=== PATIENT | female | born 1950 | race Caucasian/White ===

== ENCOUNTER → 2017-02-20 | Outpatient (CLI) | payer OTHER ==
[~2017-02-20] MED LIST: ALBUAER2 INH; AMB5 PO; AMLO2.5T PO; ASPEC81 PO; CALC-393 PO; CALCTAB5 PO; FEXO1TAB49 PO; FLNIN NAE; FLNIN/ NAE; LEVO88TA3 PO; LISI40TA PO; METH4PAK PO; NRV/10 PO; PRLSR20 PO; RANI150T3 PO; SIMV20TA2 PO; SNG10 PO; VNTHFA/IN INH; [UNRECOGNIZED DRUG - CODE] PO
--- NOTE | 2017-02-20 13:41 | DIAGNOSTIC IMAGING REPORT ---
LEFT KNEE 4 OR MORE CLINICAL HISTORY: LEFT KNEE PAIN COMPARISON STUDY: Left knee 09/24/2010. FINDINGS: Moderate cartilage space narrowing and marginal osteophytes within the medial compartments of the bilateral knees. No fracture or dislocation. No significant left knee effusion. There is mild left patellofemoral osteoarthritis. IMPRESSION: No fractures within the left knee. Bilateral knee osteoarthritis as described above Electronically signed by: Butch Balderas M.D. 02/20/2017 1:39 PM Dictated Date/Time: 02/20/2017 1:37 PM
--- NOTE | 2017-02-20 13:43 | DIAGNOSTIC IMAGING REPORT ---
LEG LENGTH STUDY (WHOLE LEG) CLINICAL HISTORY: Left knee pain. COMPARISON STUDY: No previous studies for comparison. FINDINGS: Right femur measures 44.2 cm and right tibia measures 35.6 cm. The left femur measures 44.2 cm and the left tibia measures 35.5 cm. IMPRESSION: Right femur length of 44.2 cm and right tibia length of 35.6 cm for a right leg length of 79.8 cm. Left femur length of 44.2 cm and left tibia length of 35.5 cm for a left leg length of 79.7 cm. Electronically signed by: Jimenez Mckeon M.D. 02/20/2017 1:41 PM Dictated Date/Time: 02/20/2017 1:37 PM
== END | disposition home or self-care (01) ==
LOC: C.RDSM 11:11
PROVIDERS: ATTEND Physician Assistant
DX: M17.9 Osteoarthritis of knee, unspecified (principal)

== ENCOUNTER 2017-04-18 12:00 | Inpatient (IN) | payer OTHER ==
[~2017-04-18] VITALS: Ht 160 cm; Wt 65.5 kg
[~2017-04-18 12:00] MED LIST changes: -AMB5 PO; -CALC-393 PO; -FLNIN/ NAE; -METH4PAK PO; -NRV/10 PO; -RANI150T3 PO; -SNG10 PO; -VNTHFA/IN INH; -[UNRECOGNIZED DRUG - CODE] PO
[2017-04-18] MEDS ORDERED: ONDANSETRON INJ 2 MG/ML 2 ML VIAL IV STA (12:20)
[2017-04-18] MEDS ORDERED: SODIUM CHLORIDE 0.9% 500ML 500 ML IV STA (12:20)
[2017-04-18 13:00] LABS: BASO % 0.2 %; BASO ABS # 0.02 K/uL (0-0.2); COMPLETE YES; EOS % 2.5 %; HEMATOCRIT 42.3 % (37-47); IG% 0.1 %; LYMPH % 13.9 %; LYMPH ABS # 1.48 K/uL (1.2-3.4); MEAN CELL VOLUME 86.2 fL (80-100); MEAN CORPUSCULAR HEMOGLOBIN 29.3 pg (25-34); MONO % 3.1 %; NEUT % 80.2 %; PLATELET COUNT 206 K/uL (130-400); RED BLOOD COUNT 4.91 M/uL (4.2-5.4); WHITE BLOOD COUNT 10.66 K/uL (4.8-10.8)
[2017-04-18] MEDS ORDERED: OPTIRAY 320 IV PRN (13:00)
[2017-04-18] MEDS ORDERED: MoRPHine SULFATE 4 MG/ML 1 ML CARP\\VIAL IV STA (13:06)
[2017-04-18] MEDS ORDERED: CALC-393 PO (13:27)
[2017-04-18] MEDS ORDERED: [UNRECOGNIZED DRUG - CODE] PO (13:27)
[2017-04-18] MEDS ORDERED: FLNIN/ NAE (13:27)
[2017-04-18] MEDS ORDERED: VNTHFA/IN INH (13:27)
[2017-04-18] MEDS ORDERED: NRV/10 PO (13:28)
[2017-04-18] MEDS ORDERED: SNG10 PO (13:29)
[2017-04-18 13:32] LABS: PREG INTERNAL NEGATIVE QC NEG CLEAR BACKGROUND; PREG INTERNAL POSITIVE QC POS CONTROL LINE
[2017-04-18 13:35] LABS: URINE APPEARANCE CLEAR (CLEAR); URINE BILIRUBIN NEG (NEG); URINE COLOR DK YELLOW; URINE NITRITE NEG (NEG); URINE SPECIFIC GRAVITY 1.028 (1.000-1.030); UROBILINOGEN NEG (NEG); ZZUR CULT IF INDIC CLEAN CATCH NO
[2017-04-18 13:36] LABS: MANUAL MICROSCOPIC REQUIRED? NO; REVIEW REQ? NO
[2017-04-18 13:40] LABS: ALKALINE PHOSPHATASE 83 U/L (45-117); ALT/SGPT 93 U/L (12-78); BLOOD UREA NITROGEN 21 mg/dl (7-18); BUN/CREATININE RATIO 23.6 (10-20); CALCIUM 8.9 mg/dl (8.5-10.1); CARBON DIOXIDE 26 mmol/L (21-32); CHLORIDE 105 mmol/L (98-107); GLUCOSE 108 mg/dl (70-99); SODIUM 139 mmol/L (136-145)
--- NOTE | 2017-04-18 14:54 | DIAGNOSTIC IMAGING REPORT ---
CT ABD/PELVIS IV CONTRAST ONLY CLINICAL HISTORY: epigastric abd pain COMPARISON STUDY: None. TECHNIQUE: Following the IV administration of 117 mL of Optiray-320, CT scan of the abdomen and pelvis was performed from the lung bases to the proximal femurs. Images are reviewed in the axial, sagittal, and coronal planes. IV contrast was administered without complication. CT DOSE: 284.36 mGy.cm FINDINGS: Lower chest: There is slight mosaic attenuation. There are right middle lobe atelectatic changes. There is a branching right middle lobe opacity, possibly secondary to mucoid impaction. Liver: The contrast-enhanced liver is normal in size, contour, and attenuation. There is no intrahepatic biliary ductal dilatation. The hepatic veins and portal veins are patent. Gallbladder: Not visualized and presumed surgically absent. Spleen: Normal in size and attenuation. Pancreas: Unremarkable. Adrenal glands: Unremarkable. Kidneys: There is symmetric renal cortical enhancement. The kidneys are normal in size without hydronephrosis. Bowel: There are no transition zones indicate bowel obstruction. There is no evidence of acute diverticulitis. The appendix appears normal. Borderline left colonic wall thickening is likely secondary to a nondistended segment. Peritoneum: There is no intraperitoneal free air or abdominal ascites. Vasculature: The abdominal aorta is normal in course and caliber. Adenopathy: None. Pelvic viscera: The uterus appears surgically absent Skeletal structures: There are multilevel degenerative changes. There is a prominent disc osteophyte complex at the L5-S1 level. IMPRESSION: 1. No evidence of bowel obstruction. No evidence of free air 2. Normal appendix 3. No evidence of acute diverticulitis. No CT evidence of peripancreatic inflammatory change 4. Branching opacity within the right middle lobe, possibly representing mucoid impaction Electronically signed by: Bora Corbett M.D. 04/18/2017 2:52 PM Dictated Date/Time: 04/18/2017 2:47 PM
--- NOTE | 2017-04-18 15:28 | EMERGENCY ROOM VISIT NOTE ---
History Report prepared by Alexandro: Dave Choudhury Under the Supervision of: Dr. Ajit Hernandez D.O. First contact with patient: 12:10 Chief Complaint: ABDOMINAL PAIN Stated Complaint: STOMACH PAINS Nursing Triage Summary: c/o epigastric stomache spasms that makes it hard to breathe and goes to her back that started today History of Present Illness The patient is a 66 year old female who presents to the Emergency Room with complaints of intermittent upper abdominal pain beginning this morning. She describes the pain as "spasms". She states that eating worsens her pain. She does not that she has a significant amount of nausea and feels like she is going to vomit. The patient states that nothing improves her symptoms. She also complains of diarrhea and nausea. She has a history of a cholecystectomy. Pt denies headache, change in vision, fevers, chest pain, diarrhea, pain with urination, and melena. The patient states that it is hard to breath when her pain is present. Her last normal bowel movement was three hours ago. Source of History: patient Onset: this morning Position: abdomen (upper) Quality: other ("spasms") Timing: intermittent Modifying Factors (Worsening): eating Associated Symptoms: + nausea, + diarrhea, No fevers, No chest pain, No vomiting, No urinary symptoms Review of Systems See HPI for pertinent positives & negatives. A total of 10 systems reviewed and were otherwise negative. 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 Social History Smoking Status: Never Smoker Current/Historical Medications Scheduled Amlodipine Besylate (Amlodipine Besylate), 10 MG PO QPM Aspirin (Aspirin Enteric Coated Ad), 81 MG PO QPM Calcium Carbonate (Calcium), 600 MG PO QPM Levothyroxine Sodium (Levothyroxine Sodium), 88 MCG PO DAILY Lisinopril (Prinivil), 40 MG PO QPM Montelukast Sod (Montelukast Sodium), 10 MG PO QPM Omeprazole (Prilosec), 40 MG PO DAILY Simvastatin (Zocor), 20 MG PO QPM Scheduled PRN Albuterol Hfa (Ventolin Hfa), 2 PUFFS INH QID PRN for Wheezing Fexofenadine Hcl (Yolande Allergy), 1 TAB PO DAILY PRN for ALLERGIC REACTION Fluticasone Propionate (Fluticasone Propionate), 2 SPRAY NICA DAILY PRN for Nasal Congestion Allergies Coded Allergies: Amoxicillin (Verified Allergy, Unknown, GI SYMPTOMS,ITCH, 04/18/17) Clavulanic Acid (Verified Allergy, Unknown, GI SYMPTOMS,ITCH, 04/18/17) Physical Exam Vital Signs Date Time Temp Pulse Resp B/P (MAP) Pulse Ox O2 Delivery O2 Flow Rate FiO2 04/18/17 14:55 70 18 143/64 99 Room Air 04/18/17 13:14 76 18 147/67 99 Room Air 04/18/17 12:07 36.3 87 16 141/75 99 Physical Exam GENERAL: Sitting up in bed, alert, well appearing, well nourished, no distress, non-toxic EYE EXAM: normal conjunctiva OROPHARYNX: no exudate, no erythema, lips, buccal mucosa, and tongue normal and mucous membranes are moist NECK: supple, no nuchal rigidity, no adenopathy, non-tender LUNGS: Clear to auscultation. Normal chest wall mechanics HEART: no murmurs, S1 normal and S2 normal ABDOMEN: abdomen soft,Minimal tenderness to the supraumbilical region. normo- active bowel sounds, no masses, no rebound or guarding. BACK: Back is symmetrical on inspection and there is no deformity, no midline tenderness, no CVA tenderness. SKIN: no rashes and no bruising UPPER EXTREMITIES: upper extremities are grossly normal. LOWER EXTREMITIES: No pitting edema. NEURO EXAM: Normal sensorium, cranial nerves II-XII grossly intact, normal speech, no gross weakness of arms, no gross weakness of legs. Medical Decision & Procedures ER Provider Diagnostic Interpretation: CT:Per my review, radiologist interpretation. CT ABD/PELVIS IV CONTRAST ONLY FINDINGS: Lower chest: There is slight mosaic attenuation. There are right middle lobe atelectatic changes. There is a branching right middle lobe opacity, possibly secondary to mucoid impaction. Liver: The contrast-enhanced liver is normal in size, contour, and attenuation. There is no intrahepatic biliary ductal dilatation. The hepatic veins and portal veins are patent. Gallbladder: Not visualized and presumed surgically absent. Spleen: Normal in size and attenuation. Pancreas: Unremarkable. Adrenal glands: Unremarkable. Kidneys: There is symmetric renal cortical enhancement. The kidneys are normal in size without hydronephrosis. Bowel: There are no transition zones indicate bowel obstruction. There is no evidence of acute diverticulitis. The appendix appears normal. Borderline left colonic wall thickening is likely secondary to a nondistended segment. Peritoneum: There is no intraperitoneal free air or abdominal ascites. Vasculature: The abdominal aorta is normal in course and caliber. Adenopathy: None. Pelvic viscera: The uterus appears surgically absent Skeletal structures: There are multilevel degenerative changes. There is a prominent disc osteophyte complex at the L5-S1 level. IMPRESSION: 1. No evidence of bowel obstruction. No evidence of free air 2. Normal appendix 3. No evidence of acute diverticulitis. No CT evidence of peripancreatic inflammatory change 4. Branching opacity within the right middle lobe, possibly representing mucoid impaction Electronically signed by: Bora Corbett M.D. Laboratory Results 04/18/17 12:30 Red Blood Count 4.91, Mean Corpuscular Volume 86.2, Mean Corpuscular Hemoglobin 29.3, Mean Corpuscular Hemoglobin Concent 34.0, Mean Platelet Volume 10.0, Neutrophils (%) (Auto) 80.2, Lymphocytes (%) (Auto) 13.9, Monocytes (%) (Auto) 3.1, Eosinophils (%) (Auto) 2.5, Basophils (%) (Auto) 0.2, Neutrophils # (Auto) 8.55, Lymphocytes # (Auto) 1.48, Monocytes # (Auto) 0.33, Eosinophils # (Auto) 0.27, Basophils # (Auto) 0.02 04/18/17 12:30 Test 04/18/17 12:30 White Blood Count 10.66 K/uL (4.8-10.8) Red Blood Count 4.91 M/uL (4.2-5.4) Hemoglobin 14.4 g/dL (12.0-16.0) Hematocrit 42.3 % (37-47) Mean Corpuscular Volume 86.2 fL (80-100) Mean Corpuscular Hemoglobin 29.3 pg (25-34) Mean Corpuscular Hemoglobin Concent 34.0 g/dl (32-36) Platelet Count 206 K/uL (130-400) Mean Platelet Volume 10.0 fL (7.4-10.4) Neutrophils (%) (Auto) 80.2 % Lymphocytes (%) (Auto) 13.9 % Monocytes (%) (Auto) 3.1 % Eosinophils (%) (Auto) 2.5 % Basophils (%) (Auto) 0.2 % Neutrophils # (Auto) 8.55 K/uL (1.4-6.5) Lymphocytes # (Auto) 1.48 K/uL (1.2-3.4) Monocytes # (Auto) 0.33 K/uL (0.11-0.59) Eosinophils # (Auto) 0.27 K/uL (0-0.5) Basophils # (Auto) 0.02 K/uL (0-0.2) RDW Standard Deviation 41.2 fL (36.4-46.3) RDW Coefficient of Variation 13.1 % (11.5-14.5) Immature Granulocyte % (Auto) 0.1 % Immature Granulocyte # (Auto) 0.01 K/uL (0.00-0.02) Urine Color DK YELLOW Urine Appearance CLEAR (CLEAR) Urine pH 5.0 (4.5-7.5) Urine Specific [place] 1.028 (1.000-1.030) Urine Protein NEG (NEG) Urine Glucose (UA) NEG (NEG) Urine Ketones NEG (NEG) Urine Occult Blood NEG (NEG) Urine Nitrite NEG (NEG) Urine Bilirubin NEG (NEG) Urine Urobilinogen NEG (NEG) Urine Leukocyte Esterase NEG (NEG) Urine WBC (Auto) 1-5 /hpf (0-5) Urine RBC (Auto) 0-4 /hpf (0-4) Urine Hyaline Casts (Auto) 1-5 /lpf (0-5) Urine Epithelial Cells (Auto) 10-20 /lpf (0-5) Urine Bacteria (Auto) NEG (NEG) Urine Test NEG (NEG) Anion Gap 8.0 mmol/L (3-11) Est Creatinine Clear Calc Drug Dose 55.4 ml/min Estimated GFR () 76.7 Estimated GFR (Non- 66.2 BUN/Creatinine Ratio 23.6 (10-20) Calcium Level 8.9 mg/dl (8.5-10.1) Total Bilirubin 0.6 mg/dl (0.2-1) Direct Bilirubin mg/dl (0-0.2) Aspartate Amino Transf (AST/SGOT) U/L (15-37) Alanine Aminotransferase (ALT/SGPT) 93 U/L (12-78) Alkaline Phosphatase 83 U/L (45-117) Total Protein 7.4 gm/dl (6.4-8.2) Albumin 4.1 gm/dl (3.4-5.0) Lipase 2727 U/L (73-393) Laboratory results per my review. Medications Administered Medications (Trade) Dose Ordered Sig/Elizabet Route Start Time Stop Time Status Last Admin Dose Admin Sodium Chloride 500 ml @ 999 mls/hr Q31M STAT IV 04/18/17 12:20 04/18/17 12:50 DC 04/18/17 12:20 999 MLS/HR Ondansetron HCl (Zofran Inj) 4 mg NOW STAT IV 04/18/17 12:20 04/18/17 12:21 DC 04/18/17 13:13 4 MG Morphine Sulfate (MoRPHine SULFATE INJ) 4 mg NOW STAT IV 04/18/17 13:06 04/18/17 13:07 DC 04/18/17 13:14 4 MG ED Course ED COURSE: Vital signs were reviewed and showed hypertension The patients medical record was reviewed The above diagnostic studies were performed and reviewed. ED treatments and interventions as stated above. 1212: The patient was evaluated in room B6. A complete history and physical examination was performed. 1220: Ordered Zofran Inj 4 mg IV, Sodium Chloride 500 ml @ 999 mls/hr IV. 1306: Ordered Morphine Sulfate 4 mg IV. 1401: Upon reevaluation, the patient is resting comfortably. I discussed my findings with the patient and she understands and agrees with the treatment plan. Based on the patients age, coexisting illnesses, exam and lab findings the decision to treat as an inpatient was made. The patient remained stable while under my care. The patient will be evaluated for further management. Medical Decision Differential diagnoses includes but is not limited to gastritis, peptic ulcer disease, GERD, gallbladder disease, pancreatitis, small bowel obstruction, acute coronary syndrome, pericarditis, ischemic bowel, irritable bowel disease, irritable bowel syndrome, appendicitis, diverticulitis, malignancy, hernia, urinary tract infection, torsion, [/ectopic (if female)], perforation, trauma, infectious. Patient is a 66-year-old female who presents the ER for epigastric abdominal pain associated with nausea and the feeling of vomiting. Labs show a lipase of 2000. She has a previous cholecystectomy. CT of the abdomen and pelvis was otherwise unremarkable. Patient was given IV fluids and pain medications. She was admitted to internal medicine for pancreatitis. Consults Time Called: 1616 Consulting Physician: Dr. Matheus Uribe Returned Call: 1401 I reviewed the patient's case with Dr. Jarvis. She will evaluate the patient for further management. Impression Primary Impression: Pancreatitis Scribe Attestation The scribe's documentation has been prepared under my direction and personally reviewed by me in its entirety. I confirm that the note above accurately reflects all work, treatment, procedures, and medical decision making performed by me. Departure Information Dispostion Being Evaluated By Hospitalist Referrals Jose Antonio Almazan M.D. (PCP) Patient Instructions My [facility] Problem Qualifiers Primary Impression: Pancreatitis Chronicity: acute Pancreatitis type: unspecified pancreatitis type Acute pancreatitis complication: unspecified Qualified Codes: K85.90 - Acute pancreatitis without necrosis or infection, unspecified
[2017-04-18 17:42] VITALS: O2SAT 96
[2017-04-18] MEDS ORDERED: ACETAMINOPHEN 325 MG TAB PO PRN (17:45)
[2017-04-18] MEDS ORDERED: ONDANSETRON INJ 2 MG/ML 2 ML VIAL IV PRN (17:45)
[2017-04-18] MEDS ORDERED: MoRPHine SULFATE 2 MG/ML CARP IV PRN (17:45)
[2017-04-18] MEDS ORDERED: ALBUTEROL HFA 8 GM INHALER INH PRN (18:00)
[2017-04-18] MEDS ORDERED: FLUTICASONE PROPIONATE NA SPR 16 GM BTL NAE PRN (18:00)
--- NOTE | 2017-04-18 18:03 | History and Physical ---
History & Physical Date & Time of Service: Apr 18, 2017 at 17:48 Chief Complaint: Stomach Pains Primary Care Physician: Jose Antonio Almazan M.D. History of Present Illness Source: patient, clinic records, hospital records 66 yo F presents with several hours of worsening abdominal pain and persistent diarrhea. She awoke this morning feeling intermittent spasms in her epigastric area. She began having diarrhea and thought if she ate this would help her feel better so she ate some toast. She continued to have intermittent pains that would last 10 minutes at a time along with several more bouts of diarrhea. Although she felt nautious she never vomited. She denies any blood in her stool. She denies ever having a pain like this in the past. She denies any fevers, chills, chest pain, headaches, visual changes, sore throat, cough, urinary symptoms, weight gain or recent travel. She reports eating a pork sandwich w BBQ sauce on it from [employer] last night and otherwise had some food at home only yesterday. Her also ate there but didn't have the same dish and he is not ill today. On arrival to the ER she got some IVF, morphine and Zofran and feels better. Her lipase is >2000 and she has localized epigastric tenderness on exam with normoactive bowel sounds. CT a/p was negative. h/o j luis in the past for gallstones, and she doesn't use alcohol. No recent abx use and only medication change was a change in Norvasc from 5 to 10mg. She does have some SOB only when the spasming is present but is not hypoxic. Past Medical/Surgical History Medical Problems: (1) Dyslipidemia Status: Chronic (2) Hearing Loss Nos Status: Chronic (3) Hx Of Breast Malignancy Status: Resolved (4) Hypertension Nos Status: Chronic (5) Hypothyroidism Nos Status: Chronic Surgical Problems: (1) Status post breast lumpectomy Status: Resolved (2) Status post excision of acoustic neuroma Status: Resolved (3) Status post hysterectomy Status: Resolved Family History Patient reports no known family medical history. Social History Smoking Status: Never Smoker Smokeless Tobacco Use: No Alcohol Use: none Drug Use: none Marital Status: Housing status: lives with significant other Occupational Status: retired Immunizations History of Influenza Vaccine: Yes Influenza Vaccine Date: Aug 29, 2016 History of Tetanus Vaccine?: Yes Tetanus Immunization Date: Jan 21, 2013 History of Pneumococcal: Yes Pneumococcal Date: Dec 14, 2015 History of Hepatitis B Vaccine: No Multi-Drug Resistant Organisms History of MDRO: No Allergies Coded Allergies: Amoxicillin (Verified Allergy, Unknown, GI SYMPTOMS,ITCH, 04/18/17) Clavulanic Acid (Verified Allergy, Unknown, GI SYMPTOMS,ITCH, 04/18/17) Home Medications Scheduled Amlodipine Besylate (Amlodipine Besylate), 10 MG PO QPM Aspirin (Aspirin Enteric Coated Ad), 81 MG PO QPM Calcium Carbonate (Calcium), 600 MG PO QPM Levothyroxine Sodium (Levothyroxine Sodium), 88 MCG PO DAILY Lisinopril (Prinivil), 40 MG PO QPM Montelukast Sod (Montelukast Sodium), 10 MG PO QPM Omeprazole (Prilosec), 40 MG PO DAILY Simvastatin (Zocor), 20 MG PO QPM Scheduled PRN Albuterol Hfa (Ventolin Hfa), 2 PUFFS INH QID PRN for Wheezing Fexofenadine Hcl (Yolande Allergy), 1 TAB PO DAILY PRN for ALLERGIC REACTION Fluticasone Propionate (Fluticasone Propionate), 2 SPRAY NICA DAILY PRN for Nasal Congestion Review of Systems Ten systems were reviewed and negative except as indicated in HPI. Physical Exam Vital Signs Date Time Temp Pulse Resp B/P (MAP) Pulse Ox O2 Delivery O2 Flow Rate FiO2 04/18/17 17:42 76 18 156/78 96 Room Air 04/18/17 14:55 70 18 143/64 99 Room Air 04/18/17 13:14 76 18 147/67 99 Room Air 04/18/17 12:07 36.3 87 16 141/75 99 GEN: WNWD, in no acute distress, alert and appropriate HEENT: NC/AT, PERRL, normal sclerae/conjunctivae, MMM, EOMI, pharynx nonacute. CARDIO: reg rate, S1/2 heard without m/g/r, no chest wall tenderness to palpation LUNGS: CTA bilaterally, no crackles, rales or wheezes, good diaphragmatic excursion ABD: soft, TTP in epigastric region only, non-distended, no rebound or guarding , +BS-normoactive. EXTREMITY: RP and DP palpable 2+ bilat, no LE swelling or edema, extremities are warm and well-perfused NEURO: CN 2-12 intact, sensation intact throughout MUSC: 5/5 strength throughout, no focal deficits SKIN: warm and dry Diagnostics Laboratory Results Results Past 24 Hours Test 04/18/17 12:30 Range/Units White Blood Count 10.66 4.8-10.8 K/uL Red Blood Count 4.91 4.2-5.4 M/uL Hemoglobin 14.4 12.0-16.0 g/dL Hematocrit 42.3 37-47 % Mean Corpuscular Volume 86.2 80-100 fL Mean Corpuscular Hemoglobin 29.3 25-34 pg Mean Corpuscular Hemoglobin Concent 34.0 32-36 g/dl Platelet Count 206 130-400 K/uL Mean Platelet Volume 10.0 7.4-10.4 fL Neutrophils (%) (Auto) 80.2 % Lymphocytes (%) (Auto) 13.9 % Monocytes (%) (Auto) 3.1 % Eosinophils (%) (Auto) 2.5 % Basophils (%) (Auto) 0.2 % Neutrophils # (Auto) 8.55 1.4-6.5 K/uL Lymphocytes # (Auto) 1.48 1.2-3.4 K/uL Monocytes # (Auto) 0.33 0.11-0.59 K/uL Eosinophils # (Auto) 0.27 0-0.5 K/uL Basophils # (Auto) 0.02 0-0.2 K/uL RDW Standard Deviation 41.2 36.4-46.3 fL RDW Coefficient of Variation 13.1 11.5-14.5 % Immature Granulocyte % (Auto) 0.1 % Immature Granulocyte # (Auto) 0.01 0.00-0.02 K/uL Urine Color DK YELLOW Urine Appearance CLEAR CLEAR Urine pH 5.0 4.5-7.5 Urine Specific [place] 1.028 1.000-1.030 Urine Protein NEG NEG Urine Glucose (UA) NEG NEG Urine Ketones NEG NEG Urine Occult Blood NEG NEG Urine Nitrite NEG NEG Urine Bilirubin NEG NEG Urine Urobilinogen NEG NEG Urine Leukocyte Esterase NEG NEG Urine WBC (Auto) 1-5 0-5 /hpf Urine RBC (Auto) 0-4 0-4 /hpf Urine Hyaline Casts (Auto) 1-5 0-5 /lpf Urine Epithelial Cells (Auto) 10-20 0-5 /lpf Urine Bacteria (Auto) NEG NEG Urine Test NEG NEG Sodium Level 139 136-145 mmol/L Potassium Level 3.5-5.1 mmol/L Chloride Level 105 98-107 mmol/L Carbon Dioxide Level 26 21-32 mmol/L Anion Gap 8.0 3-11 mmol/L Blood Urea Nitrogen 21 7-18 mg/dl Creatinine 0.90 0.60-1.20 mg/dl Est Creatinine Clear Calc Drug Dose 55.4 ml/min Estimated GFR () 76.7 Estimated GFR (Non- 66.2 BUN/Creatinine Ratio 23.6 10-20 Random Glucose 108 70-99 mg/dl Calcium Level 8.9 8.5-10.1 mg/dl Total Bilirubin 0.6 0.2-1 mg/dl Direct Bilirubin 0-0.2 mg/dl Aspartate Amino Transf (AST/SGOT) 15-37 U/L Alanine Aminotransferase (ALT/SGPT) 93 12-78 U/L Alkaline Phosphatase 83 45-117 U/L Total Protein 7.4 6.4-8.2 gm/dl Albumin 4.1 3.4-5.0 gm/dl Lipase 2727 73-393 U/L Diagnostic Radiology CT ABD/PELVIS IV CONTRAST ONLY CLINICAL HISTORY: epigastric abd pain COMPARISON STUDY: None. TECHNIQUE: Following the IV administration of 117 mL of Optiray-320, CT scan of the abdomen and pelvis was performed from the lung bases to the proximal femurs. Images are reviewed in the axial, sagittal, and coronal planes. IV contrast was administered without complication. CT DOSE: 284.36 mGy.cm FINDINGS: Lower chest: There is slight mosaic attenuation. There are right middle lobe atelectatic changes. There is a branching right middle lobe opacity, possibly secondary to mucoid impaction. Liver: The contrast-enhanced liver is normal in size, contour, and attenuation. There is no intrahepatic biliary ductal dilatation. The hepatic veins and portal veins are patent. Gallbladder: Not visualized and presumed surgically absent. Spleen: Normal in size and attenuation. Pancreas: Unremarkable. Adrenal glands: Unremarkable. Kidneys: There is symmetric renal cortical enhancement. The kidneys are normal in size without hydronephrosis. Bowel: There are no transition zones indicate bowel obstruction. There is no evidence of acute diverticulitis. The appendix appears normal. Borderline left colonic wall thickening is likely secondary to a nondistended segment. Peritoneum: There is no intraperitoneal free air or abdominal ascites. Vasculature: The abdominal aorta is normal in course and caliber. Adenopathy: None. Pelvic viscera: The uterus appears surgically absent Skeletal structures: There are multilevel degenerative changes. There is a prominent disc osteophyte complex at the L5-S1 level. IMPRESSION: 1. No evidence of bowel obstruction. No evidence of free air 2. Normal appendix 3. No evidence of acute diverticulitis. No CT evidence of peripancreatic inflammatory change 4. Branching opacity within the right middle lobe, possibly representing mucoid impaction EKG SR 82 Impression Assessment and Plan 66 yo F with no h/o pancreatitis presents today with acute pancreatitis. 1. Acute pancreatitis-likely 2/2 food borne illness in the setting of acute diarrhea and eating out last night. However, other etiologies include but not limited to spasms of bile duct, high triglycerides, bacterial, viral or fungal infection, She will be continued on supportive care for now keeping NPO except for ice chips with small sips and a limited amount of PO meds. Stool studies have been ordered. Morphine for pain, Zofran for nausea. Monitor overnight on telemetry 2. Hypothyroidism-TSH pending for am, cont Synthroid at home dose 3. 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 h/o hiatal hernia DVT proph-Lovenox 40mg FULL CODE Dispo-to telemetry overnight DO Ralph Monk Hospitalist Level of Care Telemetry Resuscitation Status FULL RESUSCITATION VTE Prophylaxis VTE Risk Assessment Done? Y/N: Yes Risk Level: Moderate Given or contraindicated: Enoxaparin (Lovenox)SQ
[2017-04-18] MEDS: SODIUM CHLORIDE 0.9% 1000ML 1,000 ML IV SCH ×2 (18:19→22:44)
[2017-04-18 18:20] VITALS: Ht 160 cm; Wt 65.5 kg
[2017-04-18 18:38] VITALS: BP 150/71; PULSE 79; TEMP 36.9; O2SAT 95
[2017-04-18] MEDS ORDERED: NURSING VERBAL MED ORDER ONE ×2 (19:15→22:30)
[2017-04-18] MEDS ORDERED: LEVOTHYROXINE 88 MCG TAB PO SCH (21:00)
[2017-04-18] MEDS ORDERED: LISINOPRIL 40 MG TAB PO SCH (21:00)
[2017-04-18] MEDS: AMLODIPINE BESYLATE 5 MG TAB PO SCH (21:27)
[2017-04-18] MEDS: LISINOPRIL 40 MG TAB PO SCH (21:27)
[2017-04-18] MEDS: PANTOprazole SOD 40 MG TAB PO SCH (21:27)
[2017-04-19] VITALS (7 sets, daily range): BP systolic 104–145; BP diastolic 61–77; PULSE 62–85; TEMP 36.4–37.1; O2SAT 95–98
[2017-04-19] MEDS ORDERED: MONTELUKAST SOD 10 MG TAB PO ONE (01:38)
[2017-04-19] MEDS: LEVOTHYROXINE 88 MCG TAB PO SCH (05:58)
[2017-04-19] MEDS ORDERED: LEVOTHYROXINE 88 MCG TAB PO SCH (06:30)
[2017-04-19 07:46] LABS: BASO % 0.8 %; BASO ABS # 0.03 K/uL (0-0.2); COMPLETE YES; EOS % 4.9 %; HEMATOCRIT 40.3 % (37-47); LYMPH % 28.1 %; LYMPH ABS # 1.09 K/uL (1.2-3.4); MEAN CELL VOLUME 86.9 fL (80-100); MEAN CORPUSCULAR HEMOGLOBIN 29.7 pg (25-34); MEAN CORPUSCULAR HGB CONC 34.2 g/dl (32-36); MEAN PLATELET VOLUME 9.9 fL (7.4-10.4); MONO % 4.4 %; NEUT % 61.8 %; PLATELET COUNT 180 K/uL (130-400); RED BLOOD COUNT 4.64 M/uL (4.2-5.4); WHITE BLOOD COUNT 3.88 K/uL (4.8-10.8)
[2017-04-19 08:52] LABS: BUN/CREATININE RATIO 13.5 (10-20); CALCIUM 8.2 mg/dl (8.5-10.1); CREATININE 0.62 mg/dl (0.60-1.20); MAGNESIUM 2.2 mg/dl (1.8-2.4); PHOSPHORUS 2.7 mg/dl (2.5-4.9); POTASSIUM 3.6 mmol/L (3.5-5.1)
[2017-04-19] MEDS ORDERED: AMLODIPINE BESYLATE 5 MG TAB PO SCH (09:00)
[2017-04-19] MEDS ORDERED: PANTOprazole SOD 40 MG TAB PO SCH (09:00)
[2017-04-19] MEDS: FEXOFENADINE HCL 180 MG TAB PO PRN (09:32)
[2017-04-19] MEDS ORDERED: ZOLPIDEM TARTRATE 5 MG TAB PO PRN (12:45)
[2017-04-19] MEDS: AMLODIPINE BESYLATE 5 MG TAB PO SCH (20:55)
[2017-04-19] MEDS: PANTOprazole SOD 40 MG TAB PO SCH (20:56)
[2017-04-19] MEDS: LISINOPRIL 40 MG TAB PO SCH (20:56)
[2017-04-19] MEDS ORDERED: MONTELUKAST SOD 10 MG TAB PO SCH (21:00)
--- NOTE | 2017-04-19 23:32 | Progress Note ---
Medicine Progress Note Date & Time of Visit: Apr 19, 2017 at 12:00 . Subjective Admitted yesterday with pancreatitis. Feels much better today. No abdominal pain, nausea, vomiting. Diarrhea resolved. No fever. No chest pain. No cough or shortness of breath. . Objective Last 8 Hrs Date Time Temp Pulse Resp B/P (MAP) Pulse Ox O2 Delivery O2 Flow Rate FiO2 04/19/17 23:19 36.6 76 16 104/62 (76) 96 Room Air 04/19/17 20:05 Room Air 04/19/17 19:45 37.1 62 18 127/72 (90) 97 Room Air 04/19/17 16:00 Room Air 04/19/17 15:42 36.4 68 16 145/77 (99) 98 Room Air Physical Exam: General- no distress Eyes- anicteric Neck- no JVD Lungs- clear to auscultation Heart- regular Abdomen- nondistended, normal bowel sounds, soft, nontender, no palpable masses Extremities- no pretibial edema or calf tenderness Neuro- alert, oriented . Laboratory Results: Last 24 Hours Test 04/19/17 07:23 White Blood Count 3.88 K/uL Red Blood Count 4.64 M/uL Hemoglobin 13.8 g/dL Hematocrit 40.3 % Mean Corpuscular Volume 86.9 fL Mean Corpuscular Hemoglobin 29.7 pg Mean Corpuscular Hemoglobin Concent 34.2 g/dl Platelet Count 180 K/uL Mean Platelet Volume 9.9 fL Neutrophils (%) (Auto) 61.8 % Lymphocytes (%) (Auto) 28.1 % Monocytes (%) (Auto) 4.4 % Eosinophils (%) (Auto) 4.9 % Basophils (%) (Auto) 0.8 % Neutrophils # (Auto) 2.40 K/uL Lymphocytes # (Auto) 1.09 K/uL Monocytes # (Auto) 0.17 K/uL Eosinophils # (Auto) 0.19 K/uL Basophils # (Auto) 0.03 K/uL RDW Standard Deviation 42.4 fL RDW Coefficient of Variation 13.1 % Immature Granulocyte % (Auto) 0.0 % Immature Granulocyte # (Auto) 0.00 K/uL Sodium Level 145 mmol/L Potassium Level 3.6 mmol/L Chloride Level 112 mmol/L Carbon Dioxide Level 27 mmol/L Anion Gap 6.0 mmol/L Blood Urea Nitrogen 8 mg/dl Creatinine 0.62 mg/dl Est Creatinine Clear Calc Drug Dose 80.9 ml/min Estimated GFR () 108.1 Estimated GFR (Non- 93.3 BUN/Creatinine Ratio 13.5 Random Glucose 93 mg/dl Calcium Level 8.2 mg/dl Phosphorus Level 2.7 mg/dl Magnesium Level 2.2 mg/dl Triglycerides Level 46 mg/dl Cholesterol Level 143 mg/dl HDL Cholesterol 70 mg/dl LDL Cholesterol, Calculated 64 mg/dl VLDL Cholesterol, Calculated 9 mg/dl Cholesterol/HDL Ratio 2.0 Lipase 231 U/L Assessment & Plan PANCREATITIS Presented to ED with epigastric pain and nausea. Serum lipase was 2727. CT of abdomen and pelvis did not show any pancreatic abnormalities. Initially managed with bowel rest, IV fluids, analgesics, antiemetics. Clinically improved today. Lipase has normalized. Triglycerides are normal. Advance diet. HYPERTENSION Continue usual meds. HYPOTHYROIDISM Continue levothyroxine. HISTORY OF PORTILLO'S ESOPHAGUS Continue PPI. VTE PROPHYLAXIS SCD's. Ambulate. DISPOSITION Expected discharge to home. Family Medicine follow-up with Dr. Almazan. . Procedures: CT abdomen and pelvis IV medications IV fluids . Current Inpatient Medications: Current Inpatient Medications Medications (Trade) Dose Ordered Sig/Elizabet Route Start Time Stop Time Status Last Admin Dose Admin Ioversol (Optiray 320) 125 ml UD PRN IV 04/18/17 13:00 04/22/17 12:59 Acetaminophen (Tylenol Tab) 650 mg Q4H PRN PO 04/18/17 17:45 05/18/17 17:44 04/19/17 04:16 650 MG Ondansetron HCl (Zofran Inj) 4 mg Q6H PRN IV 04/18/17 17:45 05/18/17 17:44 04/19/17 04:16 4 MG Morphine Sulfate (MoRPHine SULFATE INJ) 2 mg Q2H PRN IV 04/18/17 17:45 05/02/17 17:44 04/18/17 21:32 2 MG Albuterol (Ventolin Hfa Inhaler) 2 puffs QID PRN INH 04/18/17 18:00 05/18/17 17:59 Fluticasone Propionate (Flonase Nasal [place]) DAILY PRN NICA 04/18/17 18:00 05/18/17 17:59 Amlodipine Besylate (Norvasc Tab) 10 mg HS PO 04/18/17 21:00 05/18/17 20:59 04/19/17 20:55 10 MG Lisinopril (Zestril Tab) 40 mg HS PO 04/18/17 21:00 05/18/17 20:59 04/19/17 20:56 40 MG Pantoprazole Sodium (Protonix Tab) 40 mg HS PO 04/18/17 21:00 05/18/17 20:59 04/19/17 20:56 40 MG Levothyroxine Sodium (Synthroid Tab) 88 mcg DAILYBB PO 04/19/17 06:30 05/19/17 06:29 04/19/17 05:58 88 MCG Montelukast Sodium (Singulair Tab) 10 mg QPM PO 04/19/17 21:00 05/19/17 20:59 04/19/17 20:55 10 MG Fexofenadine HCl (Yolande Tab) 180 mg DAILY PRN PO 04/19/17 08:30 05/19/17 08:29 04/19/17 09:32 180 MG Zolpidem Tartrate (Ambien Tab) 5 mg HS PRN PO 04/19/17 12:45 05/19/17 12:44 04/19/17 22:23 5 MG
[2017-04-20 05:24] VITALS: BP 114/65; PULSE 75; TEMP 36.8; O2SAT 97
[2017-04-20] MEDS: LEVOTHYROXINE 88 MCG TAB PO SCH (05:58)
[2017-04-20 07:30] LABS: HEMATOCRIT 37.3 % (37-47); MEAN CELL VOLUME 86.5 fL (80-100); MEAN CORPUSCULAR HEMOGLOBIN 29.9 pg (25-34); MEAN CORPUSCULAR HGB CONC 34.6 g/dl (32-36); MEAN PLATELET VOLUME 9.9 fL (7.4-10.4); PLATELET COUNT 173 K/uL (130-400); RED BLOOD COUNT 4.31 M/uL (4.2-5.4); WHITE BLOOD COUNT 3.68 K/uL (4.8-10.8)
[2017-04-20 07:47] VITALS: BP 122/73; PULSE 63; TEMP 36.8; O2SAT 96
[2017-04-20 07:58] LABS: BUN/CREATININE RATIO 10.2 (10-20); CALCIUM 8.4 mg/dl (8.5-10.1); CREATININE 0.64 mg/dl (0.60-1.20); POTASSIUM 3.3 mmol/L (3.5-5.1)
[2017-04-20] MEDS: FEXOFENADINE HCL 180 MG TAB PO PRN (10:56)
[2017-04-20] MEDS ORDERED: POTASSIUM CHLORIDE 20 MEQ TABCR PO ONE (11:00)
[2017-04-20 12:00] VITALS: BP 153/80; PULSE 68; TEMP 36.7; O2SAT 96
[2017-04-20 14:53] VITALS: BP 153/80; PULSE 68; TEMP 36.7; O2SAT 96
--- NOTE | 2017-04-20 15:20 | Progress Note ---
Medicine Progress Note Date & Time of Visit: Apr 20, 2017 at 15:20 . Subjective Diet advanced. Tolerated breakfast and lunch without difficulty. No abdominal pain, nausea, vomiting, diarrhea. . Objective Last 8 Hrs Date Time Temp Pulse Resp B/P (MAP) Pulse Ox O2 Delivery O2 Flow Rate FiO2 04/20/17 14:53 36.7 68 18 96 Room Air 04/20/17 12:00 36.7 68 18 153/80 (104) 96 Room Air 04/20/17 12:00 Room Air 04/20/17 08:00 Room Air 04/20/17 07:47 36.8 63 18 122/73 (89) 96 Room Air Physical Exam: General- no distress Eyes- anicteric Neck- no JVD Lungs- clear to auscultation Heart- regular Abdomen- + BS, soft, nontender Extremities- no pretibial edema or calf tenderness Neuro- alert, oriented . Laboratory Results: Last 24 Hours Test 04/20/17 06:40 04/20/17 06:45 White Blood Count 3.68 K/uL Red Blood Count 4.31 M/uL Hemoglobin 12.9 g/dL Hematocrit 37.3 % Mean Corpuscular Volume 86.5 fL Mean Corpuscular Hemoglobin 29.9 pg Mean Corpuscular Hemoglobin Concent 34.6 g/dl RDW Standard Deviation 41.4 fL RDW Coefficient of Variation 12.9 % Platelet Count 173 K/uL Mean Platelet Volume 9.9 fL Thyroid Stimulating Hormone (TSH) 1.050 uIu/ml Sodium Level 145 mmol/L Potassium Level 3.3 mmol/L Chloride Level 109 mmol/L Carbon Dioxide Level 28 mmol/L Anion Gap 8.0 mmol/L Blood Urea Nitrogen 7 mg/dl Creatinine 0.64 mg/dl Est Creatinine Clear Calc Drug Dose 77.6 ml/min Estimated GFR () 107.0 Estimated GFR (Non- 92.3 BUN/Creatinine Ratio 10.2 Random Glucose 101 mg/dl Calcium Level 8.4 mg/dl Assessment & Plan PANCREATITIS Presented to ED with epigastric pain and nausea. Serum lipase was 2727. CT of abdomen and pelvis did not show any pancreatic abnormalities. Managed with bowel rest, IV fluids, analgesics, antiemetics with improvement. Lipase normalized. Diet advanced. Mechanism of pancreatitis uncertain. No alcohol abuse. No apparent choledocholithiasis. Triglycerides normal. No structural pancreatic abnormalities on CT. ? viral illness (mild leukopenia). ? passed stone or sludge ?? medication adverse reaction. No need for further evaluation at this time, but will need further testing and consultation if symptoms recur. HYPERTENSION Continue usual meds. HYPOTHYROIDISM Continue levothyroxine. HISTORY OF PORTILLO'S ESOPHAGUS Continue PPI. VTE PROPHYLAXIS SCD's. Ambulate. DISPOSITION Discharge to home. Family Medicine follow-up with Dr. Almazan. . Procedures: CT abdomen and pelvis IV medications IV fluids . Current Inpatient Medications: Current Inpatient Medications Medications (Trade) Dose Ordered Sig/Elizabet Route Start Time Stop Time Status Last Admin Dose Admin Ioversol (Optiray 320) 125 ml UD PRN IV 04/18/17 13:00 04/22/17 12:59 Acetaminophen (Tylenol Tab) 650 mg Q4H PRN PO 04/18/17 17:45 05/18/17 17:44 04/19/17 04:16 650 MG Ondansetron HCl (Zofran Inj) 4 mg Q6H PRN IV 04/18/17 17:45 05/18/17 17:44 04/19/17 04:16 4 MG Morphine Sulfate (MoRPHine SULFATE INJ) 2 mg Q2H PRN IV 04/18/17 17:45 05/02/17 17:44 04/18/17 21:32 2 MG Albuterol (Ventolin Hfa Inhaler) 2 puffs QID PRN INH 04/18/17 18:00 05/18/17 17:59 Fluticasone Propionate (Flonase Nasal [place]) DAILY PRN NICA 04/18/17 18:00 05/18/17 17:59 Amlodipine Besylate (Norvasc Tab) 10 mg HS PO 04/18/17 21:00 05/18/17 20:59 04/19/17 20:55 10 MG Lisinopril (Zestril Tab) 40 mg HS PO 04/18/17 21:00 05/18/17 20:59 04/19/17 20:56 40 MG Pantoprazole Sodium (Protonix Tab) 40 mg HS PO 04/18/17 21:00 05/18/17 20:59 04/19/17 20:56 40 MG Levothyroxine Sodium (Synthroid Tab) 88 mcg DAILYBB PO 04/19/17 06:30 05/19/17 06:29 04/20/17 05:58 88 MCG Montelukast Sodium (Singulair Tab) 10 mg QPM PO 04/19/17 21:00 05/19/17 20:59 04/19/17 20:55 10 MG Fexofenadine HCl (Yolande Tab) 180 mg DAILY PRN PO 04/19/17 08:30 05/19/17 08:29 04/20/17 10:56 180 MG Zolpidem Tartrate (Ambien Tab) 5 mg HS PRN PO 04/19/17 12:45 05/19/17 12:44 04/19/17 22:23 5 MG
--- NOTE | 2017-04-20 15:26 | Discharge Instructions ---
Discharge Instructions Date of Service Apr 20, 2017. Admission Reason for Admission: Acute Pancreatitis . Discharge Discharge Diagnosis / Problem: Acute Pancreatitis Discharge Goals Goal(s): Decrease discomfort, Improve disease control Activity Recommendations Activity Limitations: as noted below Lifting Limitations: gradually increase as tolerated . Instructions / Follow-Up Instructions / Follow-Up APPOINTMENTS: FAMILY MEDICINE 04/23/2017 1:20 PM Jose Antonio Almazan MD INSTRUCTIONS: You had a bout of pancreatitis. Fortunately, you recovered quickly. We are not certain what the cause was- maybe a virus. If you have recurrent attacks, need to consider other possibilities like medication reaction or blockage in pancreatic ducts. Seek medical attention if you have: * temperature above 101 * chest pain or trouble breathing * abdominal pain, nausea, vomiting * diarrhea, dark stools or bloody stools * any unanswered questions or concerns Call 911 if symptoms are severe. Call if you have any questions or problems. My cell # is [phone]. You can also reach a [facility] hospitalist on duty at [facility] 24 hours a day by calling [phone]. Please take good care of yourself. Roman Ray . Current Hospital Diet Patient's current hospital diet: AHA Diet (Heart Healthy) Discharge Diet Recommended Diet: AHA Diet (Heart Healthy) Pending Studies Studies pending at discharge: no Laboratory Results Lipid Panel Test 04/19/17 07:23 Range/Units Triglycerides Level 46 0-150 mg/dl Cholesterol Level 143 0-200 mg/dl HDL Cholesterol 70 mg/dl Cholesterol/HDL Ratio 2.0 LDL Cholesterol, Calculated 64 mg/dl Medical Emergencies . Who to Call and When: Medical Emergencies: If at any time you feel your situation is an emergency, please call 911 immediately. . Non-Emergent Contact Non-Emergency issues call your: Primary Care Provider, Hospital Doctor . . "Provider Documentation" section prepared by Roman Ray. . VTE Core Measure Inpt VTE Proph given/why not?: Enoxaparin (Lovenox)SQ
--- NOTE | 2017-04-20 21:03 | Discharge Summary ---
Discharge Summary Date of Service Apr 20, 2017. Discharge Summary Admission Date: Apr 18, 2017 at 15:50 Discharge Date: Apr 20, 2017 Discharge Disposition: Home Principal Diagnosis: acute pancreatitis . Secondary Diagnoses/Problems: Chronic and Resolved Medical Problems: (1) Dyslipidemia Status: Chronic (2) Hearing Loss Nos Status: Chronic (3) Hx Of Breast Malignancy Status: Resolved (4) Hypertension Nos Status: Chronic (5) Hypothyroidism Nos Status: Chronic Surgical Problems: (1) Status post breast lumpectomy Status: Resolved (2) Status post excision of acoustic neuroma Status: Resolved (3) Status post hysterectomy Status: Resolved . Procedures: CT abdomen and pelvis IV medications IV fluids . Pending Studies/Follow-Up: Please check CBC in clinic. . Medication Reconciliation Continued Medications: Albuterol Hfa (Ventolin Hfa) 200 Puffs/30085 Mcg Aers 2 PUFFS INH QID PRN for Wheezing, #1 INHALER Amlodipine Besylate (Amlodipine Besylate) 10 Mg Tab 10 MG PO QPM Aspirin (Aspirin Enteric Coated Ad) 81 Mg Tab 81 MG PO QPM Calcium Carbonate (Calcium) 600 Mg Tab 600 MG PO QPM Fexofenadine Hcl (Yolande Allergy) 180 Mg Tab 1 TAB PO DAILY PRN for ALLERGIC REACTION for 14 Days, #14 TAB 2 Refills Fluticasone Propionate (Fluticasone Propionate) 120 Sprays/6000 Mcg Inha 2 SPRAY NICA DAILY PRN for Nasal Congestion Levothyroxine Sodium (Levothyroxine Sodium) 88 Mcg Tab 88 MCG PO DAILY for 90 Days, #90 TAB 3 Refills Lisinopril (Prinivil) 40 Mg Tab 40 MG PO QPM, 0 Refills Montelukast Sod (Montelukast Sodium) 10 Mg Tab 10 MG PO QPM, #90 Omeprazole (Prilosec) 20 Mg Capcr 40 MG PO DAILY, 0 Refills Simvastatin (Zocor) 20 Mg Tab 20 MG PO QPM, 0 Refills Admission Information HPI (per Admitting provider): 66 yo F presents with several hours of worsening abdominal pain and persistent diarrhea. She awoke this morning feeling intermittent spasms in her epigastric area. She began having diarrhea and thought if she ate this would help her feel better so she ate some toast. She continued to have intermittent pains that would last 10 minutes at a time along with several more bouts of diarrhea. Although she felt nautious she never vomited. She denies any blood in her stool. She denies ever having a pain like this in the past. She denies any fevers, chills, chest pain, headaches, visual changes, sore throat, cough, urinary symptoms, weight gain or recent travel. She reports eating a pork sandwich w BBQ sauce on it from [employer] last night and otherwise had some food at home only yesterday. Her also ate there but didn't have the same dish and he is not ill today. On arrival to the ER she got some IVF, morphine and Zofran and feels better. Her lipase is >2000 and she has localized epigastric tenderness on exam with normoactive bowel sounds. CT a/p was negative. h/o j luis in the past for gallstones, and she doesn't use alcohol. No recent abx use and only medication change was a change in Norvasc from 5 to 10mg. She does have some SOB only when the spasming is present but is not hypoxic. . Physical Exam (per Admitting): GEN: WNWD, in no acute distress, alert and appropriate HEENT: NC/AT, PERRL, normal sclerae/conjunctivae, MMM, EOMI, pharynx nonacute. CARDIO: reg rate, S1/2 heard without m/g/r, no chest wall tenderness to palpation LUNGS: CTA bilaterally, no crackles, rales or wheezes, good diaphragmatic excursion ABD: soft, TTP in epigastric region only, non-distended, no rebound or guarding , +BS-normoactive. EXTREMITY: RP and DP palpable 2+ bilat, no LE swelling or edema, extremities are warm and well-perfused NEURO: CN 2-12 intact, sensation intact throughout MUSC: 5/5 strength throughout, no focal deficits SKIN: warm and dry Hospital Course PANCREATITIS Presented to ED with epigastric pain and nausea. Serum lipase was 2727. CT of abdomen and pelvis did not show any pancreatic abnormalities. Managed with bowel rest, IV fluids, analgesics, antiemetics with improvement. Lipase normalized. Diet advanced. Mechanism of pancreatitis uncertain. No alcohol abuse. No apparent choledocholithiasis. Triglycerides normal. No structural pancreatic abnormalities on CT. ? viral illness (mild leukopenia). ? passed stone or sludge ?? medication adverse reaction. No need for further evaluation at this time, but will need further testing and consultation if symptoms recur. HYPERTENSION Continue usual meds. HYPOTHYROIDISM Continue levothyroxine. HISTORY OF PORTILLO'S ESOPHAGUS Continue PPI. VTE PROPHYLAXIS SCD's. Ambulate. DISPOSITION Discharge to home. Family Medicine follow-up with Dr. Almazan. . Total time spent on discharge = 35 min. This includes examination of the patient, discharge planning, medication reconciliation, and communication with other providers. . Discharge Instructions Date of Service Apr 20, 2017. Admission Reason for Admission: Acute Pancreatitis . Discharge Discharge Diagnosis / Problem: Acute Pancreatitis Discharge Goals Goal(s): Decrease discomfort, Improve disease control Activity Recommendations Activity Limitations: as noted below Lifting Limitations: gradually increase as tolerated . Instructions / Follow-Up Instructions / Follow-Up APPOINTMENTS: FAMILY MEDICINE 04/23/2017 1:20 PM Jose Antonio Almazan MD INSTRUCTIONS: You had a bout of pancreatitis. Fortunately, you recovered quickly. We are not certain what the cause was- maybe a virus. If you have recurrent attacks, need to consider other possibilities like medication reaction or blockage in pancreatic ducts. Seek medical attention if you have: * temperature above 101 * chest pain or trouble breathing * abdominal pain, nausea, vomiting * diarrhea, dark stools or bloody stools * any unanswered questions or concerns Call 911 if symptoms are severe. Call if you have any questions or problems. My cell # is [phone]. You can also reach a [facility] hospitalist on duty at [facility] 24 hours a day by calling [phone]. Please take good care of yourself. Roman Ray . Current Hospital Diet Patient's current hospital diet: AHA Diet (Heart Healthy) Discharge Diet Recommended Diet: AHA Diet (Heart Healthy) Pending Studies Studies pending at discharge: no Laboratory Results Lipid Panel Test 04/19/17 07:23 Range/Units Triglycerides Level 46 0-150 mg/dl Cholesterol Level 143 0-200 mg/dl HDL Cholesterol 70 mg/dl Cholesterol/HDL Ratio 2.0 LDL Cholesterol, Calculated 64 mg/dl Medical Emergencies . Who to Call and When: Medical Emergencies: If at any time you feel your situation is an emergency, please call 911 immediately. . Non-Emergent Contact Non-Emergency issues call your: Primary Care Provider, Hospital Doctor . . "Provider Documentation" section prepared by Roman Ray. . VTE Core Measure Inpt VTE Proph given/why not?: Enoxaparin (Lovenox)SQ . Additional Copies To Jose Antonio Almazan M.D.
[2017-07-01] MEDS ORDERED: AMB5 PO (10:21)
[2017-07-01] MEDS ORDERED: METH4PAK PO (10:21)
== END 2017-04-20 15:49 | disposition home or self-care (01) | DRG 440 ==
LOC: C.EDB 12:01 → C.MED 15:50 → ENRESERV 16:17
PROVIDERS: ADMIT Hospitalist; ATTEND Hospitalist
DX: K85.90 Acute pancreatitis without necrosis or infection, unspecified (principal); R19.7 Diarrhea, unspecified; T62.91XA Toxic effect of unspecified noxious substance eaten as food, accidental (unintentional), initial encounter; I10 Essential (primary) hypertension; E03.9 Hypothyroidism, unspecified; K22.70 Barrett's esophagus without dysplasia; Z79.82 Long term (current) use of aspirin; Z79.899 Other long term (current) drug therapy

== ENCOUNTER 2017-06-07 10:48 | Emergency (ER) | payer OTHER ==
[~2017-06-07] VITALS: Ht 160 cm; Wt 65.9 kg
[~2017-06-07 10:48] MED LIST changes: -ALBUAER2 INH; -AMLO2.5T PO; -ASPEC81 PO; +CALC-393 PO; -CALCTAB5 PO; -FLNIN NAE; +FLNIN/ NAE; +NRV/10 PO; +SNG10 PO; +VNTHFA/IN INH; +[UNRECOGNIZED DRUG - CODE] PO
[2017-06-07 10:51] VITALS: TEMP 36.9; Ht 160 cm; Wt 65.9 kg
[2017-06-07] MEDS ORDERED: SODIUM CHLORIDE 0.9% 1000ML 1,000 ML IV STA (10:56)
[2017-06-07] MEDS ORDERED: ASPIRIN 81 MG CHEW PO STA (11:06)
[2017-06-07] MEDS: NITROGLYCERIN 0.4 MG SL PER TAB CHARGE SL PRN ×2 (11:24→11:42)
[2017-06-07] MEDS ORDERED: ONDANSETRON INJ 2 MG/ML 2 ML VIAL IV STA (11:35)
[2017-06-07 11:37] LABS: BASO % 0.5 %; BASO ABS # 0.03 K/uL (0-0.2); COMPLETE YES; EOS % 8.1 %; HEMATOCRIT 37.2 % (37-47); IG% 0.2 %; LYMPH % 26.7 %; LYMPH ABS # 1.48 K/uL (1.2-3.4); MEAN CELL VOLUME 85.3 fL (80-100); MEAN CORPUSCULAR HEMOGLOBIN 30.3 pg (25-34); MEAN CORPUSCULAR HGB CONC 35.5 g/dl (32-36); MEAN PLATELET VOLUME 9.4 fL (7.4-10.4); MONO % 6.7 %; NEUT % 57.8 %; PLATELET COUNT 196 K/uL (130-400); RED BLOOD COUNT 4.36 M/uL (4.2-5.4); WHITE BLOOD COUNT 5.55 K/uL (4.8-10.8)
--- NOTE | 2017-06-07 12:01 | EMERGENCY ROOM VISIT NOTE ---
History Report prepared by Alexandro: Tanisha Sánchez Under the Supervision of: Dr. Maria Guadalupe Del Real M.D. First contact with patient: 10:56 Chief Complaint: CARDIAC ASSESSMENT Stated Complaint: SOB, CHEST BURNING History of Present Illness The patient is a 66 year old female who presents to the Emergency Room for a cardiac assessment of symptoms that started a few weeks ago. The patient states that she has been experiencing intermittent substernal chest pain that she describes a burning. The chest pain is not worse with exertion and she seems to notice the pain more when she is at rest. She is also experiencing headaches, shortness of breath, and intermittent palpitations. She states that it occasionally feels like her heart is beating fast. She states that her current pain does not feel similar to when she had pancreatitis last month. Her PCP has been working with her to determine the cause of the pancreatitis. The patient had left upper quadrant abdominal pain when she had pancreatitis. The patient is also experiencing bilateral lower extremity weakness. She denies any lower extremity edema. The patient has a history of GERD but states that her current pain is different from the symptoms she experiences with GERD. She states that her GERD has not been bad lately. The patient adds that a CT scan with barium showed "something" on the base of her lung. The patient has a history of hypertension and hyperlipidemia, but denies any history of MIs, kidney problems , or strokes. The patient had breast cancer in 1996. The patient states that she is nervous. The patient has not had a stress test in the past. She did not take any aspirin today. Source of History: patient Onset: a few weeks ago Position: chest Quality: other (cardiac assessment) Timing: worsening Associated Symptoms: + headache, + chest pain (intermittent, substernal, burning), + weakness (bilateral lower extremities) Note: intermittent palpitations, no lower extremity edema Review of Systems See HPI for pertinent positives & negatives. A total of 10 systems reviewed and were otherwise negative. 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 Social History Smoking Status: Never Smoker Drug Use: none Marital Status: Housing Status: lives with family Occupation Status: retired Current/Historical Medications Scheduled Amlodipine Besylate (Amlodipine Besylate), 10 MG PO QPM Aspirin (Aspirin Enteric Coated Ad), 81 MG PO QPM Calcium Carbonate (Calcium), 600 MG PO QPM Fexofenadine Hcl (Yolande Allergy), 1 TAB PO QPM Levothyroxine Sodium (Levothyroxine Sodium), 88 MCG PO DAILY Lisinopril (Prinivil), 40 MG PO QPM Montelukast Sod (Montelukast Sodium), 10 MG PO QPM Omeprazole (Prilosec), 40 MG PO DAILY Ranitidine Hcl (Zantac), 150 MG PO BID Simvastatin (Zocor), 20 MG PO QPM Scheduled PRN Albuterol Hfa (Ventolin Hfa), 2 PUFFS INH QID PRN for Wheezing Fluticasone Propionate (Fluticasone Propionate), 2 SPRAY NICA DAILY PRN for Nasal Congestion Allergies Coded Allergies: Amoxicillin (Verified Allergy, Unknown, GI SYMPTOMS,ITCH, 06/07/17) Clavulanic Acid (Verified Allergy, Unknown, GI SYMPTOMS,ITCH, 06/07/17) Physical Exam Vital Signs Date Time Temp Pulse Resp B/P (MAP) Pulse Ox O2 Delivery O2 Flow Rate FiO2 06/07/17 13:18 77 20 143/67 97 Room Air 06/07/17 11:59 73 20 131/61 95 Room Air 06/07/17 11:44 73 20 135/64 96 Room Air 06/07/17 11:25 100 16 160/73 96 06/07/17 11:25 99 Room Air 06/07/17 11:11 97 06/07/17 10:51 36.9 89 20 157/73 100 Room Air Physical Exam Vital signs reviewed. General: Well-appearing female, in no significant distress. HEENT: No scleral icterus, PERRLA, neck supple. Atraumatic. Cardiovascular: Regular rate and rhythm, no extra sounds. Pulmonary: Clear to auscultation bilaterally, normal work of breathing. Abdomen: Soft, mild epigastric tenderness, nondistended, positive bowel sounds. Musculoskeletal: Atraumatic, no peripheral edema. Neurologic: Patient awake alert and oriented x 3, full strength in all 4 extremities. Cranial nerves 2 through 12 grossly intact. Skin: Warm, dry, no rash Medical Decision & Procedures ER Provider Diagnostic Interpretation: Radiology results as stated below per my review and radiologist interpretation: CHEST ONE VIEW PORTABLE FINDINGS: There are left axillary surgical clips. No pneumothorax or pleural effusion is present. There is no evidence of pulmonary edema. Right lower lung opacity is noted. This overlies anterior right fifth rib. IMPRESSION: Mild right lower lung opacity. This could reflect a small area of pneumonia or atelectasis. Radiographic follow-up to ensure resolution is recommended. Electronically signed by: Jimenez Mckeon M.D. 06/07/2017 12:27 PM Dictated Date/Time: 06/07/2017 12:24 PM Laboratory Results 06/07/17 11:15 Red Blood Count 4.36, Mean Corpuscular Volume 85.3, Mean Corpuscular Hemoglobin 30.3, Mean Corpuscular Hemoglobin Concent 35.5, Mean Platelet Volume 9.4, Neutrophils (%) (Auto) 57.8, Lymphocytes (%) (Auto) 26.7, Monocytes (%) (Auto) 6.7, Eosinophils (%) (Auto) 8.1, Basophils (%) (Auto) 0.5, Neutrophils # (Auto) 3.21, Lymphocytes # (Auto) 1.48, Monocytes # (Auto) 0.37, Eosinophils # (Auto) 0.45, Basophils # (Auto) 0.03 06/07/17 11:15 Test 06/07/17 11:15 06/07/17 11:22 06/07/17 13:05 White Blood Count 5.55 K/uL (4.8-10.8) Red Blood Count 4.36 M/uL (4.2-5.4) Hemoglobin 13.2 g/dL (12.0-16.0) Hematocrit 37.2 % (37-47) Mean Corpuscular Volume 85.3 fL (80-100) Mean Corpuscular Hemoglobin 30.3 pg (25-34) Mean Corpuscular Hemoglobin Concent 35.5 g/dl (32-36) Platelet Count 196 K/uL (130-400) Mean Platelet Volume 9.4 fL (7.4-10.4) Neutrophils (%) (Auto) 57.8 % Lymphocytes (%) (Auto) 26.7 % Monocytes (%) (Auto) 6.7 % Eosinophils (%) (Auto) 8.1 % Basophils (%) (Auto) 0.5 % Neutrophils # (Auto) 3.21 K/uL (1.4-6.5) Lymphocytes # (Auto) 1.48 K/uL (1.2-3.4) Monocytes # (Auto) 0.37 K/uL (0.11-0.59) Eosinophils # (Auto) 0.45 K/uL (0-0.5) Basophils # (Auto) 0.03 K/uL (0-0.2) RDW Standard Deviation 41.8 fL (36.4-46.3) RDW Coefficient of Variation 13.5 % (11.5-14.5) Immature Granulocyte % (Auto) 0.2 % Immature Granulocyte # (Auto) 0.01 K/uL (0.00-0.02) D-Dimer 270 ug/L FEU (0-500) Anion Gap 5.0 mmol/L (3-11) Est Creatinine Clear Calc Drug Dose 70.1 ml/min Estimated GFR () 102.2 Estimated GFR (Non- 88.1 BUN/Creatinine Ratio 14.3 (10-20) Calcium Level 9.3 mg/dl (8.5-10.1) Total Bilirubin 0.4 mg/dl (0.2-1) Direct Bilirubin 0.1 mg/dl (0-0.2) Aspartate Amino Transf (AST/SGOT) 12 U/L (15-37) Alanine Aminotransferase (ALT/SGPT) 25 U/L (12-78) Alkaline Phosphatase 83 U/L (45-117) Total Protein 7.0 gm/dl (6.4-8.2) Albumin 4.0 gm/dl (3.4-5.0) Lipase 235 U/L (73-393) Bedside Troponin I < 0.030 ng/ml (0-0.045) Urine Color YELLOW Urine Appearance CLEAR (CLEAR) Urine pH 5.0 (4.5-7.5) Urine Specific [place] 1.016 (1.000-1.030) Urine Protein NEG (NEG) Urine Glucose (UA) NEG (NEG) Urine Ketones NEG (NEG) Urine Occult Blood NEG (NEG) Urine Nitrite NEG (NEG) Urine Bilirubin NEG (NEG) Urine Urobilinogen NEG (NEG) Urine Leukocyte Esterase NEG (NEG) Laboratory results per my review. Medications Administered Medications (Trade) Dose Ordered Sig/Elizabet Route Start Time Stop Time Status Last Admin Dose Admin Aspirin (Aspirin Chew) 324 mg NOW STAT PO 06/07/17 11:06 06/07/17 11:07 DC 06/07/17 11:24 324 MG Nitroglycerin (Nitrostat Tab) 0.4 mg Q5M PRN SL 06/07/17 11:15 06/07/17 14:13 DC 06/07/17 11:42 0.4 MG Ondansetron HCl (Zofran Inj) 4 mg NOW STAT IV 06/07/17 11:35 06/07/17 11:36 DC 06/07/17 11:41 4 MG Ranitidine HCl (zANTac TAB) 150 mg NOW ONCE PO 06/07/17 13:30 06/07/17 13:31 DC 06/07/17 13:32 150 MG ECG Indication: chest pain Rate (beats per minute): 86 Rhythm: normal sinus Findings: other (T-wave abnormality in the inferior leads, previous anterior infarct) Comparison ECG Date: 04/18/2017 Change: no significant change ED Course 1056: Ordered Sodium Chloride 1000 ml @ 200 mls/hr IV 1103: Past medical records reviewed. The patient was evaluated in room C6. A complete history and physical examination was performed. 1106: Ordered Aspirin 324 mg PO 1115: Ordered Nitroglycerin 0.4 mg SL 1134: The nurse informed me that the patient would like something for nausea. 1135: Ordered Zofran Inj 4 mg IV 1317: Upon reevaluation, the patient appeared to have improvement of her symptoms. I discussed findings with her. She verbalized agreement of the treatment plan. She was discharged home. 1330: Ordered Zantac Tab 150 mg PO Medical Decision Differential diagnosis: Acute coronary syndrome, pulmonary embolus, aortic dissection, musculoskeletal pain, pneumonia, pleural effusion, pneumothorax, pancreatitis. This patient was evaluated and appeared to be in no significant distress. Patient does seem to be fairly anxious. IV access was obtained and laboratory work was drawn. She was given 324 mg of aspirin to chew. The patient was placed on the property assessment monitor. EKG reveals no evidence of acute ischemic changes. Laboratory work reveals negative cardiac enzymes. The patient later complained of some nausea. Patient was given IV Zofran. The patient's chest x- ray does reveal some infiltrative change of the right middle lobe. After review the patient's previous CT scan of the abdomen and pelvis, spoke that this is likely a mucoid impaction. Patient was asked to follow-up with her primary care physician regarding this finding and possibly pulmonary medicine. Patient's d-dimer is negative, there is no indication for a CT scan of the chest today. She was reassured, asked to start Zantac 150 mg twice daily as needed in addition to her omeprazole. She will follow-up with her PCP and return to the ER for worsening of symptoms or any medical concerns. Medication Reconcilliation Current Medication List: was personally reviewed by me Blood Pressure Screening Patient's blood pressure: Elevated blood pressure Blood pressure disposition: Referred to PCP Impression Primary Impression: Burning chest pain Additional Impression: Mucus plugging of bronchi Scribe Attestation The scribe's documentation has been prepared under my direction and personally reviewed by me in its entirety. I confirm that the note above accurately reflects all work, treatment, procedures, and medical decision making performed by me. Departure Information Dispostion Home / Self-Care Prescriptions Ranitidine Hcl (ZANTAC) 150 Mg Tab 150 MG PO BID, #60 TAB Prov: Maria Guadalupe Del Real M.D. 06/07/17 Referrals Jose Antonio Almazan M.D. (PCP) Forms IMPORTANT VISIT INFORMATION Patient Instructions My [facility] Additional Instructions Diagnosis: Mucous plug, chest burning Continue your medications as prescribed. Add on Zantac 150 mg twice daily as needed. Use your albuterol inhaler with the spacer provided today. Follow-up with your physician this week for reevaluation. Return to the ER for worsening of symptoms or any medical concerns. Problem Qualifiers
[2017-06-07 12:02] LABS: BUN/CREATININE RATIO 14.3 (10-20); CALCIUM 9.3 mg/dl (8.5-10.1); CREATININE 0.71 mg/dl (0.60-1.20); POTASSIUM 3.4 mmol/L (3.5-5.1)
--- NOTE | 2017-06-07 12:28 | DIAGNOSTIC IMAGING REPORT ---
CHEST ONE VIEW PORTABLE CLINICAL HISTORY: Chest pain. COMPARISON STUDY: Chest radiograph March 17, 2011. FINDINGS: There are left axillary surgical clips. No pneumothorax or pleural effusion is present. There is no evidence of pulmonary edema. Right lower lung opacity is noted. This overlies anterior right fifth rib. IMPRESSION: Mild right lower lung opacity. This could reflect a small area of pneumonia or atelectasis. Radiographic follow-up to ensure resolution is recommended. Electronically signed by: Jimenez Mckeon M.D. 06/07/2017 12:27 PM Dictated Date/Time: 06/07/2017 12:24 PM
[2017-06-07 13:18] VITALS: BP 143/67; PULSE 77; O2SAT 97
[2017-06-07] MEDS ORDERED: RANITIDINE HCL 150 MG TAB PO ONE (13:30)
[2017-06-07] MEDS ORDERED: RANI150T3 PO (13:31)
[2017-06-07 13:44] LABS: URINE APPEARANCE CLEAR (CLEAR); URINE BILIRUBIN NEG (NEG); URINE COLOR YELLOW; URINE NITRITE NEG (NEG); URINE SPECIFIC GRAVITY 1.016 (1.000-1.030); UROBILINOGEN NEG (NEG); ZZUR CULT IF INDIC CLEAN CATCH NO
[2017-06-07 13:47] LABS: MANUAL MICROSCOPIC REQUIRED? NO; REVIEW REQ? NO
[2017-07-01] MEDS ORDERED: AMB5 PO (10:21)
[2017-07-01] MEDS ORDERED: METH4PAK PO (10:21)
== END 2017-06-07 13:40 | disposition home or self-care (01) ==
LOC: C.EDB 10:49 → C.EDC 13:40
DX: R07.9 Chest pain, unspecified (principal); J98.09 Other diseases of bronchus, not elsewhere classified; K85.90 Acute pancreatitis without necrosis or infection, unspecified; E78.5 Hyperlipidemia, unspecified; I10 Essential (primary) hypertension; E03.9 Hypothyroidism, unspecified; Z79.82 Long term (current) use of aspirin

== ENCOUNTER → 2017-06-16 | Outpatient (CLI) | payer OTHER ==
[~2017-06-16] MED LIST changes: +AMB5 PO; +METH4PAK PO; +RANI150T3 PO
--- NOTE | 2017-06-16 15:42 | MAMMOGRAPHY REPORT ---
BILATERAL DIGITAL SCREENING MAMMOGRAM TOMOSYNTHESIS WITH CAD: 06/16/2017 CLINICAL HISTORY: Asymptomatic. Personal history of breast cancer. TECHNIQUE: Breast tomosynthesis in addition to standard 2D mammography was performed. Current study was also evaluated with a Computer Aided Detection (CAD) system. COMPARISON: Comparison is made to exams dated: 06/14/2016 mammogram, 06/12/2015 mammogram, 06/09/2014 m ammogram, 06/08/2013 mammogram, 12/22/2012 mammogram, and 06/16/2012 mammogram - [facility]ter. BREAST COMPOSITION: There are scattered areas of fibroglandular density in both breasts. FINDINGS: A linear scar marker overlies the 6:00 left breast. There is expected architectural distor tion, surgical clips and benign dystrophic calcification near the surgical site. There is a stable c ircumscribed mass with associated popcorn calcification in the upper outer quadrant of the left breas t. No new suspicious mass, architectural distortion or cluster of microcalcifications is seen. IMPRESSION: ACR BI-RADS CATEGORY 1: NEGATIVE There is no mammographic evidence of malignancy. A 1 year screening mammogram is recommended. The pa tient will receive written notification of the results. Approximately 10% of breast cancers are not detected with mammography. A negative mammographic report should not delay biopsy if a clinically suggestive mass is present. Nahomi Gramajo M.D. ay/:06/16/2017 15:07:02 Management Tech: Shaka ANDREW)([employer]), [facility] letter sent: Normal 1/2 BI-RADS Code: ACR BI-RADS Category 1: Negative
== END | disposition home or self-care (01) ==
LOC: C.MAMM 09:42
PROVIDERS: ATTEND Family Medicine
DX: Z12.31 Encounter for screening mammogram for malignant neoplasm of breast (principal); Z85.3 Personal history of malignant neoplasm of breast

== ENCOUNTER → 2017-06-24 | Outpatient (CLI) | payer OTHER ==
[2017-06-24 18:33] LABS: BASO % 0.6 %; BASO ABS # 0.05 K/uL (0-0.2); COMPLETE YES; EOS % 4.9 %; HEMATOCRIT 36.9 % (37-47); IG% 0.2 %; LYMPH % 16.5 %; LYMPH ABS # 1.44 K/uL (1.2-3.4); MEAN CORPUSCULAR HEMOGLOBIN 29.5 pg (25-34); MEAN CORPUSCULAR HGB CONC 33.9 g/dl (32-36); MEAN PLATELET VOLUME 9.4 fL (7.4-10.4); MONO % 5.9 %; NEUT % 71.9 %; PLATELET COUNT 272 K/uL (130-400); RED BLOOD COUNT 4.24 M/uL (4.2-5.4); WHITE BLOOD COUNT 8.71 K/uL (4.8-10.8)
[2017-06-24 18:51] LABS: ALT/SGPT 20 U/L (12-78); AST/SGOT 11 U/L (15-37); BLOOD UREA NITROGEN 13 mg/dl (7-18); BUN/CREATININE RATIO 16.2 (10-20); CALCIUM 9.2 mg/dl (8.5-10.1); CARBON DIOXIDE 30 mmol/L (21-32); CHLORIDE 104 mmol/L (98-107); CREATININE 0.81 mg/dl (0.60-1.20); GLUCOSE 93 mg/dl (70-99); POTASSIUM 3.9 mmol/L (3.5-5.1); SODIUM 139 mmol/L (136-145)
[2017-06-24 19:00] LABS: INR 0.9 (0.9-1.1); PROTHROMBIN TIME (PATIENT) 9.9 SECONDS (9.0-12.0)
[2017-06-24 19:03] LABS: ALKALINE PHOSPHATASE 95 U/L (45-117); IMMUNOGLOBULN A 71.5 mg/dL (70-400); IMMUNOGLOBULN M 92.2 mg/dL (40-230)
[2017-06-30 22:38] LABS: ASPERGILLUS FLAVUS Negative (Negative); ASPERGILLUS FUMIGATUS Negative (Negative); ASPERGILLUS NIGER Negative (Negative); IMMUNOGLOBULIN E TC 24620E 844 KU/L (<115); MYELOPEROXIDASE AB <1.0 AI (<1.0)
--- NOTE | 2017-07-01 08:48 | CODING QUERY MEDICAL NECESSITY ---
CQSUPPORTING DIAGNOSIS NEEDED A supporting diagnosis is required for the test/procedure performed on this patient in order for us to be reimbursed by the patient's insurance. Please provide a supporting diagnosis for the following test/procedure listed below next to the test name along with your signature. *If there is no additional diagnosis for this patient that would support the following test/procedure please document that below next to the test/procedure. Test(s)/Procedure(s) that require a supporting diagnosis: [facility] 06/24/16 ALLERGY TESTING Provider Signature: Date: Thank you Mindy Ravi [employer] Once completed, please kindly fax back to [phone] For questions please call [phone]
== END | disposition home or self-care (01) ==
LOC: C.LAB 17:36
PROVIDERS: ATTEND Internal Medicine Pulmonary Disease
DX: R91.1 Solitary pulmonary nodule (principal); E03.9 Hypothyroidism, unspecified; C50.919 Malignant neoplasm of unspecified site of unspecified female breast; I10 Essential (primary) hypertension; J31.0 Chronic rhinitis

== ENCOUNTER 2017-06-30 08:43 | Observation (INO) | payer OTHER ==
[2017-06-30] VITALS (23 sets, daily range): BP systolic 105–160; BP diastolic 55–103; PULSE 78–127; TEMP 36.8–38.2; O2SAT 92–100; Ht 160 cm; Wt 66.0 kg
[~2017-06-30] VITALS: Ht 160 cm; Wt 66.0 kg
[~2017-06-30 08:43] MED LIST changes: -AMB5 PO; -METH4PAK PO
--- NOTE | 2017-06-30 09:16 | History and Physical ---
History & Physical Date Jun 30, 2017. 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 (3) Status post hysterectomy Additional History Hepatic Disease: No Endocrine Disorder: Yes Kidney Disease: No Hypertension: No Heart Disease: No Bleeding Tendencies: No Infectious Diseases: No Allergies Coded Allergies: Amoxicillin (Verified Allergy, Unknown, GI SYMPTOMS,ITCH, 06/30/17) Clavulanic Acid (Verified Allergy, Unknown, GI SYMPTOMS,ITCH, 06/30/17) Home Medications Scheduled Amlodipine Besylate (Amlodipine Besylate), 10 MG PO QPM Aspirin (Aspirin Enteric Coated Ad), 81 MG PO QPM Calcium Carbonate (Calcium), 600 MG PO QPM Fexofenadine Hcl (Yolande Allergy), 1 TAB PO QPM Levothyroxine Sodium (Levothyroxine Sodium), 88 MCG PO DAILY Lisinopril (Prinivil), 40 MG PO QPM Montelukast Sod (Montelukast Sodium), 10 MG PO QPM Omeprazole (Prilosec), 40 MG PO DAILY Ranitidine Hcl (Zantac), 150 MG PO BID Simvastatin (Zocor), 20 MG PO QPM Scheduled PRN Albuterol Hfa (Ventolin Hfa), 2 PUFFS INH QID PRN for Wheezing Fluticasone Propionate (Fluticasone Propionate), 2 SPRAY NICA DAILY PRN for Nasal Congestion Physical Examination Skin: warm/dry, no rash Eyes: normal inspection, EOMI, sclerae normal ENT: normal ENT inspection, pharynx normal Head: normocephalic, atraumatic Neck: supple, no adenopathy, trachea midline Respiratory/Chest: lungs clear, normal breath sounds, no respiratory distress Cardiovascular: regular rate, rhythm, no edema, no murmur Abdomen / GI: normal bowel sounds, non tender Back: normal inspection Extremities: normal inspection, normal range of motion Neurologic/Psych: no motor/sensory deficits, alert, normal reflexes, oriented x 3 Diagnosis Right middle lobe atelectatic collapse ASA Classification: ASA Class I Plan of Treatment Bronchoscopy, conscious sedation, fluoroscopy, transbronchial biopsy, cytology brushing along with bronchoalveolar lavage
[2017-06-30] MEDS: D5W AND 1/2NSS 1,000 ML IV SCH ×2 (10:29→13:47)
[2017-06-30] MEDS ORDERED: NURSING VERBAL MED ORDER ONE ×3 (10:30→15:15)
--- NOTE | 2017-06-30 10:37 | History & Physical Bridge Note ---
H&P Re-Evaluation Bridge Note: I have examined the patient, reviewed the History & Physical and in the interval since the performance of the History & Physical I have noted the following changes of clinical significance: No changes noted
--- NOTE | 2017-06-30 10:37 | Procedure Note ---
Pre-Mod Sedation Assessment General Date of Moderate Sedation: Jun 30, 2017. Vital Signs: Vital Signs Past 12 Hours Date Time Temp Pulse Resp B/P (MAP) Pulse Ox O2 Delivery O2 Flow Rate FiO2 06/30/17 10:34 37.4 95 20 141/67 97 Room Air 06/30/17 09:19 37.4 95 20 141/67 (91) 97 Room Air Review Cardiovascular: regular rate, rhythm, no edema, no gallop, no JVD, no murmur, normal peripheral pulses Abdomen: normal bowel sounds, non tender, soft, no organomegaly, no pulsatile mass, normal rectal exam, occult blood negative Lungs: chest non-tender, lungs clear, normal breath sounds, no respiratory distress, no accessory muscle use Pre-Sedation Airway Assessment Oral Cavity: Capped Teeth Able to Visualize Vocal Cords: Yes Short Thick Neck: No Hx of Sleep Apnea: No Smoking Status: Never Smoker Mallampati Classification: Class II ASA Classification: Class II Procedure Planning Contraindications-for Mod Sed: None Yes Notes The planned sedation has been discussed with the patient and consent obtained. I have identified the patient, determined the appropriateness of sedation and have assessed the patient immediately prior to the procedure. All medicine(s) and interventions are by my order.
--- NOTE | 2017-06-30 11:30 | Bronchoscopy Procedure Note ---
Bronchoscopy Procedure Note Procedure: Bronchoscopy, conscious sedation, Tbbx, Radial Probe, BAL, Cytology brushing Consent: Obtained through the patient placed into the chart Pre-procedural diagnosis: RML atelectasis Post-procedural diagnosis: Right middle lobe atelectasis, mediastinal lymphadenopathy Start time: 1055 End time: 1124 Total time: 29minutes Analgesia: 2% liquid lidocaine: Via nebulizer 4% gel lidocaine: Via right naris 2% liquid lidocaine: Via bronchoscopy Sedation: Versed IV: 6 mg Fentanyl IV: 125 g Procedure: The [employer] video bronchoscope was used for this procedure and passed down through the right naris Right naris/posterior naris/posterior oropharynx: Anatomically within normal limits Glottis: Anatomically within normal limits Vocal cords: Proper abduction and abduction, anatomically within normal limits Subglottis/trachea/Christine: Anatomically within normal limits Right bronchial tree: Right mainstem bronchus: Anatomically within normal limits Right upper lobe: Anatomically within normal limits Bronchus intermedius: Anatomically within normal limits Right middle lobe: Anatomically within normal limits Right lower lobe: Anatomically within normal limits Findings: No significant findings noted Left bronchial tree: Left mainstem bronchus: Anatomically within normal limits Left upper lobe: Anatomically within normal limits Lingula: Anatomically within normal limits Left lower lobe: Anatomically within normal limits Findings: No significant findings noted The diagnostic portion of this procedure was guided by a radial probe ultrasound Bronchial alveolar lavage: Right middle lobe Transbronchial biopsy: Right middle lobe Cytology brush: Right middle lobe EBL: 5cc Complications: None Follow-up: In the [facility]
[2017-06-30] MEDS ORDERED: MIDAZOLAM HCL 1 MG/ML 2ML VIAL IV ONE (11:45)
[2017-06-30] MEDS ORDERED: FENTANYL CITRATE INJ 50 MCG/1 ML 2 ML VIAL IV ONE (11:45)
[2017-06-30] MEDS ORDERED: METHYLPREDNISOLONE 125 MG VIAL ONE (12:24)
--- NOTE | 2017-06-30 12:43 | DIAGNOSTIC IMAGING REPORT ---
CHEST 1 VW FRONT-NOT PORTABLE CLINICAL HISTORY: 66 years-old Female presenting with s/p RML Tbbx, pulmonary nodule. TECHNIQUE: Portable upright AP view of the chest was obtained. COMPARISON: 06/07/2017. FINDINGS: Left axillary surgical clips. Cardiomediastinal silhouette normal. No significant prominence of pulmonary vasculature. Mildly low lung volumes with hypoventilatory changes. Hazy right basilar opacity. No large effusion or pneumothorax. Mild degenerative changes of the thoracic spine. No displaced fracture. Upper abdomen normal. IMPRESSION: 1. Hazy right basilar opacity could relate to postbiopsy hemorrhage, aspiration, or infection. Electronically signed by: Todd Cisneros M.D. 06/30/2017 12:41 PM Dictated Date/Time: 06/30/2017 12:39 PM
[2017-06-30] MEDS ORDERED: SODIUM CHLORIDE 0.45% 1000ML 1,000 ML IV SCH (12:47)
[2017-06-30] MEDS ORDERED: MIDAZOLAM HCL 5 MG/ML 2ML VIAL IV ONE (12:54)
[2017-06-30] MEDS ORDERED: FENTANYL CITRATE 100 MCG 2 ML CARP IV ONE (12:54)
[2017-06-30] MEDS ORDERED: FLUTICASONE PROPIONATE NA SPR 16 GM BTL NAE PRN (13:00)
[2017-06-30] MEDS ORDERED: ONDANSETRON INJ 2 MG/ML 2 ML VIAL IV PRN (13:00)
--- NOTE | 2017-06-30 14:35 | Critical Care Progress Note ---
Critical Care Progress Note Date of Service Jun 30, 2017. Critical Care Progress Note I responded to a code purple paged overhead to [employer]. Patient was post bronchoscopy and found to be stridorous and in moderate distress. On exam, the patient was anxious appearing and on a nonrebreather. She had upper airway stridor noted on inspiration which resonated through all lung shore. No rales or rhonchi appreciated. The patient was able to point to her throat when describing location of pain. I did direct respiratory therapy to administer a racemic epinephrine breathing treatment as well as nursing staff to administer 125 mg Solu-Medrol intravenously. A chest x-ray with x-ray of the neck was obtained. No pneumothorax noted. Dr. Jones presented to the area and performed ultrasound which did not demonstrate pneumothorax. Patient's symptoms greatly improved. Her oxygenation saturations remained relatively high. The patient's care was transferred to hospitalist service for observation overnight.
[2017-06-30] MEDS ORDERED: IV FLUIDS COMPLETED PRN (14:45)
[2017-06-30] MEDS: RACEPINEPHRINE 2.25% NEBU SOLN 0.5 ML VIAL INH SCH ×2 (15:07→20:01)
--- NOTE | 2017-06-30 15:15 | Pulmonary Consultation ---
History General Date of Service: Jun 30, 2017. Stated Complaint: Pulmonary Nodule HPI The patient is a 66 year old female who presents to [facility] with complaints of Pulmonary Nodule. The patient's primary care provider is Jose Antonio Almazan M.D.. 66 year old female with PMH of HTN, GERD, HLD, cough variant asthma, remote history of breast CA who was recently seen by Dr. Patel for RML opacification after complaints of 1 week history of intermittent substernal chest pain and burning associated with mild dyspnea on exertion, dry nonproductive cough and intermittent low grade fevers. She has intentional weight loss of 30lbs--on [employer]. She denies any hemoptysis, recent travel or exposure to sick contacts. Of note, she was recently diagnosed with acute pancreatitis in early April of this year. From a pulmonary standpoint, she takes Singulair 10 mg PO daily, albuterol 2 puff INH QID prn for wheezing and fluticasone propionate 2 sprays nasally prn for congestion. Immunological work up done on 06/[address] Patel showed Ig G 934, Ig A 71.5, Ig M 92, ZHEN, anti-proteinase 3 pending, anti myeloperoxidase and ANCA pending. Aspergillus Ab pending as well. Emergent bronchoscopy was ordered and scheduled today. This morning, she was s/p bronchoscopy for RML nodule done by Dr. Jones She was placed under moderate sedation with fentanyl and versed. She was recovering in the PACU when she had acute episode of respiratory distress associated with inspiratory stridor. She maintained her saturations of 99% on high flow mask with a respiratory rate of 33 breaths per minutes. She She was given racemic epinephrine, Solu-Medrol 125 mg IV and nebulizer treatment. She was also started on Heliox 70/30. Post procedure chest xray was ordered and as well as bedside thoracic ultrasound done, which were both negative for pneumothoraces. CXR did show infiltrate in RML. She was subsequently switched to nasal canula and transferred to Medical ICU for closer monitoring overnight. At the time of my evaluation in MICU, patient was sitting in bed on 1 L NC, in no acute distress, speaking in full sentences. She denied any fever, chills, chest pain or palpitations. She now has a dry, barking cough. She denies any shortness of breath at rest. She also complains of headache and requesting a sleeping agent because she did not sleep well last night. She denies any nausea , vomiting, diarrhea, constipation, abdominal or genitourinary symptoms. She would like to eat. Historian: patient Onset: this morning Severity: moderate Complaint Status: improved Modifying Factors: other (relieved with medications) Review of Systems Constitutional: reports: as stated in HPI Eyes: reports: no symptoms ENT: reports: no symptoms Cardiovascular: reports: as stated in HPI Respiratory: reports: as stated in HPI, cough, stridor Gastrointestinal: reports: as stated in HPI Genitourinary - Female: reports: as stated in HPI Musculoskeletal: reports: as stated in HPI Integumentary: reports: no symptoms, as stated in HPI Neurologic: reports: as stated in HPI, headache Psychiatric: reports: no symptoms Endocrine: as stated in HPI Hematologic / Lymphatic: no symptoms, as stated in HPI Allergic / Immunologic: no symptoms, as stated in HPI All Other Symptoms All Other Systems: Reviewed and Negative Past Medical History Past Medical History: 1. Abdominal pain (R10.9) 2. Fontaine's esophagus (K22.70) 3. Chronic rhinitis (J31.0) 4. Dyslipidemia (E78.5) 5. Esophageal reflux (K21.9) 6. Hypertension (I10) 7. Hypothyroidism (E03.9) 8. Irritable bowel syndrome (K58.9) 9. Malignant neoplasm of breast (C50.919) 10. Nasal polyps (J33.9) Past Surgical History: Cholecystectomy Family History Patient reports no known family medical history. Family history of asthma. Denies any rheumatological disorders. Social History She is a lifetime nonsmoker, denies any illicit drug or alcohol use. 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 Hx Tobacco Use In Past Year?: No Smoking Status: Never Smoker Marital status: Housing status: lives with significant other Occupational Status: retired Immunizations History of Influenza Vaccine: Yes Influenza Vaccine Date: Aug 29, 2016 History of Tetanus Vaccine?: Yes Tetanus Immunization Date: Jan 21, 2013 History of Pneumococcal: Yes Pneumococcal Date: Dec 14, 2015 History of Hepatitis B Vaccine: No History of MDRO History of MDRO: No Allergies Coded Allergies: Amoxicillin (Verified Allergy, Unknown, GI SYMPTOMS,ITCH, 06/30/17) Clavulanic Acid (Verified Allergy, Unknown, GI SYMPTOMS,ITCH, 06/30/17) Current Medications Reported Home Medications Medications Dose Route/Sig Max Daily Dose Days Date Category Montelukast Sodium (Montelukast Sod) 10 Mg Tab 10 Mg PO QPM 04/18/17 Reported Amlodipine Besylate 10 Mg Tab 10 Mg PO QPM 04/18/17 Reported Ventolin Hfa (Albuterol) 200 Puffs/72625 Mcg Aers 2 Puffs INH QID PRN 04/18/17 Reported Aspirin Enteric Coated Ad (Aspirin) 81 Mg Tab 81 Mg PO QPM 04/18/17 Reported Calcium (Calcium Carbonate) 600 Mg Tab 600 Mg PO QPM 04/18/17 Reported Fluticasone Propionate 120 Sprays/6000 Mcg Inha 2 [facility] NICA DAILY PRN 04/18/17 Reported Levothyroxine Sodium 88 Mcg Tab 88 Mcg PO DAILY 90 10/11/15 Reported Yolande Allergy (Fexofenadine Hcl) 180 Mg Tab 1 Tab PO QPM 14 10/11/15 Reported Zocor (Simvastatin) 20 Mg Tab 20 Mg PO QPM 05/21/11 Reported Prinivil (Lisinopril) 40 Mg Tab 40 Mg PO QPM 05/21/11 Reported Prilosec (Omeprazole) 20 Mg Capcr 40 Mg PO DAILY 05/21/11 Reported Physical Physical Exam Vital Signs: Date Time Temp Pulse Resp B/P (MAP) Pulse Ox O2 Delivery O2 Flow Rate FiO2 06/30/17 13:17 Mask 06/30/17 13:15 38.2 94 16 127/65 94 Nasal Cannula 1.0 06/30/17 12:55 109 22 129/59 95 Nasal Cannula 4 06/30/17 12:38 124 20 134/71 98 Nasal Cannula 4 06/30/17 12:18 127 24 98 Nasal Cannula 4.0 06/30/17 12:10 123 22 160/103 97 Nasal Cannula 4 06/30/17 11:55 37.7 99 18 112/67 95 Nasal Cannula 2 06/30/17 11:43 98 18 138/68 98 Nasal Cannula 4 06/30/17 11:30 117 20 147/77 97 Nasal Cannula 4.0 06/30/17 11:25 115 20 136/67 98 Mask 4.0 06/30/17 11:20 118 22 153/102 96 Mask 4.0 06/30/17 11:15 109 20 124/78 97 Mask 4.0 06/30/17 11:10 94 18 129/65 97 Mask 4.0 06/30/17 11:05 93 18 134/94 94 Mask 4.0 06/30/17 11:00 105 18 143/78 100 Mask 4.0 06/30/17 10:39 99 18 141/77 100 Mask 4.0 06/30/17 10:34 37.4 95 20 141/67 97 Room Air 06/30/17 09:19 37.4 95 20 141/67 (91) 97 Room Air General Appearance: WELL-APPEARING, WD/WN, NO APPARENT DISTRESS Head: NORMOCEPHALIC, ATRAUMATIC Eyes: PERRLA, NO DISCHARGE, EOMI, SCLERAE NORMAL, CONJUNCTIVAE NORMAL ENT: NORMAL NASAL EXAM, NORMAL MOUTH EXAM, NORMAL THROAT EXAM Neck: NORMAL RANGE OF MOTION, NO TENDERNESS, TRACHEA MIDLINE, NO STRIDOR Respiratory: BREATH SOUNDS NORMAL, CLEAR TO AUSCULTATION, CLEAR TO PERCUSSION, NO RESPIRATORY DISTRESS, other (coarse crackles mainly heard in RML) Cardiovasular: REGULAR RATE/RHYTHM, NORMAL S1S2, NO M/G/R Abdomen: NON TENDER, NORMAL BOWEL SOUNDS Genitourinary - Female: EXTERNAL GENITALIA NORMAL Back: NORMAL INSPECTION Upper Extremities: NO EDEMA Lower Extremities: NO EDEMA Pulses: radial (R) (2+), dorsalis pedis (R) (2+), dorsalis pedis (L) (2+) Neuro: ALERT, ORIENTED x 3, NORMAL MOTOR EXAM, NORMAL SENSATION Reflexes: biceps (R) (2+), bicpes (L) (2+) Psychiatric: NORMAL AFFECT, NO SUICIDAL IDEATION, CONTRACTS FOR SAFETY Diagnostics Labs Results Past 24 Hours Test 06/30/17 00:00 06/30/17 09:13 Range/Units Bedside Glucose 93 70-90 mg/dl Microbiology Results 06/30/17 Fungal Smear, Received Pending 06/30/17 Fungal Culture, Received Pending 06/30/17 Acid Fast Stain, Received Pending 06/30/17 Mycobacterial Culture, Received Pending 06/30/17 Gram Stain, Received Pending 06/30/17 Bronchoalveolar Lavage Culture, Received Pending Diagnostic Radiology CXR: FINDINGS: Left axillary surgical clips. Cardiomediastinal silhouette normal. No significant prominence of pulmonary vasculature. Mildly low lung volumes with hypoventilatory changes. Hazy right basilar opacity. No large effusion or pneumothorax. Mild degenerative changes of the thoracic spine. No displaced fracture. Upper abdomen normal. IMPRESSION: 1. Hazy right basilar opacity could relate to postbiopsy hemorrhage, aspiration, or infection. PET CT chest IMPRESSION: 1. Intensely metabolically active right middle lobe masslike lesion versus consolidative infiltrate. 2. Indeterminate but nevertheless metabolically active pretracheal, subcarinal and possibly left perihilar neetu change. 3. Neoplastic process must the diagnosis of exclusion. Impression Assessment and Plan Post procedure stridor Right middle lobe mass Hilar lymphadenopathy Patient is s/p bronchoscopy today for increasing RML mass. She tolerated the procedure well but then was noted to have stridor. She responded well to racemic epinephrine, bronchodilators, systemic corticosteroids and Heliox which was titrated back to nasal canula. She has minimal oxygen requirement at the current time and overall feeling better. PET scan was done and shows high uptake in lymph nodes and RML consolidation. This could be represent an infectious, inflammatory/ vasculitic or malignant in etiology. She is s/p bronchoscopy with BAL, brushing and biopsy. Cultures are pending. In the meantime, maintain SaO2 above 92%. She is doing well on 1 L NC. I would continue racemic epinephrine prn. Continue with Albuterol q4-6h prn I would continue with IV solumedrol. If she remains stable overnight, I would switch to prednisone 40 mg and taper upon discharge tomorrow. Continue all current management per primary team
[2017-06-30] MEDS ORDERED: ACETAMINOPHEN 325 MG TAB ONE (15:18)
[2017-06-30] MEDS ORDERED: ACETAMINOPHEN 325 MG TAB PO PRN (15:30)
[2017-06-30] MEDS: METHYLPREDNISOLONE IV 60 MG in SYRINGE 0 ML IV SCH ×2 (16:50→23:07)
[2017-06-30] MEDS ORDERED: LISINOPRIL 40 MG TAB PO SCH (21:00)
[2017-06-30] MEDS ORDERED: CALCIUM CARBONATE 1250MG TAB PO SCH (21:00)
[2017-06-30] MEDS ORDERED: ASPIRIN 81 MG ECTAB PO SCH (21:00)
[2017-06-30] MEDS ORDERED: FEXOFENADINE HCL 180 MG TAB PO SCH (21:00)
[2017-06-30] MEDS ORDERED: MONTELUKAST SOD 10 MG TAB PO SCH (21:00)
[2017-06-30] MEDS ORDERED: SIMVASTATIN 20 MG TAB PO SCH (21:00)
[2017-06-30] MEDS ORDERED: AMLODIPINE BESYLATE 5 MG TAB PO SCH (21:00)
[2017-06-30] MEDS ORDERED: ZOLPIDEM TARTRATE 5 MG TAB PO PRN ×2 (22:30→22:45)
--- NOTE | 2017-06-30 22:47 | History and Physical ---
History & Physical Date & Time of Service: Jun 30, 2017 at 22:24 Chief Complaint: Shortness of breath Primary Care Physician: Jose Antonio Almazan M.D. History of Present Illness Source: patient, family This patient is a 66-year-old female with a history of breast cancer, acute pancreatitis, acoustic neuroma, hypertension, hyperlipidemia, hypothyroidism, seasonal allergies, GERD, and a recently found pulmonary nodule with right middle lobe atelectasis and collapse. She was having an outpatient bronchoscopy today during which she had a biopsy performed of a pulmonary nodule After the procedure, she began having acute respiratory failure with increased work of breathing, increased oxygen requirement, and obvious stridor. A code purple was called and this is when I came to assess the patient. She was given racemic epinephrine nebulizer, and the chair and couch maker performed a bedside ultrasound which revealed that she did not have a pneumothorax. Given IV Solu-Medrol and heliox was administered as well. She began to feel much better, but will be admitted for observation overnight due to acute hypoxemic respiratory failure and acute stridor status post bronchoscopy. Past Medical/Surgical History Medical Problems: (1) Acute pancreatitis (2) Dyslipidemia (3) Hearing Loss Nos (4) Hx Of Breast Malignancy (5) Hypertension Nos (6) Hypothyroidism Nos Seasonal allergies GERD Pulmonary nodule and right middle lobe atelectasis with collapse Abnormal PET scan Surgical Problems: (1) Status post breast lumpectomy (2) Status post excision of acoustic neuroma (3) Status post hysterectomy and bilateral oophorectomy Family History Patient reports no known family medical history. Father from bone cancer Mother at a young age due to a cancer of some sort Sr. with asthma Sr. with vaginal cancer Social History Smoking Status: Never Smoker Alcohol Use: none Drug Use: none Marital Status: Housing status: lives with significant other Occupational Status: retired Immunizations History of Influenza Vaccine: Yes Influenza Vaccine Date: Aug 29, 2016 History of Tetanus Vaccine?: Yes Tetanus Immunization Date: Jan 21, 2013 History of Pneumococcal: Yes Pneumococcal Date: Dec 14, 2015 History of Hepatitis B Vaccine: No Multi-Drug Resistant Organisms History of MDRO: No Allergies Coded Allergies: Amoxicillin (Verified Allergy, Unknown, GI SYMPTOMS,ITCH, 06/30/17) Clavulanic Acid (Verified Allergy, Unknown, GI SYMPTOMS,ITCH, 06/30/17) Home Medications Scheduled Amlodipine Besylate (Amlodipine Besylate), 10 MG PO QPM Aspirin (Aspirin Enteric Coated Ad), 81 MG PO QPM Calcium Carbonate (Calcium), 600 MG PO QPM Fexofenadine Hcl (Yolande Allergy), 1 TAB PO QPM Levothyroxine Sodium (Levothyroxine Sodium), 88 MCG PO DAILY Lisinopril (Prinivil), 40 MG PO QPM Montelukast Sod (Montelukast Sodium), 10 MG PO QPM Omeprazole (Prilosec), 40 MG PO DAILY Simvastatin (Zocor), 20 MG PO QPM Scheduled PRN Albuterol Hfa (Ventolin Hfa), 2 PUFFS INH QID PRN for Wheezing Fluticasone Propionate (Fluticasone Propionate), 2 SPRAY NICA DAILY PRN for Nasal Congestion Review of Systems Constitutional: No fever, No chills Eyes: No problem reported ENT: + hearing loss Respiratory: + cough, + wheezing, + shortness of breath, + dyspnea at rest Cardiovascular: No chest pain, No edema, No palpitations Abdomen: No pain, No nausea Musculoskeletal: No problem reported Genitourinary - Female: No problem reported Neurologic: No problem reported Psychiatric: No problem reported Endocrine: No problem reported Hematologic / Lymphatic: No problem reported Integumentary: No problem reported Allergic / Immunologic: No problem reported Physical Exam Vital Signs Date Time Temp Pulse Resp B/P (MAP) Pulse Ox O2 Delivery O2 Flow Rate FiO2 06/30/17 20:01 80 18 95 Room Air 06/30/17 20:00 95 Room Air 06/30/17 19:28 37.0 93 18 134/61 (85) 95 Room Air 06/30/17 16:00 Room Air 06/30/17 15:18 37.0 107 20 105/56 (72) 92 Room Air 06/30/17 15:10 78 18 93 Room Air 06/30/17 13:17 Mask 06/30/17 13:15 38.2 94 16 127/65 94 Nasal Cannula 1.0 06/30/17 12:55 109 22 129/59 95 Nasal Cannula 4 06/30/17 12:38 124 20 134/71 98 Nasal Cannula 4 06/30/17 12:18 127 24 98 Nasal Cannula 4.0 06/30/17 12:10 123 22 160/103 97 Nasal Cannula 4 06/30/17 11:55 37.7 99 18 112/67 95 Nasal Cannula 2 06/30/17 11:43 98 18 138/68 98 Nasal Cannula 4 06/30/17 11:30 117 20 147/77 97 Nasal Cannula 4.0 06/30/17 11:25 115 20 136/67 98 Mask 4.0 06/30/17 11:20 118 22 153/102 96 Mask 4.0 06/30/17 11:15 109 20 124/78 97 Mask 4.0 06/30/17 11:10 94 18 129/65 97 Mask 4.0 06/30/17 11:05 93 18 134/94 94 Mask 4.0 06/30/17 11:00 105 18 143/78 100 Mask 4.0 06/30/17 10:39 99 18 141/77 100 Mask 4.0 06/30/17 10:34 37.4 95 20 141/67 97 Room Air 06/30/17 09:19 37.4 95 20 141/67 (91) 97 Room Air General Appearance: + moderate distress, + thin Head: normocephalic, atraumatic Eyes: normal inspection, sclerae normal ENT: pharynx normal, + pertinent finding (deaf in the right ear) Neck: supple, no adenopathy, trachea midline, + pertinent finding (stridor auscultated over the anterior neck) Respiratory/Chest: + respiratory distress, + accessory muscle use, + stridor Cardiovascular: no edema, no murmur, normal peripheral pulses, + tachycardia ( with regular rhythm) Abdomen/GI: normal bowel sounds, non tender, soft, no organomegaly Back: normal inspection Extremities/Musculoskelatal: normal inspection, no calf tenderness, normal capillary refill, no pedal edema Neurologic/Psych: alert (and anxious) Skin: normal color, warm/dry, no rash Diagnostics Laboratory Results Results Past 24 Hours Test 06/30/17 00:00 06/30/17 09:13 Range/Units Bedside Glucose 93 70-90 mg/dl Microbiology Results 06/30/17 Fungal Smear, Received Pending 06/30/17 Fungal Culture, Received Pending 06/30/17 Acid Fast Stain, Received Pending 06/30/17 Mycobacterial Culture, Received Pending 06/30/17 Gram Stain, Received Pending 06/30/17 Bronchoalveolar Lavage Culture, Received Pending Diagnostic Radiology Chest x-ray with: IMPRESSION: 1. Hazy right basilar opacity could relate to postbiopsy hemorrhage, aspiration, or infection. EKG Sinus tachycardia, TWIs leads III and aVF Impression Assessment and Plan This patient is a 66-year-old female with a history of breast cancer, acute pancreatitis, acoustic neuroma, hypertension, hyperlipidemia, hypothyroidism, seasonal allergies, GERD, and a recently found pulmonary nodule with right middle lobe atelectasis and collapse. She was having an outpatient bronchoscopy today during which she had a biopsy performed of a pulmonary nodule After the procedure, she began having acute respiratory failure with increased work of breathing, increased oxygen requirement, and obvious stridor. She was given racemic epinephrine nebulizer, and the chair and couch maker performed a bedside ultrasound which revealed that she did not have a pneumothorax. Given IV Solu-Medrol and heliox was administered as well. She began to feel much better, but will be admitted for observation overnight due to acute hypoxemic respiratory failure and acute stridor status post bronchoscopy. Acute hypoxemic respiratory failure/stridor status post bronchoscopy-improving with racemic epi, IV Solu-Medrol, and heliox administration. Most likely due to vocal cord irritation after bronchoscopy. There is no evidence of pneumothorax by bedside ultrasound or stat chest x-ray. Sinus tachycardia on ECG -Continue IV Solu-Medrol and racemic epi -Continue oxygen and wean as tolerated -Appreciate pulmonology consultation -Monitor on telemetry given acute respirator distress and tachycardia Sinus tachycardia with nonspecific T-wave inversions-likely secondary to respiratory distress. She has no chest pain and no history of coronary artery disease. -Repeat ECG in the morning -Monitor on telemetry Pulmonary nodule-biopsied by pulmonology during bronchoscopy today -Follow up with pulmonology for pathology results when available Hypertension, hyperlipidemia-stable -Continue medications from home-amlodipine, lisinopril, aspirin, and statin Hypothyroidism-clinically stable -Continue levothyroxine from home GERD-stable -Continue PPI Seasonal allergies-stable -Continue Flonase and Singulair Prophylaxis-SCDs only given recent lung biopsy today Disposition-likely to home tomorrow if stridor improved Level of Care Telemetry Advanced Directives Existing Living Will: Yes Existing Power of Tearer: Yes Resuscitation Status FULL RESUSCITATION VTE Prophylaxis VTE Risk Assessment Done? Y/N: Yes Risk Level: Low Given or contraindicated: SCD's Additional Copies To Jose Antonio Almazan M.D.
[2017-07-01] VITALS: O2SAT 94
[2017-07-01] MEDS: RACEPINEPHRINE 2.25% NEBU SOLN 0.5 ML VIAL INH SCH ×3 (03:00→07:05)
[2017-07-01 04:00] VITALS: BP 109/60; PULSE 82; TEMP 36.8; O2SAT 94
[2017-07-01 04:30] VITALS: O2SAT 94
[2017-07-01 04:39] VITALS: PULSE 88; O2SAT 97
[2017-07-01 05:54] LABS: COMPLETE YES; HEMATOCRIT 34.3 % (37-47); IG% 0.3 %; LYMPH % 6.3 %; LYMPH ABS # 0.75 K/uL (1.2-3.4); MEAN CELL VOLUME 84.9 fL (80-100); MEAN CORPUSCULAR HEMOGLOBIN 28.7 pg (25-34); MEAN CORPUSCULAR HGB CONC 33.8 g/dl (32-36); MONO % 1.8 %; NEUT % 91.6 %; PLATELET COUNT 324 K/uL (130-400); RED BLOOD COUNT 4.04 M/uL (4.2-5.4); WHITE BLOOD COUNT 11.94 K/uL (4.8-10.8)
[2017-07-01] MEDS ORDERED: LEVOTHYROXINE 88 MCG TAB PO SCH (06:00)
[2017-07-01 06:26] LABS: BUN/CREATININE RATIO 26.2 (10-20); CALCIUM 9.3 mg/dl (8.5-10.1); CREATININE 0.56 mg/dl (0.60-1.20); MAGNESIUM 1.9 mg/dl (1.8-2.4); POTASSIUM 3.3 mmol/L (3.5-5.1)
[2017-07-01] MEDS: METHYLPREDNISOLONE IV 60 MG in SYRINGE 0 ML IV SCH (06:32)
[2017-07-01 07:13] VITALS: BP 121/67; PULSE 78; TEMP 36.9; O2SAT 95
[2017-07-01] MEDS ORDERED: POTASSIUM CHLR 10 MEQ / WTR 10 MEQ in PREMIXED WATER 100 ML IV SCH (08:15)
[2017-07-01] MEDS ORDERED: PANTOprazole SOD 40 MG TAB PO SCH (09:00)
--- NOTE | 2017-07-01 09:03 | Pulmonology Progress Note ---
Pulmonary Progress Note Date of Service Jul 01, 2017. Attending Subjective Patient seen and examined at bedside. She slept well last night with Ambien. She still has some chest congestion post bronchoscopy and dry non productive cough. She denies any chest pain, wheezing, shortness of breath or stridor. Objective VS reviewed. She is saturating 95% on on RA. She is approximately 1600 mL negative balance. Gen: Awake, alert, orientated x3, NAD CVS: S1, S2, RRR Lungs: CTA b/l, no crackles, no wheezing. Does cough during examination Abd: soft/NT/ND/BS+ Ext: no edema b/l LE, no cyanosis, no clubbing Labs reviewed Imaging reviewed Bronchoscopy studies pending. Assessment & Plan Post procedure stridor Right middle lobe mass Hilar lymphadenopathy Patient had no episodes of stridor or respiratory distress overnight. She feels much better overall. She remains on minimal oxygen support. Results of bronchoscopy bacterial, fungal, AFB and cytology are still pending. She is concerned that this is a recurrence of breast cancer and I tried to give support. I also explained that this may infectious, inflammatory/ vasculitic as well. She is stable for discharge from a pulmonary standpoint. I would continue with Medrol Dose carlos. Continue albuterol MDI prn for wheezing and shortness of breath. Continue with Singulair and Flonase as well. She is scheduled to follow up with Pulmonary Clinic on Friday, July 08, 2017. Continue all current management per primary team. I appreciate the consult and will sign off case today. Data Medications: Current Inpatient Medications Medications (Trade) Dose Ordered Sig/Elizabet Route Start Time Stop Time Status Last Admin Dose Admin Dextrose/Sodium Chloride 1,000 ml @ 15 mls/hr Q24H IV 06/30/17 10:30 07/30/17 10:29 06/30/17 10:29 15 MLS/HR Ondansetron HCl (Zofran Inj) 4 mg Q6H PRN IV 06/30/17 13:00 07/30/17 12:59 Methylprednisolone Sodium Succinate 60 mg/Syringe 0.96 ml @ 1.5 mls/min Q6H IV 06/30/17 18:00 07/30/17 17:59 07/01/17 06:32 1.5 MLS/MIN Racepinephrine (Raccemic Epinephrine 2.25% 0.5ML Neb) 0.5 ml Q6R INH 06/30/17 15:00 07/30/17 14:59 07/01/17 04:38 0.5 ML Aspirin (Ecotrin Tab) 81 mg QPM PO 06/30/17 21:00 07/30/17 20:59 06/30/17 21:15 81 MG Fexofenadine HCl (Yolande Tab) 180 mg QPM PO 06/30/17 21:00 07/30/17 20:59 06/30/17 21:16 180 MG Fluticasone Propionate (Flonase Nasal [place]) 1 sprays DAILY PRN NICA 06/30/17 13:00 07/30/17 12:59 Levothyroxine Sodium (Synthroid Tab) 88 mcg DAILYBB PO 07/01/17 06:00 07/31/17 05:59 07/01/17 06:32 88 MCG Lisinopril (Zestril Tab) 40 mg QPM PO 06/30/17 21:00 07/30/17 20:59 06/30/17 21:15 40 MG Montelukast Sodium (Singulair Tab) 10 mg QPM PO 06/30/17 21:00 07/30/17 20:59 06/30/17 21:15 10 MG Simvastatin (Zocor Tab) 20 mg QPM PO 06/30/17 21:00 07/30/17 20:59 06/30/17 21:15 20 MG Amlodipine Besylate (Norvasc Tab) 10 mg QPM PO 06/30/17 21:00 07/30/17 20:59 06/30/17 21:15 10 MG Calcium Carbonate (oS-Kris 500 TAB) 1,250 mg QPM PO 06/30/17 21:00 07/30/17 20:59 06/30/17 21:15 1,250 MG Pantoprazole Sodium (Protonix Tab) 40 mg QAM PO 07/01/17 09:00 07/31/17 08:59 07/01/17 07:35 40 MG Miscellaneous (Iv Fluids Completed) 1 ea PRN PRN N/A 06/30/17 14:45 06/30/18 14:44 Acetaminophen (Tylenol Tab) 650 mg Q6H PRN PO 06/30/17 15:30 07/30/17 15:29 Zolpidem Tartrate (Ambien Tab) 5 mg HS PRN PO 06/30/17 22:30 07/30/17 22:29 06/30/17 23:07 5 MG Potassium Chloride 10 meq/ Prmx 100 ml @ 50 mls/hr Q1H IV 07/01/17 08:15 07/01/17 10:14 Vital Signs: Date Time Temp Pulse Resp B/P (MAP) Pulse Ox O2 Delivery O2 Flow Rate FiO2 07/01/17 08:00 Room Air 07/01/17 07:13 36.9 78 20 121/67 (85) 95 Room Air 07/01/17 04:39 88 18 97 Room Air 07/01/17 04:30 94 Room Air 07/01/17 04:00 36.8 82 17 109/60 (76) 94 Room Air 07/01/17 00:00 94 Room Air 06/30/17 23:30 36.8 80 18 120/55 (76) 94 Room Air 06/30/17 20:01 80 18 95 Room Air 06/30/17 20:00 95 Room Air 06/30/17 19:28 37.0 93 18 134/61 (85) 95 Room Air 06/30/17 16:00 Room Air 06/30/17 15:18 37.0 107 20 105/56 (72) 92 Room Air 06/30/17 15:10 78 18 93 Room Air 06/30/17 13:17 Mask 06/30/17 13:15 38.2 94 16 127/65 94 Nasal Cannula 1.0 06/30/17 12:55 109 22 129/59 95 Nasal Cannula 4 06/30/17 12:38 124 20 134/71 98 Nasal Cannula 4 06/30/17 12:18 127 24 98 Nasal Cannula 4.0 06/30/17 12:10 123 22 160/103 97 Nasal Cannula 4 06/30/17 11:55 37.7 99 18 112/67 95 Nasal Cannula 2 06/30/17 11:43 98 18 138/68 98 Nasal Cannula 4 06/30/17 11:30 117 20 147/77 97 Nasal Cannula 4.0 06/30/17 11:25 115 20 136/67 98 Mask 4.0 06/30/17 11:20 118 22 153/102 96 Mask 4.0 06/30/17 11:15 109 20 124/78 97 Mask 4.0 06/30/17 11:10 94 18 129/65 97 Mask 4.0 06/30/17 11:05 93 18 134/94 94 Mask 4.0 06/30/17 11:00 105 18 143/78 100 Mask 4.0 06/30/17 10:39 99 18 141/77 100 Mask 4.0 06/30/17 10:34 37.4 95 20 141/67 97 Room Air 06/30/17 09:19 37.4 95 20 141/67 (91) 97 Room Air Laboratory Results: Last 24 Hours Test 06/30/17 09:13 07/01/17 05:32 Bedside Glucose 93 mg/dl White Blood Count 11.94 K/uL Red Blood Count 4.04 M/uL Hemoglobin 11.6 g/dL Hematocrit 34.3 % Mean Corpuscular Volume 84.9 fL Mean Corpuscular Hemoglobin 28.7 pg Mean Corpuscular Hemoglobin Concent 33.8 g/dl Platelet Count 324 K/uL Mean Platelet Volume 9.0 fL Neutrophils (%) (Auto) 91.6 % Lymphocytes (%) (Auto) 6.3 % Monocytes (%) (Auto) 1.8 % Eosinophils (%) (Auto) 0.0 % Basophils (%) (Auto) 0.0 % Neutrophils # (Auto) 10.95 K/uL Lymphocytes # (Auto) 0.75 K/uL Monocytes # (Auto) 0.21 K/uL Eosinophils # (Auto) 0.00 K/uL Basophils # (Auto) 0.00 K/uL RDW Standard Deviation 38.0 fL RDW Coefficient of Variation 12.2 % Immature Granulocyte % (Auto) 0.3 % Immature Granulocyte # (Auto) 0.03 K/uL Sodium Level 139 mmol/L Potassium Level 3.3 mmol/L Chloride Level 105 mmol/L Carbon Dioxide Level 26 mmol/L Anion Gap 8.0 mmol/L Blood Urea Nitrogen 15 mg/dl Creatinine 0.56 mg/dl Est Creatinine Clear Calc Drug Dose 89.0 ml/min Estimated GFR () 111.8 Estimated GFR (Non- 96.5 BUN/Creatinine Ratio 26.2 Random Glucose 208 mg/dl Calcium Level 9.3 mg/dl Magnesium Level 1.9 mg/dl
[2017-07-01] MEDS ORDERED: POTASSIUM CHLORIDE 20 MEQ TABCR PO STA (09:56)
[2017-07-01] MEDS ORDERED: NURSING VERBAL MED ORDER ONE (10:00)
--- NOTE | 2017-07-01 10:18 | Progress Note ---
Subjective Date of Service: Jul 01, 2017. Subjective Pt evaluation today including: conversation w/ patient, physical exam, lab review, review of studies, review of inpatient medication list Received call from Dr. Ramirez today; due to patient seeing [facility] PCP; patient was transferred to our service. Saw/examined the patient in room 209 Feeling well today, denies any shortness of breath or chest pain mild persistent cough, but feels good enough to go home Denies fevers/chills Problem List Medical Problems: (1) Back strain Status: Acute (2) Burning chest pain Status: Acute (3) Dyslipidemia Status: Chronic (4) Fall Status: Acute (5) Head contusion Status: Acute (6) Hearing Loss Nos Status: Chronic (7) Hypertension Nos Status: Chronic (8) Hypothyroidism Nos Status: Chronic (9) Laceration of ear Status: Acute (10) Mucus plugging of bronchi Status: Acute (11) Pancreatitis Status: Acute Review of Systems Constitutional: No fever, No chills Respiratory: + cough, No sputum, No wheezing, No shortness of breath, No dyspnea on exertion, No dyspnea at rest, No hemoptysis Cardiac: No chest pain, No edema, No palpitations Abdomen: No pain, No nausea, No vomiting, No diarrhea Musculoskeletal: No joint pain Neurologic: No weakness Psychiatric: + anxiety Heme: No abnormal bleeding/bruising Medications Current Inpatient Medications Medications (Trade) Dose Ordered Sig/Elizabet Route Start Time Stop Time Status Last Admin Dose Admin Dextrose/Sodium Chloride 1,000 ml @ 15 mls/hr Q24H IV 06/30/17 10:30 07/30/17 10:29 06/30/17 10:29 15 MLS/HR Ondansetron HCl (Zofran Inj) 4 mg Q6H PRN IV 06/30/17 13:00 07/30/17 12:59 Methylprednisolone Sodium Succinate 60 mg/Syringe 0.96 ml @ 1.5 mls/min Q6H IV 06/30/17 18:00 07/30/17 17:59 07/01/17 06:32 1.5 MLS/MIN Racepinephrine (Raccemic Epinephrine 2.25% 0.5ML Neb) 0.5 ml Q6R INH 06/30/17 15:00 07/30/17 14:59 07/01/17 04:38 0.5 ML Aspirin (Ecotrin Tab) 81 mg QPM PO 06/30/17 21:00 07/30/17 20:59 06/30/17 21:15 81 MG Fexofenadine HCl (Yolande Tab) 180 mg QPM PO 06/30/17 21:00 07/30/17 20:59 06/30/17 21:16 180 MG Fluticasone Propionate (Flonase Nasal [place]) 1 sprays DAILY PRN NICA 06/30/17 13:00 07/30/17 12:59 Levothyroxine Sodium (Synthroid Tab) 88 mcg DAILYBB PO 07/01/17 06:00 07/31/17 05:59 07/01/17 06:32 88 MCG Lisinopril (Zestril Tab) 40 mg QPM PO 06/30/17 21:00 07/30/17 20:59 06/30/17 21:15 40 MG Montelukast Sodium (Singulair Tab) 10 mg QPM PO 06/30/17 21:00 07/30/17 20:59 06/30/17 21:15 10 MG Simvastatin (Zocor Tab) 20 mg QPM PO 06/30/17 21:00 07/30/17 20:59 06/30/17 21:15 20 MG Amlodipine Besylate (Norvasc Tab) 10 mg QPM PO 06/30/17 21:00 07/30/17 20:59 06/30/17 21:15 10 MG Calcium Carbonate (oS-Kris 500 TAB) 1,250 mg QPM PO 06/30/17 21:00 07/30/17 20:59 06/30/17 21:15 1,250 MG Pantoprazole Sodium (Protonix Tab) 40 mg QAM PO 07/01/17 09:00 07/31/17 08:59 07/01/17 07:35 40 MG Miscellaneous (Iv Fluids Completed) 1 ea PRN PRN N/A 06/30/17 14:45 06/30/18 14:44 Acetaminophen (Tylenol Tab) 650 mg Q6H PRN PO 06/30/17 15:30 07/30/17 15:29 Zolpidem Tartrate (Ambien Tab) 5 mg HS PRN PO 06/30/17 22:30 07/30/17 22:29 06/30/17 23:07 5 MG Potassium Chloride 10 meq/ Prmx 100 ml @ 50 mls/hr Q1H IV 07/01/17 08:15 07/01/17 10:14 Objective Vital Signs Date Time Temp Pulse Resp B/P (MAP) Pulse Ox O2 Delivery O2 Flow Rate FiO2 07/01/17 08:00 Room Air 07/01/17 07:13 36.9 78 20 121/67 (85) 95 Room Air 07/01/17 04:39 88 18 97 Room Air 07/01/17 04:30 94 Room Air 07/01/17 04:00 36.8 82 17 109/60 (76) 94 Room Air 07/01/17 00:00 94 Room Air 06/30/17 23:30 36.8 80 18 120/55 (76) 94 Room Air 06/30/17 20:01 80 18 95 Room Air 06/30/17 20:00 95 Room Air 06/30/17 19:28 37.0 93 18 134/61 (85) 95 Room Air 06/30/17 16:00 Room Air 06/30/17 15:18 37.0 107 20 105/56 (72) 92 Room Air 06/30/17 15:10 78 18 93 Room Air 06/30/17 13:17 Mask 06/30/17 13:15 38.2 94 16 127/65 94 Nasal Cannula 1.0 06/30/17 12:55 109 22 129/59 95 Nasal Cannula 4 06/30/17 12:38 124 20 134/71 98 Nasal Cannula 4 06/30/17 12:18 127 24 98 Nasal Cannula 4.0 06/30/17 12:10 123 22 160/103 97 Nasal Cannula 4 06/30/17 11:55 37.7 99 18 112/67 95 Nasal Cannula 2 06/30/17 11:43 98 18 138/68 98 Nasal Cannula 4 06/30/17 11:30 117 20 147/77 97 Nasal Cannula 4.0 06/30/17 11:25 115 20 136/67 98 Mask 4.0 06/30/17 11:20 118 22 153/102 96 Mask 4.0 06/30/17 11:15 109 20 124/78 97 Mask 4.0 06/30/17 11:10 94 18 129/65 97 Mask 4.0 06/30/17 11:05 93 18 134/94 94 Mask 4.0 06/30/17 11:00 105 18 143/78 100 Mask 4.0 06/30/17 10:39 99 18 141/77 100 Mask 4.0 06/30/17 10:34 37.4 95 20 141/67 97 Room Air Physical Exam General Appearance: no apparent distress ENT: hearing grossly normal Respiratory/Chest: chest non-tender, lungs clear, normal breath sounds, no respiratory distress, no accessory muscle use Cardiovascular: regular rate, rhythm, no edema, no murmur Abdomen: normal bowel sounds, non tender, soft Neurologic/Psychiatric: no motor/sensory deficits, alert Laboratory Results Last 24 Hours Test 07/01/17 05:32 White Blood Count 11.94 K/uL Red Blood Count 4.04 M/uL Hemoglobin 11.6 g/dL Hematocrit 34.3 % Mean Corpuscular Volume 84.9 fL Mean Corpuscular Hemoglobin 28.7 pg Mean Corpuscular Hemoglobin Concent 33.8 g/dl Platelet Count 324 K/uL Mean Platelet Volume 9.0 fL Neutrophils (%) (Auto) 91.6 % Lymphocytes (%) (Auto) 6.3 % Monocytes (%) (Auto) 1.8 % Eosinophils (%) (Auto) 0.0 % Basophils (%) (Auto) 0.0 % Neutrophils # (Auto) 10.95 K/uL Lymphocytes # (Auto) 0.75 K/uL Monocytes # (Auto) 0.21 K/uL Eosinophils # (Auto) 0.00 K/uL Basophils # (Auto) 0.00 K/uL RDW Standard Deviation 38.0 fL RDW Coefficient of Variation 12.2 % Immature Granulocyte % (Auto) 0.3 % Immature Granulocyte # (Auto) 0.03 K/uL Sodium Level 139 mmol/L Potassium Level 3.3 mmol/L Chloride Level 105 mmol/L Carbon Dioxide Level 26 mmol/L Anion Gap 8.0 mmol/L Blood Urea Nitrogen 15 mg/dl Creatinine 0.56 mg/dl Est Creatinine Clear Calc Drug Dose 89.0 ml/min Estimated GFR () 111.8 Estimated GFR (Non- 96.5 BUN/Creatinine Ratio 26.2 Random Glucose 208 mg/dl Calcium Level 9.3 mg/dl Magnesium Level 1.9 mg/dl Assessment and Plan This is a 66 year old female with a PMH of HTN, HLD, hypothyroidism, GERD, hx. of breast CA presents with stridor/respiratory distress s/p bronchoscopy Acute Hypoxemic Respiratory Failure Stridor s/p Bronchoscopy improved after racemic epi, solu-medrol, heliox no evidence of pneumothorax clinically improved appreciate pulmonary input will switch solu-medrol to medrol dosepak continue albuterol inhaler or nebs PRN Sinus Tachycardia - resolved likely secondary to respiratory distress EKG from this morning (07/01) shows NSR, with no T-wave/ST changes Pulmonary Nodule s/p bronch and biopsy follow-up with pulm as outpatient HTN stable continue home medications Hypothyroid continue Synthroid GERD continue PPI Seasonal allergies Continue Flonase and Singulair DVT ppx SCDs FULL CODE d/c home today
[2017-07-01] MEDS ORDERED: AMB5 PO (10:21)
[2017-07-01] MEDS ORDERED: METH4PAK PO (10:21)
--- NOTE | 2017-07-01 10:30 | Discharge Instructions ---
Discharge Instructions Date of Service Jul 01, 2017. Admission Reason for Admission: Acute Hypoxemic Respiratory Failure Discharge Discharge Diagnosis / Problem: Acute Hypoxemic Respiratory Failure/Stridor s/p Bronchoscopy Discharge Goals Goal(s): Decrease discomfort, Improve function, Diagnostic testing, Therapeutic intervention Activity Recommendations Activity Limitations: resume your previous activity . Instructions / Follow-Up Instructions / Follow-Up Please follow-up with Dr. Almazan on July 07 at 10:45AM Please follow-up with Dr. Patel, pulmonology, regarding biopsy results You will be given a medrol-dose carlos - please follow directions Use nebulizers and inhalers as needed for shortness of breath Current Hospital Diet Patient's current hospital diet: Regular Diet Discharge Diet Recommended Diet: Regular Diet Pending Studies Studies pending at discharge: no Laboratory Results Lipid Panel Test 04/19/17 07:23 Range/Units Triglycerides Level 46 0-150 mg/dl Cholesterol Level 143 0-200 mg/dl HDL Cholesterol 70 mg/dl Cholesterol/HDL Ratio 2.0 LDL Cholesterol, Calculated 64 mg/dl Medical Emergencies . Who to Call and When: Medical Emergencies: If at any time you feel your situation is an emergency, please call 911 immediately. . Non-Emergent Contact Non-Emergency issues call your: Primary Care Provider . . "Provider Documentation" section prepared by Nicholas Flores. . VTE Core Measure Inpt VTE Proph given/why not?: SCD's [place] Drug Monitoring Program Search Results: patient reviewed within database, no issues identified
--- NOTE | 2017-07-01 10:36 | Discharge Summary ---
Discharge Summary Date of Service Jul 01, 2017. Discharge Summary Admission Date: Jun 30, 2017 at 12:53 Discharge Date: Jul 01, 2017 Discharge Disposition: Home Principal Diagnosis: Acute Hypoxemic Respiratory Failure Stridor status post Bronchoscopy Pulmonary Nodule Medication Reconciliation New Medications: Methylprednisolone (Medrol Dosepak) 4 Mg Shaquille 1 PKT PO DAILY, #1 PKT Zolpidem Tartrate (Zolpidem Tartrate) 5 Mg Tab 5 MG PO HS PRN for Sleep for 5 Days, #5 TAB Continued Medications: Albuterol Hfa (Ventolin Hfa) 200 Puffs/12613 Mcg Aers 2 PUFFS INH QID PRN for Wheezing, #1 INHALER Amlodipine Besylate (Amlodipine Besylate) 10 Mg Tab 10 MG PO QPM Aspirin (Aspirin Enteric Coated Ad) 81 Mg Tab 81 MG PO QPM Calcium Carbonate (Calcium) 600 Mg Tab 600 MG PO QPM Fexofenadine Hcl (Yolande Allergy) 180 Mg Tab 1 TAB PO QPM for 14 Days, TAB 2 Refills Fluticasone Propionate (Fluticasone Propionate) 120 Sprays/6000 Mcg Inha 2 SPRAY NICA DAILY PRN for Nasal Congestion Levothyroxine Sodium (Levothyroxine Sodium) 88 Mcg Tab 88 MCG PO DAILY for 90 Days, #90 TAB 3 Refills Lisinopril (Prinivil) 40 Mg Tab 40 MG PO QPM, 0 Refills Montelukast Sod (Montelukast Sodium) 10 Mg Tab 10 MG PO QPM, #90 Omeprazole (Prilosec) 20 Mg Capcr 40 MG PO DAILY, 0 Refills Simvastatin (Zocor) 20 Mg Tab 20 MG PO QPM, 0 Refills Admission Information HPI (per Admitting provider): This patient is a 66-year-old female with a history of breast cancer, acute pancreatitis, acoustic neuroma, hypertension, hyperlipidemia, hypothyroidism, seasonal allergies, GERD, and a recently found pulmonary nodule with right middle lobe atelectasis and collapse. She was having an outpatient bronchoscopy today during which she had a biopsy performed of a pulmonary nodule After the procedure, she began having acute respiratory failure with increased work of breathing, increased oxygen requirement, and obvious stridor. A code purple was called and this is when I came to assess the patient. She was given racemic epinephrine nebulizer, and the health care liaison performed a bedside ultrasound which revealed that she did not have a pneumothorax. Given IV Solu-Medrol and heliox was administered as well. She began to feel much better, but will be admitted for observation overnight due to acute hypoxemic respiratory failure and acute stridor status post bronchoscopy. Physical Exam (per Admitting): General Appearance: + moderate distress, + thin Head: normocephalic, atraumatic Eyes: normal inspection, sclerae normal ENT: pharynx normal, + pertinent finding (deaf in the right ear) Neck: supple, no adenopathy, trachea midline, + pertinent finding (stridor auscultated over the anterior neck) Respiratory/Chest: + respiratory distress, + accessory muscle use, + stridor Cardiovascular: no edema, no murmur, normal peripheral pulses, + tachycardia (with regular rhythm) Abdomen/GI: normal bowel sounds, non tender, soft, no organomegaly Back: normal inspection Extremities/Musculoskelatal: normal inspection, no calf tenderness, normal capillary refill, no pedal edema Neurologic/Psych: alert (and anxious) Skin: normal color, warm/dry, no rash Hospital Course This is a 66 year old female with a PMH of HTN, HLD, hypothyroidism, GERD, hx. of breast CA presents with stridor/respiratory distress s/p bronchoscopy Acute Hypoxemic Respiratory Failure Stridor s/p Bronchoscopy improved after racemic epi, solu-medrol, heliox no evidence of pneumothorax clinically improved appreciate pulmonary input will switch solu-medrol to medrol dosepak continue albuterol inhaler or nebs PRN Sinus Tachycardia - resolved likely secondary to respiratory distress EKG from this morning (07/01) shows NSR, with no T-wave/ST changes Pulmonary Nodule s/p bronch and biopsy follow-up with pulm as outpatient HTN stable continue home medications Hypothyroid continue Synthroid GERD continue PPI Seasonal allergies Continue Flonase and Singulair DVT ppx SCDs FULL CODE d/c home today Total time spent on discharge = 40 minutes This includes examination of the patient, discharge planning, medication reconciliation, and communication with other providers. Discharge Instructions Please follow-up with Dr. Almazan on July 07 at 10:45AM Please follow-up with Dr. Patel, pulmonology, regarding biopsy results You will be given a medrol-dose shaquille - please follow directions Use nebulizers and inhalers as needed for shortness of breath Additional Copies To Donaldo Patel M.D. Jose Antonio Almazan M.D.
[2017-07-01 10:45] VITALS: BP 121/67; PULSE 78; TEMP 36.9; O2SAT 95
[2017-07-24 20:28] LABS: HERPES SIMPLEX CULT SOURCE OTHER-BRONCHIAL LAVA; HERPES SIMPLEX VIRUS CULT NOT ISOLATED (NOT ISOLATED)
== END 2017-07-01 11:10 | disposition home or self-care (01) ==
LOC: C.ACU 08:43 → ENRESERV 12:51 → C.2E 12:53
PROVIDERS: ADMIT Family Medicine; ATTEND Family Medicine
DX: J98.11 Atelectasis (principal); R59.0 Localized enlarged lymph nodes; E03.9 Hypothyroidism, unspecified; I10 Essential (primary) hypertension; Z85.3 Personal history of malignant neoplasm of breast; Z79.899 Other long term (current) drug therapy; R91.1 Solitary pulmonary nodule

== ENCOUNTER → 2017-06-30 | Outpatient (CLI) | payer OTHER ==
--- NOTE | 2017-06-30 09:15 | DIAGNOSTIC IMAGING REPORT ---
PET/CT SKULL-THIGH HISTORY: Infiltrate SINGLE PULMONARY NODULE TECHNIQUE: PET/CT was performed from the base of the skull through the pelvis following the intravenous administration of 15.4 mCi of F18-FDG. Non-contrast CT imaging was performed over the same range without breath-hold for attenuation correction of PET images and anatomic correlation, but not for primary interpretation as it is not of standard diagnostic quality. CT DOSE: COMPARISON: CT 06/19/2017 FINDINGS: HEAD AND NECK: There is no FDG-avid disease or significant lymphadenopathy in the imaged portions of the head and the neck. CHEST: Consolidative right middle lobe process similar compared to the prior CT study. Considerable increase in metabolic activity with SUVs of a proximally 7.5 at maximum. Diagnostic considerations must include inflammatory versus neoplastic process. Metabolically active subcarinal node having SUVs of 3.3. Right hilar activity of 2.8 SUVs. Mild increase in activity of the left hilum although an anatomic correlate is not identified. A potential node measuring 21.5 cm is present with SUV characteristics of 2.5. ABDOMEN/PELVIS: Below the diaphragm, tracer is distributed physiologically in the gastrointestinal and genitourinary tracts. There is no significant lymphadenopathy and no FDG-avid disease. MUSCULOSKELETAL: There is no FDG-avid or destructive bone lesion. Soft tissue: Mild increase in metabolic activity at a site of a prior biopsy of the central right breast. This activity potentially is postprocedural. IMPRESSION: 1. Intensely metabolically active right middle lobe masslike lesion versus consolidative infiltrate. 2. Indeterminate but nevertheless metabolically active pretracheal, subcarinal and possibly left perihilar neetu change. 3. Neoplastic process must the diagnosis of exclusion. The above report was generated using voice recognition software. It may contain grammatical, syntax or spelling errors. Electronically signed by: Sampson Casillas M.D. 06/30/2017 9:14 AM Dictated Date/Time: 06/30/2017 9:01 AM
--- NOTE | 2017-06-30 14:39 | Pulmonology Progress Note ---
Pulmonary Progress Note Date of Service Jun 30, 2017. Attending Dr. Jones Subjective Patient with increased work of breathing notably short of breath Objective Patient tachypneic using accessory muscles in a tripod position Vital signs: SaO2: 99 % on high-flow mask Respiratory rate: 33 Neck: Patient with notable inspiratory expiratory stridor Respiratory: Patient able to move air but notable inspiratory wheezes Thoracic ultrasound: Thoracic ultrasound performed showing no signs of pneumothorax Chest x-ray: Chest x-ray performed showing mild infiltrate in the left middle lobe but no signs of pneumothorax Assessment & Plan 66-year-old female with post bronchoscopic stridor: 1. Stridor: Patient with post bronchoscopy stridor. At this time she will be treated with racemic epinephrine, IV Solu-Medrol and switch to 70/30 oxygen Heliox mixture. The patient will then be admitted by Dr. Padma Ramirez and followed by Dr. Isabela Mckeon of the Pulmonary Department.
== END | disposition home or self-care (01) ==
LOC: C.PET 06:37
PROVIDERS: ATTEND Internal Medicine Pulmonary Disease
DX: R91.1 Solitary pulmonary nodule (principal)

== ENCOUNTER → 2017-07-10 | Outpatient (CLI) | payer OTHER ==
[~2017-07-10] MED LIST changes: +AMB5 PO; +METH4PAK PO; -RANI150T3 PO
[2017-07-10 13:42] LABS: AMYLASE 59 U/L (25-115)
== END | disposition home or self-care (01) ==
LOC: C.LABBFT 10:31
PROVIDERS: ATTEND Internal Medicine Pulmonary Disease
DX: R91.1 Solitary pulmonary nodule (principal); J47.9 Bronchiectasis, uncomplicated

== ENCOUNTER → 2017-07-29 | Outpatient (CLI) | payer OTHER ==
[~2017-07-29] MED LIST changes: -METH4PAK PO; +OPTIRAY 320 IV PRN
--- NOTE | 2017-07-29 09:52 | DIAGNOSTIC IMAGING REPORT ---
(CHEST) THORAX WITH CT DOSE: 191.85 mGy.cm HISTORY: Mass J47.9 [id number] TECHNIQUE: Multiaxial CT images of the chest were performed following the intravenous administration of contrast. A dose lowering technique was utilized adhering to the principles of ALARA. COMPARISON: PET scan 06/30/2017 FINDINGS: Improved exam. Minimal chronic apical interstitial change. Improved mediastinal and hilar adenopathy. No significant current neetu change. Considerable decrease in size and/or volume of the right middle lobe consolidative process and/or lesion. Maximum current dimensions are 3.1 x 1.8 cm. Minimal atelectatic change in a right paraspinal location transaxial image 44 improved from the prior exam. Lungs otherwise appear clear. Thoracic aorta is normal in course and caliber. Limited evaluation of the upper abdomen is unremarkable. IMPRESSION: 1. Considerable improvement compared to the prior study. 2. Marked interval decrease in size of a consolidated process of the right middle lobe with minimal residual as described. 3. Minimal scattered interstitial and/or fibrotic change unaltered to improved. 4. The adenopathy previously described has resolved The above report was generated using voice recognition software. It may contain grammatical, syntax or spelling errors. Electronically signed by: Sampson Casillas M.D. 07/29/2017 9:51 AM Dictated Date/Time: 07/29/2017 9:45 AM
== END | disposition home or self-care (01) ==
LOC: C.CTS 09:29
PROVIDERS: ATTEND Internal Medicine Pulmonary Disease
DX: J47.9 Bronchiectasis, uncomplicated (principal)

== ENCOUNTER → 2017-09-10 | Outpatient (CLI) | payer OTHER ==
[~2017-09-10] MED LIST changes: -OPTIRAY 320 IV PRN
--- NOTE | 2017-09-10 11:55 | DIAGNOSTIC IMAGING REPORT ---
TWO VIEW CHEST CLINICAL HISTORY: Pulmonary nodule. FINDINGS: PA and lateral chest radiographs are compared to study dated 06/30/2017 and correlated with chest CT dated 07/29/2017. The cardiomediastinal silhouette is unremarkable. There are right basilar airspace opacities. Chronic interstitial thickening is similar to previous. No pleural effusion or pneumothorax is seen. The skeletal structures are osteopenic. The bony thorax appears intact. Surgical clips are seen in the left axilla. Surgical clips also project over the left lung base. IMPRESSION: 1. No acute cardiopulmonary. 2. Right basilar opacities persist. 3. The pulmonary nodule seen on prior CT scans was not apparent by x-ray. Electronically signed by: Familia Vee M.D. 09/10/2017 11:53 AM Dictated Date/Time: 09/10/2017 11:48 AM
== END | disposition home or self-care (01) ==
LOC: C.RAD1850 11:27
PROVIDERS: ATTEND Internal Medicine Pulmonary Disease
DX: R91.1 Solitary pulmonary nodule (principal); R91.8 Other nonspecific abnormal finding of lung field

== ENCOUNTER → 2017-10-15 | Outpatient (CLI) | payer OTHER ==
[~2017-10-15] MED LIST changes: +OPTIRAY 320 IV PRN
--- NOTE | 2017-10-15 17:22 | DIAGNOSTIC IMAGING REPORT ---
(CHEST FOR PE) ANGIO WITH CT DOSE: 346.85 mGycm HISTORY: Chest pain dyspnea TECHNIQUE: Multiaxial CT images of the chest were performed following the intravenous administration of contrast to evaluate the pulmonary arteries. Maximal intensity projection images were also obtained. A dose lowering technique was utilized adhering to the principles of ALARA. COMPARISON STUDY: 07/29/2017 FINDINGS: Thoracic aorta shows moderate atherosclerotic change. Negative for aneurysm or dissection. Pulmonary arterial vasculature enhances appropriately. There are no filling defects. Patient has developed rather diffuse interstitial infiltrative changes throughout both hemithoraces. Diagnostic considerations must include interstitial edema versus nonspecific inflammatory process. Subtle areas of groundglass nodular change identified in the right upper lobe best seen image 83 maximum dimension of 8 mm. Several less prominent changes are seen in the inferior right middle lobe although components of this are pre-existing. Limited evaluation of the upper abdomen is unremarkable and unchanged from the prior study. IMPRESSION: 1. Study is negative for pulmonary embolus. 2. Interval development of diffuse interstitial changes throughout both hemithoraces with several groundglass nodular densities. 3. Differential considerations must include early interstitial edema versus a nonspecific interstitial pneumonitis. The above report was generated using voice recognition software. It may contain grammatical, syntax or spelling errors. Electronically signed by: Sampson Casillas M.D. 10/15/2017 5:21 PM Dictated Date/Time: 10/15/2017 5:15 PM
== END | disposition home or self-care (01) ==
LOC: C.CTS 16:42
PROVIDERS: ATTEND Internal Medicine Pulmonary Disease
DX: R05 Cough (principal); R07.89 Other chest pain; R06.00 Dyspnea, unspecified

== ENCOUNTER → 2017-10-22 | Outpatient (CLI) | payer OTHER ==
[~2017-10-22] MED LIST changes: -OPTIRAY 320 IV PRN
[2017-10-22 17:50] LABS: BASO % 0.2 %; BASO ABS # 0.03 K/uL (0-0.2); COMPLETE YES; EOS % 0.7 %; HEMATOCRIT 42.3 % (37-47); IG% 0.6 %; LYMPH % 9.5 %; LYMPH ABS # 1.16 K/uL (1.2-3.4); MEAN CELL VOLUME 90.8 fL (80-100); MEAN CORPUSCULAR HEMOGLOBIN 29.4 pg (25-34); MEAN CORPUSCULAR HGB CONC 32.4 g/dl (32-36); MEAN PLATELET VOLUME 10.6 fL (7.4-10.4); MONO % 4.3 %; NEUT % 84.7 %; PLATELET COUNT 262 K/uL (130-400); RED BLOOD COUNT 4.66 M/uL (4.2-5.4); WHITE BLOOD COUNT 12.21 K/uL (4.8-10.8)
[2017-10-22 17:57] LABS: ALT/SGPT 25 U/L (12-78); AST/SGOT 11 U/L (15-37); BLOOD UREA NITROGEN 18 mg/dl (7-18); BUN/CREATININE RATIO 18.4 (10-20); CALCIUM 8.7 mg/dl (8.5-10.1); CARBON DIOXIDE 29 mmol/L (21-32); CHLORIDE 103 mmol/L (98-107); CREATININE 0.99 mg/dl (0.60-1.20); GLUCOSE 127 mg/dl (70-99); POTASSIUM 3.7 mmol/L (3.5-5.1); SODIUM 137 mmol/L (136-145)
[2017-10-22 17:59] LABS: ALB/GLOB RATIO 1.3 (0.9-2); ALKALINE PHOSPHATASE 83 U/L (45-117)
== END | disposition home or self-care (01) ==
LOC: C.LABBFT 11:50
PROVIDERS: ATTEND Internal Medicine Pulmonary Disease
DX: J47.9 Bronchiectasis, uncomplicated (principal); B44.81 Allergic bronchopulmonary aspergillosis

== ENCOUNTER → 2017-10-23 | Outpatient (CLI) | payer OTHER ==
--- NOTE | 2017-10-23 09:42 | DIAGNOSTIC IMAGING REPORT ---
CHEST 2 VIEWS ROUTINE CLINICAL HISTORY: Cough. Prior abnormal CT scan. COMPARISON STUDY: CT scan dated 10/15/2017, chest x-ray dated 09/10/2017 FINDINGS: The cardiac and mediastinal contours are normal. There is no evidence of focal pulmonary consolidation. There is no evidence of failure. No pleural effusions are visualized.[ There are surgical clips within the left axillary region. IMPRESSION: No active disease in the chest. Electronically signed by: Bora Corbett M.D. 10/23/2017 9:41 AM Dictated Date/Time: 10/23/2017 9:39 AM
== END | disposition home or self-care (01) ==
LOC: C.RAD1850 09:24
PROVIDERS: ATTEND Internal Medicine Pulmonary Disease
DX: R93.8 Abnormal findings on diagnostic imaging of other specified body structures (principal); R05 Cough

== ENCOUNTER → 2017-12-31 | Outpatient (CLI) | payer OTHER ==
--- NOTE | 2017-12-31 12:24 | DIAGNOSTIC IMAGING REPORT ---
CHEST 2 VIEWS ROUTINE HISTORY: 67 years-old Female J47.9 Bronchiectasis COMPARISON: Chest radiographs 10/23/2017, CTA of the chest 10/15/2017 TECHNIQUE: PA and lateral views of the chest FINDINGS: Cardiac mediastinal and hilar silhouettes are within normal limits. No bronchiectasis identified. Mild hyperinflation. No pneumothorax, pleural effusion, focal airspace consolidation or overt pulmonary edema. Surgical clips project over the left axilla. Bones appear grossly intact. IMPRESSION: Mild hyperinflation without acute process. The above report was generated using voice recognition software. It may contain grammatical, syntax or spelling errors. Electronically signed by: Deo Cabrera M.D. 12/31/2017 12:22 PM Dictated Date/Time: 12/31/2017 12:21 PM
[2017-12-31 12:53] LABS: BASO % 0.4 %; BASO ABS # 0.02 K/uL (0-0.2); EOS % 3.1 %; EOS ABS # 0.16 K/uL (0-0.5); HEMATOCRIT 39.8 % (37-47); HEMOGLOBIN 13.9 g/dL (12.0-16.0); IG# 0.01 K/uL (0.00-0.02); LYMPH % 27.3 %; MEAN CELL VOLUME 85.4 fL (80-100); MEAN CORPUSCULAR HEMOGLOBIN 29.8 pg (25-34); MEAN CORPUSCULAR HGB CONC 34.9 g/dl (32-36); MEAN PLATELET VOLUME 10.3 fL (7.4-10.4); MONO % 6.4 %; MONO ABS # 0.33 K/uL (0.11-0.59); NEUT % 62.6 %; PLATELET COUNT 198 K/uL (130-400); RED CELL DISTRIBUTION WIDTH CV 13.2 % (11.5-14.5); RED CELL DISTRIBUTION WIDTH SD 41.1 fL (36.4-46.3); WHITE BLOOD COUNT 5.12 K/uL (4.8-10.8)
[2017-12-31 13:23] LABS: ALBUMIN 4.1 gm/dl (3.4-5.0); ALT/SGPT 31 U/L (12-78); BLOOD UREA NITROGEN 16 mg/dl (7-18); CALCIUM 9.3 mg/dl (8.5-10.1); CARBON DIOXIDE 26 mmol/L (21-32); CREATININE 0.72 mg/dl (0.60-1.20); GLUCOSE 88 mg/dl (70-99); POTASSIUM 3.8 mmol/L (3.5-5.1); SODIUM 138 mmol/L (136-145)
[2017-12-31 13:28] LABS: ALKALINE PHOSPHATASE 80 U/L (45-117); AST/SGOT 19 U/L (15-37); TOTAL PROTEIN 6.9 gm/dl (6.4-8.2)
== END ==
LOC: C.RAD1850 11:50
PROVIDERS: ATTEND Internal Medicine Pulmonary Disease
DX: J47.9 Bronchiectasis, uncomplicated (principal); R06.00 Dyspnea, unspecified; R05 Cough

== ENCOUNTER → 2018-01-14 | Outpatient (CLI) | payer OTHER ==
--- NOTE | 2018-01-14 12:52 | EXERCISE STRESS ECHO ---
*NOTICE TO RECEIVING [employer]ENCY This information is strictly Confidential and protected under [place] law. [place] law prohibits you from making any further disclosure of this information unless further disclosure is expressly permitted by the written consent of the person to whom it pertains or is authorized by law. A general authorization for the release of medical or other information is not sufficient for this purpose. Hospital accepts no responsibility if the information is made available to any other person, INCLUDING THE PATIENT. Interpretation Summary * Name: STAR SAHU Study Date: 01/14/2018 09:56 AM BP: 142/66 mmHg * Patient Location: [facility] HR: 78 * : 1950 (M/d/yyyy) Gender: Female Height: 63 in * Age: 67 yrs Ethnicity: [place] Weight: 150 lb * Ordering Physician: Donaldo Patel * Referring Physician: Donaldo Patel * Performed By: Roxy Garner RCS * * Reason For Study: Dyspnea, Cough * BSA: 1.7 m2 * -- Conclusions -- * Left ventricular systolic function is normal. * Grade I diastolic dysfunction, (abnormal relaxation pattern). * Normal stress echocardiogram without evidence of inducible ischemia Procedure Details * ECHOEX, CPT #[id number] * ECHO COLOR FLOW, CPT #[id number] * ECHO DOPPLER, CPT #[id number] Left Ventricular Findings with Stress * Normal stress echocardiogram without evidence of inducible ischemia Left Ventricle * The left ventricle is normal in size. * There is normal left ventricular wall thickness. * Ejection Fraction = 60-65%. * Left ventricular systolic function is normal. * Grade I diastolic dysfunction, (abnormal relaxation pattern). * The left ventricular wall motion is normal at rest. Right Ventricle * The right ventricle is normal in size and function. * The right ventricular systolic function is normal as assessed by tricuspid annular plane systolic excursion (TAPSE) (normal >1.5 cm). Atria * The left atrial size is normal. * Right atrial size is normal. Mitral Valve * The mitral valve anatomy is normal. * Significant mitral regurgitation is absent. Tricuspid Valve * The tricuspid valve is not well visualized, but is grossly normal. * Significant tricuspid regurgitation is absent. Aortic Valve * The aortic valve is normal in structure and function. * No hemodynamically significant valvular aortic stenosis. * There is no significant aortic regurgitation. Great Vessels * The aortic root is normal size. Pericardium * There is no pericardial effusion. Stress Parameters * Normal baseline electrocardiogram. * Stress ECG: No ST changes. No arrhythmias. * The stress portion of this study was personally supervised by the undersigned interpreting physician. * Rest heart rate was '78' BPM. * Rest blood pressure was '142/66' * Maximum heart rate achieved was 157 bpm. * Maximum heart rate was 103 % of maximum age-predicted heart rate. * Maximum blood pressure was '184/57' * Total exercise time was '7:01' * Maximum exercise MET level achieved was '8.5' METS * Maximum treadmill speed was '3.4' miles per hour. * Maximum treadmill elevation was '14'% grade. * Exercise was terminated due to 'fatigue' * Normal blood pressure response to exercise. Left Ventricular Findings with Stress * Baseline EKG was normal There was no significant ST or T-wave changes during exercise recovery Baseline echocardiographic images demonstrate normal LV function There was normal augmentation of all segments without development of wall motion abnormalities at peak exertion No symptoms reported during the test Normal heart rate and blood pressure response to exercise Spann treadmill score: 7 (low risk) MMode 2D Measurements and Calculations IVSd 1.0 cm IVSs 1.4 cm LVIDd 4.5 cm LVIDs 2.6 cm LVPWd 0.99 cm LVPWs 1.5 cm IVS/LVPW 1.1 FS 41.4 % EDV(Teich) 90.9 ml ESV(Teich) 25.1 ml EF(Teich) 72.4 % EDV(cubed) 89.2 ml ESV(cubed) 18.0 ml EF(cubed) 79.8 % % IVS thick 36.8 % % LVPW thick 51.5 % LV mass(C)d 155.0 grams LV mass(C)dI 90.6 grams/m\S\2 LV mass(C)s 127.5 grams LV mass(C)sI 74.5 grams/m\S\2 SV(Teich) 65.8 ml SI(Teich) 38.5 ml/m\S\2 SV(cubed) 71.2 ml SI(cubed) 41.6 ml/m\S\2 Ao root diam 3.4 cm Ao root area 9.0 cm\S\2 ACS 1.7 cm LA dimension 3.5 cm asc Aorta Diam 3.0 cm LA/Ao 1.0 EDV(MOD-sp4) 67.3 ml ESV(MOD-sp4) 17.5 ml EF(MOD-sp4) 74.0 % EDV(MOD-sp2) 76.7 ml ESV(MOD-sp2) 27.4 ml EF(MOD-sp2) 64.2 % SV(MOD-sp4) 49.8 ml SI(MOD-sp4) 29.1 ml/m\S\2 SV(MOD-sp2) 49.3 ml SI(MOD-sp2) 28.8 ml/m\S\2 Doppler Measurements and Calculations MV E max terrie 80.9 cm/sec MV A max terrie 119.7 cm/sec MV E/A 0.68 MV P1/2t max terrie 101.6 cm/sec MV P1/2t 50.8 msec MVA(P1/2t) 4.3 cm\S\2 MV dec slope 585.7 cm/sec\S\2 MV dec time 0.25 sec Ao V2 max 141.9 cm/sec Ao max PG 8.1 mmHg Ao max PG (full) 3.1 mmHg LV V1 max PG 4.9 mmHg LV V1 max 111.0 cm/sec PA V2 max 92.1 cm/sec PA max PG 3.4 mmHg TR max terrie 251.1 cm/sec
== END | disposition home or self-care (01) ==
LOC: C.CPL 09:28
PROVIDERS: ATTEND Internal Medicine Pulmonary Disease
DX: R05 Cough (principal)

== ENCOUNTER → 2018-06-22 | Outpatient (CLI) | payer OTHER ==
--- NOTE | 2018-06-23 14:42 | MAMMOGRAPHY REPORT ---
BILATERAL DIGITAL SCREENING MAMMOGRAM TOMOSYNTHESIS WITH CAD: 06/22/2018 CLINICAL HISTORY: Routine screening. Patient has no complaints. TECHNIQUE: The study was acquired using full field digital technology and interpreted from soft copy. Breast tomosynthesis in addition to standard 2D mammography was performed. Current study was also ev aluated with a Computer Aided Detection (CAD) system. COMPARISON: Comparison is made to exams dated: 06/16/2017 mammogram, 06/14/2016 mammogram, 06/12/2015 m ammogram, 06/09/2014 mammogram, 06/08/2013 mammogram, and 12/22/2012 mammogram - [facility]. BREAST COMPOSITION: There are scattered areas of fibroglandular density in both breasts. FINDINGS: A linear scar marker overlies the inferior left breast. There is expected architectural di stortion, surgical clips and coarse dystrophic calcification at the lumpectomy bed in the lower outer posterior left breast. There are stable benign rim calcifications and coarse calcifications in the left breast. Increasingly coarse calcification within a benign circumscribed mass in the upper outer right breast. No suspicious mass, architectural distortion or cluster of microcalcifications is seen bilaterally. IMPRESSION: ACR BI-RADS CATEGORY 1: NEGATIVE There is no mammographic evidence of malignancy. A 1 year screening mammogram is recommended.( 019) The patient will receive written notification of the results. Some breast cancers are not detected with mammography. A negative mammographic report should not mary y biopsy if a clinically suggestive mass is present. Nahomi Gramajo M.D. ay/:06/22/2018 15:55:31 Pig Breeder: RT Chance(Roge)(M), [facility] letter sent: Normal 1/2 BI-RADS Code: ACR BI-RADS Category 1: Negative
== END | disposition home or self-care (01) ==
LOC: C.MAMM 09:05
PROVIDERS: ATTEND Family Medicine
DX: Z12.31 Encounter for screening mammogram for malignant neoplasm of breast (principal)

== ENCOUNTER 2020-06-20 05:07 | Observation (INO) ==
--- NOTE | 2020-06-13 15:04 | Anesthesiology Consultation ---
Date of Service June 13, 2020 Assessment & Plan (1) Encounter for pre-operative examination: Chart Review Chart Review: Acceptable Risk for Surgery (pending preop Covid testing) and Patient NOT seen in Pre Admission Testing Per nursing assessment 06/13/20, patient denies any recent travel. Resides in [facility] and wears mask in public. Scheduled for preop COVID testing 06/15/2020 at [facility]. Pulm Clearance 06/07/20= "Yes" patient medically cleared for surgery. Pt seen in pulm office 06/05/20= " Currently represents a low risk for surgery and left total knee replacement on 06/20/2020. She is cleared from a preoperative standpoint to proceed. She had mild stridor post bronchoscopy but do not suspect intubation following general anesthesia would be an issue although apparently the plan is for her to undergo spinal anesthesia. Her cardiopulmonary status is stable and will continue current regimen for now and perioperatively." Allergy clearance 06/06/2020 = "Yes" patient is medically cleared for surgery. History of adverse reaction to Augmentin, mostly GI, likely not allergic. Okay to use cephalosporins and anticipate penicillins are safe as well if need arises. Asthma stable Last seen by PCP 01/07/20 = "Her main medical issue is pulmonary and she will need cleared from their perspective due to the ABPA and recent exacerbation and course of abx/pred under their direction. From my perspective, her other medical issues are stable and she may proceed with knee replacement surgery provided pulmonary clearance." Pt did speak via telephone with PCP on 05/23/20 about if she needed to come in for another clearance appt- PCP response: "If there have not been any significant changes in her health or symptoms, it is fine with me for her to proceed with surgery. She should check with ortho/anesthesia in case they want updated labs." History Surgery Operation Date: 06/20/20 07:00 Proposed Procedures p Left Total Knee Arthroplasty - Rigo Martha Lopez MD Height/Weight Height: 5 ft 2.5 in Weight: 70.76 kg Allergies Allergy/AdvReac Type Severity Reaction Status Date / Time amoxicillin Allergy Intermediate GI Verified 06/13/20 13:05 SYMPTOMS,ITCH clavulanic acid Allergy Intermediate GI Verified 06/13/20 13:05 SYMPTOMS,ITCH Medications Home Medications Medication Instructions Recorded Confirmed Last Taken albuterol sulfate [Ventolin HFA] 2 puff INHALATION QID PRN 03/18/19 06/13/20 Unknown aspirin 81 mg PO HS 03/18/19 06/13/20 06/24/19 calcium carbonate [Calcium 600] 600 mg PO HS 03/18/19 06/13/20 06/24/19 lisinopril 40 mg PO HS 03/18/19 06/13/20 06/24/19 montelukast 10 mg PO HS 03/18/19 06/13/20 06/24/19 omeprazole 40 mg PO QAM 03/18/19 06/13/20 06/25/19 multivitamin 1 cap PO HS 03/19/19 06/13/20 06/24/19 loratadine [Claritin] 10 mg PO HS 06/25/19 06/13/20 06/24/19 furosemide 20 mg tablet 20 mg PO 3XWK #16 tab 09/20/19 06/13/20 Unknown levothyroxine 100 mcg capsule 100 mcg PO 3XWK cap 09/20/19 06/13/20 Unknown levothyroxine 88 mcg capsule 88 mcg PO 4XWK cap 09/20/19 06/13/20 Unknown potassium chloride 20 mEq 20 meq PO 3XWK #16 tab 09/20/19 06/13/20 Unknown tablet,extended release epinephrine 0.3 mg/0.3 mL 0.3 mg IM UD PRN #1 ea 11/15/19 06/13/20 Unknown injection, auto-injector simvastatin 20 mg tablet 20 mg PO HS 12/20/19 06/13/20 Unknown fluticasone propionate [Flonase 2 spray INTRANASAL QPM 01/04/20 06/13/20 Unknown Allergy Relief] ibuprofen 200 mg PO BID PRN 01/04/20 06/13/20 Unknown budesonide-formoterol HFA 160 2 puffs INH BID #10.2 gm 01/17/20 06/13/20 Unknown mcg-4.5 mcg/actuation aerosol inhaler ipratropium bromide 0.03 % nasal See Rx Instructions .ROUTE 03/21/20 06/13/20 Unknown spray .COMPLEX #30 ml mepolizumab 100 mg subcutaneous 100 mg SQ .COMPLEX #1 ea 05/05/20 06/13/20 Unknown solution Past Medical History Medical History (Updated 06/13/20 @ 15:05 by Torrie Wilson PA-C) ABPA (allergic bronchopulmonary aspergillosis) F/U DR HUSAIN; USED RESCUE INHALER LAST NIGHT 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 Arachnoid cyst RECENT FINDING ON MRI (FOLLOWING UP WITH NEW NEUROLOGIST ) Barretts esophagus Dyslipidemia GERD (gastroesophageal reflux disease) Hiatal hernia History of IBS History of malignant neoplasm of breast LEFT-1996 Hx of pancreatitis Hypertension Hypothyroidism IgG subclass deficiency Osteoarthritis Pulmonary nodule Severe persistent asthma SOB (shortness of breath) on exertion Past Family History Family History Other Allergies Asthma Breast cancer Hypertension Prostate cancer Past Surgical History Surgical History (Updated 06/13/20 @ 15:03 by Torrie Wilson PA-C) History of anesthesia reaction STRIDOR POST OP BRONCHOSCOPY 2 YRS AGO [facility]NO SURGERY SIN[facility] History of arthroscopy LEFT KNEE History of bronchoscopy History of cholecystectomy History of colonoscopy History of esophagogastroduodenoscopy (EGD) History of hysterectomy with bilateral oophorectomy Right acoustic neuroma REMOVAL Status post left breast lumpectomy Social History Smoking Status: Never smoker Hx Alcohol Use: No Hx Substance Use: No substance use type: does not use Testing Laboratory Results Blood Type B Positive 05/30/20 08:33 Antibody Screen NEGATIVE 05/30/20 08:33 Laboratory Tests 05/30/20 05/30/20 05/30/20 08:28 08:28 08:28 WBC 7.38 Hgb 14.2 Hct 41.5 Plt Count 241 PT 10.3 INR 1.0 APTT 22.3 Sodium 141 Potassium 3.6 Chloride 107 Carbon Dioxide 28 BUN 17 Creatinine 0.78 Glucose 106 H Urine culture 05/30/20= negative Electrocardiogram Date: 03/30/20 Sinus rhythm with short [place] at 71 bpm. Otherwise normal EKG. Chest X-Ray Date: 03/30/20 Minimal right basilar opacities likely atelectasis or scarring. No convincing evidence of acute cardiopulmonary disease. Stress Test Date: 01/14/18 Type: exercise (Stress echo) Resting EF: 60-65% Resting RWMA: + none Valvular Disease: no significant valvular disease LV systolic function is normal. Grade 1 diastolic dysfunction. Normal stress echocardiogram without evidence of inducible ischemia. 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 No acute intracranial abnormality. Probable arachnoid cyst involves the atria and posterior horn left lateral ventricle measuring up to 2.2 x 1.4 cm. Mild to moderate scattered T2/FLAIR h yperintensities throughout the white matter are nonspecific however suggests probable chronic microvascular ischemic disease. Chest CTA 03/30/20= There is no evidence of pulmonary embolus in the main, lobar, or segmental pulmonary arteries. There is no airspace consolidation or pleural effusion. There is mild diffuse peribronchial thickening as well as multiple foci of air trapping throughout both lungs. The appearance suggests bronchitis/active air disease. Clinical correlation will be required. There are 2 pulmonary nodules identified. A 10 mm nodule in right upper lobe has modestly increased in size dating back to 2017. A nodule at the left lung base is unchanged. Nonemergent pulmonology follow-up is recommended, and the nodules can be followed as per the Fleischner criteria. Mild cardiac enlargement.
[2020-06-20] MEDS ORDERED: CeleBREX 200 MG CAP PO SCH (06:00)
[2020-06-20] MEDS ORDERED: TRANEXAMIC ACID 1,000 MG **IV Pre-op IV SCH (06:00)
[2020-06-20] MEDS ORDERED: CEFAZOLIN 2000MG 2,000 MG/15 ML SYR IV SCH (06:00)
[2020-06-20] MEDS ORDERED: TRANEXAMIC ACID 1,000 MG **IV Intra-op IV SCH (06:00)
[2020-06-20] MEDS ORDERED: LR 500ML BOLUS, THEN 15ML/HR IV SCH (06:00)
[2020-06-20] MEDS ORDERED: ROPIVACAINE 0.5% HCL/PF 150 MG, BUPIVACAINE 0.5% MPF 30 ML, EPINEPHrine 0.15 MG, Ketoro... INFIL SCH (06:00)
[2020-06-20] MEDS ORDERED: LR 60ML/HR IV SCH (06:00)
[2020-06-20] MEDS ORDERED: BUPIVACAINE/EPINEPHRINE 0.25% 1:200,000 30 ML VIAL ONE (06:31)
[2020-06-20] MEDS ORDERED: BUPIVACAINE 0.5 % 5 MG/1 ML PF 10ML VIAL ONE (06:31)
[2020-06-20] MEDS ORDERED: MIDAZOLAM HCL 1 MG/ML 2ML VIAL ONE ×3 (06:43→08:47)
--- NOTE | 2020-06-20 06:47 | History & Physical Bridge Note ---
Date of Service June 20, 2020 History & Physical Bridge Note I have examined the patient, reviewed the History & Physical and in the interval since the performance of the History & Physical I have noted the following changes of clinical significance: no changes noted Patient is aware of the risks, asymptomatic, has a negative COVID-19 05/30/20, per patient she was called about results from most recent test last Friday which was negative.
[2020-06-20] MEDS ORDERED: ORTHO JOINT ANESTHETIC ONE (06:51)
[2020-06-20] MEDS ORDERED: LABETALOL HCL IV 5 MG/ML 20ML IV PRN (07:17)
[2020-06-20] MEDS ORDERED: PHENYLEPHRINE 100MCG/ML 5ML SYR IV PRN (07:17)
[2020-06-20] MEDS ORDERED: ATROPINE SULFATE 0.1 MG/ML 10ML SYR IV PRN (07:17)
[2020-06-20] MEDS ORDERED: ONDANSETRON INJ 2 MG/ML 2 ML VIAL IV PRN ×2 (07:17→10:11)
[2020-06-20] MEDS ORDERED: MEPERIDINE HCL 25 MG/ML CARP/VIAL IV PRN (07:17)
[2020-06-20] MEDS ORDERED: ePHEDrine sulfate 50 MG/ML AMP IV PRN (07:17)
[2020-06-20] MEDS ORDERED: HYDROmorphone INJ 1 MG/ML SYRINGE IV PRN (07:17)
[2020-06-20] MEDS ORDERED: fentaNYL citrate 100 MCG/2 ML VIAL IV PRN (07:17)
[2020-06-20] MEDS ORDERED: LIDOCAINE HCL 2% 2 ML VIAL/AMP(20MG/ML) INFIL ONE (07:35)
[2020-06-20] MEDS ORDERED: PROPOFOL IV EMULSION 10 MG/ML 20 ML VIAL IV ONE ×4 (07:35→09:27)
[2020-06-20] MEDS ORDERED: GLYCOPYRROLATE 0.2 MG/ML VIAL ONE (07:35)
[2020-06-20] MEDS ORDERED: PHENYLEPHRINE HCL 10 MG/ML VIAL ONE (08:46)
[2020-06-20] MEDS ORDERED: PHENYLEPHRINE 100MCG/ML 5ML SYR ONE (08:46)
[2020-06-20] MEDS ORDERED: ONDANSETRON INJ 2 MG/ML 2 ML VIAL ONE (08:53)
[2020-06-20] MEDS ORDERED: fentaNYL citrate 100 MCG/2 ML VIAL ONE (08:54)
[2020-06-20] MEDS ORDERED: ePHEDrine sulfate 50 MG/ML SYR ONE (09:05)
--- NOTE | 2020-06-20 09:52 | Post Operative Brief Note ---
Immediate Post Op Note v1 Date of Surgery June 20, 2020 Pre & Post Diagnosis Operation Date: 06/20/20 07:00 Pre-Op Diagnosis: LEFT KNEE OSTEOARTHRITIS Post-Op Diagnosis: LEFT KNEE OSTEOARTHRITIS I identified the patient and participated in the time-out.: Yes Procedure Operation Date: 06/20/20 07:00 Actual Procedures p Left Total Knee Arthroplasty(Left) - Rigo Lopez MD Surgeon Rigo Lopez MD Housekeeper Caregiver Marianne SAHU PA-C (NO FELLOW AVAIL) Estimated Blood Loss 75 Findings Consistent with Post-Op Diagnosis Fluids 1500 cc Specimens Left knee contents Anesthesia Type MAC Spinal Regional Complications none
--- NOTE | 2020-06-20 09:53 | Operative Report ---
Post Operative Report Pre & Post Diagnosis Operation Date: 06/20/20 07:00 Pre-Op Diagnosis: LEFT KNEE OSTEOARTHRITIS Post-Op Diagnosis: LEFT KNEE OSTEOARTHRITIS I identified the patient and participated in the time-out.: Yes Procedure Operation Date: 06/20/20 07:00 Actual Procedures p Left Total Knee Arthroplasty(Left) - Rigo Lopez MD Surgeon Rigo Lopez MD Medical Affairs Manager Marianne SAHU PA-C (NO FELLOW AVAIL) Estimated Blood Loss 75 Findings See Below Examined Under Anesthesia: ROM -- There was 15 degrees to 125 degrees of flexion Ligamentous examination -- revealed stable Nelly, posterior drawer, varus and valgus stress at 15 and 30 degrees. [place]bridge Type IV changes of Medial Compartment, [id number], Lateral Compartment with III-IV changes, Patellofemoral Type III. Fluids 1500 cc Specimens Right knee contents Anesthesia Type MAC Spinal Regional Complications none Indications This is a 69-year-old female who has clinical and radiographic findings consistent with osteoarthritis of the a left knee. I recommended that a left total knee replacement be performed. The patient understands the risks of surgery, which include but not limited to: bleeding, infection, re-operation, damage to nerves and arteries, continued knee pain, knee stiffness, DVT, and . The patient understands all of these instructions and explanations, all of his questions have been satisfactorily addressed and the patient has elected to proceed. Informed consent was signed. Description of Procedure IMPLANTS: 1. Femur: Triathlon #2 Left PS. 2. Tibia: Triathlon #3 [place]. 3. Insert: Triathlon #3 x 9 mm PS X3 poly. 4. Patella: Triathlon A29 x 9 mm X3 poly. 5. Simplex cement. Marianne Sahu PA-C is assisting with positioning, retracting, and closure due to fellow not available. PROCEDURE: The patient was taken to the Operating Room and placed in the supine position after spinal and adductor canal nerve block was administered. My initials and a multidisciplinary time-out were used to identify the left leg as the correct operative limb. A tourniquet was placed high in the thigh. Prior to the incision, 2 grams of intravenous Ancef were given. The left leg was then prepped and draped in a standard sterile fashion. An Esmarch was used to exsanguinate the leg and the tourniquet was inflated to 250 mmHg. The planned mid-line 20 cm incision was created exposing the extensor mechanism. The medial parapatellar arthrotomy was made and the patella was everted. The patella was addressed first. It was prepared by reaming from 21 mm down to 12 mm. An A29 button was found to fit best. The peg holes were made in the standard fashion. The femur was addressed next and the guide franchesca was placed intramedullary. The initial cutting block was placed with 5 degrees of valgus and removing 10 mm for the distal cut. The cut was made and the 4-in-1 cutting block for a size 2 femur was placed. These cuts and the cuts to place the box were made in the standard fashion. Our attention was then drawn to the tibia cut with the external cutting guide, taking 4 mm from the medial low side. There was sufficient extension and flexion gap to fit a 9 mm spacer. A #3 Tibial baseplate fit well. A trial with a 9 mm spacer showed excellent stability in both flexion and extension, with good ligament balance. Range of motion of 0-125 degrees. The tibial baseplate was pinned and the final preparation for the keel and stem was made. All the trial components were tested again, with good stability and thumbs free tracking of the patella. All components were removed. The tourniquet was deflated. Hemostasis was obtained. 90 ml of total knee cocktail were injected into the soft tissues and periosteum. A bone plug was placed in the femur and covered with bone wax. After a 15 minute break, the limb was exsanguinated again and the tourniquet was re-inflated. All surfaces were copiously irrigated prior to placement of the components. The femoral component and Tibial baseplate were cemented and the 9 mm X3 poly was placed, and the patellar button was placed using Simplex cement. Again the range of motion and stability were unchanged. The extensor mechanism was closed with 1-0 and 0 Vicryl with the knee bent approximately 60 degrees in a standard fashion. The peritenon and deep fascia was closed with 2-0 Vicryl. The subcutaneous layer was closed with 3-0 Vicryl. The skin was closed with Zipline and shield. The limb was cleaned and dried. 4x4 dressing was placed over top followed by ABDs, sterile Webril, and a foot to thigh Eder bandage. The patient was then transferred to the Recovery Room in stable condition. The sponge and needle counts were correct. POST-OP INSTRUCTIONS: The patient will be WBAT. The patient will be admitted to the hospital. The patient will use the knee immobilizer when ambulating and standing until good quad control is achieved. Labs will be obtained during the stay. DVT prophy laxis will included aspirin for 6 weeks, TEDs, and mechanical foot pumps. The dressing will be changed prior to their discharge or postop day #2 and covered with a Silverlon dressing, whichever comes first. I attest to the content of the Intraoperative Record and any orders documented therein. Any exceptions are noted below.
[2020-06-20] MEDS ORDERED: ALBUTEROL HFA 8 GM INHALER INH PRN (10:11)
[2020-06-20] MEDS ORDERED: DiphenhydrAMINE HCL 50 MG/ML VIAL IV PRN (10:11)
[2020-06-20] MEDS ORDERED: MEPOLIZUMAB 100 MG SQ SCH (10:11)
[2020-06-20] MEDS ORDERED: bisacodyL 10 MG SUPP PR PRN (10:11)
[2020-06-20] MEDS ORDERED: HYDROmorphone INJ 0.5 MG/0.5 ML SYR IV PRN (10:11)
[2020-06-20] MEDS ORDERED: MAGNESIUM HYDROXIDE SUSP 30 ML UDC PO PRN (10:11)
[2020-06-20] MEDS ORDERED: EPINEPHRINE ADULT AUTO-INJECT 0.3 MG SYR IM PRN (10:11)
[2020-06-20] MEDS ORDERED: METOCLOPRAMIDE HCL INJ 5 MG/ML 2 ML VIAL IV PRN (10:11)
[2020-06-20] MEDS ORDERED: NALOXONE HCL 0.4 MG/1 ML VIAL/CARP IV PRN (10:11)
--- NOTE | 2020-06-20 10:14 | Operative Report ---
Post Operative Report Pre & Post Diagnosis Operation Date: 06/20/20 07:00 Pre-Op Diagnosis: LEFT KNEE OSTEOARTHRITIS Post-Op Diagnosis: LEFT KNEE OSTEOARTHRITIS I identified the patient and participated in the time-out.: Yes Procedure Operation Date: 06/20/20 07:00 Actual Procedures p Left Total Knee Arthroplasty(Left) - Rigo Lopez MD Surgeon Rigo Lopez MD Statistical Technician Marianne SAHU PA-C (NO FELLOW AVAIL) Estimated Blood Loss 75 Findings Consistent with Post-Op Diagnosis Specimens bone and soft tissue Complications none Indications See Dr Lopez operative report for full details. Description of Procedure See Dr Lopez operative report for full details. I was first assistant manager during entire case to include prepping, draping, limb and instrument handling, wound closure, dressings. I attest to the content of the Intraoperative Record and any orders documented therein. Any exceptions are noted below.
--- NOTE | 2020-06-20 11:01 | Anesthesiology Progress Note ---
Date of Service June 20, 2020 Anesthesia Post Procedure Vital Signs Vital Signs: Temp Pulse Resp BP Pulse Ox 06/20/20 10:55 37.0 C 66 15 129/64 100 06/20/20 10:45 67 12 131/67 100 06/20/20 10:35 75 17 131/74 100 06/20/20 10:25 36.4 C L 71 16 132/75 98 06/20/20 10:15 90 22 125/79 100 06/20/20 10:05 88 16 139/67 100 06/20/20 09:59 36.7 C 88 12 129/65 95 06/20/20 05:30 37.3 C 82 18 157/80 H 98 Pain Intensity Left Knee: Pain Intensity: 0 Transfer of Care Handoff Completed per policy Notes Mental Status: alert / awake / arousable Patient Amnestic to Procedure: Yes Nausea / Vomiting: adequately controlled Pain: adequately controlled Airway Patency, RR, SpO2: stable & adequate BP & HR: stable & adequate Hydration State: stable & adequate Neuraxial Anesthesia: was administered and sensory block is resolving Anesthetic Complications: no major complications apparent and Pt Satisfied with anesthetic care
[2020-06-20] MEDS: SODIUM CHLORIDE 0.9% 1000ML 1,000 ML IV SCH ×2 (11:39→21:13)
--- NOTE | 2020-06-20 12:37 | XRay Report ---
XR knee LT 1 or 2V routine CLINICAL HISTORY: Surgical Post Op COMPARISON: 09/07/2019 DISCUSSION: Anatomic alignment post total left knee arthroplasty. Good contact between prosthetic and underlying bone. Expected postoperative soft tissue change. IMPRESSION: Anatomic alignment post total left knee arthroplasty. ACT 112: Negative or not required by law. The above report was generated using voice recognition software. It may contain grammatical, syntax or spelling errors. Electronically signed by: Sampson Casillas M.D. 06/20/2020 12:36 PM
[2020-06-20] MEDS: ACETAMINOPHEN 500 MG TAB PO SCH ×2 (13:17→21:14)
[2020-06-20] MEDS ORDERED: HEPARIN SOD 5,000 UNIT/0.5 ML VIAL SQ SCH (14:00)
--- NOTE | 2020-06-20 14:42 | Orthopedic Progress Note ---
Date of Service June 20, 2020 Assessment & Plan (1) Left knee DJD: POD #0 s/p L TKA, doing as well as expected. Resume diet. WBAT with immobilizer for 48 hours or until he demonstrates good quad control with, and walker. Immobilizer only needs to be used with transfers and walking as noted above. OOB to chair. Continue pain control. Check labs tomorrow. DVT prophylaxis: TEDs 3 weeks, foot pumps while in hospital,ASA 81 mg BID for 6 weeks. Dressing will be changed to Silverlon prior to discharge or postop day #2 requirement which ever comes first. PT/OT. D/C planning. Present on Admission?: Yes Admission and Anticipated Discharge Date Admission Date: June 20, 2020 Subjective Doing all right Review of Systems Review of Systems: All systems reviewed & are unremarkable except as noted in HPI & below Physical Exam Physical Exam: LLE: Dressing clean, dry, intact. Sensation to light touch is intact. Wiggling toes and ankle up and down. Able to perform a straight leg raise. Results & Data ([facility]) Vital Signs (Past 12 Hours) Vital Signs Temp Pulse Resp BP Pulse Ox 06/20/20 14:31 36.8 C 79 16 135/68 99 06/20/20 13:20 36.4 C L 73 16 133/77 100 06/20/20 12:23 36.4 C L 64 16 125/73 100 06/20/20 11:52 36.3 C L 76 16 120/70 97 06/20/20 11:21 36.5 C 74 16 125/71 97 06/20/20 11:05 67 14 128/68 98 06/20/20 10:55 37.0 C 66 15 129/64 100 06/20/20 10:45 67 12 131/67 100 06/20/20 10:35 75 17 131/74 100 06/20/20 10:25 36.4 C L 71 16 132/75 98 06/20/20 10:15 90 22 125/79 100 06/20/20 10:05 88 16 139/67 100 06/20/20 09:59 36.7 C 88 12 129/65 95 06/20/20 05:30 37.3 C 82 18 157/80 H 98 Diagnostic Findings AP & Lateral L knee shows cement L TKA, components in good position.
[2020-06-20] MEDS: CEFAZOLIN 2000MG 2,000 MG/15 ML SYR IV SCH ×2 (15:09→22:22)
[2020-06-20] MEDS: Scopolamine CHECK PATCH PLACEMENT SCH ×2 (16:30→23:38)
[2020-06-20] MEDS: FERROUS GLUCONATE 324 MG TAB PO SCH (17:12)
[2020-06-20] MEDS: ASCORBIC ACID 500 MG TAB PO SCH (17:13)
[2020-06-20] MEDS: OXYCODONE HCL IR 5 MG TAB (IMMEDIATE RELEASE) PO PRN (19:27)
[2020-06-20] MEDS: DOCUSATE SODIUM 100 MG CAP PO SCH (20:20)
[2020-06-20] MEDS: FLUTICASONE/VILANTEROL 200/25MCG 14 PUFFS/INHALER INH SCH (20:30)
[2020-06-20] MEDS: FLUTICASONE PROPIONATE NA SPR 16 GM BTL NAE SCH (20:31)
[2020-06-20] MEDS ORDERED: CALCIUM 600MG + VIT D 400 IU TAB PO SCH (21:00)
[2020-06-20] MEDS ORDERED: NON-FORMULARY MEDICATION (Multivitamin 1 CAP) PO SCH (21:00)
[2020-06-20] MEDS ORDERED: SENNA 8.6 MG TAB PO SCH (21:00)
[2020-06-20] MEDS ORDERED: lisinopriL 40 MG TAB PO SCH (21:00)
[2020-06-20] MEDS ORDERED: MONTELUKAST SODIUM 10 MG TABLET PO SCH (21:00)
[2020-06-20] MEDS ORDERED: LORATADINE 10 MG TAB PO SCH (21:00)
[2020-06-20] MEDS ORDERED: SIMVASTATIN 20 MG TAB PO SCH (21:00)
[2020-06-21] MEDS: OXYCODONE HCL IR 5 MG TAB (IMMEDIATE RELEASE) PO PRN ×2 (01:12→10:43)
[2020-06-21] MEDS: ACETAMINOPHEN 500 MG TAB PO SCH ×2 (05:37→13:31)
[2020-06-21 06:05] LABS: Hematocrit (blood only) 30.8 % (37-47); Hemoglobin 10.7 g/dL (12.0-16.0); Mean Corpuscular Hemoglobin 30.7 pg (25-34); Mean Corpuscular Hgb Conc 34.7 g/dL (32-36); Mean Corpuscular Volume 88.3 fL (80-100); Platelet Count 160 K/uL (130-400); RDW Coefficient of Variation 13.2 % (11.5-14.5); RDW Standard Deviation 42.4 fL (36.4-46.3); Red Blood Count 3.49 M/uL (4.2-5.4); White Blood Count 7.31 K/uL (4.8-10.8)
[2020-06-21] MEDS ORDERED: LEVOTHYROXINE SODIUM 88 MCG TABLET PO SCH (06:30)
[2020-06-21 06:33] LABS: BUN Creatinine Ratio 16.2 (10-20); Calcium 8.5 mg/dl (8.5-10.1); Creatinine Clr Calc Pharmacy 69.1 ml/min; Est GFR (Non-African American) 86.3; Potassium 3.7 mmol/L (3.5-5.1)
[2020-06-21] MEDS: Scopolamine CHECK PATCH PLACEMENT SCH (07:36)
[2020-06-21] MEDS: FLUTICASONE/VILANTEROL 200/25MCG 14 PUFFS/INHALER INH SCH (08:39)
[2020-06-21] MEDS: FERROUS GLUCONATE 324 MG TAB PO SCH (08:41)
[2020-06-21] MEDS: FLUTICASONE PROPIONATE NA SPR 16 GM BTL NAE SCH (08:41)
[2020-06-21] MEDS: DOCUSATE SODIUM 100 MG CAP PO SCH (08:41)
[2020-06-21] MEDS: ASCORBIC ACID 500 MG TAB PO SCH (08:41)
[2020-06-21] MEDS ORDERED: POTASSIUM CHLORIDE 20 MEQ TABCR PO SCH (09:00)
[2020-06-21] MEDS ORDERED: FUROSEMIDE 20 MG TAB PO SCH (09:00)
[2020-06-21] MEDS ORDERED: MULTIVITAMIN TAB PO SCH (09:00)
[2020-06-21] MEDS ORDERED: ASPIRIN 81 MG ECTAB PO SCH (09:00)
[2020-06-21] MEDS ORDERED: PANTOprazole 40 MG TAB PO SCH (09:00)
[2020-06-21] MEDS ORDERED: IPRATROPIUM BROMIDE 0.03% SCH ×2 (09:00→21:00)
--- NOTE | 2020-06-21 11:43 | Orthopedic Progress Note ---
Date of Service June 21, 2020 Assessment & Plan (1) Left knee DJD: POD #1 s/p L TKA, doing as well as expected. Resume diet. WBAT: with immobilizer for another 24 hours or until she demonstrates good quad control, and walker. Immobilizer only needs to be used with transfers and walking as noted above for another 24 hours. OOB to chair. Continue pain control. DVT prophylaxis: TEDs 3 weeks, foot pumps while in hospital,ASA 81 mg BID for 6 weeks. Dressing will be changed to Silverlon prior to discharge or postop day #2 requirement which ever comes first. PT/OT. D/C planning. Will re-check this pm to determine if she able to be discharged home. Admission and Anticipated Discharge Date Admission Date: June 20, 2020 Subjective Oral pain medicine taking 1 takes the edge off left knee pain. Did have some pain following PT. Was able to slowly navigate stairs. Review of Systems Review of Systems: All systems reviewed & are unremarkable except as noted in HPI & below Physical Exam Physical Exam: LLE: Dressing clean, dry, intact. Neurovascularly intact. Results & Data ([facility]) Vital Signs (Past 12 Hours) Vital Signs Temp Pulse Resp BP Pulse Ox 06/21/20 07:31 36.5 C 63 16 134/73 99 06/21/20 03:06 36.5 C 71 16 119/67 98 06/21/20 00:08 36.8 C 65 16 120/68 96 Laboratory Results 06/21/20 06/21/20 06/20/20 Range/Units 05:46 05:46 05:15 WBC 7.31 (4.8-10.8) K/uL RBC 3.49 L (4.2-5.4) M/uL Hgb 10.7 L (12.0-16.0) g/dL Hct 30.8 L (37-47) % MCV 88.3 (80-100) fL MCH 30.7 (25-34) pg MCHC 34.7 (32-36) g/dL RDW Std Deviation 42.4 (36.4-46.3) fL RDW Coeff of Yanique 13.2 (11.5-14.5) % Plt Count 160 (130-400) K/uL MPV 10.0 (7.4-10.4) fL Sodium 145 (136-145) mmol/L Potassium 3.7 (3.5-5.1) mmol/L Chloride 111 H (98-107) mmol/L Carbon Dioxide 28 (21-32) mmol/L Anion Gap 6.0 (3-11) BUN 12 (7-18) mg/dl Creatinine 0.71 (0.6-1.2) mg/dl Est Cr Clr Drug Dosing 69.1 ml/min Est GFR ( Amer) 100.0 Est GFR (Non-Af Amer) 86.3 BUN/Creatinine Ratio 16.2 (10-20) Glucose 95 (70-99) mg/dl Calcium 8.5 (8.5-10.1) mg/dl Hepatitis C Ab Screen Neg (Neg)
--- NOTE | 2020-06-21 14:36 | Orthopedic Progress Note ---
Date of Service June 21, 2020 Assessment & Plan (1) Left knee DJD: POD #1 s/p L TKA, doing as well as expected. Regular diet. WBAT: with immobilizer for another 24 hours or until she demonstrates good quad control, and walker. Immobilizer only needs to be used with transfers and walking as noted above for another 24 hours. OOB to chair. Continue pain control with PO meds. Ice as needed. DVT prophylaxis: TEDs 3 weeks, foot pumps while in hospital,ASA 81 mg BID for 6 weeks. Dressing changed to Silverlon. PT/OT. D/C planning to home today with HHPT. Admission and Anticipated Discharge Date Admission Date: June 20, 2020 Subjective Patient sitting in bed. Ready to go home. Had PT this am. Saw Dr Lopez this AM. Pain controlled with PO meds. Tolerating PO diet. Denies f/c/s, chest pain, SOB, lightheadedness or dizziness. Plans for HHPT. 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 Physical Exam Physical Exam: Left leg post-op dressings intact. Upon removal, Zip-Line and shield intact. Dry blood to 4x4s. No active drainage. No significant redness or warmth. Moderate knee effusion. B LE calves soft and nontender. B LE NV intact with palpable DP and PT pulses. Sensation intact to light touch. Able to wiggle ankles and toes. 5/5 B EHL> TA, and gastroc strength. R LE juan hose on. Results & Data ([facility]) Vital Signs (Past 12 Hours) Vital Signs Temp Pulse Resp BP Pulse Ox 06/21/20 07:31 36.5 C 63 16 134/73 99 06/21/20 03:06 36.5 C 71 16 119/67 98 Laboratory Results 06/21/20 06/21/20 06/20/20 Range/Units 05:46 05:46 05:15 WBC 7.31 (4.8-10.8) K/uL RBC 3.49 L (4.2-5.4) M/uL Hgb 10.7 L (12.0-16.0) g/dL Hct 30.8 L (37-47) % MCV 88.3 (80-100) fL MCH 30.7 (25-34) pg MCHC 34.7 (32-36) g/dL RDW Std Deviation 42.4 (36.4-46.3) fL RDW Coeff of Yanique 13.2 (11.5-14.5) % Plt Count 160 (130-400) K/uL MPV 10.0 (7.4-10.4) fL Sodium 145 (136-145) mmol/L Potassium 3.7 (3.5-5.1) mmol/L Chloride 111 H (98-107) mmol/L Carbon Dioxide 28 (21-32) mmol/L Anion Gap 6.0 (3-11) BUN 12 (7-18) mg/dl Creatinine 0.71 (0.6-1.2) mg/dl Est Cr Clr Drug Dosing 69.1 ml/min Est GFR ( Amer) 100.0 Est GFR (Non-Af Amer) 86.3 BUN/Creatinine Ratio 16.2 (10-20) Glucose 95 (70-99) mg/dl Calcium 8.5 (8.5-10.1) mg/dl Hepatitis C Ab Screen Neg (Neg)
--- NOTE | 2020-06-21 14:47 | Discharge Summary ---
Date of Service June 21, 2020 Principal Diagnosis Left knee osteoarthritis Discharge Data Allergies Allergy/AdvReac Type Severity Reaction Status Date / Time amoxicillin Allergy Intermediate GI Verified 06/20/20 05:45 SYMPTOMS,ITCH clavulanic acid Allergy Intermediate GI Verified 06/20/20 05:45 SYMPTOMS,ITCH Consultations 06/20/20 10:11 Consult Case Management - Discharge Planning Routine Procedures Performed Operation Date: 06/20/20 07:00 Actual Procedures p Left Total Knee Arthroplasty(Left) - Rigo Lopez MD Ordered Studies 06/20/20 05:00 US - OR guided needle placemen Routine Hospital Course (1) Left knee DJD: 69 yr old female underwent L TKR by Dr Lopez on 06-20-20. Tolerated spinal anesthesia. Surgery without complication. Admitted to hospital under observation. Received 24hrs post-op abx. Tolerated regular PO diet and fluids. Pain controlled on PO pain medications. No issues with knee incision. Mobile with walker and left knee immobilizer while ambulating. Tolerated PT/OT inhouse. DVT prophylaxis consisted of TEDS, foot pumps, and ASA 81mg BID while inhouse. Case management discussed DC to home with HHPT. Patients vitals remained stable throughout her stay. Labs POD [address] Lopez saw patient today and felt she was deemed stable for DC to home with her . Her post-op dressings were removed and silverlon waterproof dressings placed to remain on for 2wks until f/u visit. DVT prophylaxis to consist of TEDS x 3wks and ASA 81mg BID x 6wks. Post-op meds to include Vit C, Iron, Tylenol, and Oxycodone which were sent to her pharmacy. Patient to continue with walker but can stop immobilizer during ambulation 48hr post-op if has good quad control. She will f/u in office as scheduled 2wks after surgery for wound check and Zip- Line removal. She was advised to call the office or go to the ER with any questions or concerns. Please see below for detailed Discharge Instructions. Total Time Total Time Spent Total Time Spent (In Minutes): 20 Discharge Plan Discharge Items Patient Disposition: Home - Self-Care Reason For Visit: LEFT KNEE OSTEOARTHRITIS Discharge Diagnosis: Left Knee Osteoarthritis Activity: Per Instructions section Bathing: Keep incision dry Bathing Comment: silverlon dressing is waterproof, can shower but not submerge Weightbearing Comment: as tolerated with walker (an immobilizer for 48hrs post- op) Call non-emergency contact if: your pain is not controlled, your temperature is above 101.5 and your wound has increased redness Follow-up/Referrals: Rigo Lopez MD [Physician] - 07/05/20 11:15 am (with Anjali Encarnacion PA-C) Jose Antonio Almazan MD [Primary Care Provider] - Diet: Regular Addtl Attending Provider Instructions: Post-operative Instructions Pain Expect to be in a fair amount of pain after surgery. Remember, our goal is not to eliminate your pain, but to make it tolerable. It is a good idea to stay ahead of your pain by taking the medications you were prescribed once you get home. Typically, the pain starts improving 3-7 days after surgery. You should start weaning off the narcotic pain medication (oxycodone) as soon as your pain improves. Please call our office if your pain is not adequately controlled. You can take tylenol 1000mg every 8hrs for mild to moderate pain. Ice Ice your operative site at least 5 times a day for 15-30 minutes at a time. Make sure you have a thin cloth between the ice or cooling unit and your skin to prevent menon bite. This is especially important if you received a nerve block. Continue icing your operative site for the first 5-7 days after surgery, then as needed. Diet/Nausea/Vomiting Start by drinking clear liquids and eating crackers. If you can tolerate this, then you may resume your normal diet. If you feel nauseated or vomit, take Zofran/ondansetron (if prescribed). Please call our office if you have intractable nausea or vomiting, or, if after hours, you may go to the Emergency Room for help. Constipation Constipation is a common side effect of narcotic pain medication. If you have not had a bowel movement within 2 days after surgery, we recommend purchasing an over the counter laxative such as Milk of Magnesia, Dulcolax, or Miralax from a local pharmacy, and taking it as instructed. Call our clinic if any questions. Weight bearing and Range of Motion. Weightbearing as tolerated with walker. No restrictions with range of motion. *KNEE IMMOBILIZER x 48hrs AFTER SURGERY WHILE AMBULATING AND THEN CAN STOP (CONTINUE IF YOU DO NOT HAVE GOOD QUAD CONTROL)* Physical therapy Initially you will start with home health physical therapy. At our first visit with at our office we will provide you with script for outpatient physical therapy. Wound care and showering We will inspect your wound at your first post-operative visit, and may do a dressing change at that time. Most patients will be in a water-proof dressing that is removed 14 days after surgery. It is normal to see some dried blood on the dressing. Do not remove your dressing, paper strips or sutures yourself unless you are given permission. Showering is allowed the day after surgery. Do not scrub or remove any dressings. The wound should not be submerged underwater (i.e. in a bathtub or pool) until 4 weeks after surgery JESU stockings If you were given white stockings, these are to be worn at all times except to shower and sleep (on both legs) for the first 2 weeks after surgery. We will discuss removal at your first follow-up appointment. Driving You may not drive while taking narcotic pain medication. We will discuss return to driving at your first follow-up appointment. Return To Work Your return to work depends on what surgery was done and what type of work you do. Please bring any paperwork your employer needs completed to your first post-operative visit. Also, bring a description of your job duties, as this helps us to understand what risks you may face at work. Travel Avoid long distance travel (greater than 1 hour) in airplanes and cars for the first 6 weeks after surgery if possible. If you must travel, please let us know so we can discuss additional measures to prevent blood clots. Follow-up You should have a follow-up appointment already scheduled for 2 weeks after surgery. If not, please contact our office to make this appointment before you leave the hospital. When to call the office [phone] It is normal to have swelling and bruising in the limb that was operated on. This will improve with time. It is also normal to have fevers for the first 2 days after surgery. Reasons you should call your doctor include: Uncontrolled pain; Nausea, vomiting, or constipation that does not improve with medication; Fevers over 101.5, chills, sweats; Drainage or bleeding from the wound; Foul odor; Spreading areas of redness; Any other concerns. NEW MEDICATIONS: new medications will be sent to your pharmacy: oxycodone, iron, vit c, tylenol, aspirin. Pending Studies at Discharge: No Stand-Alone Forms: [facility] Medications and DC Order Prescriptions: New aspirin 81 mg Tablet,Delayed Release (Dr/Ec) 81 mg PO BID 42 Days Qty: 84 RF: 0 acetaminophen 500 mg Tablet 1,000 mg PO Q8 PRN (Reason: pain) Qty: 60 RF: 0 ascorbic acid (vitamin C) [Vitamin C] 500 mg Tablet 500 mg PO BIDM 14 Days Qty: 28 RF: 0 oxycodone 5 mg Tablet 5 - 10 mg PO Q4H PRN (Reason: pain) Qty: 30 RF: 0 ferrous gluconate 324 mg (38 mg iron) Tablet 324 mg PO BIDM 14 Days Qty: 28 RF: 0 Continued epinephrine 0.3 mg/0.3 mL auto-injector 0.3 mg IM UD PRN (Reason: Anaphylaxis) Qty: 1 RF: 0 ipratropium bromide 0.03 % spray,non-aerosol See Rx Instructions .ROUTE .COMPLEX Qty: 30 RF: 2 Nucala 100 mg recon soln 100 mg SQ .COMPLEX Qty: 1 RF: 0 budesonide-formoterol [Symbicort] 160-4.5 mcg/actuation HFA aerosol inhaler 2 puffs INH BID Qty: 10.2 RF: 3 levothyroxine 100 mcg capsule 100 mcg PO 3XWK RF: 0 furosemide 20 mg tablet 20 mg PO 3XWK Qty: 16 RF: 0 potassium chloride 20 mEq tablet extended release 20 meq PO 3XWK Qty: 16 RF: 0 omeprazole 40 mg Capsule,Delayed Release(Dr/Ec) 40 mg PO QAM RF: 0 calcium carbonate [Calcium 600] 600 mg calcium (1,500 mg) Tablet 600 mg PO HS RF: 0 montelukast 10 mg Tablet 10 mg PO HS RF: 0 albuterol sulfate [Ventolin HFA] 90 mcg/actuation Hfa Aerosol Inhaler 2 puff INHALATION QID PRN (Reason: Wheezing) RF: 0 lisinopril 40 mg Tablet 40 mg PO HS RF: 0 multivitamin Capsule 1 cap PO HS RF: 0 levothyroxine 88 mcg capsule 88 mcg PO 4XWK RF: 0 simvastatin [Zocor] 20 mg tablet 20 mg PO HS RF: 0 loratadine [Claritin] 10 mg Tablet 10 mg PO HS RF: 0 fluticasone propionate [Flonase Allergy Relief] 50 mcg/actuation [place],Suspension 2 spray INTRANASAL QAM RF: 0 Discontinued aspirin 81 mg Tablet,Chewable 81 mg PO HS RF: 0 ibuprofen 200 mg Tablet 200 mg PO BID PRN (Reason: Pain) RF: 0 Discharge Orders: Discharge Order (Routine); Ordered 06/21/20 Ordered By: Maira Encarnacion Admission Data Admit Date/Time: 06/20/20 10:11 Attending Provider: Rigo Lopez Admit Provider: Rigo Lopez Primary Care Provider: Jose Antonio Almazan Other Providers: [place],Home Care ; [facility],Home Health
[2020-06-22] MEDS ORDERED: LEVOTHYROXINE SODIUM 100 MCG TABLET PO SCH (06:30)
== END 2020-06-21 16:17 | disposition home or self-care (01) ==
LOC: ASU 05:07 → 3E 05:07

== ENCOUNTER 2024-05-14 12:28 | Observation (INO) ==
--- NOTE | 2024-05-14 12:50 | ED Triage Note ---
Date of Service May 14, 2024 Provider in Triage Author: Demetrius Diaz History of Present Illness This patient was briefly evaluated while in triage. An abbreviated physical exam was performed. This patient is a 73-year-old Female who presents to the ED for evaluation of dizziness that started about 50 minutes ago when shopping. burning in chest. dizziness is worse with changes in position. able to walk. Physical Exam CONSTITUTIONAL: in no acute pain or distress, resting comfortably SKIN: pink, warm, dry CARDIAC: regular rate and rhythm RESPIRATORY: in no respiratory distress, lungs clear to auscultation NEURO: gait intact. Able to reproduce symptoms by rotating head to right and left. no focal neuro deficits Initial orders for labs and / or imaging were placed and patient was placed in t he waiting area until a bed is available. Case reviewed with ED attending Dr. Singer, no stroke alert at this time. Please see further documentation for the full ED course. MDM / Impression Impression Impression: Dizziness, Chest pain, Leukopenia Impression: Chest pain Qualifiers: Chest pain type: unspecified Qualified Code(s): R07.9 - Chest pain, unspecified Leukopenia Qualifiers: Leukopenia type: unspecified Qualified Code(s): D72.819 - Decreased white blood cell count, unspecified
[2024-05-14 13:57] LABS: Basophils # (auto) 0.03 K/uL (0.00-0.20); Basophils % (auto) 0.8 %; Eosinophils # (auto) 0.09 K/uL (0.00-0.50); Eosinophils % (auto) 2.3 %; Hematocrit (blood only) 36.5 % (37.0-47.0); Hemoglobin 12.3 g/dl (12.0-16.0); Immature Granulocytes # (auto) 0.01 K/uL (0.01-0.20); Immature Granulocytes % (auto) 0.3 %; Lymphocytes # (auto) 0.92 K/uL (1.20-3.40); Lymphocytes % (auto) 23.4 %; Mean Corpuscular Hemoglobin 28.7 pg (25.0-34.0); Mean Corpuscular Hgb Conc 33.7 g/dL (32.0-36.0); Mean Corpuscular Volume 85.3 fL (80.0-100.0); Monocytes % (auto) 7.6 %; Neutrophils # (auto) 2.59 K/uL (1.40-6.50); Neutrophils % (auto) 65.6 %; Platelet Count 174 K/uL (130-400); RDW Standard Deviation 39.6 fL (36.4-46.3); Red Blood Count 4.28 M/uL (4.20-5.40); White Blood Count 3.94 K/ul (4.8-10.8)
[2024-05-14 14:04] LABS: Albumin Level 4.3 gm/dl (3.4-5.0); BUN Creatinine Ratio 27.4 (10-20); Bilirubin,Total 0.7 mg/dl (0.2-1.0); Calcium 9.3 mg/dl (8.6-10.3); Creatinine Clr Calc Pharmacy 76.7 ml/min; Est GFR (Non-African American) 88.8 ml/min; Globulin 2.2 gm/dl (2.5-4.0); Magnesium 1.8 mg/dl (1.7-2.4); Potassium 3.7 mmol/L (3.5-5.1); Total Protein 6.5 gm/dl (6.0-8.3)
--- NOTE | 2024-05-14 14:07 | XRay Report ---
XR chest 1V not portable CLINICAL HISTORY: VERTIGO TECHNIQUE: Single frontal radiograph of the chest was obtained. Comparison: Comparison is made to chest radiograph 03/30/2020 FINDINGS: No lines and tubes are seen. The cardiomediastinal silhouette is normal. The lungs are clear. No evid ence of pleural effusion or pneumothorax. IMPRESSION: No acute chest disease. ACT 112: Negative or not required by law. Electronically signed by: Chau Mathew M.D. 05/14/2024 2:06 PM
[2024-05-14 14:11] LABS: Troponin I High Sensitivity 3.5 pg/ml (0-14)
[2024-05-14 14:18] LABS: Partial Thromboplastin Ratio 0.9; Partial Thromboplastin Time 23 Seconds (21-31); Prothrombin Time 10.8 Seconds (9.0-12.0)
--- NOTE | 2024-05-14 14:22 | Emergency Department Note ---
Impression & Plan Dizziness, Chest pain, Leukopenia ED Provider Note NAME: STAR SAHU AGE: 73 SEX: F : 1950 ARRIVES VIA: Walk-In INFORMANT: Patient ED PROVIDER(S): Ajit Hernandez DO CHIEF COMPLAINT: Dizzy HPI: Patient is a 73-year-old female with a past medical history of asthma, migraines, arachnoid cyst, hypertension, dyslipidemia who presents to the ER for dizziness and lightheadedness. She notes this started with the chest pressure/burning pain somewhere around 10 or 11:00. Lasted for an hour. She consequently came in to be evaluated. She still feels lightheaded/dizzy. She notes it is worse with movement of her head and resolves when she stays still. Denies any arm pain or jaw pain. No shortness of breath. No other exacerbating or remitting factors. It was sudden onset. She also notes at the same time she has a headache which is diffuse throughout her whole head. Nonfocal. No loss of vision or change in vision. ADDITIONAL HISTORY OBTAINED: Per HPI Chronic Medical/Social Conditions Affecting Care: Per HPI PAST MEDICAL HISTORY:See Below PAST SURGICAL HISTORY:See Below FAMILY HISTORY:See Below SOCIAL HISTORY:See Below HOME MEDICATIONS:See Below ALLERGIES:See Below VITALS:See Below PHYSICAL EXAMINATION: GENERAL: Sitting up in bed, alert, well appearing, well nourished, no distress, non-toxic EYE EXAM: normal conjunctiva. PERRL and EOM's intact. OROPHARYNX: no exudate, no erythema, lips, buccal mucosa, and tongue normal and mucous membranes are moist NECK: supple, no nuchal rigidity, no adenopathy, non-tender LUNGS: Clear to auscultation. Normal chest wall mechanics HEART: no murmurs, S1 normal and S2 normal ABDOMEN: abdomen soft, non-tender, normo-active bowel sounds, no masses, no rebound or guarding. BACK: Back is symmetrical on inspection and there is no deformity, no midline tenderness, no CVA tenderness. SKIN: no rashes and no bruising UPPER EXTREMITIES: upper extremities are grossly normal. LOWER EXTREMITIES: No pitting edema. NEURO EXAM: Normal sensorium, cranial nerves II-XII intact, normal speech, no weakness of arms, no weakness of legs. No drift. Finger to nose intact. Gross sensation intact. MEDICAL DECISION MAKING: Patient is a 73-year-old female who presents ER for above-stated complaint. IV was established blood work is obtained. Labs show mild leukopenia at 3.9. BMP unremarkable. INR was unremarkable as well. Troponin was negative. Patient is completely neurologically intact. CTAs of the head and neck were negative. With the chest pressure which occurred with dizziness I did discuss the case with the hospitalist for further evaluation management treatment. Please see their note for further management. Patient was given fluids and Antivert. Consults/Care Managements Discussions: Per [facility] Triage Nursing notes reviewed. Limited review of prior medical records performed Vital Signs: reviewed and remarkable for no significant abnormalities Differential diagnosis: Differential diagnosis includes etiologies such as benign positional vertigo, dehydration, hypovolemia, anemia, tumor, infection, hypoglycemia, electrolyte abnormalities, cardiac sources, intracerebral event, toxicologic, neurological, as well as others were entertained. ER treatment provided: See below Diagnostics interpreted by me include EKG and cardiac monitoring as listed below: -Cardiac Monitoring: An order was placed for continuous cardiac monitoring. The monitor shows a rate of 70 with sinus rhythm. -ECG: Sinus rhythm rate of 72 Normal axis Right bundle branch block T wave inversions in V1 through V3 as well as the inferior leads QTc 424 Incomplete right bundle is new in comparison to previous with T wave inversions. -Laboratory studies:Interpreted by me as stated above in MDM and shown below. Imaging studies: Xrays: As interpreted by me: Portable AP upright 1 view of the chest shows no focal infiltrate CTs show: CT of the head neck was negative per radiology. Procedures:none Critical Care: None Past Med/Surg History Problem List (Updated 05/14/24 @ 20:04 by Ajit Hernandez DO) Leukopenia (Acute) Chest pain (Acute) Dizziness (Acute) Dizziness Concussion Sinus disease Severe persistent asthma Allergic rhinitis Severe persistent asthma Indeterminate pulmonary nodules Migraine without aura Arachnoid cyst Left knee DJD Chronic sphenoidal sinusitis ABPA (allergic bronchopulmonary aspergillosis) F/U DR HUSAIN; USED RESCUE INHALER LAST NIGHT History of anesthesia reaction STRIDOR POST OP BRONCHOSCOPY 2 YRS AGO [facility]-NO SURGERY SINCE Osteoarthritis Hiatal hernia Fontaine's esophagus Allergic conjunctivitis Hearing loss IgG subclass deficiency Irritable bowel syndrome Nasal cavity polyp ABPA (allergic bronchopulmonary aspergillosis) Allergic rhinitis caused by mold Severe persistent asthma 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 ABPA (allergic bronchopulmonary aspergillosis) controlled, follows w/ Dr Curry History of malignant neoplasm of left breast (1996) Pulmonary nodule yearly monitoring IgG subclass deficiency Hyperlipidemia HTN (hypertension) Osteoarthritis Hiatal hernia Migraine resolved Environmental and seasonal allergies Allergic rhinitis Asthma well controlled w/ daily inhaler, uses rescue inhaler weekly Hx of concussion (10/2023) from fall Hx of pancreatitis (2016) Arachnoid cyst (2019) FINDING ON MRI Barretts esophagus History of IBS GERD (gastroesophageal reflux disease) Hypothyroidism SOB (shortness of breath) on exertion mild, only w/ long distances Surgical History Hx of foot surgery right Hx of hysterectomy Status post left breast lumpectomy w/ lymph node removal per pt Right acoustic neuroma REMOVAL History of bronchoscopy (2017) History of arthroscopy LEFT KNEE History of cholecystectomy History of esophagogastroduodenoscopy (EGD) History of colonoscopy Family History Other Allergies Asthma Breast cancer Hypertension Prostate cancer Social History Smoking Status: Never smoker Second Hand Exposure: Yes (FATHER SMOKED); Do You Dip or Chew Tobacco: No; Hx Alcohol Use: No Hx Substance Use: No Preferred Language: Emirati Communication Ability: Effective Electrician'S Assistant Required: No Beliefs That Will Affect Care: None marital status: Current Living Situation: Spouse current occupational status: retired Feels Safe at Home: Yes Assistive Devices: Glasses and Hearing Aid - Bilateral Allergies Allergies Allergy/AdvReac Type Severity Reaction Status Date / Time amoxicillin Allergy Intermediate GI Verified 05/14/24 15:01 SYMPTOMS,ITCH clavulanic acid Allergy Intermediate GI Verified 05/14/24 15:01 SYMPTOMS,ITCH Home Meds Home Medications Medication Instructions Recorded Confirmed albuterol sulfate 90 mcg/actuation 2 puff inhalation QID PRN Wheezing 03/18/19 05/14/24 aerosol inhaler (Ventolin HFA) calcium carbonate (Calcium 600) 600 mg PO HS 03/18/19 05/14/24 lisinopril 40 mg tablet 40 mg PO HS 03/18/19 05/14/24 montelukast 10 mg tablet 10 mg PO HS 03/18/19 05/14/24 multivitamin 1 cap PO HS 03/19/19 05/14/24 potassium chloride 20 mEq 20 meq PO DAILY #16 tabs 09/20/19 05/14/24 tablet,extended release simvastatin 20 mg tablet (Zocor) 20 mg PO HS 12/20/19 05/14/24 levothyroxine 88 mcg capsule 88 mcg PO QAM 08/02/21 05/14/24 fluticasone fur. 200 mcg-umeclid 1 inh inhalation HS 10/03/23 05/14/24 62.5 mcg-vilant 25 mcg inhalat.powder (Trelegy Ellipta) furosemide 20 mg tablet 20 mg PO 3XWK 05/14/24 05/14/24 tezepelumab-ekko 210 mg/1.91 mL 210 mg subcut MONTHLY 05/14/24 05/14/24 (110 mg/mL) subcutaneous syringe (Tezspire) Previous Rx's Medication Instructions Recorded acetaminophen 500 mg tablet 1,000 mg (2 x 500 mg) PO Q8 PRN 06/21/20 pain #60 tabs epinephrine 0.3 mg/0.3 mL 0.3 mg (0.3 mL) IM UD PRN 01/07/24 injection, auto-injector Anaphylaxis #1 ea Results & Data (ED) Vital Signs Vital Signs - 24 hr 05/14/24 12:35 05/14/24 14:29 05/14/24 14:57 Temperature 36.9 C Temperature Source Oral Pulse Rate 80 74 Pulse Rate [Apical] 74 Pulse Rate from SpO2 Sensor 75 Pulse Rhythm Regular Respiratory Rate 16 18 14 Respiratory Effort / Characteristics Non-Labored Spontaneous Respiratory Depth Normal Normal Respiratory Pattern Regular Blood Pressure 177/76 H 151/85 H Blood Pressure [Right Arm] 151/77 H Blood Pressure Mean 109 107 Blood Pressure Mean [Right Arm] 101 Pulse Oximetry 97 99 96 Oxygen Delivery Method Room Air Room Air Sepsis Recent Fever Within 48 Hours No Sepsis New/Unexplained Change in Mental Status N/A Sepsis Action Taken by Nursing No Action Required Laboratory Data 05/14/24 13:30 05/14/24 13:30 Lab Results 05/14/24 Range/Units 13:30 WBC 3.94 L (4.8-10.8) K/ul RBC 4.28 (4.20-5.40) M/uL Hgb 12.3 (12.0-16.0) g/dl Hct 36.5 L (37.0-47.0) % MCV 85.3 (80.0-100.0) fL MCH 28.7 (25.0-34.0) pg MCHC 33.7 (32.0-36.0) g/dL RDW Std Deviation 39.6 (36.4-46.3) fL RDW Coeff of [place] 13.0 (11.5-14.5) % Plt Count 174 (130-400) K/uL MPV 10.0 (9.4-12.4) fL Immature Gran % (Auto) 0.3 % Neut % (Auto) 65.6 % Lymph % (Auto) 23.4 % Weston % (Auto) 7.6 % Eos % (Auto) 2.3 % Baso % (Auto) 0.8 % Neut # (Auto) 2.59 (1.40-6.50) K/uL Lymph # (Auto) 0.92 L (1.20-3.40) K/uL Weston # (Auto) 0.30 (0.11-0.59) K/uL Eos # (Auto) 0.09 (0.00-0.50) K/uL Baso # (Auto) 0.03 (0.00-0.20) K/uL Immature Gran # (Auto) 0.01 (0.01-0.20) K/uL PT 10.8 (9.0-12.0) Seconds INR 1.0 (0.9-1.1) APTT 23 (21-31) Seconds PTT Ratio 0.9 Sodium 138 (136-145) mmol/L Potassium 3.7 (3.5-5.1) mmol/L Chloride 104 (98-107) mmol/L Carbon Dioxide 28 (21-32) mmol/L Anion Gap 6 (3-11) BUN 17 (6-23) mg/dl Creatinine 0.62 (0.6-1.2) mg/dl Est Cr Clr Drug Dosing 76.7 ml/min Est GFR ( Amer) 103.0 ml/min Est GFR (Non-Af Amer) 88.8 ml/min BUN/Creatinine Ratio 27.4 H (10-20) Glucose 95 (70-99(Fasting)) mg/dl Calcium 9.3 (8.6-10.3) mg/dl Magnesium 1.8 (1.7-2.4) mg/dl Total Bilirubin 0.7 (0.2-1.0) mg/dl AST 17 (13-39) U/L ALT 13 (7-52) U/L Alkaline Phosphatase 70 (34-104) U/L Troponin I High Sens 3.5 (0-14) pg/ml Total Protein 6.5 (6.0-8.3) gm/dl Albumin 4.3 (3.4-5.0) gm/dl Globulin 2.2 L (2.5-4.0) gm/dl Albumin/Globulin Ratio 2.0 (0.9-2) Administered Medications Acetaminophen (Acetaminophen 325 Mg Tab) 650 mg PO Q4H PRN PRN Reason: pain/fever Stop: 06/13/24 19:07 Last Admin: 05/14/24 19:26 Dose: 650 mg Documented By: KRISHNA Sodium Chloride (Nss) 1,000 mls @ 80 mls/hr IV .[id number] [facility] Stop: 06/13/24 17:44 Last Admin: 05/14/24 19:26 Dose: 80 mls/hr Documented By: KRISHNA Discontinued Medications Gadobutrol (Gadobutrol 65ml Vial) 7 ml IV ONCE ONE Stop: 05/14/24 18:30 Last Admin: 05/14/24 18:30 Dose: 7 ml Documented By: ARETHA Sodium Chloride (Nss) 1,000 mls @ 999 mls/hr IV .Q1H1M ONE Stop: 05/14/24 15:18 Last Infusion: 05/14/24 16:14 Dose: Infused Documented By: Admin: 05/14/24 14:41 Dose: 999 mls/hr Documented By: TEDDY Ioversol (Optiray 320 125ml) 120 ml IV ONCE ONE Stop: 05/14/24 14:23 Last Admin: 05/14/24 14:23 Dose: 120 ml Documented By: COLEEN Meclizine HCl (Meclizine Hcl 25 Mg Tab) 25 mg PO NOW STA Stop: 05/14/24 14:19 Last Admin: 05/14/24 14:40 Dose: 25 mg Documented By: TEDDY Imaging Data Radiologist's Impression: Chest X-Ray 05/14/24 12:45 XR chest 1V not portable CLINICAL HISTORY: VERTIGO TECHNIQUE: Single frontal radiograph of the chest was obtained. Comparison: Comparison is made to chest radiograph 03/30/2020 FINDINGS: No lines and tubes are seen. The cardiomediastinal silhouette is normal. The lungs are clear. No evidence of pleural effusion or pneumothorax. IMPRESSION: No acute chest disease. ACT 112: Negative or not required by law. Electronically signed by: Chau Mathew M.D. 05/14/2024 2:[address] 05/14/24 12:46 CT OF THE HEAD WITHOUT CONTRAST CLINICAL HISTORY: neuro deficit, acute stroke suspected COMPARISON STUDY: MRI of the brain December 12, 2020. Head CT October 18, 2023. TECHNIQUE: Helical axial images of the head were obtained without IV contrast. Automated exposure control was utilized for the study. A dose lowering technique was utilized adhering to the principles of ALARA. FINDINGS: No acute intracranial hemorrhage, midline shift or mass effect is present. The ventricular system is unremarkable. The basal cisterns are patent. No extra-axial collections are present. There are no findings to suggest acute dural sinus thrombosis or acute territorial infarct. There are no calvarial fractures. Right mastoidectomy is unchanged in appearance. The small right cerebellopontine angle lesion on MRI of December 12, [address] evident [address]. IMPRESSION: No acute intracranial findings. No change in appearance of the brain. ACT 112: Negative or not required by law. Electronically signed by: Jimenez Mckeon M.D. 05/14/2024 2:38 PM Head CTA 05/14/24 12:46 CT angio head w con CLINICAL HISTORY: neuro deficit, acute stroke suspected TECHNIQUE: CT angiography of the head was performed following intravenous administration of iodinated contrast. Coronal and sagittal MIPS were obtained from the axial data set and were submitted for review. Automated dose lowering techniques and/or adjustment according to patient size were utilized for this examination. All measurements were calculated based on NASCET criteria. CT DOSE: 1006.02 mGy.cm Comparison: Comparison is made to CT head 05/14/2024 FINDINGS: CTA Head: The anterior and posterior cerebral circulations are patent. No hemodynamically significant stenosis, aneurysm, dissection, or arteriovenous malformation is shown. IMPRESSION: No occlusion, hemodynamically significant stenosis, aneurysm, dissection, or arteriovenous malformation in the major intracranial arteries. Assessment of stenosis of the internal carotid arteries is based on NASCET criteria. ACT 112: Negative or not required by law. Electronically signed by: Chau Mathew M.D. 05/14/2024 3:08 PM Neck CTA 05/14/24 12:46 CT ANGIOGRAM OF THE NECK CLINICAL HISTORY: Neurological deficit. Stroke like symptoms. Vertigo. COMPARISON STUDY: CT of the cervical spine dated 10/18/2023. Chest CT dated 09/19/2023. TECHNIQUE: Following the IV administration of 120 of Optiray 320, CT angiogram of the neck was performed from the aortic arch to the skull base. Images are reviewed in the axial, sagittal, and coronal planes. 3-D MIPS images are created and assessed. IV contrast was administered without complication. All measurements were calculated based on NASCET criteria. A dose lowering technique was utilized adhering to the principles of ALARA. FINDINGS: Thoracic aorta: Atherosclerotic calcification is noted in the thoracic aorta. Visualized portions of the thoracic aorta are normal in caliber. The aortic arch demonstrates standard 3-vessel anatomy. Right carotid arterial system: The right common carotid artery is widely patent, as are the right internal and external carotid arteries. Mild plaque is seen in the carotid bulb. Left carotid arterial system: The left common carotid artery is widely patent, as are the left internal and external carotid arteries. Mild plaque is seen in the carotid bulb. Vertebral arteries: Widely patent bilaterally noting left-sided dominance. The right vertebral artery is diminutive. Subclavian arteries: Widely patent bilaterally. Intracranial vasculature: The visualized intracranial vessels at the skull base are patent. The right vertebral artery is diminutive and terminates as PICA. Jugular veins: Patent bilaterally. Brain parenchyma: The visualized brain parenchyma the skull base is within normal limits. Lung apices: A 4 mm right upper lobe pulmonary nodule image #1 was not clearly seen on 09/19/[address] Additional punctate nodules are seen at the left apex. There is mild apical scarring. Soft tissues: The visualized pharyngeal soft tissues are normal in appearance noting angiographic phase technique. The oropharyngeal airway appears widely patent. The thyroid gland is atrophic versus surgically absent. A peripherally calcified structure into the trachea seen on image #77 is unchanged. The salivary glands are normal in appearance. No cervical lymphadenopathy is seen. Skeletal structures: The skeletal structures are osteopenic. The visualized calvarium at the skull base appears intact. The imaged cervical spine is maintained noting multilevel spondylosis. Sinuses and mastoids: A 1.4 cm retention cyst is noted in the left maxillary antrum. Trace fluid is seen within the sphenoid sinuses. There is postsurgical change from right mastoid surgery. A right mastoid effusion is observed. The left mastoid air cells are well pneumatized. IMPRESSION: 1. Unremarkable CT angiogram of the neck. 2. A 4 mm right upper lobe pulmonary nodule is not clearly seen on the 09/19/[address] scan. Follow-up with a dedicated chest CT scan is recommended in 3 months time for reassessment of this nodule and full evaluation of the thorax. ACT 112: Negative or not required by law. Electronically signed by: Familia Vee M.D. 05/14/2024 2:43 PM Discharge Plan Visit Data Chief Complaint: Vertigo Stated Complaint: DIZZY, HEADACHE,CHEST PAIN,NAUSEA ED Provider: Ajit Hernandez Discharge Problem: Dizziness, Chest pain, Leukopenia Patient Disposition: Admitted As Inpatient Discharge Problem: Chest pain Qualifiers: Chest pain type: unspecified Qualified Code(s): R07.9 - Chest pain, unspecified Leukopenia Qualifiers: Leukopenia type: unspecified Qualified Code(s): D72.819 - Decreased white blood cell count, unspecified
[2024-05-14] MEDS: OPTIRAY 320 125ml IV ONE (14:23)
[2024-05-14] MEDS: MECLIZINE HCL 25 MG TAB PO STA (14:40)
--- NOTE | 2024-05-14 14:40 | CT Scan Report ---
CT OF THE HEAD WITHOUT CONTRAST CLINICAL HISTORY: neuro deficit, acute stroke suspected COMPARISON STUDY: MRI of the brain December 12, 2020. Head CT October 18, 2023. TECHNIQUE: Helical axial images of the head were obtained without IV contrast. Automated exposure con trol was utilized for the study. A dose lowering technique was utilized adhering to the principles o f ALARA. FINDINGS: No acute intracranial hemorrhage, midline shift or mass effect is present. The ventricular system is unremarkable. The basal cisterns are patent. No extra-axial collections are present. There are no findings to suggest acute dural sinus thrombosis or acute territorial infarct. There are no ca lvarial fractures. Right mastoidectomy is unchanged in appearance. The small right cerebellopontine a ngle lesion on MRI of December 12, [address] evident [address] CT. IMPRESSION: No acute intracranial findings. No change in appearance of the brain. ACT 112: Negative or not required by law. Electronically signed by: Jimenez Mckeon M.D. 05/14/2024 2:38 PM
[2024-05-14] MEDS: SODIUM CHLORIDE 0.9% 1,000 ML IV ONE (14:41)
--- NOTE | 2024-05-14 14:44 | CT Scan Report ---
CT ANGIOGRAM OF THE NECK CLINICAL HISTORY: Neurological deficit. Stroke like symptoms. Vertigo. COMPARISON STUDY: CT of the cervical spine dated 10/18/2023. Chest CT dated 09/19/2023. TECHNIQUE: Following the IV administration of 120 of Optiray 320, CT angiogram of the neck was perfor med from the aortic arch to the skull base. Images are reviewed in the axial, sagittal, and coronal p lanes. 3-D MIPS images are created and assessed. IV contrast was administered without complication. A ll measurements were calculated based on NASCET criteria. A dose lowering technique was utilized adh ering to the principles of ALARA. FINDINGS: Thoracic aorta: Atherosclerotic calcification is noted in the thoracic aorta. Visualized portions of the thoracic aorta are normal in caliber. The aortic arch demonstrates standard 3-vessel anatomy. Right carotid arterial system: The right common carotid artery is widely patent, as are the right int ernal and external carotid arteries. Mild plaque is seen in the carotid bulb. Left carotid arterial system: The left common carotid artery is widely patent, as are the left restaurant management internship al and external carotid arteries. Mild plaque is seen in the carotid bulb. Vertebral arteries: Widely patent bilaterally noting left-sided dominance. The right vertebral artery is diminutive. Subclavian arteries: Widely patent bilaterally. Intracranial vasculature: The visualized intracranial vessels at the skull base are patent. The right vertebral artery is diminutive and terminates as PICA. Jugular veins: Patent bilaterally. Brain parenchyma: The visualized brain parenchyma the skull base is within normal limits. Lung apices: A 4 mm right upper lobe pulmonary nodule image #1 was not clearly seen on 09/19/[address] Additional punctate nodules are seen at the left apex. There is mild apical scarring. Soft tissues: The visualized pharyngeal soft tissues are normal in appearance noting angiographic pha se technique. The oropharyngeal airway appears widely patent. The thyroid gland is atrophic versus zuniga rgically absent. A peripherally calcified structure into the trachea seen on image #77 is unchanged. The salivary glands are normal in appearance. No cervical lymphadenopathy is seen. Skeletal structures: The skeletal structures are osteopenic. The visualized calvarium at the skull ba se appears intact. The imaged cervical spine is maintained noting multilevel spondylosis. Sinuses and mastoids: A 1.4 cm retention cyst is noted in the left maxillary antrum. Trace fluid is s een within the sphenoid sinuses. There is postsurgical change from right mastoid surgery. A right mas toid effusion is observed. The left mastoid air cells are well pneumatized. IMPRESSION: 1. Unremarkable CT angiogram of the neck. 2. A 4 mm right upper lobe pulmonary nodule is not clearly seen on the 09/19/[address] scan. Follo w-up with a dedicated chest CT scan is recommended in 3 months time for reassessment of this nodule a nd full evaluation of the thorax. ACT 112: Negative or not required by law. Electronically signed by: Familia Vee M.D. 05/14/2024 2:43 PM
--- NOTE | 2024-05-14 15:10 | CT Scan Report ---
CT angio head w con CLINICAL HISTORY: neuro deficit, acute stroke suspected TECHNIQUE: CT angiography of the head was performed following intravenous administration of iodinate d contrast. Coronal and sagittal MIPS were obtained from the axial data set and were submitted for re view. Automated dose lowering techniques and/or adjustment according to patient size were utilized f or this examination. All measurements were calculated based on NASCET criteria. CT DOSE: 1006.02 mGy.cm Comparison: Comparison is made to CT head 05/14/2024 FINDINGS: CTA Head: The anterior and posterior cerebral circulations are patent. No hemodynamically significan t stenosis, aneurysm, dissection, or arteriovenous malformation is shown. IMPRESSION: No occlusion, hemodynamically significant stenosis, aneurysm, dissection, or arteriovenous malformati on in the major intracranial arteries. Assessment of stenosis of the internal carotid arteries is based on NASCET criteria. ACT 112: Negative or not required by law. Electronically signed by: Chau Mathew M.D. 05/14/2024 3:08 PM
--- NOTE | 2024-05-14 15:25 | Electrocardiogram Report ---
Test Reason : Blood Pressure : / mmHG Vent. Rate : 072 BPM Atrial Rate : 072 BPM P-R Int : 118 ms QRS Dur : 112 ms QT Int : 388 ms P-R-T Axes : 048 004 005 degrees QTc Int : 424 ms Normal sinus rhythm Incomplete right bundle branch block with repolarization abnormality Abnormal ECG When compared with ECG of 30-MAR-2020 07:31, Incomplete right bundle branch block is now Present T-wave inversion in Anterior leads (may be RBBB repol related) Confirmed by Jian Cobb ([id number]) on 05/14/2024 3:24:49 PM Referred By: REFERRED SELF Confirmed By:Jian Cobb
--- NOTE | 2024-05-14 17:06 | History & Physical Report ---
Date of Service May 14, 2024 Assessment & Plan (1) Dizziness: (2) Chest pain: (3) Barretts esophagus: (4) GERD (gastroesophageal reflux disease): (5) HTN (hypertension): (6) Dyslipidemia: (7) Hypothyroidism: (8) Osteoarthritis: Plan Dizziness- Started today as detailed above. CT head, CTA head and neck with no acute abnormality. Better but still get dizzy when moves her head around on both sides- not clearly vertiginous. Had h/o acoustic neuroma surgery on right ear and due for MRI in June. Has hearing loss and uses hearing aid. Sachse Hallpike could not be done at bedside. Could be peripheral due to BPPV but given her history of neuroma and her prolonged symptoms, will get MRI brain to evaluate for PV INSTALLER TECH syndrome or recurrent schwannoma or other pathology. If negative, consider vestibular therapy evaluation in morning. Will have meclizine prn for dizziness/vertigo. Will have gentle ivf. Chest pain with EKG abnormality- upper central chest pain today- burning type. States stress test few years ago was normal. EKG with incomplete RBBB noticed also on EKG 04/20 but not before. Trop x1 negative. Unclear etiology of her CP but already feeling better in ED. States it could be from her anxiety because of her dizziness, or it could be GI related due to her reflux symptoms but will trend troponin, repeat EKG in morning, monitor on tele and get echo. Consider cardio eval if needed. GERD/Fontaine's esophagus- gets EGD every 3 years, stable, next one coming up in May. Continue PPI. Maalox prn. History of acoustic neuroma s/p resection Hypertension- conitnue lisinopril Hypothyroidism- continue synthroid Dyslipidemia- on statin H/o ABPA/asthma- stable, no exacerbation. On trelegy. Will have the substitute here. DVT ppx- sc lovenox Disposition- Obs on tele Time spent- Approx 75 mins Full code History of Present Illness Chief Complaint: Vertigo, Chest Burning Primary Care Provider: Jose Antonio Almazan MD Isabelle Encarnacion is a 73y/o F with PMHx of acoustic neuroma of R ear [deaf in R ear], IBS, osteoarthritis, HTN, hypothyroidism, dyslipidemia and other problems listed below who presented to the ED for evaluation 2/2 vertigo and episodes of chest burning. History obtained from the patient and associated chart review. Patient seen at bedside with Dr. Chang. Patient states she felt "liban off" starting this morning, but "couldn't quite put her finger on it." Was shopping at [employer] with her when suddenly became dizzy. She almost fell, but her prevented her from falling by catching her by the arm. Mentions she has felt rather dizzy and her head has been hurting since that episode this morning. Her head hurts still, but she is feeling less dizzy during our conversation. She is deaf in the right ear from an acoustic neuroma [2000] and she has difficulty hearing in her left hear. Endorses chronic tinnitus in her left ear, which is unchanged from baseline. Her head hurts more when she moves her neck back and forth. Denies any fevers, chills, numbness/weakness or tingling. States she "doesn't feel like she should." Has not eaten since being here, endorses hunger at this time. She has had some intermittent chest burning sensations since this morning as well. Endorses she does experience some chest tightness when her asthma flares. She denies any chest pressure or sharp chest pain. Her stomach has been upset the entire day. She has been drinking soda to help with the nausea. She is supposed to have an endoscopy in May, has them done every 3 years d/t hx of Fontaine's esophagus. Patient had a stress test a few years back that was "excellent." Allergies Allergy/AdvReac Type Severity Reaction Status Date / Time amoxicillin Allergy Intermediate GI Verified 05/14/24 15:01 SYMPTOMS,ITCH clavulanic acid Allergy Intermediate GI Verified 05/14/24 15:01 SYMPTOMS,ITCH Home Medications Medication Instructions Recorded Confirmed Type albuterol sulfate 90 mcg/actuation 2 puff inhalation QID PRN Wheezing 03/18/19 05/14/24 History aerosol inhaler (Ventolin HFA) calcium carbonate (Calcium 600) 600 mg PO HS 03/18/19 05/14/24 History lisinopril 40 mg tablet 40 mg PO HS 03/18/19 05/14/24 History montelukast 10 mg tablet 10 mg PO HS 03/18/19 05/14/24 History multivitamin 1 cap PO HS 03/19/19 05/14/24 History potassium chloride 20 mEq 20 meq PO DAILY #16 tabs 09/20/19 05/14/24 History tablet,extended release simvastatin 20 mg tablet (Zocor) 20 mg PO HS 12/20/19 05/14/24 History acetaminophen 500 mg tablet 1,000 mg (2 x 500 mg) PO Q8 PRN 06/21/20 05/14/24 Rx pain #60 tabs levothyroxine 88 mcg capsule 88 mcg PO QAM 08/02/21 05/14/24 History fluticasone fur. 200 mcg-umeclid 1 inh inhalation HS 10/03/23 05/14/24 History 62.5 mcg-vilant 25 mcg inhalat.powder (Trelegy Ellipta) epinephrine 0.3 mg/0.3 mL 0.3 mg (0.3 mL) IM UD PRN 01/07/24 05/14/24 Rx injection, auto-injector Anaphylaxis #1 ea furosemide 20 mg tablet 20 mg PO 3XWK 05/14/24 05/14/24 History tezepelumab-ekko 210 mg/1.91 mL 210 mg subcut MONTHLY 05/14/24 05/14/24 History (110 mg/mL) subcutaneous syringe (Tezspire) Past Med/Surg History Problem List Dizziness Concussion Sinus disease Severe persistent asthma Allergic rhinitis Severe persistent asthma Indeterminate pulmonary nodules Migraine without aura Arachnoid cyst Left knee DJD Chronic sphenoidal sinusitis ABPA (allergic bronchopulmonary aspergillosis) F/U DR HUSAIN; USED RESCUE INHALER LAST NIGHT History of anesthesia reaction STRIDOR POST OP BRONCHOSCOPY 2 YRS AGO [facility]-NO SURGERY SINCE Osteoarthritis Hiatal hernia Fontaine's esophagus Allergic conjunctivitis Hearing loss IgG subclass deficiency Irritable bowel syndrome Nasal cavity polyp ABPA (allergic bronchopulmonary aspergillosis) Allergic rhinitis caused by mold Severe persistent asthma 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 History of hysterectomy with bilateral oophorectomy Pulmonary nodule GERD (gastroesophageal reflux disease) Seasonal allergies Hypothyroidism HTN (hypertension) History of malignant neoplasm of breast LEFT-1996 Dyslipidemia Medical History Lung nodules IBS (irritable bowel syndrome) History of anesthesia reaction (2017) STRIDOR POST OP BRONCHOSCOPY [facility] Hearing loss Chronic sphenoidal sinusitis follows w/ ENT Ari KATZ and Dr Saenz 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 ABPA (allergic bronchopulmonary aspergillosis) controlled, follows w/ Dr Curry History of malignant neoplasm of left breast (1996) Pulmonary nodule yearly monitoring IgG subclass deficiency Hyperlipidemia HTN (hypertension) Osteoarthritis Hiatal hernia Migraine resolved Environmental and seasonal allergies Allergic rhinitis Asthma well controlled w/ daily inhaler, uses rescue inhaler weekly Hx of concussion (10/2023) from fall Hx of pancreatitis (2016) Arachnoid cyst (2019) FINDING ON MRI Barretts esophagus History of IBS GERD (gastroesophageal reflux disease) Hypothyroidism SOB (shortness of breath) on exertion mild, only w/ long distances Surgical History Hx of foot surgery right Hx of hysterectomy Status post left breast lumpectomy w/ lymph node removal per pt Right acoustic neuroma REMOVAL History of bronchoscopy (2017) History of arthroscopy LEFT KNEE History of cholecystectomy History of esophagogastroduodenoscopy (EGD) History of colonoscopy Family History Other Allergies Asthma Breast cancer Hypertension Prostate cancer Social History Smoking Status: Never smoker Second Hand Exposure: Yes (FATHER SMOKED); Do You Dip or Chew Tobacco: No; Hx Alcohol Use: No Hx Substance Use: No Preferred Language: Latvian Communication Ability: Effective Manager Epic Required: No Beliefs That Will Affect Care: None marital status: Current Living Situation: Spouse current occupational status: retired Feels Safe at Home: Yes Assistive Devices: Glasses and Hearing Aid - Bilateral Review of Systems Review of Systems: At least ten systems reviewed and negative, except as noted in the HPI. Physical Exam Physical Exam: General: Sitting comfortably in bed, not in acute distress, on room air HEENT: EOMI, LYN, MMM Chest: Clear breath sounds bilaterally, no wheezes or crackles CVS: Regular rate and rhythm, normal heart sounds, no murmur Abdomen: Soft, non tender, not distended, normal bowel sounds Neuro: Awake, alert, oriented, conversing well, non focal. Normal finger nose testing. Gait was not done. Rosraio-Hallpike could not be done. Extremities: No cyanosis, clubbing or edema MSK: Left hand covered with splint Results & Data Results & Data Vital Signs (Past 12 Hours) Vital Signs Temp Pulse Pulse Resp BP BP Pulse Ox 05/14/24 14:57 74 14 151/85 H 96 05/14/24 14:29 74 18 151/77 H 99 05/14/24 12:35 36.9 C 80 16 177/76 H 97 O2 Del Method 05/14/24 14:57 05/14/24 14:29 Room Air 05/14/24 12:35 Room Air Laboratory Results Short CBC 05/14/24 Range/Units 13:30 WBC 3.94 L (4.8-10.8) K/ul Hgb 12.3 (12.0-16.0) g/dl Hct 36.5 L (37.0-47.0) % Plt Count 174 (130-400) K/uL BMP 05/14/24 13:30 Sodium 138 Potassium 3.7 Chloride 104 Carbon Dioxide 28 BUN 17 Creatinine 0.62 Glucose 95 Calcium 9.3 Liver Function 05/14/24 Range/Units 13:30 Total Bilirubin 0.7 (0.2-1.0) mg/dl AST 17 (13-39) U/L ALT 13 (7-52) U/L Alkaline Phosphatase 70 (34-104) U/L Albumin 4.3 (3.4-5.0) gm/dl Diagnostic Findings Chest X-Ray 05/14/24 12:45 XR chest 1V not portable CLINICAL HISTORY: VERTIGO TECHNIQUE: Single frontal radiograph of the chest was obtained. Comparison: Comparison is made to chest radiograph 03/30/2020 FINDINGS: No lines and tubes are seen. The cardiomediastinal silhouette is normal. The l ungs are clear. No evidence of pleural effusion or pneumothorax. IMPRESSION: No acute chest disease. ACT 112: Negative or not required by law. Electronically signed by: Chau Mathew M.D. 05/14/2024 2:[address] 05/14/24 12:46 CT OF THE HEAD WITHOUT CONTRAST CLINICAL HISTORY: neuro deficit, acute stroke suspected COMPARISON STUDY: MRI of the brain December 12, 2020. Head CT October 18, 2023. TECHNIQUE: Helical axial images of the head were obtained without IV contrast. Automated exposure control was utilized for the study. A dose lowering techni que was utilized adhering to the principles of ALARA. FINDINGS: No acute intracranial hemorrhage, midline shift or mass effect is present. The ventricular system is unremarkable. The basal cisterns are patent. No extra-axial collections are present. There are no findings to suggest acute dural sinus thrombosis or acute territorial infarct. There are no calvarial fractures. Right mastoidectomy is unchanged in appearance. The small right cerebellopontine angle lesion on MRI of December 12, [address] evident [address] CT. IMPRESSION: No acute intracranial findings. No change in appearance of the brain. ACT 112: Negative or not required by law. Electronically signed by: Jimenez Mckeon M.D. 05/14/2024 2:38 PM Head CTA 05/14/24 12:46 CT angio head w con CLINICAL HISTORY: neuro deficit, acute stroke suspected TECHNIQUE: CT angiography of the head was performed following intravenous administration of iodinated contrast. Coronal and sagittal MIPS were obtained from the axial data set and were submitted for review. Automated dose lowering techniques and/or adjustment according to patient size were utilized for this examination. All measurements were calculated based on NASCET criteria. CT DOSE: 1006.02 mGy.cm Comparison: Comparison is made to CT head 05/14/2024 FINDINGS: CTA Head: The anterior and posterior cerebral circulations are patent. No hemodynamically significant stenosis, aneurysm, dissection, or arteriovenous malformation is shown. IMPRESSION: No occlusion, hemodynamically significant stenosis, aneurysm, dissection, or arteriovenous malformation in the major intracranial arteries. Assessment of stenosis of the internal carotid arteries is based on NASCET criteria. ACT 112: Negative or not required by law. Electronically signed by: Chau Mathew M.D. 05/14/2024 3:08 PM Neck CTA 05/14/24 12:46 CT ANGIOGRAM OF THE NECK CLINICAL HISTORY: Neurological deficit. Stroke like symptoms. Vertigo. COMPARISON STUDY: CT of the cervical spine dated 10/18/2023. Chest CT dated 09/19/2023. TECHNIQUE: Following the IV administration of 120 of Optiray 320, CT angiogram of the neck was performed from the aortic arch to the skull base. Images are reviewed in the axial, sagittal, and coronal planes. 3-D MIPS images are created and assessed. IV contrast was administered without complication. All measurements were calculated based on NASCET criteria. A dose lowering technique was utilized adhering to the principles of ALARA. FINDINGS: Thoracic aorta: Atherosclerotic calcification is noted in the thoracic aorta. Visualized portions of the thoracic aorta are normal in caliber. The aortic arch demonstrates standard 3-vessel anatomy. Right carotid arterial system: The right common carotid artery is widely patent, as are the right internal and external carotid arteries. Mild plaque is seen in the carotid bulb. Left carotid arterial system: The left common carotid artery is widely patent, as are the left internal and external carotid arteries. Mild plaque is seen in the carotid bulb. Vertebral arteries: Widely patent bilaterally noting left-sided dominance. The right vertebral artery is diminutive. Subclavian arteries: Widely patent bilaterally. Intracranial vasculature: The visualized intracranial vessels at the skull base are patent. The right vertebral artery is diminutive and terminates as PICA. Jugular veins: Patent bilaterally. Brain parenchyma: The visualized brain parenchyma the skull base is within normal limits. Lung apices: A 4 mm right upper lobe pulmonary nodule image #1 was not clearly seen on 09/19/[address] Additional punctate nodules are seen at the left apex. There is mild apical scarring. Soft tissues: The visualized pharyngeal soft tissues are normal in appearance noting angiographic phase technique. The oropharyngeal airway appears widely patent. The thyroid gland is atrophic versus surgically absent. A peripherally calcified structure into the trachea seen on image #77 is unchanged. The salivary glands are normal in appearance. No cervical lymphadenopathy is seen. Skeletal structures: The skeletal structures are osteopenic. The visualized calvarium at the skull base appears intact. The imaged cervical spine is maintained noting multilevel spondylosis. Sinuses and mastoids: A 1.4 cm retention cyst is noted in the left maxillary antrum. Trace fluid is seen within the sphenoid sinuses. There is postsurgical change from right mastoid surgery. A right mastoid effusion is observed. The left mastoid air cells are well pneumatized. IMPRESSION: 1. Unremarkable CT angiogram of the neck. 2. A 4 mm right upper lobe pulmonary nodule is not clearly seen on the 09/19/[address] scan. Follow-up with a dedicated chest CT scan is recommended in 3 months time for reassessment of this nodule and full evaluation of the thorax. ACT 112: Negative or not required by law. Electronically signed by: Familia Vee M.D. 05/14/2024 2:43 PM Medications Administered Discontinued Medications Sodium Chloride (Nss) 1,000 mls @ 999 mls/hr IV .Q1H1M ONE Stop: 05/14/24 15:18 Last Infusion: 05/14/24 16:14 Dose: Infused Documented By: Admin: 05/14/24 14:41 Dose: 999 mls/hr Documented By: TEDYD Ioversol (Optiray 320 125ml) 120 ml IV ONCE ONE Stop: 05/14/24 14:23 Last Admin: 05/14/24 14:23 Dose: 120 ml Documented By: COLEEN Meclizine HCl (Meclizine Hcl 25 Mg Tab) 25 mg PO NOW STA Stop: 05/14/24 14:19 Last Admin: 05/14/24 14:40 Dose: 25 mg Documented By: TEDDY Code Status & VTE Plan Code Status FULL CODE VTE Prophylaxis Plan VTE Prophylaxis will be ordered: Yes (2) Chest pain Chest pain type: chest pain on breathing Qualified Code(s): R07.1 - Chest pain on breathing
[2024-05-14] MEDS ORDERED: ALBUTEROL HFA 8 GM INHALER INH PRN (17:31)
[2024-05-14] MEDS: GADOBUTROL 65ML VIAL IV ONE (18:30)
[2024-05-14] MEDS ORDERED: MECLIZINE HCL 25 MG TAB PO PRN (19:08)
[2024-05-14] MEDS ORDERED: ALUMINUM/MAGNESIUM SUSP 30 ML UDC PO PRN (19:08)
[2024-05-14] MEDS ORDERED: MAGNESIUM HYDROXIDE SUSP 30 ML UDC PO PRN (19:08)
[2024-05-14] MEDS ORDERED: POLYETHYLENE (MIRALAX) 17 GM PACK PO PRN (19:08)
[2024-05-14] MEDS ORDERED: ONDANSETRON INJ 2 MG/ML 2 ML VIAL IV PRN (19:08)
[2024-05-14] MEDS: SODIUM CHLORIDE 0.9% 1,000 ML IV SCH (19:26)
[2024-05-14] MEDS: ACETAMINOPHEN 325 MG TAB PO PRN (19:26)
--- NOTE | 2024-05-14 19:37 | Magnetic Resonance Report ---
MR brain wo/w con CLINICAL HISTORY: Vertigo symptoms, hx of acoustic neuroma, r/o ENVIRONMENTAL SCIENCE TECHNICIAN TECHNIQUE: Multiplanar and multisequence MR images of the brain were obtained prior to and following administration of gadolinium contrast. Comparison: Comparison is made to MRI brain 12/12/2020 CTA head and neck 05/14/2024 and MRI brain 2020 FINDINGS: No abnormal restricted diffusion is identified. Foci of T2 and FLAIR hyperintensity are noted in the paraventricular areas consistent with chronic small vessel ischemic disease. Ex vacuo ventriculomegal y and sulcal enlargement is noted compatible with diffuse volume loss. There is a right internal tenzin tory canal mass measuring 9 x 10 mm, slightly enlarged from prior exam where it measured 8 mm. Choroi d plexus cyst is again seen in the left lateral ventricle. There is no mass effect or midline shift. There is no evidence of acute intraparenchymal hemorrhage. No extra axial fluid collections are seen. The corpus callosum, pituitary gland, and cerebellar tonsils appear grossly unremarkable. Flow voids of the major intracranial arterial vessels are identified. The imaged portions of the para nasal sinuses, mastoid air cells, and orbits are unremarkable. IMPRESSION: Right cerebellopontine angle mass compatible with stable to slightly enlarged residual acoustic neuro ma. ACT 112: Negative or not required by law. Electronically signed by: Chau Mathew M.D. 05/14/2024 7:35 PM
[2024-05-14] MEDS ORDERED: NON-FORMULARY MEDICATION (Fluticasone-Umeclidin-Vilanter [Trelegy Ellipta] 200-62.5-25 mcg INH SCH (21:00)
--- OUTSIDE RECORDS SUMMARY | 2024-05-14 21:10 | External Medical Summary | Continuity of Care Document ---
Author Name Unknown Organization [id number] Address [address] [place] [phone] Care Team Providers Care Applications Manager Name Role Phone Jose Antonio Almazan Primary Care Physician [phone] [id number] Date(s): 05/10/24 - 05/10/24 [facility] [address] [place], [place] [id number] [facility] [address] [place] [id number] Encounter Diagnosis Other specified arthritis, left hand(Discharge Diagnosis) - 05/10/24 Discharge Disposition: Home or Self Care Attending Physician: MD Albarran Wayne J Referring Physician: MD Albarran Wayne J Allergies, Adverse Reactions, Alerts Substance Criticality Severity Reaction Reaction Severity Status Augmentin itchy bloated upset stomach Active Medications amoxicillin 500 mg oral capsule Start: 08/03/20 10:06:00 AM EDT, 4 cap, PO, As indicated, Disp# 12 cap, Refills: 3, one hour before dental and other procedures as directed with food, Pharmacy: [id number] Start Date: 08/03/20 Status: Ordered aspirin 81 mg oral tablet Start: 05/11/13 2:04:00 PM EDT, 1 tab, PO, Daily Start Date: 05/11/13 Status: Ordered calcium carbonate Start: 05/07/13 3:35:12 PM EDT, PO, Daily Start Date: 05/07/13 Status: Ordered Claritin 10 mg oral tablet Start: 01/10/20 1:25:00 PM EST Start Date: 01/10/20 Status: Ordered Flonase 50 mcg/inh nasal spray Start: 01/10/20 1:25:00 PM EST, 2 spray, each nostril, Daily Start Date: 01/10/20 Status: Ordered furosemide Start: 01/28/18 12:51:00 PM EDT, 20 mg =, PO, Note to Pharmacy: 3 times a week Start Date: 01/28/18 Status: Ordered Keflex 500 mg oral capsule Start: 04/20/24 8:53:00 AM EDT, 1 cap, PO, tid, Disp# 15 cap, Pharmacy: [id number] Start Date: 04/20/24 Stop Date: 05/02/24 Status: Ordered lisinopril 40 mg oral tablet Start: 05/07/13 3:34:00 PM EDT, 1 tab, PO, Daily Start Date: 05/07/13 Status: Ordered Multiple Vitamins oral tablet Start: 05/07/13 3:36:00 PM EDT, 1 tab, PO, Daily Start Date: 05/07/13 Status: Ordered omeprazole 40 mg oral delayed release capsule Start: 03/14/15 8:06:00 AM EDT, 1 cap, PO, Daily Start Date: 03/14/15 Status: Ordered potassium chloride Start: 01/28/18 12:51:00 PM EDT, 20 mEq =, PO, Note to Pharmacy: 3 times a week Start Date: 01/28/18 Status: Ordered Singulair Start: 02/20/17 1:16:00 PM EDT, PO, Daily, dose unknown Start Date: 02/20/17 Status: Ordered Synthroid Start: 05/07/13 3:33:00 PM EDT, Daily, 10 mcg Start Date: 05/07/13 Status: Ordered Tezspire Prefilled Pen 210 mg /1.91 mL SQ solution Start: 01/27/23 9:58:00 AM EDT, See Instructions, subQ, Disp# 1 each, Refills: 11, INJECT 1 PEN (210MG) UNDER THE SKIN EVERY 4 WEEKS, Supply Start Date: 01/27/23 Status: Ordered Trelegy Ellipta Start: 04/20/24 8:27:00 AM EDT Start Date: 04/20/24 Status: Ordered Zocor 20 mg oral tablet Start: 05/07/13 3:34:00 PM EDT, 1 tab, PO, Daily Start Date: 05/07/13 Status: Ordered Mental Status 05/10/24 Barriers to Learning one year None evide nt Mandatory Health Literacy Documentation Yes Health Literacy Communication Barriers N ever Primary Language French Problem List Condition Confirmation Course Effective Dates Status H ealth Status Informant Acquired hallux rigidus Confirmed Active Ankle pain Confirmed Active CMC arthritis Confirmed Active Pes anserine bursitis Confirmed Active Foot pain Confirmed Active Trochanteric bursitis of both hips Confirmed Active Bilateral hip pain Confirmed Active Status post total left knee replacement Confirmed Active HTN (hypertension) Confirmed Active Hyperlipidemia Confirmed Active Hypothyroidism Confirmed Active Knee pain 1 Confirmed Active Knee pain 2 Confirmed Active Right knee DJD Confirmed Active Pancreatitis Confirmed Active Pes anserinus bursitis of left knee Confirmed Active Pes planus Confirmed Active Plantar fasciitis of right foot Confirmed Active Seasonal allergies Confirmed Active Shoulder pain 3 Confirmed Active Shoulder pain, left Confirmed Active Surgical follow-up Confirmed Active 1right 2left 3left Diagnosis Diagnosis Type Effective Dates Health Status Cl inical Service Informant Other specified arthritis, left hand Discharge Diagnosis 05/10/24 Procedures Procedure Date Related Diagnosis Body Site Status CMCJ - Carpometacarpal joint arthroplasty of thumb 1 04/27/24 Complete d Total knee replacement 2 06/18/20 Completed Right foot 03/07/14 Completed Distal interphalangeal joint of third toe 3 05/13/12 Completed Arthroscopy of knee 4 12/20/11 Com pleted Neuroma 2000 Completed Lumpectomy 1996 Completed Hysterectomy 1993 Completed Cholecystectomy Completed 1Left 2left 3left 4left Social History Social History Type Response Smoking Status Never smoked cigaret yael Sex Female Ortho Outpt Note * Mary Mason: PERFORM Event Display: Ortho Outpt Note Authored Date: [id number] Name:STAR SAHU Patient Number:[id number] :1950 Date of Service:05/10/2024 CHIEF COMPLAINT: Follow-up s/pleft thumb CMC joint reconstruction with FCR autograft; DOS: 04/27/2024 HPI: [id number] de diosdengC[place]ucille presents today forfollow- up s/p the above noted procedure. She notes no major concerns or complaints. Her pain is manageable following surgery. She still notes resolving bruising and swelling in her hand. PHYSICAL EXAM: Focus on the left upper extremity (hand): Median, radian, and ulnar motor and sensory functions intact EPL and FPL intact CMC Joint stable Pin site benign Incision well-healed. Sutures removed, steri strips applied IMPRESSION: 73 year old female 2 weeks s/p left thumb CMC joint reconstruction PLAN: Patient placed in a short arm thumb spica cast Pin left in place to be removed in 2 weeks. PT appointment scheduled for the same day. Follow-up in 2 weeks with x-rays ATTESTATION: IMary, scribing for and in the presence of, Naman Albarran, on this date,05/10/2024 14:17:57. Electronic Signature on File Electronically Reviewed/Signed by: Mary Mason Author Signature Dt/Tm:05/10/2024 02:41 PM Electronically Reviewed/Signed by: Naman Albarran MD Cosigner Signature Dt/Tm: 05/10/2024 03:39 PM Disc Jockey for Clinical Affairs, [facility] Professor in Orthopaedics Clinical Safety Specialist, [facility] [place] Patient Care team information Care Team Personnel Name: MD Norah, Jose Antonio Guan Position: Referring DIRECT Member Role: Primary Care Provider Address: Address: [address] [place] [id number] Care Team Related Persons Name: JOSE ALEJANDRO SAHU Address: [address] [phone]
[2024-05-14] MEDS: ENOXAPARIN INJ 40 MG/0.4 ML SYR SQ SCH (21:48)
[2024-05-14] MEDS: MULTIVITAMIN TAB PO SCH (21:50)
[2024-05-14] MEDS: MONTELUKAST SODIUM 10 MG TABLET PO SCH (21:50)
[2024-05-14] MEDS: lisinopril 40 MG TAB PO SCH (21:50)
[2024-05-14] MEDS: SIMVASTATIN 20 MG TAB PO SCH (21:50)
[2024-05-14] MEDS: CALCIUM CARBONATE 1250MG TAB PO SCH (21:50)
[2024-05-14] MEDS: KETOROLAC TROMETHAMINE 15 MG/ML VIAL IV ONE (21:55)
[2024-05-14] MEDS: traMADol HCL 50 MG TABLET PO STA (22:13)
[2024-05-14] MEDS: UMECLIDINIUM/VILANTEROL 62.5/25MCG 7 PUFFS/INHALER INH SCH (22:13)
[2024-05-15] MEDS: LEVOTHYROXINE SODIUM 88 MCG TABLET PO SCH (06:07)
[2024-05-15] MEDS ORDERED: UMECLIDINIUM/VILANTEROL 62.5/25MCG 7 PUFFS/INHALER INH SCH (09:00)
[2024-05-15] MEDS: FLUTICASONE FUROATE 200MCG 14 PUFFS/INHALER INH SCH (09:41)
[2024-05-15] MEDS: POTASSIUM CHLORIDE CRTAB 20 MEQ TABCR PO SCH (09:44)
[2024-05-15] MEDS: LORATADINE 10 MG TAB PO SCH (09:44)
[2024-05-15] MEDS: PANTOprazole 40 MG TAB PO SCH (09:44)
--- NOTE | 2024-05-15 15:49 | Hospitalist Progress Note ---
Date of Service May 15, 2024 Assessment & Plan (1) Dizziness: (2) Chest pain: (3) Barretts esophagus: (4) GERD (gastroesophageal reflux disease): (5) HTN (hypertension): (6) Dyslipidemia: (7) Hypothyroidism: (8) Osteoarthritis: Plan Dizziness- Started on presentation day. CT head, CTA head and neck, and MRI brain with no acute abnormality. Significant improvement, no dizziness w/ change in position of head. Had h/o acoustic neuroma surgery on right ear and due for MRI in June. Has hearing loss and uses hearing aid. Recommend to f/u w/ neuro upon DC. Meclizine prn for dizziness/vertigo. c/w gentle ivf. Had some dizziness w/ standing yesterday, today improved, ortho vitals taken today were negative. Chest pain with EKG abnormality- upper central chest pain at presentation- burning type. States stress test few years ago was normal. EKG with incomplete RBBB noticed also on EKG 04/20 but not before. Trop x3 negative. Unclear etiology of her CP but none now. follow echo. GERD/Fontaine's esophagus- gets EGD every 3 years, stable, next one coming up in May. Continue PPI. Maalox prn. History of acoustic neuroma s/p resection Hypertension- conitnue lisinopril Hypothyroidism- continue synthroid Dyslipidemia- on statin H/o ABPA/asthma- stable, no exacerbation. On trelegy. Will have the substitute here. DVT ppx- sc lovenox Disposition- Obs on tele, possible dc today after echo read. Full code Admission and Anticipated Discharge Date Admission Date: May 14, 2024 Subjective Patient was seen and examined at bedside. Patient was lying in bed, on room air, NAD, reports significant improvement in her headache and dizziness. Patient was reporting dizziness with sitting up or standing up yesterday which has improved today. Ortho vitals taken today were negative. Echo was done and read is pending, patient agreeable to stay until the read is finalized. Patient denies febrile illness/cough/chest pain. Patient reports she is aware of 4 mm right upper lobe lesion which she is already following up with her pulmonology as an outpatient. Physical Exam Physical Exam: General: Lying comfortably in bed, not in acute distress, on room air HEENT: EOMI, LYN, MMM Chest: Clear breath sounds bilaterally, no wheezes or crackles CVS: Regular rate and rhythm, normal heart sounds, no murmur Abdomen: Soft, non tender, not distended, normal bowel sounds Neuro: Awake, alert, oriented, conversing well, non focal. Normal finger nose testing. Extremities: No cyanosis, clubbing or edema MSK: Left hand covered with splint Results & Data Results & Data Vital Signs (Past 12 Hours) Vital Signs Temp Pulse Pulse Resp BP Pulse Ox O2 Del Method 05/15/24 14:02 76 05/15/24 11:28 36.9 C 66 18 154/73 H 96 Room Air 05/15/24 08:00 67 05/15/24 07:38 36.7 C 63 20 161/75 H 96 Room Air 05/15/24 04:01 36.6 C 77 18 154/75 H 96 Room Air (2) Chest pain Chest pain type: chest pain on breathing Qualified Code(s): R07.1 - Chest pain on breathing
--- NOTE | 2024-05-15 17:36 | Discharge Summary ---
Date of Service May 15, 2024 Admission HPI Per Admitting Provider Isabelle Encarnacion is a 73y/o F with PMHx of acoustic neuroma of R ear [deaf in R ear], IBS, osteoarthritis, HTN, hypothyroidism, dyslipidemia and other problems listed below who presented to the ED for evaluation 2/2 vertigo and episodes of chest burning. History obtained from the patient and associated chart review. Patient seen at bedside with Dr. Chang. Patient states she felt "liban off" starting this morning, but "couldn't quite put her finger on it." Was shopping at [employer] with her when suddenly became dizzy. She almost fell, but her prevented her from falling by catching her by the arm. Mentions she has felt rather dizzy and her head has been hurting since that episode this morning. Her head hurts still, but she is feeling less dizzy during our conversation. She is deaf in the right ear from an acoustic neuroma [2000] and she has difficulty hearing in her left hear. Endorses chronic tinnitus in her left ear, which is unchanged from baseline. Her head hurts more when she moves her neck back and forth. Denies any fevers, chills, numbness/weakness or tingling. States she "doesn't feel like she should." Has not eaten since being here, endorses hunger at this time. She has had some intermittent chest burning sensations since this morning as well. Endorses she does experience some chest tightness when her asthma flares. She denies any chest pressure or sharp chest pain. Her stomach has been upset the entire day. She has been drinking soda to help with the nausea. She is supposed to have an endoscopy in May, has them done every 3 years d/t hx of Fontaine's esophagus. Patient had a stress test a few years back that was "excellent." Admission Exam Per Admitting Provider General: Sitting comfortably in bed, not in acute distress, on room air HEENT: EOMI, LYN, MMM Chest: Clear breath sounds bilaterally, no wheezes or crackles CVS: Regular rate and rhythm, normal heart sounds, no murmur Abdomen: Soft, non tender, not distended, normal bowel sounds Neuro: Awake, alert, oriented, conversing well, non focal. Normal finger nose testing. Gait was not done. Zebulon-Hallpike could not be done. Extremities: No cyanosis, clubbing or edema MSK: Left hand covered with splint Principal Diagnosis dizziness Discharge Exam General: Lying comfortably in bed, not in acute distress, on room air HEENT: EOMI, LYN, MMM Chest: Clear breath sounds bilaterally, no wheezes or crackles CVS: Regular rate and rhythm, normal heart sounds, no murmur Abdomen: Soft, non tender, not distended, normal bowel sounds Neuro: Awake, alert, oriented, conversing well, non focal. Normal finger nose testing. Extremities: No cyanosis, clubbing or edema MSK: Left hand covered with splint Discharge Data Allergies Allergy/AdvReac Type Severity Reaction Status Date / Time amoxicillin Allergy Intermediate GI Verified 05/14/24 15:01 SYMPTOMS,ITCH clavulanic acid Allergy Intermediate GI Verified 05/14/24 15:01 SYMPTOMS,ITCH Consultations 05/14/24 15:35 ED Decision to Admit Stat Ordered Studies 05/14/24 12:46 CT angio head w con Stat CT angio neck with con Stat CT head/brain wo con Stat 05/14/24 17:09 MRI Brain [MR brain wo/w con] Urgent Hospital Course (1) Dizziness: (2) Chest pain: (3) Barretts esophagus: (4) GERD (gastroesophageal reflux disease): (5) HTN (hypertension): (6) Dyslipidemia: (7) Hypothyroidism: (8) Osteoarthritis: Plan Dizziness- Started on presentation day. CT head, CTA head and neck, and MRI brain with no acute abnormality. Significant improvement, no dizziness w/ change in position of head. Had h/o acoustic neuroma surgery on right ear and due for MRI in June. Has hearing loss and uses hearing aid. Recommend to f/u w/ neuro upon DC. Meclizine prn for dizziness/vertigo. c/w gentle ivf. Had some dizziness w/ standing yesterday, today improved, ortho vitals taken today were negative. Chest pain with EKG abnormality- upper central chest pain at presentation- burning type. States stress test few years ago was normal. EKG with incomplete RBBB noticed also on EKG 04/20 but not before. Trop x3 negative. Unclear etiology of her CP but none now. echo reviewed no regional wall motion abnormality. GERD/Fontaine's esophagus- gets EGD every 3 years, stable, next one coming up in May. Continue PPI. Maalox prn. History of acoustic neuroma s/p resection Hypertension- conitnue lisinopril Hypothyroidism- continue synthroid Dyslipidemia- on statin H/o ABPA/asthma- stable, no exacerbation. On trelegy. Will have the substitute here. DVT ppx- sc lovenox Full code Pt is being discharged w/ following instructions at the point of discharge: Follow-up with your primary care physician within a week time and likely you will need labs CBC/CMP/magnesium/phosphorus. You presented with dizziness, headache, you underwent various CT head/CTA head and neck/MRI brain. No new acute findings were noted. A 4 mm right upper lung lobe lesion was noted which you are already following up with your pulmonology as an outpatient. Continue to f/u w/ Pulmonology as prior. Recommend you follow-up with the neurology in about 2 weeks time upon discharge. Recommend you undergo Zio patch monitoring. Coordinate with your PCP office to set up the test. Take your medications as prescribed. Please make sure that you are able to get your medications today by calling your pharmacy before you leave the hospital so that your treatment continuity is not broken. Home Health Attestation I certify that this patient is under my care and that I, or a physicians assistant director of plant operations working with me, had a face to-face encounter that meets the home health [id number] encounter requirements with this patient. The encounter with the patient was in whole, or in part, for the following medical condition, which is the primary reason for home health care (list medical condition): I certify that, based on my findings, the following services are medically necessary home health services: My clinical findings support the need for the above services because: Further, I certify that my clinical findings support that this patient is homebound (i.e. absences from home require considerable and taxing effort and are for medical reasons or roman cath[employer] services or infrequently or of short duration when for other reasons) because: Certification for Home Health Services: Based on the above findings, I certify that this patient is confined to the home and needs intermittent group home care, physical therapy and/or speech therapy or continues to need occupational therapy. The patient is under my care, and I have initiated the establishment of the plan of care. This patient will be followed by a physician who will periodically review the plan of care. Total Time Total Time Spent Total Time Spent (In Minutes): 45 Discharge Plan Discharge Items Patient Disposition: Home - Self-Care Reason For Visit: CHEST PAIN, VERTIGO Discharge Diagnosis: Dizziness Chest pain rule out ACS Activity: Resume your previous activity Non-emergency contact: Primary Care Provider Call non-emergency contact if: you have any medication questions Follow-up/Referrals: Jose Antonio Almazan MD [Primary Care Provider] - Diet: Heart Healthy Addtl Attending Provider Instructions: Follow-up with your primary care physician within a week time and likely you will need labs CBC/CMP/magnesium/phosphorus. You presented with dizziness, headache, you underwent various CT head/CTA head and neck/MRI brain. No new acute findings were noted. A 4 mm right upper lung lobe lesion was noted which you are already following up with your pulmonology as an outpatient. Continue to f/u w/ Pulmonology as prior. Recommend you follow-up with the neurology in about 2 weeks time upon discharge. Recommend you undergo Zio patch monitoring. Coordinate with your PCP office to set up the test. Take your medications as prescribed. Please make sure that you are able to get your medications today by calling your pharmacy before you leave the hospital so that your treatment continuity is not broken. Pending Studies at Discharge: No Stand-Alone Forms: [employer], Smoking Cessation Medications and DC Order Prescriptions: New meclizine 25 mg Tablet 25 mg PO TID PRN (Reason: dizziness) Qty: 30 0RF pantoprazole 40 mg Tablet,Delayed Release (Dr/Ec) 40 mg PO DAILY Qty: 30 0RF Continued epinephrine 0.3 mg/0.3 mL auto-injector 0.3 mg IM UD PRN (Reason: Anaphylaxis) Qty: 1 2RF Trelegy Ellipta 200-62.5-25 mcg blister with device 1 inh inhalation HS potassium chloride 20 mEq tablet extended release 20 meq PO DAILY Qty: 16 acetaminophen 500 mg Tablet 1,000 mg PO Q8 PRN (Reason: pain) Qty: 60 0RF calcium carbonate [Calcium 600] 600 mg calcium (1,500 mg) Tablet 600 mg PO HS montelukast 10 mg Tablet 10 mg PO HS albuterol sulfate [Ventolin HFA] 90 mcg/actuation Hfa Aerosol Inhaler 2 puff INHALATION QID PRN (Reason: Wheezing) lisinopril 40 mg Tablet 40 mg PO HS multivitamin Capsule 1 cap PO HS simvastatin [Zocor] 20 mg tablet 20 mg PO HS levothyroxine 88 mcg capsule 88 mcg PO QAM furosemide 20 mg tablet 20 mg PO [id number] Rx Instructions: May take 2 extra doses per week as needed for increased swelling Tezspire 210 mg/1.91 mL (110 mg/mL) syringe 210 mg subcut MONTHLY Discharge Orders: Discharge Order (Routine); Ordered 05/15/24 Ordered By: Ivonne Jesus Admission Data Admit Date/Time: 05/14/24 16:06 Attending Provider: Ivonne Jesus Admit Provider: Nicola Chang Primary Care Provider: Jose Antonio Almazan Other Providers: Nicola Chang
--- NOTE | 2024-05-15 18:13 | Electrocardiogram Report ---
Test Reason : Blood Pressure : / mmHG Vent. Rate : 063 BPM Atrial Rate : 063 BPM P-R Int : 124 ms QRS Dur : 116 ms QT Int : 410 ms P-R-T Axes : 073 029 022 degrees QTc Int : 419 ms Normal sinus rhythm Incomplete right bundle branch block Abnormal ECG When compared with ECG of 14-MAY-2024 13:17, No significant change was found Confirmed by Mike Brice ([id number]) on 05/15/2024 6:13:30 PM Referred By: REFERRED SELF Confirmed By:Mike Brice
== END 2024-05-15 18:46 | disposition home or self-care (01) ==
LOC: ED 12:28 → 2N 12:28 → SUATTDRO 16:06 → 2N 18:40

== ENCOUNTER 2024-12-21 05:10 | Observation (INO) ==
--- NOTE | 2024-11-26 09:01 | PAT Medication Instructions ---
Medication Instructions Date of Service November 26, 2024 Home Medications Medication Instructions Recorded acetaminophen 500 mg tablet 1,000 mg (2 x 500 mg) PO Q8 PRN 06/21/20 pain #60 tabs epinephrine 0.3 mg/0.3 mL 0.3 mg (0.3 mL) IM UD PRN 01/07/24 injection, auto-injector Anaphylaxis #1 ea tezepelumab-ekko 210 mg/1.91 mL 210 mg (1.91 mL) subcut MONTHLY 07/07/24 (110 mg/mL) subcutaneous syringe #1.91 mL (Tezspire) albuterol sulfate 90 mcg/actuation aerosol inhaler (Ventolin HFA) 2 puff inhalation QID PRN Wheezing calcium carbonate (Calcium 600) 600 mg PO HS lisinopril 40 mg tablet 40 mg PO HS montelukast 10 mg tablet 10 mg PO HS multivitamin 1 cap PO HS potassium chloride 20 mEq tablet,extended release 20 meq PO DAILY simvastatin 20 mg tablet (Zocor) 20 mg PO HS acetaminophen 500 mg tablet 1,000 mg (2 x 500 mg) PO Q8 PRN pain levothyroxine 88 mcg capsule 88 mcg PO QAM fluticasone fur. 200 mcg-umeclid 62.5 mcg-vilant 25 mcg inhalat.powder (Trelegy Ellipta) 1 inh inhalation HS epinephrine 0.3 mg/0.3 mL injection, auto-injector 0.3 mg (0.3 mL) IM UD PRN Anaphylaxis furosemide 20 mg tablet 20 mg PO QDL tezepelumab-ekko 210 mg/1.91 mL (110 mg/mL) subcutaneous syringe (Tezspire) 210 mg (1.91 mL) subcut MONTHLY omeprazole 40 mg capsule,delayed release 40 mg PO QAM Continue as directed epinephrine 0.3 mg/0.3 mL injection, auto-injector 0.3 mg (0.3 mL) IM UD PRN Anaphylaxis (if needed) ASK your prescriber and surgeon tezepelumab-ekko 210 mg/1.91 mL (110 mg/mL) subcutaneous syringe (Tezspire) 210 mg (1.91 mL) subcut MONTHLY DO NOT take the morning of surgery potassium chloride 20 mEq tablet,extended release 20 meq PO DAILY furosemide 20 mg tablet 20 mg PO QDL Take morning of surgery With a small sip of water, OTHERWISE NOTHING TO EAT OR DRINK AFTER MIDNIGHT: albuterol sulfate 90 mcg/actuation aerosol inhaler (Ventolin HFA) 2 puff inhalation QID PRN Wheezing (use if needed; please bring rescue inhaler with you to hospital day of surgery if possible) acetaminophen 500 mg tablet 1,000 mg (2 x 500 mg) PO Q8 PRN pain (if needed) levothyroxine 88 mcg capsule 88 mcg PO QAM omeprazole 40 mg capsule,delayed release 40 mg PO QAM Take evening before surgery albuterol sulfate 90 mcg/actuation aerosol inhaler (Ventolin HFA) 2 puff inhalation QID PRN Wheezing (if needed) calcium carbonate (Calcium 600) 600 mg PO HS lisinopril 40 mg tablet 40 mg PO HS montelukast 10 mg tablet 10 mg PO HS multivitamin 1 cap PO HS simvastatin 20 mg tablet (Zocor) 20 mg PO HS acetaminophen 500 mg tablet 1,000 mg (2 x 500 mg) PO Q8 PRN pain (if needed) fluticasone fur. 200 mcg-umeclid 62.5 mcg-vilant 25 mcg inhalat.powder (Trelegy Ellipta) 1 inh inhalation HS Other Notes If you have any questions please call us at [phone] or [phone] or [phone] or [phone]
--- NOTE | 2024-11-26 09:58 | Anesthesiology Consultation ---
Date of Service November 26, 2024 Assessment & Plan (1) Encounter for pre-operative examination: - Infectious disease screening: Per assessment on 11/26/24- No known recent infectious disease contacts or current infectious disease symptoms. - Outpatient joint assessment: Pt currently scheduled for inpatient pathway. If surgeon requests review for outpatient joint pathway, patient is not recommended candidate for outpatient joint program from anesthesia standpoint based on available information. - S/P Left Thumb Basal Joint Arthroplasty (04/27/24): LMA#4 at [facility]. No issues noted per post-op anesthesia progress note. - Pulmonary visit (10/28/24): "Patient continues to have poorly controlled symptoms despite high-dose Trelegy, Singulair and Tezspire. I am going to refer her to cardiology given the coronary artery calcifications noted on CT chest to evaluate for the possibility of coronary ischemia.. She has several indeterminant nodules scattered bilaterally which appear stable. But there is a new right middle lobe nodule measuring about 5 x 8 x 1.4 cm and is noncalcified. Will pursue a PET scan and potentially tissue sampling depending on the PET scan results. Etiology is broad including inflammatory nodules related to asthma, infectious nodules and less likely malignancy. She is a lifelong non- smoker. She does have a history of breast cancer remotely treated with lumpectomy and radiation in 1996. She denies any family history of lung cancer.. Coronary artery calcification.. Incidentally identified on CT chest. Will send to cardiology to evaluate for coronary ischemia in light of her refractory asthma." - LUE limb restriction s/p lumpectomy - Pending: * Awaiting surgeon-ordered PCP preop evaluation (GIANNA Garcia, appt 12/02). * Awaiting upcoming cardiology office visit (ANABEL, appt 12/03). Chart Review Chart Review: Patient seen in Pre Admission Testing Teaching & Discussion Pre-Anesthesia Teaching/Discussion Notes: Instructed NPO after midnight before surgery,except medications with 15 cc of water. Medication instructions provided according to the PAT guidelines. History Surgery Operation Date: 12/21/24 07:00 Proposed Procedures p Right Total Knee Arthroplasty - Rigo Lopez MD Height/Weight Height: 5 ft 3 in Weight: 77.7 kg Allergies Allergy/AdvReac Type Severity Reaction Status Date / Time amoxicillin Allergy Intermediate GI Verified 11/26/24 09:36 symptoms, itch clavulanic acid Allergy Intermediate GI Verified 11/26/24 09:36 symptoms, itch Medications Home Medications Medication Instructions Recorded Confirmed Last Taken albuterol sulfate 90 mcg/actuation 2 puff inhalation QID PRN Wheezing 03/18/19 11/26/24 06/19/20 20:00 aerosol inhaler (Ventolin HFA) calcium carbonate (Calcium 600) 600 mg PO HS 03/18/19 11/26/24 06/19/20 18:00 lisinopril 40 mg tablet 40 mg PO HS 03/18/19 11/26/24 06/19/20 18:00 montelukast 10 mg tablet 10 mg PO HS 03/18/19 11/26/24 06/19/20 18:00 multivitamin 1 cap PO HS 03/19/19 11/26/24 06/19/20 18:00 potassium chloride 20 mEq 20 meq PO DAILY #16 tabs 09/20/19 11/26/24 06/19/20 13:00 tablet,extended release simvastatin 20 mg tablet (Zocor) 20 mg PO HS 12/20/19 11/26/24 06/19/20 18:00 acetaminophen 500 mg tablet 1,000 mg (2 x 500 mg) PO Q8 PRN 06/21/20 11/26/24 Unknown pain #60 tabs levothyroxine 88 mcg capsule 88 mcg PO QAM 08/02/21 11/26/24 04/27/24 04:45 fluticasone fur. 200 mcg-umeclid 1 inh inhalation HS 10/03/23 11/26/24 Unknown 62.5 mcg-vilant 25 mcg inhalat.powder (Trelegy Ellipta) epinephrine 0.3 mg/0.3 mL 0.3 mg (0.3 mL) IM UD PRN 01/07/24 11/26/24 Unknown injection, auto-injector Anaphylaxis #1 ea furosemide 20 mg tablet 20 mg PO QDL 05/14/24 11/26/24 Unknown tezepelumab-ekko 210 mg/1.91 mL 210 mg (1.91 mL) subcut MONTHLY 07/07/24 Unknown (110 mg/mL) subcutaneous syringe #1.91 mL (Tezspire) omeprazole 40 mg capsule,delayed 40 mg PO QAM 11/26/24 11/26/24 Unknown release Past Medical History Medical History (Updated 11/26/24 @ 10:13 by Lynda Gonzalez) ABPA (allergic bronchopulmonary aspergillosis) Controlled Follows with Dr. 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 Allergic rhinitis Arachnoid cyst (2019) Finding on MRI Asthma Barretts esophagus Chronic sphenoidal sinusitis Follows w/ ENT GIANNA Chapman and Dr Saenz No current symptoms/flare Coronary artery calcification Noted on CTS, scheduled to see [facility] cardio 12/03/24 as new patient Coronary artery calcification seen on CT scan Per records Environmental and seasonal allergies GERD (gastroesophageal reflux disease) Hearing loss deaf right ear "Cross hearing aids" Hiatal hernia History of migraine "Resolved" HTN (hypertension) Hx of pancreatitis (2016) HX: breast cancer (1996) lumpectomy left side, also had XRT LUE limb restriction Hyperlipidemia Hypothyroidism IBS (irritable bowel syndrome) IgG subclass deficiency Osteoarthritis Pulmonary nodule Annual surveillance, CTS 09/2024 Exercise / Class Metabolic Activity III < 4 Walking/Shop/Light housework (one FS: No CP, + SOB) Past Family History Family History Other Allergies Asthma Breast cancer Hypertension Prostate cancer Past Surgical History Surgical History History of anesthesia reaction (2017) Stridor postop bronchoscopy ([facility]) History of arthroscopy Left knee History of bronchoscopy (2017) lung nodules, ABPA History of cholecystectomy History of colonoscopy History of esophagogastroduodenoscopy (EGD) Hx of foot surgery right Hx of hysterectomy Hx of thumb surgery (04/2024) left thumb Right acoustic neuroma removal, deaf in right ear Status post left breast lumpectomy w/ lymph node removal per pt Past Anesthesia History Other (Stridor postop bronchoscopy ([facility])) Social History Smoking Status: Never smoker Do You Dip or Chew Tobacco: No Hx Alcohol Use: No Hx Substance Use: No substance use type: does not use Review of Systems Patient denies chest pain, shortness of breath, dyspnea on exertion, fever, chills, cough, wheezing, palpitations. Physical Exam Vital Signs BP 147/72 P 89 TEMP 98.5 SP02 97%RA RESP 16 Physical Full cervical extension range of motion. Full TMJ range of motion. TMD 3 finger breaths Mallampati Score IV (small oral opening) Dentition: intact, + crowns Lungs: clear throughout to auscultation Cardiac: regular rate and rhythm, no murmurs noted Spine: normal Carotid arteries: negative bruit Extremities: no LE edema Lab Results Anesthesia Preop Results Results Anesthesia Widget: WBC 4.78 K/ul (4.8-10.8) L 11/26/24 Hgb 12.8 g/dl (12.0-16.0) 11/26/24 Hct 38.0 % (37.0-47.0) 11/26/24 Plt 167 K/uL (130-400) 11/26/24 Na 140 mmol/L (136-145) 11/26/24 K 3.7 mmol/L (3.5-5.1) 11/26/24 Cl 107 mmol/L (98-107) 11/26/24 CO2 29 mmol/L (21-32) 11/26/24 BUN 15 mg/dl (6-23) 11/26/24 Creat 0.67 mg/dl (0.6-1.2) 11/26/24 Glucose Level 142 mg/dl (70-99(Fasting)) H 11/26/24 PT 10.3 Seconds (9.0-12.0) 11/26/24 PTT 22 Seconds (21-31) 11/26/24 INR 0.9 (0.9-1.1) 11/26/24 Urine Color Yellow 11/26/24 Urine Appearance Clear (Clear) 11/26/24 Urine pH 5.0 (4.5-7.5) 11/26/24 Urine Specific Maskell 1.014 (1.000-1.030) 11/26/24 Urine Protein Negative (Negative) 11/26/24 Urine Glucose (UA) Negative (Negative) 11/26/24 Urine Ketones Negative (Negative) 11/26/24 Urine Blood Negative (Negative) 11/26/24 Urine Nitrite Negative (Negative) 11/26/24 Urine Bilirubin Negative (Negative) 11/26/24 Urine Urobilinogen Negative (Negative) 11/26/24 Urine Leukocyte Esterase Negative (Negative) 11/26/24 Blood Type B Positive 11/26/24 Antibody Screen NEGATIVE 11/26/24 Testing Electrocardiogram Date: 05/15/24 NSR at 63bpm. iRBBB. ST/TWA, consider anterior ischemia. Anterior lead TWI "may be RBBB repol related" per 05/14/24 ECG > Echo performed 05/15/24, unremarkable findings. Echocardiogram Date: 05/15/24 EF 60-65%. LV wall motion is normal. Mild TR. Doppler findings do not suggest pulmonary hypertension. Other Testing Chest CT Date: 10/12/24 Lungs and pleural spaces: There is a new 5 x 8 x 14 mm noncalcified right middle lobe pleural-based nodule along the anterior junctional line series 3 image 30 and sagittal image 32. No change 6 mm noncalcified nodule with minimal linear projections left lower lobe. Stable 3 mm noncalcified oval nodule in the right upper lobe stable 3 mm right upper lob noncalcified nodules series 3 images 18 and 22. Stable 9 mm oval noncalcified right lower lobe pulmonary nodule. No consolidation. No pneumothorax. No significant effusion. Heart: No abnormality noted. Thyroid: Stable irregular calcifications in the expected location of the thyroid isthmus post thyroidectomy. Appearance benign. Bones/joints: No acute changes. Soft tissues: No significant abnormality noted. Vasculature: There is scattered atherosclerotic calcification in the aorta without aneurysm. There is moderate to severe left anterior and right coronary calcification. Lymph nodes: No enlarged lymph nodes. IMPRESSION: New slightly irregular right middle lobe pulmonary nodule. Other nodules are unchanged. Recommend PET/CT. PET/CT Skull to Mid-thigh Date: 11/18/24 IMPRESSION: 1. Minimal FDG uptake within a 0.9 x 0.7 cm nodule within the anterior segment of the right upper lobe (previously reported as a right middle lobe nodule). Probable mild decrease in size since CT of October 12, 2024. A benign etiology such as resolving infectious process is favored. A neoplasm remains within the differential although is considered less likely. A follow-up chest CT in 3 months to ensure complete resolution is recommended. 2. Mild FDG uptake within a 0.9 cm circumscribed nodule within the superior segment of the right lower lobe. This nodule is unchanged since CT of October 12, 2024. Mild increase in size since CT of June 19, 2017. This slowly growing nodule is indeterminate and etiologies such as a carcinoid cannot be excluded. 3. No thoracic lymphadenopathy.
--- OUTSIDE RECORDS SUMMARY | 2024-12-21 05:16 | External Medical Summary | Summary of Care ---
Author Name Unknown Organization [facility] Address [address] [place] [address] Phone [phone] Care Team Providers Care Platform Man Name Role Phone Jose Antonio Almazan MD Primary Care Provider [phone] Encounter Details Date Type Department Care Team (Late st Contact Info) Description 12/09/2024 Population Health External Data Unspecified Department Allergies Active Allergy Reactions Criticality Noted Date Comments Amoxicillin-Pot Clavulanate Diarrhea,Itching 09/26/2015 Bloating, diarrhea, itching (on back) Clarithromycin 07/01/2018 GI distress documented as of this encounter (statuses as of 12/09/2024) Medications ASPIRIN 81 MG PO TABSIndications:rosa es at night Indications: takes at night Active OMEPRAZOLE 40 MG PO CPDRIndications:Bar rett's esophagus One pill by mouth once a day 1 hour before the first meal of the day 30 Cap 5 4 Active FLUTICASONE PROPIONATE 50 MCG/ACT NA SUSPIndications:Chr onic rhinitis instill 2 sprays into each nostril once daily 3 Inhaler 5 5 Active Calcium Carb-Cholecalcifero l 600-200 MG-UNIT Oral Tablet Take 1 Tablet by mouth in the morning. Active Loratadine 10 MG Oral CapsuleIndications: takes at night Take 1 Capsule by mouth in the morning. Active Tezepelumab-ekko 210 MG/1.91ML Subcutaneous Solution Prefilled Syringe (Tezspire) Inject 1.91 mL under the skin Every Month. 2 Active Trelegy Ellipta 200-62.5-25 MCG/ACT Aerosol Powder Breath Activated (Fluticasone-Umecli dinium-Vilanterol) Inhale 1 Puff by mouth at bedtime. Active Furosemide 20 MG Oral Tablet (Lasix)Indications: Edema of left lower leg,Edema of left ankle,HTN, goal below 140/90,Lymphedema Take one tab by mouth daily 90 Tablet 3 4 Active Potassium Chloride Brenda ER 20 MEQ Oral Tablet Extended ReleaseIndications: Edema of left lower leg TAKE 1 TABLET BY MOUTH ONCE DAILY 90 Tablet 3 4 Active Meclizine HCl 25 MG Oral Tablet (Antivert) Take 1 Tablet by mouth 3 times a day as needed. Active Levothyroxine Sodium 88 MCG Oral Tablet (Levoxyl)Indication s:Acquired hypothyroidism Take 1 tablet by mouth once daily 90 Tablet 3 4 Active Albuterol Sulfate HFA 108 (90 Base) MCG/ACT Inhalation Aerosol SolutionIndications :Severe persistent asthma without complication Inhale 2 Puffs by mouth in the morning and 2 Puffs at noon and 2 Puffs in the evening and 2 Puffs before bedtime. 54 g 1 4 Active Lisinopril 40 MG Oral Tablet Take 1 Tablet by mouth in the morning. 90 Tablet 1 4 Active Montelukast Sodium 10 MG Oral Tablet (Singulair) Take 1 Tablet by mouth at bedtime. 90 Tablet 3 4 Active Simvastatin 20 MG Oral Tablet (Zocor) TAKE 1 TABLET BY MOUTH EVERY DAY AT BEDTIME 90 Tablet 1 4 Active documented as of this encounter (statuses as of 12/09/2024) Active Problems Problem Noted Date Diagnosed Date Severe persistent asthma without complication History of Fontaine's esophagus 10/12/2024 Allergic rhinitis 01/06/2019 History of breast cancer 07/01/2018 Irritable bowel syndrome 05/03/2014 Esophageal reflux 04/30/2011 Dyslipidemia, goal LDL below 100 01/03/2010 Chronic rhinitis 01/16/2000 HTN, goal below 140/90 01/16/2000 Hypothyroidism 01/16/2000 documented as of this encounter (statuses as of 12/09/2024) Resolved Problems Problem Noted Date Diagnosed Date Resolved Date Severe persistent asthma without complication 01/06/20 19 03/17/2024 Allergic bronchopulmonary aspergillosis 07/01/2018 03/17/2024 Asthma with severity to be determined 07/01/2018 01/06/2019 Pertussis exposure 05/26/2015 7 Abnormal weight loss 05/03/2014 014 Malaise and fatigue 05/03/2014 07/28/20 14 Ankle joint pain 05/28/2013 04/23/2017 Edema 05/28/2013 04/23/2017 Nausea 02/24/2013 04/23/2017 Overview (09/09/2017): ICD-10 update of inactive term Fontaine's esophagus 02/24/2013 10/12/20 24 Dyslipidemia, goal to be determined 10/26/2009 01/03/2010 Overview (10/26/2009): Per Lipid Taxonomy. 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 05/15/2017 Overview (11/25/2002): acustic neuroma on the right Malignant neoplasm of female breast 01/16/2000 07/01/2018 ABDOMINAL PAIN, RIGHT UPPER QUADRANT 01/16/2000 07/01/2018 documented as of this encounter (statuses as of 12/09/2024) Immunizations Name Administration Dates Next Due COVID-19 mRNA, LNP-s, No Pre serve, 2-Dose Series (Moderna) 09/15/2021,01/12/2021,12/13/2020 COVID-19, MRNA-LNP, PF, 50 M CG/0.5 mL, 12 YRS AND ABOVE, IM (MODERNA-Spikevax) 09/24/2024,09/30/2023 Covid-19, Mrna, Lnp-s, Pf, B ivalent, 30 Mcg, IM, 12 yrs and above (Pfizer) 08/08/2022 Pneumococcal Conjugate Vacc, 13 Valent (Prevnar) 12/14/2015 Pneumococcal Polysaccharide PPV23 (Pneumovax) 07/28/2014 RSV Vac., Recomb, Adjuvant, PF,0.5 Ml (Arexvy) 09/30/2023 Seasonal Influenza Vac., MDV , IM, 0.5 mL (Fluzone) 09/05/2014,09/21/2013,08/17/2012,08/13,08/17/2010,08/16/2009 Seasonal Influenza, PF, 6 M & above, IM , (FluLaval or Fluzone) 11/19/2017 Seasonal Influenza, Quadriva lent Hd (Fluzone Hd) 09/16/2023,08/27/2022,08/17/2021 Seasonal Influenza, Quadriva lent Hd, 65+ Yrs 09/24/2024,08/17/2020 Seasonal Influenza, Quadriva lent, No Preserve, IM 08/21/2020,09/09/2018,08/29/2016,12/14 Seasonal Influenza, Trivalen t, Adjuvanted, 65+ YRS, PF, (Fluad) 09/14/2019 TDAP (age 10 and older)(Boostrix) 01/21/2013 Varicella Zoster Vaccine (Adult) 02/25/2013 Zoster Vaccine Recombinant (Shingrix) 11/01/2019 ,07/03/2019 documented as of this encounter Social History Tobacco Use Types Packs/Day Years Used Date Smoking Tobacco: Never Smokeless Tobacco: Never Alcohol Use Standard Drinks/Week Comments No 0 (1 standard drink = 0.6 oz pur e alcohol) PHQ-2 Answer Date Recorded PHQ Adult Total Score 0 01/14/2023 Hunger Vital Sign Answer Date Recorded Within the past 12 months, y ou worried that your food would run out before you got the money to buy more. Patient declined Within the past 12 months, t he food you bought just didn't last and you didn't have money to get more. Patient declined Childcare Answer Date Recorded Do you feel overwhelmed with taking care of a child, family member or friend? No 12/01/2024 Does your family need help f inding childcare? (Household - for ages 0-17 years) Not on file 12/01/2024 Clothing Answer Date Recorded Have you been unable to get clothing when it was really needed? No 12/01/2024 Is your family able to get c lothes or diapers when needed? (Household - for ages 0-17 years) Not on file 12/01/2024 Personal Safety Answer Date Recorded Do you feel unsafe or have concerns for your saf ety? No 12/01/2024 Do you have concerns for you r family's safety? (Household - for ages 0-17 years) Not on file 12/01/2024 Utilities Answer Date Recorded Do you have trouble paying y our heating, water, or electric bill? No 12/01/2024 Is your family able to pay t he heat, water, or electric bill? (Household - for ages 0-17 years) Not on file 12/01/2024 Does your family have access to good internet? (Household - for ages 0-17 years) Not on file 12/01/2024 Employment Status Answer Date Recorded Are you unemployed or without regular income? No 12/01/2024 Does the household have a re lar source of income? (Household - for ages 0-17 years) Not on file 12/01/2024 Social Connections Answer Date Recorded How often do you feel lonely or isolated from th ose around you? Rarely 12/01/2024 Financial Resource Strain Answer Date R ecorded Do you have any trouble payi ng for your medications, or do you think you might in the future? No 12/01/2024 Does your family have troubl e paying for medicine? (Household - for ages 0-17 years) Not on file 12/01/2024 Transportation Needs Answer Date Record ed Do you have trouble getting a ride to medical visits or work? (Adult - for ages 18 years and over) Not on file 12/01/2024 Does your family have a hard time getting a ride to doctors visits? (Household - for ages 0-17 years) Not on file 12/01/2024 Has lack of transportation k ept you from medical appointments, meetings, work, or from getting things needed for daily living? Check all that apply. No 12/01/2024 Do you (or your family) have trouble finding or paying for a ride (transportation)? (Household - for ages 0-17 years) Not on file 12/01/2024 Housing Stability Answer Date Recorded Do you currently live in a s helter or have no steady place to sleep at night? No 12/01/2024 Do you think you are at risk of becoming homeless? (Adult - for ages 18 years and over) Not on file 12/01/2024 Does your family worry about paying for your home or becoming homeless? (Household - for ages 0-17 years) Not on file 0 12/01/2024 Are you homeless or worried that you might be in the future? No 12/01/2024 Are you (or your family) calixto eless or worried that you might be in the future? (Household - for ages 0-17 years) Not on file Food Insecurity Answer Date Recorded Do you need food for this week? No 12/01/2024 Are you able to get enough f ood for your family? (Household - for ages 0-17 years) Not on file 12/01/2024 Does your family need food t his week? (Household - for ages 0-17 years) Not on file 12/01/2024 Do you always have enough fo od for your family? (Household - for ages 0-17 years) Not on file 12/01/2024 Comments No Sex and Gender Information Value Date Recorded Sex Assigned at Female 07/30/2019 11:47 AM EDT Legal Sex Female 5:58 AM EST Gender Identity Female 07/30/2019 11:47 AM EDT Sexual Orientation Straight 07/30/2019 11 :47 AM EDT Occupation Industry Job Start Date Job End Date Teacher Not on file Not on file Not on file documented as of this encounter Plan of Treatment Upcoming Encounters Date Type Department Care Team (Late st Contact Info) Description 05/04/2025 2:30 PM EDT Office Visit Otolaryngology/Head & Neck/Facial Plastic Surgery [address] [facility] [place] [address] Kana Calvert MD [address] [facility] [place] [address] 05/16/2025 9:00 AM EDT Office Visit [facility] [address] [facility] [place] [phone] Jose Antonio Almazan MD [address] [place] [address] Scheduled Procedures Name Priority Associated Diagnoses Date/Ti me ESOPHAGOGASTRODUODENOSCOPY ( EGD), FLEXIBLE, TRANSORAL, DIAGNOSTIC Recall Fontaine's esophagus COLONOSCOPY FLEXIBLE PROXIMAL DIAGNOSTIC Recall Colon cancer screening Health Maintenance Due Date Last Done Comments DXA Scan 1950 Hepatitis C Screening 1968 Adult Wellness Visit 04/20/2020 04/20/2019 DTap/Tdap Vaccines (2 - Td or Tdap) 01/21/2023 01/21/2013, 11/20/2005, 11/20/2005, Additional history exists Depression Screening 01/14/2024 01/14/2023 GFR 05/28/2025 05/28/2024, 06/17, 07/15/2022, Additional history exists TSH 05/28/2025 05/28/2024, 06/17, 08/27/2022, Additional history exists Albumin/Creatinine Ratio 08/27/2025 08/27/2022 Fontaine's Esophagus Surveilance 06/08/2027 06/08/2024, 06/08/2024, 12/07/2020, Additional history exists Pneumococcal Vaccine: 50+ Years Completed 12/14/2015, 07/28/2014 Colonoscopy Discontinued 03/13/2016, 02/16, 02/25/2006 Colorectal Cancer Screening Discontinued Zoster Vaccines Completed 11/01/2019, 06/17, 02/25/2013 COVID-19 Vaccine Completed 09/24/2024, , 08/08/2022, Additional history exists Influenza Vaccine (FLU shot) Completed 09/24/2024, 09/16/2023, 08/27/2022, Additional history exists Cologuard Discontinued Fecal Occult Blood Test Discontinued HPV (Gardasil) Vaccine Aged Out No lo nger eligible based on patient's age to complete this topic Hepatitis B Vaccine Aged Out No longe r eligible based on patient's age to complete this topic MENINGOCOCCAL (MENACTRA/MENVEO) Aged Out No longer eligible based on patient's age to complete this topic Sigmoidoscopy Discontinued documented as of this encounter Medical Devices Implanted Type Area Senior Business Analyst Device Identifier Shelf Expiration Date Model / Serial / Lot Lens Intraoc 22.5 - [id number] - [id number] Implanted:Qty: 1 on 01/04/2021 by Deangelo Bowman MD at OR [facility] Right: Eye [employer] 07/17/2025 [id number] / [id number] / [id number] Lens Intraoc 23.0 - [id number] - [id number] Implanted:Qty: 1 on 01/11/2021 by Deangelo Bowman MD at OR [facility] Left: Eye [employer] 03/16/2025 [id number] / [id number] / [id number] documented as of this encounter Advance Directives Documents on File Type Date Recorded Patient Plant Care Worker Expl anation Advance Directives and Living Will 2001 LIVING WILL DECLARAT ION * No Code Status (Latest Code Status on File) Date Activated Date Inactivated Comments 07/03/2004 3:10 PM 07/03/2004 3:10 PM Care Teams Platform Man Relationship Specialty Start Date End Date Jose Antonio Almazan MD PCP - General 08/03/02 documented as of this encounter
[2024-12-21] MEDS: LR 500ML BOLUS, THEN 15ML/HR IV SCH (05:57)
[2024-12-21] MEDS: Scopolamine 1 MG TDSY TD SCH (05:58)
[2024-12-21] MEDS: ACETAMINOPHEN 500 MG TAB PO SCH ×2 (05:58→15:10)
[2024-12-21] MEDS: CeleBREX 200 MG CAP PO SCH ×2 (05:58→20:33)
[2024-12-21] MEDS: LR 60ML/HR IV SCH (06:01)
[2024-12-21] MEDS ORDERED: BUPIVACAINE 0.5 % 5 MG/1 ML PF 10ML VIAL ONE (06:29)
[2024-12-21] MEDS ORDERED: ROPIVACAINE 0.5% 5 MG/ML 30 ML VIAL ONE (06:29)
[2024-12-21] MEDS ORDERED: LIDOCAINE 2% 2 ML VIAL/AMP(20MG/ML) INFIL ONE (06:41)
[2024-12-21] MEDS ORDERED: PROPOFOL IV EMULSION 10 MG/ML 20 ML VIAL IV ONE ×3 (06:42→08:38)
--- NOTE | 2024-12-21 06:44 | History & Physical Bridge Note ---
Date of Service December 21, 2024 History & Physical Bridge Note I have examined the patient, reviewed the History & Physical and in the interval since the performance of the History & Physical I have noted the following changes of clinical significance: no changes noted other than recent Mohs surgery MARITZAE.
[2024-12-21] MEDS ORDERED: ePHEDrine sulfate 50 MG/ML AMP ONE (06:45)
[2024-12-21] MEDS ORDERED: ONDANSETRON INJ 2 MG/ML 2 ML VIAL ONE (06:46)
[2024-12-21] MEDS ORDERED: DEXAMETHASONE SOD INJ 4 MG/ML VIAL ONE (06:47)
[2024-12-21] MEDS ORDERED: ONDANSETRON INJ 2 MG/ML 2 ML VIAL IV PRN ×2 (06:48→12:28)
[2024-12-21] MEDS ORDERED: ATROPINE SULFATE 0.1 MG/ML 10ML SYR IV PRN (06:48)
[2024-12-21] MEDS ORDERED: HYDROmorphone INJ 1 MG/ML SYRINGE IV PRN (06:48)
[2024-12-21] MEDS ORDERED: ePHEDrine sulfate 50 MG/ML AMP IV PRN (06:48)
[2024-12-21] MEDS ORDERED: fentaNYL citrate PF 100 MCG/2 ML VIAL IV PRN (06:48)
--- NOTE | 2024-12-21 06:50 | Anesthesiology Consultation ---
Date of Service December 21, 2024 Assessment & Plan Chart Review Chart Review: Acceptable Risk for Surgery Consults Requested none ASA ASA2 Proposed Anesthesia Anesthesia Type: MAC Spinal Regional Regional Laterality: Right Site: Adductor Canal History Surgery Operation Date: 12/21/24 07:00 Proposed Procedures p Right Total Knee Arthroplasty - Rigo Martha Lopez MD Height/Weight Height: 5 ft 3 in Weight: 78.7 kg Allergies Allergy/AdvReac Type Severity Reaction Status Date / Time amoxicillin Allergy Intermediate GI Verified 12/21/24 05:45 symptoms, itch clavulanic acid Allergy Mild GI Verified 12/21/24 05:45 symptoms, itch Medications Home Medications Medication Instructions Recorded Confirmed Last Taken albuterol sulfate 90 mcg/actuation 2 puff inhalation QID PRN Wheezing 03/18/19 12/21/24 12/20/24 16:00 aerosol inhaler (Ventolin HFA) calcium carbonate (Calcium 600) 600 mg PO HS 03/18/19 12/21/24 12/20/24 19:00 lisinopril 40 mg tablet 40 mg PO HS 03/18/19 12/21/24 12/20/24 19:00 montelukast 10 mg tablet 10 mg PO HS 03/18/19 12/21/24 12/20/24 19:00 multivitamin 1 cap PO HS 03/19/19 12/21/24 12/20/24 19:00 potassium chloride 20 mEq 20 meq PO DAILY #16 tabs 09/20/19 12/21/24 12/20/24 14:00 tablet,extended release simvastatin 20 mg tablet (Zocor) 20 mg PO 12/20/19 12/21/24 12/20/24 19:00 acetaminophen 500 mg tablet 1,000 mg (2 x 500 mg) PO Q8 PRN 06/21/20 12/21/24 12/20/24 21:00 pain #60 tabs levothyroxine 88 mcg capsule 88 mcg PO QAM 08/02/21 12/21/24 12/21/24 04:00 fluticasone fur. 200 mcg-umeclid 1 inh inhalation HS 10/03/23 12/21/24 12/20/24 21:30 62.5 mcg-vilant 25 mcg inhalat.powder (Trelegy Ellipta) epinephrine 0.3 mg/0.3 mL 0.3 mg (0.3 mL) IM UD PRN 01/07/24 12/21/24 Unknown injection, auto-injector Anaphylaxis #1 ea furosemide 20 mg tablet 20 mg PO QDL 05/14/24 12/21/24 12/20/24 14:00 tezepelumab-ekko 210 mg/1.91 mL 210 mg (1.91 mL) subcut MONTHLY 07/07/24 12/21/24 11/22/24 (110 mg/mL) subcutaneous syringe #1.91 mL (Tezspire) omeprazole 40 mg capsule,delayed 40 mg PO QAM 11/26/24 12/21/24 12/21/24 04:30 release Active Medications Generic Name Dose Route Start Last Admin Trade Name Prashanth PRN Reason Stop Dose Admin Acetaminophen 1,000 mg 12/21/24 06:00 12/21/24 05:58 Acetaminophen 500 Mg Tab PO 12/21/24 18:00 1,000 mg PREOP BRYAN Administration Celecoxib 200 mg 12/21/24 06:00 12/21/24 05:58 Celebrex 200 Mg Cap PO 12/21/24 18:00 200 mg PREOP BRYAN Administration Lactated Ringer's 1,000 mls @ 60 mls/hr 12/21/24 06:00 12/21/24 06:01 Lr IV 12/21/24 22:39 Not Given .[id number] BRYAN Lactated Ringer's 1,000 mls @ 15 mls/hr 12/21/24 06:00 12/21/24 05:57 Lr IV 12/21/24 18:00 15 mls/hr .Q24H BRYAN Administration Scopolamine 1 patch 12/21/24 06:00 12/21/24 05:58 Scopolamine 1 Mg Tdsy TD 12/21/24 18:00 1 patch PREOP BRYAN Administration NPO Date Last Intake of Fluids: 12/20/24 Time Last Intake of Fluids: 21:30 Last Intake of Fluids Comment: sips of water with ordered preop medications. 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 Curry Pulmonary nodule Annual surveillance, CTS 09/2024 IgG subclass deficiency Hyperlipidemia HTN (hypertension) Osteoarthritis Hiatal hernia Environmental and seasonal allergies Allergic rhinitis Asthma Hx of pancreatitis (2016) Arachnoid cyst (2019) Finding on MRI Barretts esophagus GERD (gastroesophageal reflux disease) Hypothyroidism Exercise / Class Metabolic Activity III < 4 Walking/Shop/Light housework Past Family History Family History Other Allergies Asthma Breast cancer Hypertension Prostate cancer Past Surgical History Surgical History History of Mohs surgery for squamous cell carcinoma in situ of skin Hx of thumb surgery (04/2024) left thumb History of anesthesia reaction (2017) Stridor postop bronchoscopy ([facility]) Hx of foot surgery right Hx of hysterectomy Status post left breast lumpectomy w/ lymph node removal per pt Right acoustic neuroma removal, deaf in right ear History of bronchoscopy (2017) lung nodules, ABPA History of arthroscopy Left knee History of cholecystectomy History of esophagogastroduodenoscopy (EGD) History of colonoscopy Past Anesthesia History No Hx of Anesthesia Complications and No Family Hx of Anesthesia Complications History of PONV No Hx of PONV and No Hx of Motion Sickness Social History Smoking Status: Never smoker Do You Dip or Chew Tobacco: No Hx Alcohol Use: No Hx Substance Use: No substance use type: does not use Review of Systems ROS Unobtainable: All systems reviewed & are unremarkable except as noted in HPI & below Physical Exam Vital Signs Last Vital Signs Temp 36.9 C 12/21/24 05:48 Pulse 70 12/21/24 05:48 Resp 20 12/21/24 05:48 BP 164/77 H 12/21/24 05:48 Pulse Ox 96 12/21/24 05:48 O2 Del Method Room Air 12/21/24 05:48 Constitutional no acute distress ENMT Thyromental Distance: > or= 3.5 Finger Breadths Mallampati Class: II Neck normal visual inspection Respiratory normal respiratory effort Auscultation: lungs clear to auscultation bilaterally Cardiovascular Rate/Rhythm: regular rate and regular rhythm Neurologic moves all extremities Psychiatric Orientation: oriented x 3 Testing Electrocardiogram Date: 05/15/24 NSR at 63bpm. iRBBB. ST/TWA, consider anterior ischemia. Anterior lead TWI "may be RBBB repol related" per 05/14/24 ECG > Echo performed 05/15/24, unremarkable findings. Echocardiogram Date: 05/15/24 EF 60-65%. LV wall motion is normal. Mild TR. Doppler findings do not suggest pulmonary hypertension. Other Testing Chest CT Date: 10/12/24 Lungs and pleural spaces: There is a new 5 x 8 x 14 mm noncalcified right middle lobe pleural-based nodule along the anterior junctional line series 3 image 30 and sagittal image 32. No change 6 mm noncalcified nodule with minimal linear projections left lower lobe. Stable 3 mm noncalcified oval nodule in the right upper lobe stable 3 mm right upper lob noncalcified nodules series 3 images 18 and 22. Stable 9 mm oval noncalcified right lower lobe pulmonary nodule. No consolidation. No pneumothorax. No significant effusion. Heart: No abnormality noted. Thyroid: Stable irregular calcifications in the expected location of the thyroid isthmus post thyroidectomy. Appearance benign. Bones/joints: No acute changes. Soft tissues: No significant abnormality noted. Vasculature: There is scattered atherosclerotic calcification in the aorta without aneurysm. There is moderate to severe left anterior and right coronary calcification. Lymph nodes: No enlarged lymph nodes. IMPRESSION: New slightly irregular right middle lobe pulmonary nodule. Other nodules are unchanged. Recommend PET/CT. PET/CT Skull to Mid-thigh Date: 11/18/24 IMPRESSION: 1. Minimal FDG uptake within a 0.9 x 0.7 cm nodule within the anterior segment of the right upper lobe (previously reported as a right middle lobe nodule). Probable mild decrease in size since CT of October 12, 2024. A benign etiology such as resolving infectious process is favored. A neoplasm remains within the differential although is considered less likely. A follow-up chest CT in 3 months to ensure complete resolution is recommended. 2. Mild FDG uptake within a 0.9 cm circumscribed nodule within the superior segment of the right lower lobe. This nodule is unchanged since CT of October 12, 2024. Mild increase in size since CT of June 19, 2017. This slowly growing nodule is indeterminate and etiologies such as a carcinoid cannot be excluded. 3. No thoracic lymphadenopathy.
[2024-12-21] MEDS ORDERED: fentaNYL citrate PF 100 MCG/2 ML VIAL ONE (06:55)
[2024-12-21] MEDS ORDERED: MIDAZOLAM HCL 1 MG/ML 2ML VIAL ONE ×2 (06:55→08:24)
[2024-12-21] MEDS: TRANEXAMIC ACID 1,000 MG **IV Pre-op IV SCH (06:58)
[2024-12-21] MEDS: ceFAZolin 2000MG 2,000 MG/15 ML SYR IV SCH ×2 (07:23→17:33)
[2024-12-21] MEDS: ROPIV 0.5% 246mg, Ketorolac 30mg, EPINEPHrine 0.5mg in NSS INFIL SCH (08:22)
[2024-12-21] MEDS: ORTHO JOINT ANESTHETIC ONE (08:22)
[2024-12-21] MEDS: TRANEXAMIC ACID 1,000 MG **IV Intra-op IV SCH (09:09)
--- NOTE | 2024-12-21 09:32 | Post Operative Brief Note ---
Immediate Post Op Note Date of Surgery December 21, 2024 Pre & Post Diagnosis Operation Date: 12/21/24 07:00 Pre-Op Diagnosis: Right Knee Osteoarthritis Post-Op Diagnosis: Right Knee Osteoarthritis I identified the patient and participated in the time-out.: Yes Procedure Operation Date: 12/21/24 07:00 Actual Procedures p Right Total Knee Arthroplasty(Right) - Rigo Lopez MD Surgeon Rigo Lopez MD Physical Geographer C Do Vu & M BRIAN Soares Estimated Blood Loss 75 Findings Consistent with Post-Op Diagnosis Fluids 900 cc Specimens Right knee contents Anesthesia Type MAC Spinal Regional Complications none
--- NOTE | 2024-12-21 09:32 | Operative Report ---
Post Operative Report Pre & Post Diagnosis Operation Date: 12/21/24 07:00 Pre-Op Diagnosis: Right Knee Osteoarthritis Post-Op Diagnosis: Right Knee Osteoarthritis I identified the patient and participated in the time-out.: Yes Procedure Operation Date: 12/21/24 07:00 Actual Procedures p Right Total knee replacement, imageless computer assisted navigation - Rigo Lopez MD Surgeon Rigo Lopez MD Weighbridge Operator Nargis Womack Do & Essence Soares PA-C Estimated Blood Loss 75 Findings See Below Examined Under Anesthesia: ROM -- There was 5 degrees to 120 degrees of flexion Ligamentous examination -- revealed stable Nelly, posterior drawer, varus and valgus stress at 5 and 30 degrees. Outerbridge Grade IV changes of Patellofemoral and medial compartments, grade II-III changes lateral compartment. Fluids 900 cc Specimens Right knee contents Anesthesia Type MAC Spinal Regional Complications none Indications This is a 74-year-old female who has clinical and radiographic findings consi stent with osteoarthritis of the a right knee. I recommended that a right total knee replacement be performed. The patient understands the risks of surgery, which include but not limited to: bleeding, infection, re-operation, damage to nerves and arteries, continued knee pain, knee stiffness, DVT, and . The patient understands all these instructions and explanations, all his questions have been satisfactorily addressed and the patient has elected to proceed. Informed consent was signed. Description of Procedure IMPLANTS: 1. Femur: Triathlon #3 Right PS with distal pegs. 2. Tibia: Triathlon #3 Riddle. 3. Insert: Triathlon #3 x 13 mm PS X3 poly. 4. Patella: Triathlon A29 x 9 mm X3 poly. 5.Palacos cement. Procedure: The patient was taken to the Operating Room and placed in the supine position after spinal and adductor canal nerve block was administered. My initials and a multidisciplinary time-out were used to identify the right leg as the correct operative limb. A tourniquet was placed high in the thigh. Prior to the incision, 2 grams of intravenous Ancef were given. One g of TXA was given pre- operatively and another after the tourniquet was released. The right leg was then prepped and draped in a standard sterile fashion. An Esmarch was used to exsanguinate the leg and the tourniquet was inflated to 250 mmHg. The planned mid-line 20 cm incision was created exposing the extensor mechanism. The medial parapatellar arthrotomy was made and the patella was everted. The patella was addressed first. It was prepared by reaming from 22 mm down to 13 mm. An A29 button was found to fit best. The peg holes were made in the standard fashion. The femur was addressed next and using computer assisted OrthoAlign with 3 degrees of flexion and 0 degrees of valgus, removing 10 mm in the standard fashion for the distal cut. After using the Lantern and completing the Tibial cut and establishing ligamnet balance, the 4-in-1 cutting block for a size 3 femur was placed. These cuts and the cuts to place the box were made in the standard fashion. The distal peg were created after testing knee stability with trial components in and using the trial femur as a guide in the standard fashion. The tibia cut with using imageless computer assisted OrthoAlign, taking 2 mm from the medial low side. After preforming a medial release the Lantern had excellent medial and lateral stability and there was sufficient extension and flexion gap registered to 11 mm. A #3 Tibial baseplate fit well. A trial with a 13 mm spacer showed excellent stability in both flexion and extension, with good ligament balance, and thumbs free patellar tracking. Range of motion of 0- 130 degrees. The tibial baseplate was prepped for the keel and stem. All components were removed. 90 ml of total knee cocktail were injected into the soft tissues and periosteum. All surfaces were copiously irrigated prior to placement of the components. The femoral component followed by Tibial baseplate were cemented in place and a 13 mm trial placed. Next, the patellar button was placed using the same cement. Once the cement had cured, the range of motion and stability were unchanged. The 13 mm X3 poly was placed. Again, the range of motion and stability were unchanged. The tourniquet was deflated. Hemostasis was obtained. Another 1g TXA was given. The extensor mechanism was closed with 1-0 Vicryl and 0 Stratafix with the knee bent approximately 60 degrees in a standard fashion. The peritenon and deep fascia was closed with 2-0 Vicryl. The subcutaneous layer was closed with 3-0 Vicryl. The skin was closed with Zipline and shield. The limb was cleaned and dried. 4x4 dressing was placed over top followed by ABDs, sterile Webril, and a foot to thigh Eder bandage. The patient was then transferred to the Recovery Room in stable condition. The sponge and needle counts were correct. POST-OP INSTRUCTIONS: The patient will be WBAT. The patient will be admitted to the hospital. Complete 24-hour course antibiotics. Labs will be obtained during the stay. DVT prophylaxis will include aspirin for 6 weeks, TEDs, and mechanical foot pumps. The dressing will be changed postop day #2-3 and covered with a Silverlon dressing. I attest to the content of the Intraoperative Record and any orders documented therein. Any exceptions are noted below.
--- NOTE | 2024-12-21 10:04 | Operative Report ---
Post Operative Report Pre & Post Diagnosis Operation Date: 12/21/24 07:00 Pre-Op Diagnosis: Right Knee Osteoarthritis Post-Op Diagnosis: Right Knee Osteoarthritis I identified the patient and participated in the time-out.: Yes Procedure Operation Date: 12/21/24 07:00 Actual Procedures p Right Total Knee Arthroplasty(Right) - Rigo Lopez MD Surgeon Rigo Lopez MD Cost Reduction Engineer Nargis Womack Do & HUMBERTO Ambriz-Nargis Estimated Blood Loss 75 Findings Consistent with Post-Op Diagnosis Specimens Right knee contents Description of Procedure Patient was brought to the operative suite where she underwent anesthesia. The right lower extremity was prepped and draped in the usual sterile fashion. A surgical timeout was performed. The patient underwent a right total knee arthroplasty, please see Dr. Lopez's operative report for full details. I was present and assisted with patient positioning, limb positioning, soft tissue retraction, hemostasis, hardware implantation, wound closure, postoperative dressing placement. The patient was taken to the recovery room in stable condition. I attest to the content of the Intraoperative Record and any orders documented therein. Any exceptions are noted below.
--- NOTE | 2024-12-21 10:51 | XRay Report ---
XR knee RT 1 or 2V routine CLINICAL HISTORY: Postoperative evaluation. COMPARISON: Right knee radiographs November 24, 2024. FINDINGS: Alignment of the total right knee arthroplasty is anatomic. There is no periprosthetic fra cture or unexpected radiopaque foreign body. IMPRESSION: Expected findings following total right knee arthroplasty. ACT 112: Negative or not required by law. Electronically signed by: Jimenez Mckeon M.D. 12/21/2024 10:49 AM
--- NOTE | 2024-12-21 11:54 | Anesthesiology Progress Note ---
Date of Service December 21, 2024 Anesthesia Post Procedure Vital Signs Vital Signs: Temp Pulse Resp BP Pulse Ox O2 Del Method O2 Flow Rate 12/21/24 11:40 86 12 148/66 H 94 Room Air 12/21/24 11:25 36.5 C 88 13 155/71 H 93 Room Air 12/21/24 11:15 82 14 147/75 H 100 Room Air 12/21/24 11:05 79 15 144/74 H 98 Room Air 12/21/24 10:55 73 14 151/70 H 97 Room Air 12/21/24 10:45 36.4 C L 71 12 138/69 99 Room Air 12/21/24 10:35 78 16 140/79 96 Room Air 12/21/24 10:25 76 16 146/77 H 96 Room Air 12/21/24 10:15 73 15 143/93 H 95 Room Air 12/21/24 10:05 73 20 157/77 H 100 Oxymask 2 12/21/24 09:55 75 17 139/77 96 Oxymask 4 12/21/24 09:49 36.6 C 80 13 145/78 H 99 Oxymask 8 12/21/24 05:48 36.9 C 70 20 164/77 H 96 Room Air Transfer of Care Handoff Completed per policy Notes Mental Status: alert / awake / arousable Patient Amnestic to Procedure: Yes Nausea / Vomiting: adequately controlled Pain: adequately controlled Airway Patency, RR, SpO2: stable & adequate BP & HR: stable & adequate Hydration State: stable & adequate Neuraxial Anesthesia: was administered and sensory block is resolving Anesthetic Complications: no major complications apparent and Pt Satisfied with anesthetic care Notes: moves klaus LE, no pain in operative side
[2024-12-21] MEDS ORDERED: NALOXONE HCL 0.4 MG/1 ML VIAL/CARP IV PRN (12:28)
[2024-12-21] MEDS ORDERED: METOCLOPRAMIDE HCL INJ 5 MG/ML 2 ML VIAL IV PRN (12:28)
[2024-12-21] MEDS ORDERED: diphenhydrAMINE Capsule 25 MG CAP PO PRN (12:28)
[2024-12-21] MEDS ORDERED: HYDROmorphone INJ 0.5 MG/0.5 ML SYR IV PRN (12:28)
[2024-12-21] MEDS ORDERED: MAGNESIUM HYDROXIDE SUSP 30 ML UDC PO PRN (12:28)
[2024-12-21] MEDS ORDERED: ALBUTEROL HFA 8 GM INHALER INH PRN (12:28)
[2024-12-21] MEDS ORDERED: bisacodyL 10 MG SUPP PR PRN (12:28)
--- NOTE | 2024-12-21 13:05 | Hospitalist Consultation ---
Date of Consultation December 21, 2024 Assessment & Plan (1) Osteoarthritis of right knee: POD#[address] Lopez Activity and wound care orders as per ortho Pain control with bowel regimen PT/OT Monitor H/H for acute blood loss anemia and transfuse blood products PRN EBL 75cc (2) HTN (hypertension): Chronic, stable Continue SUBSEA ENGINEER lisinopril. Hold furosemide and potassium supplement for now, resume as able. (3) Hypothyroidism: Chronic, stable Continue SUBSEA ENGINEER levothyroxine (4) Barretts esophagus: Chronic, stable Continue PPI (5) Severe persistent asthma: No signs of acute exacerbation Continue SUBSEA ENGINEER inhalers DVT PROPHYLAXIS ASA 81 mg BID as per Ortho Patient seen in collaboration with Dr. Ellington. Thank you for this consultation. We will follow the patient with you during their hospital stay. You can reach a member of the [facility] Hospitalist Team 09/06 [facility] [place] [facility]. Supervising Physician Co-Signing Physician Notes Attending addendum: The patient was seen and examined in medical floor She is status post right total knee arthroplasty Still has numbness involving the right lower extremity and does not have any pain due to effect of anesthetics and other pain medications Denies any other significant symptoms On examination Lying in bed without any acute distress Remains hemodynamically stable with blood pressure at 146/80 Chestclear to auscultate bilaterally HeartS1, S2 regular Abdomenbenign Extremities no edema, can move toes bilaterally Her labs and imaging studies reviewed Status post right total knee arthroplasty and remains medically stable Agree with assessment and plan as outlined above by Leora JOEL and take the full responsibility of care in the hospital Dr Essence Ellington History of Present Illness Reason for Consultation: postop medical management Requesting Physician: Dr. Lopez Attending Physician: Rigo Lopez MD History of Present Illness 74 year old female with PMH hypothyroidism, dyslipidemia, severe persistent asthma, HTN, Fontaine's esophagus, history of breast cancer, and other problems listed below who is s/p right TKA today by Dr. Lopez. postoperatively, the patient is doing well. She reports her pain is well-controlled. She does have some residual numbness from anesthesia. Denies chest pain and shortness of breath. No lightheadedness or dizziness. Denies abdominal pain and nausea. Allergies Allergy/AdvReac Type Severity Reaction Status Date / Time amoxicillin Allergy Intermediate GI Verified 12/21/24 05:45 symptoms, itch clavulanic acid Allergy Mild GI Verified 12/21/24 05:45 symptoms, itch Home Medications Medication Instructions Recorded Confirmed Type albuterol sulfate 90 mcg/actuation 2 puff inhalation QID PRN Wheezing 03/18/19 12/21/24 History aerosol inhaler (Ventolin HFA) calcium carbonate (Calcium 600) 600 mg PO HS 03/18/19 12/21/24 History lisinopril 40 mg tablet 40 mg PO HS 03/18/19 12/21/24 History montelukast 10 mg tablet 10 mg PO HS 03/18/19 12/21/24 History multivitamin 1 cap PO HS 03/19/19 12/21/24 History potassium chloride 20 mEq 20 meq PO DAILY #16 tabs 09/20/19 12/21/24 History tablet,extended release simvastatin 20 mg tablet (Zocor) 20 mg PO HS 12/20/19 12/21/24 History acetaminophen 500 mg tablet 1,000 mg (2 x 500 mg) PO Q8 PRN 06/21/20 12/21/24 Rx pain #60 tabs levothyroxine 88 mcg capsule 88 mcg PO QAM 08/02/21 12/21/24 History fluticasone fur. 200 mcg-umeclid 1 inh inhalation HS 10/03/23 12/21/24 History 62.5 mcg-vilant 25 mcg inhalat.powder (Trelegy Ellipta) epinephrine 0.3 mg/0.3 mL 0.3 mg (0.3 mL) IM UD PRN 01/07/24 12/21/24 Rx injection, auto-injector Anaphylaxis #1 ea furosemide 20 mg tablet 20 mg PO QDL 05/14/24 12/21/24 History tezepelumab-ekko 210 mg/1.91 mL 210 mg (1.91 mL) subcut MONTHLY 07/07/24 12/21/24 Rx (110 mg/mL) subcutaneous syringe #1.91 mL (Tezspire) omeprazole 40 mg capsule,delayed 40 mg PO QAM 11/26/24 12/21/24 History release Patient History Medical History HX: breast cancer (1996) lumpectomy left side, also had XRT LUE limb restriction History of migraine "Resolved" Coronary artery calcification seen on CT scan Per records IBS (irritable bowel syndrome) Hearing loss deaf right ear "Cross hearing aids" Chronic sphenoidal sinusitis Follows w/ ENT GIANNA Chapman and Dr Saenz No current symptoms/flare 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 Curry Pulmonary nodule Annual surveillance, CTS 09/2024 IgG subclass deficiency Hyperlipidemia HTN (hypertension) Osteoarthritis Hiatal hernia Environmental and seasonal allergies Allergic rhinitis Asthma Hx of pancreatitis (2016) Arachnoid cyst (2019) Finding on MRI Barretts esophagus GERD (gastroesophageal reflux disease) Hypothyroidism Surgical History History of Mohs surgery for squamous cell carcinoma in situ of skin Hx of thumb surgery (04/2024) left thumb History of anesthesia reaction (2017) Stridor postop bronchoscopy ([facility]) Hx of foot surgery right Hx of hysterectomy Status post left breast lumpectomy w/ lymph node removal per pt Right acoustic neuroma removal, deaf in right ear History of bronchoscopy (2018) lung nodules, ABPA History of arthroscopy Left knee History of cholecystectomy History of esophagogastroduodenoscopy (EGD) History of colonoscopy Family History Other Allergies Asthma Breast cancer Hypertension Prostate cancer Social History Smoking Status: Never smoker Second Hand Exposure: No; Do You Dip or Chew Tobacco: No; Tobacco Cessation Education Requested by Patient: No Hx Alcohol Use: No Hx Substance Use: No Preferred Language: Icelandic Communication Ability: Effective Peeler Operator Required: No Beliefs That Will Affect Care: None marital status: Current Living Situation: Spouse Current Living Situation Comment: Lives with current occupational status: retired Other Information That Helps Us Care for You: No Feels Safe at Home: Yes Safety Concerns: Feels Safe At This Time Assistive Devices: Cane, Glasses and Hearing Aid - Bilateral Review of Systems Review of Systems: ROS per HPI, all other systems reviewed and negative Physical Exam Constitutional: WD/WN, vitals as above no acute distress Eyes: PERRL, conjunctivae normal, anicteric sclerae ENMT: external ear and nose normal, oropharynx normal Respiratory: normal respiratory effort, lungs clear to auscultation Cardiovascular: Rate/Rhythm: regular rate and regular rhythm Vessels: normal peripheral pulses Extremities: no edema Gastrointestinal (Abdomen): normal bowel sounds, soft, nontender, no hepatosplenomegaly Musculoskeletal: s/p right knee surgery, surgical dressing CDI, CSM checks intact RLE Skin: no rashes, warm and dry Neurologic: PERRL, EOMI, accommodation nl, no face palsy, no dysarthria Psychiatric: A+Ox3, euthymic affect Results & Data Results & Data Vital Signs (Past 12 Hours) Vital Signs Temp Pulse Resp BP Pulse Ox O2 Del Method O2 Flow Rate 12/21/24 12:26 36.7 C 91 H 18 156/73 H 96 Room Air 12/21/24 11:40 86 12 148/66 H 94 Room Air 12/21/24 11:25 36.5 C 88 13 155/71 H 93 Room Air 12/21/24 11:15 82 14 147/75 H 100 Room Air 12/21/24 11:05 79 15 144/74 H 98 Room Air 12/21/24 10:55 73 14 151/70 H 97 Room Air 12/21/24 10:45 36.4 C L 71 12 138/69 99 Room Air 12/21/24 10:35 78 16 140/79 96 Room Air 12/21/24 10:25 76 16 146/77 H 96 Room Air 12/21/24 10:15 73 15 143/93 H 95 Room Air 12/21/24 10:05 73 20 157/77 H 100 Oxymask 2 12/21/24 09:55 75 17 139/77 96 Oxymask 4 12/21/24 09:49 36.6 C 80 13 145/78 H 99 Oxymask 8 12/21/24 05:48 36.9 C 70 20 164/77 H 96 Room Air
[2024-12-21] MEDS: FUROSEMIDE 20 MG TAB PO SCH (13:12)
[2024-12-21] MEDS: Scopolamine CHECK PATCH PLACEMENT SCH (15:11)
--- NOTE | 2024-12-21 15:39 | Orthopedic Progress Note ---
Date of Service December 21, 2024 Assessment & Plan (1) Osteoarthritis of right knee: Plan: POD #0 s/p R TKA, doing as well as expected. Resume diet. WBAT with walker. OOB to chair. Continue pain control. Check labs tomorrow. DVT prophylaxis: TEDs 3 weeks, foot pumps while in hospital, ASA 81 mg BID for 6 weeks. PT/OT. D/C planning. Dressing to be changed POD 2-4 to Silverlon type dressing. Present on Admission?: Yes Admission and Anticipated Discharge Date Admission Date: December 21, 2024 Subjective Starting to have some right knee pain. Was able to get up with nursing. Better now seated. Physical Exam Physical Exam: RLE: Dressing clean, dry, intact. Sensation to light touch improving. Able to wiggle toes and ankle. able to extend at the knee while seated. Calf soft and non-tender. Results & Data Vital Signs (Past 12 Hours) Vital Signs Temp Pulse Resp BP Pulse Ox O2 Del Method O2 Flow Rate 12/21/24 14:46 36.8 C 16 155/76 H 97 Room Air 12/21/24 14:28 36.8 C 96 H 18 155/76 H 98 Room Air 12/21/24 13:06 36.8 C 86 18 146/80 H 95 Room Air 12/21/24 12:26 36.7 C 91 H 18 156/73 H 96 Room Air 12/21/24 11:40 86 12 148/66 H 94 Room Air 12/21/24 11:25 36.5 C 88 13 155/71 H 93 Room Air 12/21/24 11:15 82 14 147/75 H 100 Room Air 12/21/24 11:05 79 15 144/74 H 98 Room Air 12/21/24 10:55 73 14 151/70 H 97 Room Air 12/21/24 10:45 36.4 C L 71 12 138/69 99 Room Air 12/21/24 10:35 78 16 140/79 96 Room Air 12/21/24 10:25 76 16 146/77 H 96 Room Air 12/21/24 10:15 73 15 143/93 H 95 Room Air 12/21/24 10:05 73 20 157/77 H 100 Oxymask 2 12/21/24 09:55 75 17 139/77 96 Oxymask 4 12/21/24 09:49 36.6 C 80 13 145/78 H 99 Oxymask 8 12/21/24 05:48 36.9 C 70 20 164/77 H 96 Room Air Diagnostic Findings XR knee RT 1 or 2V routine CLINICAL HISTORY: Postoperative evaluation. COMPARISON: Right knee radiographs November 24, 2024. FINDINGS: Alignment of the total right knee arthroplasty is anatomic. There is no periprosthetic fracture or unexpected radiopaque foreign body. IMPRESSION: Expected findings following total right knee arthroplasty.
[2024-12-21] MEDS: FERROUS GLUCONATE 324 MG TAB PO SCH (17:20)
[2024-12-21] MEDS: ASCORBIC ACID 500 MG TAB PO SCH (17:20)
[2024-12-21] MEDS: traMADol HCL 50 MG TABLET PO PRN (17:20)
[2024-12-21] MEDS: CALCIUM CARBONATE 1250MG TAB PO SCH (20:33)
[2024-12-21] MEDS: FLUTICASONE FUROATE 200MCG 14 PUFFS/INHALER INH SCH (20:34)
[2024-12-21] MEDS: DOCUSATE SODIUM 100 MG CAP PO SCH (20:34)
[2024-12-21] MEDS: MONTELUKAST SODIUM 10 MG TABLET PO SCH (20:34)
[2024-12-21] MEDS: SENNA 8.6 MG TAB PO SCH (20:35)
[2024-12-21] MEDS: MULTIVITAMIN TAB PO SCH (20:35)
[2024-12-21] MEDS: SIMVASTATIN 20 MG TAB PO SCH (20:35)
[2024-12-21] MEDS: UMECLIDINIUM/VILANTEROL 62.5/25MCG 7 PUFFS/INHALER INH SCH (20:36)
[2024-12-21] MEDS ORDERED: FLUTICASONE FUROATE 200MCG 14 PUFFS/INHALER INH SCH (21:00)
[2024-12-21] MEDS ORDERED: UMECLIDINIUM/VILANTEROL 62.5/25MCG 7 PUFFS/INHALER INH SCH (21:00)
[2024-12-21] MEDS ORDERED: NON-FORMULARY MEDICATION (Fluticasone-Umeclidin-Vilanter [Trelegy Ellipta] 200-62.5-25 mcg INH SCH (21:00)
[2024-12-22] MEDS: LEVOTHYROXINE SODIUM 88 MCG TABLET PO SCH (05:45)
[2024-12-22 07:25] VITALS: TEMP 97.5
[2024-12-22 07:58] VITALS: BP 130/72; RESP 16; O2SAT 95
[2024-12-22] MEDS: ASPIRIN 81 MG ECTAB PO SCH (08:12)
[2024-12-22] MEDS: PANTOprazole 40 MG TAB PO SCH (08:12)
[2024-12-22] MEDS ORDERED: ALBUTEROL HFA 8 GM INHALER INH PRN (08:33)
[2024-12-22] MEDS ORDERED: POTASSIUM CHLORIDE CRTAB 20 MEQ TABCR PO SCH (09:00)
--- NOTE | 2024-12-22 09:06 | Hospitalist Progress Note ---
Date of Service December 22, 2024 Assessment & Plan (1) Osteoarthritis of right knee: Plan: POD#[address] Lopez Activity and wound care orders as per ortho Pain control with bowel regimen PT/OT Monitor H/H for acute blood loss anemia and transfuse blood products PRN EBL 75cc (2) HTN (hypertension): Plan: Chronic, stable Continue ELECTRICAL INSTALLATION SUPERVISOR lisinopril. Hold furosemide and potassium supplement for now, resume as able. (3) Hypothyroidism: Plan: Chronic, stable Continue ELECTRICAL INSTALLATION SUPERVISOR levothyroxine (4) Barretts esophagus: Plan: Chronic, stable Continue PPI (5) Severe persistent asthma: Plan: No signs of acute exacerbation Continue ELECTRICAL INSTALLATION SUPERVISOR inhalers DVT PROPHYLAXIS ASA 81 mg BID as per Ortho Patient seen in collaboration with Dr. Ellington. Thank you for this consultation. We will follow the patient with you during their hospital stay. You can reach a member of the [facility] Hospitalist Team 09/06 via the [facility] Hospitalist role in [place] Text. Admission and Anticipated Discharge Date Admission Date: December 21, 2024 Results & Data Results & Data Vital Signs (Past 12 Hours) Vital Signs Temp Pulse Resp BP Pulse Ox O2 Del Method 12/22/24 07:57 57 L 16 130/72 95 Room Air 12/22/24 07:24 36.4 C L 58 L 18 136/78 96 Room Air 12/22/24 07:01 36.3 C L 40 L 16 98/56 L 95 Room Air 12/22/24 03:00 36.5 C 61 18 143/71 H 96 Room Air 12/21/24 23:00 36.6 C 69 20 120/63 97 Room Air
--- NOTE | 2024-12-22 09:16 | Orthopedic Progress Note ---
Date of Service December 22, 2024 Assessment & Plan (1) Osteoarthritis of right knee: Plan: POD #1 s/p R TKA, doing as well as expected. Continue Regular diet. WBAT with walker. OOB to chair. Continue pain control. Check labs tomorrow. Currently Pending. DVT prophylaxis: TEDs 3 weeks, foot pumps while in hospital, ASA 81 mg BID for 6 weeks. PT/OT to evaluate patient today. D/C planning with case management. Patient still would like to go home today. She is concerned about the upcoming weather. I explained to her that we can work around that tomorrow if she does need to stay an extra day. We will see how she does with physical therapy and Occupational Therapy and I explained to her that we would not discharge her if she was not safe or having orthostatic issues. If she continues to do well, then play would be for discharge today. Dressing to be changed POD 2-4 to Silverlon type dressing as outpatient. Discharge instructions were reviewed. Will send medications into pharmacy today. Will discuss findings with Dr. Lopez. Admission and Anticipated Discharge Date Admission Date: December 21, 2024 Subjective States that she does not have a "good start to her morning". She was sitting out of bed in a chair and developed some low blood pressure and low heart rate. She was placed back into bed and given breakfast and does state that she feels better. She states she is also starting to have some knee pain but 1 tramadol has "taken the edge off". She has not been out of bed with physical therapy occupational therapy yet. She is tolerating a regular diet and does not have any postoperative nausea or vomiting. She also states that she had a "asthma episode" this morning but since she is now had the inhaler she is doing much better. Respiratory care came to evaluate her. She does still feel that she can go home today. Physical Exam Musculoskeletal: Exam focused on her right lower extremity: She is lying in bed. She is alert and oriented x 3. No acute distress. Her postoperative dressings are clean, dry and intact. She has full ankle range of motion with normal strength. Distal sensation is normal. Distal pulses are 1+. Capillary refill is brisk. She is able to independently straight leg raise her leg off the bed. Tolerates logrolling of her right hip. Results & Data Vital Signs (Past 12 Hours) Vital Signs Temp Pulse Resp BP Pulse Ox O2 Del Method 12/22/24 07:57 57 L 16 130/72 95 Room Air 12/22/24 07:24 36.4 C L 58 L 18 136/78 96 Room Air 12/22/24 07:01 36.3 C L 40 L 16 98/56 L 95 Room Air 12/22/24 03:00 36.5 C 61 18 143/71 H 96 Room Air 12/21/24 23:00 36.6 C 69 20 120/63 97 Room Air Laboratory Results 12/22/24 Range/Units 08:33 WBC Pending RBC Pending Hgb Pending Hct Pending MCV Pending MCH Pending MCHC Pending Plt Count Pending Sodium Pending Potassium Pending Chloride Pending Carbon Dioxide Pending Anion Gap Pending BUN Pending Creatinine Pending Est Cr Clr Drug Dosing Pending eGFR Pending BUN/Creatinine Ratio Pending Glucose Pending Calcium Pending Diagnostic Findings XR knee RT 1 or 2V routine CLINICAL HISTORY: Postoperative evaluation. COMPARISON: Right knee radiographs November 24, 2024. FINDINGS: Alignment of the total right knee arthroplasty is anatomic. There is no periprosthetic fracture or unexpected radiopaque foreign body. IMPRESSION: Expected findings following total right knee arthroplasty.
[2024-12-22 09:19] LABS: Hematocrit (blood only) 32.8 % (37.0-47.0); Hemoglobin 11.3 g/dl (12.0-16.0); Mean Corpuscular Hemoglobin 29.9 pg (25.0-34.0); Mean Corpuscular Hgb Conc 34.5 g/dL (32.0-36.0); Mean Corpuscular Volume 86.8 fL (80.0-100.0); Mean Platelet Volume 9.8 fL (9.4-12.4); Platelet Count 160 K/uL (130-400); RDW Coefficient of Variation 14.6 % (11.5-14.5); RDW Standard Deviation 46.2 fL (36.4-46.3); Red Blood Count 3.78 M/uL (4.20-5.40); White Blood Count 6.69 K/ul (4.8-10.8)
--- NOTE | 2024-12-22 09:24 | Discharge Summary ---
Date of Service December 22, 2024 Discharge Data Consultations 12/16/24 15:16 Consult Hospitalist Routine Procedures Performed Operation Date: 12/21/24 07:00 Actual Procedures p Right Total Knee Arthroplasty(Right) - Rigo Lopez MD Hospital Course (1) Osteoarthritis of right knee: Patient was kept in observation at [facility] after undergoing elective right total knee arthroplasty on December 21, [address] Lopez. Her surgery was performed with spinal anesthesia, IV sedation and a peripheral nerve block. She tolerated the procedure well without any intraoperative complications. She was given 2 g of IV Ancef preoperatively for surgical prophylaxis which was continued for 24 hours after surgery. She was also given 1 g of IV TXA prior to surgery for bleeding prophylaxis and a repeat dose after letdown of the tourniquet intraoperatively. In the recovery room she had x-rays of her right knee which showed a stable right knee prosthesis with no evidence of fracture. She was allowed out of bed, weight-bear as tolerated on the right lower extremity with the assistance of a walker. She was given a regular diet. Her home medications were continued. Hospitalist consult was placed for postoperative medical management. Physical therapy and Occupational Therapy consults were placed. She was instructed to apply ice to the knee and elevate. She was placed on aspirin 81 mg p.o. twice daily for 6 weeks after surgery for DVT prophylaxis along with AV impulse boots and knee-high JESU stockings. A postop dressing was left in place. On postoperative day 1 she was out of bed with nursing and developed some low blood pressure when sitting in her chair. She was placed back into bed and has since recovered. This was prior to breakfast and after a pain pill. At the time of the exam on postoperative day 1 she was feeling much improved. She was being evaluated by physical therapy and Occupational Therapy. She was deemed safe for discharge to her home. She does not have any further episodes of hypotension. She did not develop any postoperative nausea or vomiting and tolerated regular diet. Discharge instructions were reviewed. Due to her being deemed safe for discharge from physical therapy and Occupational Therapy she was discharged to her home in stable condition on December 22, 2024. All questions were answered. She will follow-up as scheduled as an outpatient.
[2024-12-22 09:38] LABS: BUN Creatinine Ratio 21.6 (10-20); Calcium 9.1 mg/dl (8.6-10.3); Creatinine Clr Calc Pharmacy 65.2 ml/min; Potassium 3.3 mmol/L (3.5-5.1)
[2024-12-22] MEDS: POTASSIUM CHLORIDE CRTAB 20 MEQ TABCR PO STA (09:58)
[2024-12-22] MEDS: ALBUTEROL HFA 8 GM INHALER INH ONE (10:35)
[2024-12-22 11:02] VITALS: PULSE 96
[2024-12-22] MEDS ORDERED: lisinopril 40 MG TAB PO SCH (21:00)
== END 2024-12-22 11:35 | disposition home health service (06) ==
LOC: ASU 05:10 → 3N 05:10

== ENCOUNTER 2025-01-24 04:48 | Observation (INO) ==
[2025-01-24] MEDS: SODIUM CHLORIDE 0.9% 1,000 ML IV ONE (05:17)
[2025-01-24] MEDS: PANTOprazole 40 MG/10 ML SYR IV ONE (05:17)
[2025-01-24] MEDS: ONDANSETRON INJ 2 MG/ML 2 ML VIAL IV STA ×2 (05:18→06:39)
--- NOTE | 2025-01-24 05:27 | Emergency Department Note ---
History of Present Illness General Chief complaint: Vomiting Stated complaint: VOMITING Time Seen by Provider: 01/24/25 04:56 History of Present Illness This is a 74-year-old female presenting to the emergency department from home accompanied by her for evaluation of nausea and vomiting symptoms that began about 5 hours prior to arrival. Patient had a knee replacement performed by Dr. Lopez at [facility] on 12/21/2024. Since the time of the procedure the patient has had persistent nausea. She evidently had Zofran at 1 point for these symptoms, but completed the prescription, and is skeptical of the medication provided her any benefit. She previously was on pain medication following the surgery, but is no longer on opioids. She does have some tramadol at home, however has not felt the need to take this either. The patient is without fever or chills. There is significant past medical history of GI issues with irritable bowel disease and Fontaine's esophagus. Last endoscopy was a year ago which showed some chronic inflammation but no significant additional findings. The patient states that her nausea transformed into vomiting, causing her to come to the ER. No diarrhea. No fevers or chills. No chest pain, chest tightness, shortness of breath. Discomfort is rated a 4/10. Home Medications Medication Instructions Recorded Confirmed Type albuterol sulfate 90 mcg/actuation 2 puff inhalation QID PRN Wheezing 03/18/19 01/24/25 History aerosol inhaler (Ventolin HFA) lisinopril 40 mg tablet 40 mg PO HS 03/18/19 01/24/25 History montelukast 10 mg tablet 10 mg PO HS 03/18/19 01/24/25 History potassium chloride 20 mEq 20 meq PO DAILY #16 tabs 09/20/19 01/24/25 History tablet,extended release simvastatin 20 mg tablet (Zocor) 20 mg PO HS 12/20/19 01/24/25 History levothyroxine 88 mcg capsule 88 mcg PO QAM 08/02/21 01/24/25 History epinephrine 0.3 mg/0.3 mL 0.3 mg (0.3 mL) IM UD PRN 01/07/24 01/24/25 Rx injection, auto-injector Anaphylaxis #1 ea furosemide 20 mg tablet 20 mg PO DAILY 05/14/24 01/24/25 History tezepelumab-ekko 210 mg/1.91 mL 210 mg (1.91 mL) subcut MONTHLY 07/07/24 01/24/25 Rx (110 mg/mL) subcutaneous syringe #1.91 mL (Tezspire) aspirin 81 mg tablet,delayed 81 mg PO DAILY 01/24/25 01/24/25 History release celecoxib 200 mg capsule 200 mg PO BID 01/24/25 01/24/25 History cholecalciferol (vitamin D3) 25 25 mcg PO DAILY 01/24/25 01/24/25 History mcg (1,000 unit) tablet (Vitamin D3) multivitamin 1 tab PO DAILY 01/24/25 01/24/25 History ondansetron 4 mg disintegrating 4 mg PO Q8H PRN Nausea 01/24/25 01/24/25 History tablet tramadol 50 mg tablet 50 mg PO Q4H PRN pain 01/24/25 01/24/25 History Allergies Allergy/AdvReac Type Severity Reaction Status Date / Time amoxicillin Allergy Intermediate GI Verified 01/24/25 08:40 symptoms, itch clavulanic acid Allergy Mild GI Verified 01/24/25 08:40 symptoms, itch Past Med/Surg History Problem List (Updated 01/24/25 @ 23:12 by Suleiman Morton PA-C) Norovirus GI and GII detected Nausea & vomiting (Acute) Osteoarthritis of right knee Coronary artery calcification Noted on CTS, scheduled to see [facility] 12/03/24 as new patient Leukopenia (Acute) Indeterminate pulmonary nodules Migraine without aura Left knee DJD Osteoarthritis Hiatal hernia Fnotaine's esophagus Hearing loss IgG subclass deficiency Irritable bowel syndrome Nasal cavity polyp Severe persistent asthma History of hysterectomy with bilateral oophorectomy GERD (gastroesophageal reflux disease) Seasonal allergies Hypothyroidism HTN (hypertension) Dyslipidemia Medical History HX: breast cancer (1996) lumpectomy left side, also had XRT LUE limb restriction History of migraine "Resolved" Coronary artery calcification seen on CT scan Per records IBS (irritable bowel syndrome) Hearing loss deaf right ear "Cross hearing aids" Chronic sphenoidal sinusitis Follows w/ ENT GIANNA Chapman and Dr Saenz No current symptoms/flare 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 Curry Pulmonary nodule Annual surveillance, CTS 09/2024 IgG subclass deficiency Hyperlipidemia HTN (hypertension) Osteoarthritis Hiatal hernia Environmental and seasonal allergies Allergic rhinitis Asthma Hx of pancreatitis (2016) Arachnoid cyst (2019) Finding on MRI Barretts esophagus GERD (gastroesophageal reflux disease) Hypothyroidism Surgical History History of Mohs surgery for squamous cell carcinoma in situ of skin Hx of thumb surgery (04/2024) left thumb History of anesthesia reaction (2017) Stridor postop bronchoscopy ([facility] Hx of foot surgery right Hx of hysterectomy Status post left breast lumpectomy w/ lymph node removal per pt Right acoustic neuroma removal, deaf in right ear History of bronchoscopy (2017) lung nodules, ABPA History of arthroscopy Left knee History of cholecystectomy History of esophagogastroduodenoscopy (EGD) History of colonoscopy Family History Other Allergies Asthma Breast cancer Hypertension Prostate cancer Social History Smoking Status: Never smoker Second Hand Exposure: No; Do You Dip or Chew Tobacco: No; Hx Alcohol Use: No Hx Substance Use: No Preferred Language: Croatian Communication Ability: Effective Accounts Payable Coordinator Required: No Beliefs That Will Affect Care: None marital status: Current Living Situation: Spouse Current Living Situation Comment: Lives with current occupational status: retired Other Information That Helps Us Care for You: No Feels Safe at Home: Yes Assistive Devices: Glasses and Walker Review of Systems A total of 10 systems reviewed and were otherwise negative Physical Exam Vital Signs Vital Signs - 24 hr 01/24/25 04:53 01/24/25 05:17 01/24/25 05:19 Temperature 36.6 C Temperature Source Temporal Artery Scan Pulse Rate 119 H Pulse Rate [Apical] 101 H Pulse Rate from SpO2 Sensor Pulse Rhythm Pulse Rhythm [Apical] Regular Pulse Strength [Apical] Normal Respiratory Rate 18 19 Respiratory Effort / Characteristics Non-Labored Spontaneous Non-Labored Spontaneous Respiratory Depth Normal Normal Respiratory Pattern Regular Regular Blood Pressure 118/76 117/68 Blood Pressure [Right Arm] 117/68 Blood Pressure Mean 90 69 Blood Pressure Mean [Right Arm] 84 Blood Pressure Position Sitting Blood Pressure Position [Right Arm] Pulse Oximetry 94 93 Oxygen Delivery Method Room Air Room Air Sepsis Recent Fever Within 48 Hours No Sepsis New/Unexplained Change in Mental Status N/A Sepsis Action Taken by Nursing No Action Required 01/24/25 05:19 01/24/25 05:19 01/24/25 05:27 Temperature Temperature Source Pulse Rate 101 H 102 H 95 H Pulse Rate [Apical] Pulse Rate from SpO2 Sensor 95 H Pulse Rhythm Regular Pulse Rhythm [Apical] Pulse Strength [Apical] Respiratory Rate 19 16 Respiratory Effort / Characteristics Respiratory Depth Respiratory Pattern Blood Pressure 128/66 Blood Pressure [Right Arm] Blood Pressure Mean 86 Blood Pressure Mean [Right Arm] Blood Pressure Position Blood Pressure Position [Right Arm] Pulse Oximetry 93 94 Oxygen Delivery Method Room Air Sepsis Recent Fever Within 48 Hours Sepsis New/Unexplained Change in Mental Status Sepsis Action Taken by Nursing 01/24/25 05:30 01/24/25 05:30 01/24/25 05:30 Temperature Temperature Source Pulse Rate Pulse Rate [Apical] Pulse Rate from SpO2 Sensor Pulse Rhythm Pulse Rhythm [Apical] Pulse Strength [Apical] Respiratory Rate Respiratory Effort / Characteristics Respiratory Depth Respiratory Pattern Blood Pressure 128/66 128/66 128/66 Blood Pressure [Right Arm] Blood Pressure Mean 107 107 107 Blood Pressure Mean [Right Arm] Blood Pressure Position Blood Pressure Position [Right Arm] Pulse Oximetry Oxygen Delivery Method Sepsis Recent Fever Within 48 Hours Sepsis New/Unexplained Change in Mental Status Sepsis Action Taken by Nursing 01/24/25 05:30 01/24/25 05:30 01/24/25 05:30 Temperature Temperature Source Pulse Rate Pulse Rate [Apical] Pulse Rate from SpO2 Sensor Pulse Rhythm Pulse Rhythm [Apical] Pulse Strength [Apical] Respiratory Rate Respiratory Effort / Characteristics Respiratory Depth Respiratory Pattern Blood Pressure 128/66 128/66 128/66 Blood Pressure [Right Arm] Blood Pressure Mean 107 107 107 Blood Pressure Mean [Right Arm] Blood Pressure Position Blood Pressure Position [Right Arm] Pulse Oximetry Oxygen Delivery Method Sepsis Recent Fever Within 48 Hours Sepsis New/Unexplained Change in Mental Status Sepsis Action Taken by Nursing 01/24/25 05:30 01/24/25 05:30 01/24/25 05:45 Temperature Temperature Source Pulse Rate 95 H Pulse Rate [Apical] Pulse Rate from SpO2 Sensor 96 H Pulse Rhythm Pulse Rhythm [Apical] Pulse Strength [Apical] Respiratory Rate 19 Respiratory Effort / Characteristics Respiratory Depth Respiratory Pattern Blood Pressure 128/66 128/66 Blood Pressure [Right Arm] Blood Pressure Mean 107 107 Blood Pressure Mean [Right Arm] Blood Pressure Position Blood Pressure Position [Right Arm] Pulse Oximetry 81 L Oxygen Delivery Method Sepsis Recent Fever Within 48 Hours Sepsis New/Unexplained Change in Mental Status Sepsis Action Taken by Nursing 01/24/25 05:48 01/24/25 06:00 01/24/25 06:00 Temperature Temperature Source Pulse Rate 90 Pulse Rate [Apical] Pulse Rate from SpO2 Sensor 90 Pulse Rhythm Pulse Rhythm [Apical] Pulse Strength [Apical] Respiratory Rate 14 Respiratory Effort / Characteristics Respiratory Depth Respiratory Pattern Blood Pressure 130/66 130/66 Blood Pressure [Right Arm] Blood Pressure Mean 82 82 Blood Pressure Mean [Right Arm] Blood Pressure Position Blood Pressure Position [Right Arm] Pulse Oximetry 95 Oxygen Delivery Method Sepsis Recent Fever Within 48 Hours Sepsis New/Unexplained Change in Mental Status Sepsis Action Taken by Nursing 01/24/25 06:00 01/24/25 06:00 01/24/25 06:00 Temperature Temperature Source Pulse Rate Pulse Rate [Apical] Pulse Rate from SpO2 Sensor Pulse Rhythm Pulse Rhythm [Apical] Pulse Strength [Apical] Respiratory Rate Respiratory Effort / Characteristics Respiratory Depth Respiratory Pattern Blood Pressure 130/66 130/66 130/66 Blood Pressure [Right Arm] Blood Pressure Mean 82 82 82 Blood Pressure Mean [Right Arm] Blood Pressure Position Blood Pressure Position [Right Arm] Pulse Oximetry Oxygen Delivery Method Sepsis Recent Fever Within 48 Hours Sepsis New/Unexplained Change in Mental Status Sepsis Action Taken by Nursing 01/24/25 06:00 01/24/25 06:06 01/24/25 06:36 Temperature Temperature Source Pulse Rate 92 H 100 H Pulse Rate [Apical] Pulse Rate from SpO2 Sensor 92 H Pulse Rhythm Pulse Rhythm [Apical] Pulse Strength [Apical] Respiratory Rate 14 16 Respiratory Effort / Characteristics Respiratory Depth Respiratory Pattern Blood Pressure 130/66 147/73 H Blood Pressure [Right Arm] Blood Pressure Mean 82 97 Blood Pressure Mean [Right Arm] Blood Pressure Position Blood Pressure Position [Right Arm] Pulse Oximetry 95 96 Oxygen Delivery Method Sepsis Recent Fever Within 48 Hours Sepsis New/Unexplained Change in Mental Status Sepsis Action Taken by Nursing 01/24/25 07:00 Temperature Temperature Source Pulse Rate Pulse Rate [Apical] 97 H Pulse Rate from SpO2 Sensor Pulse Rhythm Pulse Rhythm [Apical] Pulse Strength [Apical] Respiratory Rate 18 Respiratory Effort / Characteristics Non-Labored Spontaneous Respiratory Depth Normal Respiratory Pattern Regular Blood Pressure Blood Pressure [Right Arm] 114/66 Blood Pressure Mean Blood Pressure Mean [Right Arm] 82 Blood Pressure Position Blood Pressure Position [Right Arm] Sitting Pulse Oximetry 93 Oxygen Delivery Method Room Air Sepsis Recent Fever Within 48 Hours Sepsis New/Unexplained Change in Mental Status Sepsis Action Taken by Nursing VITALS: Vitals are noted on the nurse's note and reviewed by myself. Vital signs stable. GENERAL: Elderly white female who appears in no acute distress. She is pleasant and cooperative. HEAD: Normocephalic atraumatic. MOUTH: Mucous membranes moist. Tonsils are not enlarged. Pharynx without erythema, blood, or exudate. Uvula midline. Airway patent. NECK: Supple without nuchal rigidity. No lymphadenopathy. No thyromegaly. Cervical spine is nontender. HEART: Regular rate and rhythm without murmurs gallops or rubs. LUNGS: Clear to auscultation bilaterally without wheezes, rales or rhonchi. No retractions or accessory muscle use. ABDOMEN: Positive normal bowel sounds x 4. Soft, nontender, without masses or organomegaly. No guarding or rebound tenderness. MUSCULOSKELETAL: No muscle atrophy, erythema, or edema noted. NEURO: Patient was alert and oriented to person place and time. CN II through XII grossly intact. Course Administered Medications Famotidine (Famotidine 20 Mg Tab) 20 mg PO BID PRN PRN Reason: reflux Stop: 02/23/25 20:59 Last Admin: 01/24/25 18:19 Dose: 20 mg Documented By: CS Heparin Sodium (Porcine) (Heparin Sod 5,000 Unit/0.5 Ml Vial) 5,000 units SQ Q12 BRYAN Stop: 02/23/25 20:59 Last Admin: 01/24/25 19:50 Dose: Not Given Documented By: LRA Pantoprazole Sodium (Protonix) 40 mg in 10 mls @ 5 mls/min IV BID BRYAN Stop: 02/23/25 20:59 Last Admin: 01/24/25 19:52 Dose: 5 mls/min Documented By: LRA Sodium Chloride (Nss) 1,000 mls @ 80 mls/hr IV .[id number] BRYAN Stop: 01/25/25 16:29 Last Admin: 01/24/25 15:52 Dose: 80 mls/hr Documented By: CS Montelukast Sodium (Montelukast Sodium 10 Mg Tablet) 10 mg PO HS BRYAN Stop: 02/23/25 20:59 Last Admin: 01/24/25 19:52 Dose: 10 mg Documented By: PEYTON Simvastatin (Simvastatin 20 Mg Tab) 20 mg PO BRYAN Stop: 02/23/25 20:59 Last Admin: 01/24/25 19:52 Dose: 20 mg Documented By: PEYTON Discontinued Medications Al Hydrox/Mg Hydrox/Simethicone (Aluminum/Magnesium Susp 30 Ml Udc) 15 ml PO NOW STA Stop: 01/24/25 07:53 Last Admin: 01/24/25 08:23 Dose: 15 ml Documented By: DAVID Diphenhydramine HCl (Diphenhydramine 50 Mg/Ml Vial) 25 mg IV NOW STA Stop: 01/24/25 07:50 Last Admin: 01/24/25 08:24 Dose: 25 mg Documented By: DAVID Pantoprazole Sodium (Protonix) 40 mg in 10 mls @ 5 mls/min IV NOW ONE Stop: 01/24/25 04:57 Last Admin: 01/24/25 05:17 Dose: 5 mls/min Documented By: BANDAR Sodium Chloride (Nss) 1,000 mls @ 999 mls/hr IV .Q1H1M ONE Stop: 01/24/25 05:56 Last Infusion: 01/24/25 06:22 Dose: Infused Documented By: Admin: 01/24/25 05:17 Dose: 999 mls/hr Documented By: BANDAR Fosaprepitant 150 mg/ Sodium (Chloride) 150 mls @ 300 mls/hr IV ONE ONE Stop: 01/24/25 10:29 Last Infusion: 01/24/25 14:19 Dose: Infused Documented By: Admin: 01/24/25 10:45 Dose: 300 mls/hr Documented By: DAVID Metoclopramide HCl (Metoclopramide Hcl Inj 5 Mg/Ml 2 Ml Vial) 5 mg IV ONE ONE Stop: 01/24/25 07:50 Last Admin: 01/24/25 08:24 Dose: 5 mg Documented By: DAVID Ondansetron HCl (Ondansetron Inj 2 Mg/Ml 2 Ml Vial) 4 mg IV NOW STA Stop: 01/24/25 04:57 Last Admin: 01/24/25 05:18 Dose: 4 mg Documented By: BANDAR Ondansetron HCl (Ondansetron Inj 2 Mg/Ml 2 Ml Vial) 4 mg IV NOW STA Stop: 01/24/25 06:37 Last Admin: 01/24/25 06:39 Dose: 4 mg Documented By: BANDAR Medical Decision Making Differential Diagnosis Differential diagnosis: Etiologies such as biliary colic, cholecystitis, hepatitis, pancreatitis, cardiac disease, pancreatitis, gastritis, peptic ulcer disease, appendicitis, cystitis, diverticulitis, mesenteric ischemia, inflammatory bowel disease, ileus, bowel obstruction, testicular/adnexal torsion, aortic pathology, shingles, as well as others were considered Laboratory Data 01/24/25 04:56 01/24/25 04:56 Lab Results 01/24/25 01/24/25 Range/Units 04:56 05:12 WBC 14.22 H (4.8-10.8) K/ul RBC 4.97 (4.20-5.40) M/uL Hgb 14.4 (12.0-16.0) g/dl Hct 41.9 (37.0-47.0) % MCV 84.3 (80.0-100.0) fL MCH 29.0 (25.0-34.0) pg MCHC 34.4 (32.0-36.0) g/dL RDW Std Deviation 42.2 (36.4-46.3) fL RDW Coeff of Yanique 13.7 (11.5-14.5) % Plt Count 255 (130-400) K/uL MPV 9.4 (9.4-12.4) fL Immature Gran % (Auto) 0.5 % Neut % (Auto) 85.6 % Lymph % (Auto) 8.1 % Rooks % (Auto) 4.6 % Eos % (Auto) 0.8 % Baso % (Auto) 0.4 % Neut # (Auto) 12.17 H (1.40-6.50) K/uL Lymph # (Auto) 1.15 L (1.20-3.40) K/uL Rooks # (Auto) 0.66 H (0.11-0.59) K/uL Eos # (Auto) 0.11 (0.00-0.50) K/uL Baso # (Auto) 0.06 (0.00-0.20) K/uL Immature Gran # (Auto) 0.07 (0.01-0.20) K/uL Sodium 135 L (136-145) mmol/L Potassium 3.6 (3.5-5.1) mmol/L Chloride 102 (98-107) mmol/L Carbon Dioxide 25 (21-32) mmol/L Anion Gap 8 (3-11) BUN 20 (6-23) mg/dl Creatinine 0.83 (0.6-1.2) mg/dl Est Cr Clr Drug Dosing 55.3 ml/min eGFR 73.47 BUN/Creatinine Ratio 24.1 H (10-20) Glucose 153 H (70-99(Fasting)) mg/dl Calcium 10.0 (8.6-10.3) mg/dl Magnesium 1.9 (1.7-2.4) mg/dl Total Bilirubin 0.9 (0.2-1.0) mg/dl AST 16 (13-39) U/L ALT 13 (7-52) U/L Alkaline Phosphatase 92 (34-104) U/L Troponin I High Sens < 2.3 (0-14) pg/ml Total Protein 7.3 (6.0-8.3) gm/dl Albumin 4.8 (3.4-5.0) gm/dl Globulin 2.5 (2.5-4.0) gm/dl Albumin/Globulin Ratio 1.9 (0.9-2) Lipase 54 (11-82) U/L Urine Color Dark Yellow Urine Appearance Clear (Clear) Urine pH 5.5 (4.5-7.5) Ur Specific Bill[place] 1.032 H (1.000-1.030) Urine Protein Trace H (Negative) Urine Glucose (UA) Negative (Negative) Urine Ketones Trace H (Negative) Urine Blood Negative (Negative) Urine Nitrite Negative (Negative) Urine Bilirubin Negative (Negative) Urine Urobilinogen Negative (Negative) Ur Leukocyte Esterase Trace H (Negative) Urine WBC (Auto) 0-5 (0-5) /hpf Urine RBC (Auto) 0-2 (0-2) /hpf U Hyaline Cast (Auto) 3-5 H (0-2) /lpf U Epithel Cells (Auto) 0-2 (0-2) /hpf Urine Bacteria (Auto) None Seen (None Seen) Adenovirus (PCR) Not Detected (NotDetected) B. pertussis DNA (PCR) Not Detected (NotDetected) B.parapertussis DNA PCR Not Detected (NotDetected) C. pneumoniae DNA (PCR) Not Detected (NotDetected) Coronavirus OC43 (PCR) Not Detected (NotDetected) Coronavirus HKU1 (PCR) Not Detected (NotDetected) Coronavirus 229E (PCR) Not Detected (NotDetected) SARS-CoV-2 (PCR) Not Detected (NotDetected) Coronavirus NL63 (PCR) Not Detected (NotDetected) Human Metapneumovir PCR Not Detected (NotDetected) Influenza Type A (PCR) Not Detected (NotDetected) Influenza Type B (PCR) Not Detected (NotDetected) M. pneumoniae (PCR) Not Detected (NotDetected) Parainfluenza 1 (PCR) Not Detected (NotDetected) Parainfluenza 2 (PCR) Not Detected (NotDetected) Parainfluenza 3 (PCR) Not Detected (NotDetected) Parainfluenza 4 (PCR) Not Detected (NotDetected) RSV (PCR) Not Detected (NotDetected) Entero/Rhino (PCR) Not Detected (NotDetected) ECG Data Attestation: I personally reviewed and interpreted this ECG as follows: Indication: + vomiting Additional Comments: Sinus tachycardia at 108 bpm Incomplete right bundle branch block Nonspecific T wave abnormality No significant change from EKG May 14, 2024 MDM Narrative Physical exam and history were performed. Nursing notes, EMR, and Medication List were personally reviewed. No social concerns were identified as barriers to patients care. History was provided by the Patient and who is at bedside. Patient appears to have persistent nausea with vomiting tonight. IV access was established and labs were obtained. Patient was hydrated with normal saline and given 2 doses of IV Zofran. Case was discussed with my attending, Dr. Rockwell, who also evaluated the patient. Patient's blood work is as above and was reviewed. She does have an elevated white blood cell count of 14,000. She does not have significant anemia, bandemia, or gross electrolyte imbalance. Patient was sent to CT scan for imaging of her abdomen and pelvis. Remaining blood work is reassuring. Patient remained in stable condition until the time of shift change. CT scan is pending, and the case was discussed with my colleague, Navarro Salazar PA-C, who will assume care at this time. Please see Mr. Salazar's dictation for further patient course, plan, disposition. The chart was completed utilizing [employer]ate Speech Voice Recognition Software. Grammatical errors, random word insertions, pronoun errors, and incomplete sentences are an occasional consequence of this system due to software limitations, ambient noise, and hardware issues. Any formal questions or concerns about the content, text, or information contained within the body of this dictation should be directly addressed to the provider for clarification. Impression & Plan Nausea & vomiting Discharge Plan Visit Data Chief Complaint: Vomiting Stated Complaint: VOMITING ED Provider: Carloz John ED Midlevel Provider: Navarro Salazar Discharge Problem: Nausea & vomiting Patient Disposition: Admitted As Inpatient Discharge Instructions Interventions: ED Discharge Assessment Last Done: 01/24/25 14:47
[2025-01-24 05:36] LABS: Basophils # (auto) 0.06 K/uL (0.00-0.20); Basophils % (auto) 0.4 %; Eosinophils # (auto) 0.11 K/uL (0.00-0.50); Eosinophils % (auto) 0.8 %; Hematocrit (blood only) 41.9 % (37.0-47.0); Hemoglobin 14.4 g/dl (12.0-16.0); Immature Granulocytes # (auto) 0.07 K/uL (0.01-0.20); Immature Granulocytes % (auto) 0.5 %; Lymphocytes # (auto) 1.15 K/uL (1.20-3.40); Lymphocytes % (auto) 8.1 %; Mean Corpuscular Hgb Conc 34.4 g/dL (32.0-36.0); Mean Corpuscular Volume 84.3 fL (80.0-100.0); Mean Platelet Volume 9.4 fL (9.4-12.4); Monocytes # (auto) 0.66 K/uL (0.11-0.59); Monocytes % (auto) 4.6 %; Neutrophils # (auto) 12.17 K/uL (1.40-6.50); Neutrophils % (auto) 85.6 %; Platelet Count 255 K/uL (130-400); RDW Coefficient of Variation 13.7 % (11.5-14.5); RDW Standard Deviation 42.2 fL (36.4-46.3); Red Blood Count 4.97 M/uL (4.20-5.40); White Blood Count 14.22 K/ul (4.8-10.8)
[2025-01-24 05:37] LABS: Appearance Urine Clear (Clear); Bacteria Urine Automated None Seen (None Seen); Bilirubin Urine Negative (Negative); Blood Urine Negative (Negative); Color Urine Dark Yellow; Epithelial Cell Urine Auto 0-2 /hpf (0-2); Glucose Urine UA Negative (Negative); Ketones Urine Trace (Negative); Leukocyte Esterase Urine Trace (Negative); Nitrite Urine Negative (Negative); Protein Urine Trace (Negative); RBC Urine Automated 0-2 /hpf (0-2); Specific Gravity Urine 1.032 (1.000-1.030); Urobilinogen Urine Negative (Negative); WBC Urine Automated 0-5 /hpf (0-5); pH Urine 5.5 (4.5-7.5)
[2025-01-24 05:52] LABS: Alanine Aminotransferase 13 U/L (7-52); Albumin Globulin Ratio 1.9 (0.9-2); Albumin Level 4.8 gm/dl (3.4-5.0); Alkaline Phosphatase 92 U/L (34-104); Anion Gap 8 (3-11); Aspartate Aminotransferase 16 U/L (13-39); BUN Creatinine Ratio 24.1 (10-20); Bilirubin,Total 0.9 mg/dl (0.2-1.0); Blood Urea Nitrogen 20 mg/dl (6-23); Carbon Dioxide 25 mmol/L (21-32); Chloride 102 mmol/L (98-107); Creatinine Clr Calc Pharmacy 55.3 ml/min; Globulin 2.5 gm/dl (2.5-4.0); Glucose 153 mg/dl (70-99(Fasting)); Lipase 54 U/L (11-82); Magnesium 1.9 mg/dl (1.7-2.4); Potassium 3.6 mmol/L (3.5-5.1); Sodium 135 mmol/L (136-145); Total Protein 7.3 gm/dl (6.0-8.3)
[2025-01-24 05:57] LABS: Troponin I High Sensitivity < 2.3 pg/ml (0-14)
[2025-01-24 06:19] LABS: Adenovirus PCR Not Detected (NotDetected); Bordetella parapertussis PCR Not Detected (NotDetected); Bordetella pertussis PCR Not Detected (NotDetected); Chlamydia pneumoniae PCR Not Detected (NotDetected); Coronavirus 229E PCR Not Detected (NotDetected); Coronavirus CoV-2 (COVID19)PCR Not Detected (NotDetected); Coronavirus HKU1 PCR Not Detected (NotDetected); Coronavirus NL63 PCR Not Detected (NotDetected); Coronavirus OC43PCR Not Detected (NotDetected); Human Metapneumovirus PCR Not Detected (NotDetected); Influenza A PCR Not Detected (NotDetected); Influenza B PCR Not Detected (NotDetected); Mycoplasma pneumoniae PCR Not Detected (NotDetected); Parainfluenza Virus 1 PCR Not Detected (NotDetected); Parainfluenza Virus 2 PCR Not Detected (NotDetected); Parainfluenza Virus 3 PCR Not Detected (NotDetected); Parainfluenza Virus 4 PCR Not Detected (NotDetected); Respiratory Syncytial VirusPCR Not Detected (NotDetected); Rhinovirus/Enterovirus PCR Not Detected (NotDetected)
--- NOTE | 2025-01-24 06:23 | Emergency Department Note ---
ED Visit Note I was consulted by the Advanced Practice Provider. I personally made/approved the management plan and take responsibility for the patient management. I performed a substantive portion of the visit. This includes the aspects of: Personally seeing the patient -MDM -I independently interpreted the following studies: portable chest x-ray and KUB which were both unremarkable and no acute findings .
--- NOTE | 2025-01-24 06:32 | XRay Report ---
EXAM: XR chest 1V portable CLINICAL HISTORY: nausea/vomiting TECHNIQUE: An X-ray image of the chest is obtained in AP projection. COMPARISON: 10/12/2024 CT chest ,05/14/2024 XR chest FINDINGS: Pulmonary Parenchyma: Prominence of bronchovascular markings noted bilaterally. No evidence of consolidation, collapse, or focal opacities. No pulmonary nodules identified. No evidence of pleural effusion or pleural thickening. Heart and Mediastinum: Heart at upper normal size. Soft Tissues: Sutures along the left chest wall. IMPRESSION: Prominence of bronchovascular markings noted bilaterally could be related to pulmonary congestion (stable). Electronically signed by Jeremías Treviño 01-24-2025 06:32 AM
--- NOTE | 2025-01-24 06:38 | XRay Report ---
EXAM: XR KUB/Abdomen 1 view CLINICAL HISTORY: Nausea, vomiting. TECHNIQUE: An X-ray image of the abdomen was obtained in sipine position. COMPARISON: No prior studies available for comparison. FINDINGS: Non-obstructive bowel gas pattern. Mildly increased colonic fecal loading. No free air around the falciform ligament. Renal shadows are obscured by gases. IMPRESSION: 1. Mild constipation. 2. Non-obstructive bowel gas pattern. Electronically signed by Jeremías Treviño 01-24-2025 06:38 AM
--- NOTE | 2025-01-24 07:51 | CT Scan Report ---
EXAM: CT abd pelvis wo con CLINICAL HISTORY: n/v, elevated wbc TECHNIQUE: Non-contrast CT of the abdomen and pelvis was performed, with the following protocol: axial images, and reconstructed coronal and sagittal images. No intravenous contrast was administered. One of the following dose reduction techniques was utilized for this exam: Automated exposure control, adjustment of the mA and/or kV according to patient size, and use of iterative reconstruction. total DLP 1073.53 mGy.cm. COMPARISON: previous PET/CT dated 11/18/2024 was reviewed. FINDINGS: Abdomen: Liver: Normal in size, shape, and density. No focal lesions, cysts, or masses were identified. Gallbladder and Biliary System: The gallbladder is non visualized, likely surgically removed. Pancreas: Pancreatic head, body, and tail are visualized and appear normal in size and density. No pancreatic masses or calcifications were noted. Spleen: Normal in size, shape, and density. No splenic lesions or masses were identified. Kidneys and Adrenal Glands: Both kidneys are normal in size, shape, and position. Cortical thickness is within normal limits. No renal calculi or hydronephrosis. Adrenal glands are unremarkable. Appendix: The appendix is normal in size without jacquelyn appendiceal fat stranding, and without an appendicolith. No evidence of appendiceal abscess or perforation. Pelvis: Urinary Bladder: Normal in contour and wall thickness. No intraluminal lesions. Uterus: non visualized likely surgically removed. Both adnexa are unremarkable, no solid or cystic lesions. Vagina: Normal in contour and wall thickness. Peritoneal and Retroperitoneal Structures: No free fluid or abnormal fluid collections were identified within the abdomen or pelvis. No lymphadenopathy was noted. Bowel: Fluid filled mildly dilated duodenum, jejunum and proximal ileal with no evidence of obstruction. The rest of visualized bowel loops are normal in caliber and appearance. No evidence of bowel obstruction or wall thickening. Bones and Soft Tissues: Lumbar spondylotic changes, with dextroscoliotic lumbar curve and marginal osteophytosis. Hypertrophied left paravertebral muscle. Lower chest cuts show hiatus hernia and bilateral parenchymal bands. IMPRESSION: 1. Mildly dilated fluid filled small bowel loops with no evidence of obstruction, mild increased. 2. Clinical correlation is recommended for further evaluation. 3. No other interval changes. Electronically signed by Jeremías Treviño 01-24-2025 07:51 AM
[2025-01-24] MEDS: ALUMINUM/MAGNESIUM SUSP 30 ML UDC PO STA (08:23)
[2025-01-24] MEDS: METOCLOPRAMIDE HCL INJ 5 MG/ML 2 ML VIAL IV ONE (08:24)
[2025-01-24] MEDS: diphenhydrAMINE 50 MG/ML VIAL IV STA (08:24)
--- NOTE | 2025-01-24 08:49 | Consultation ---
Date of Consultation January 24, 2025 History of Present Illness Allergies Allergy/AdvReac Type Severity Reaction Status Date / Time amoxicillin Allergy Intermediate GI Verified 01/24/25 08:40 symptoms, itch clavulanic acid Allergy Mild GI Verified 01/24/25 08:40 symptoms, itch Home Medications Medication Instructions Recorded Confirmed Type albuterol sulfate 90 mcg/actuation 2 puff inhalation QID PRN Wheezing 03/18/19 12/21/24 History aerosol inhaler (Ventolin HFA) calcium carbonate (Calcium 600) 600 mg PO HS 03/18/19 12/21/24 History lisinopril 40 mg tablet 40 mg PO HS 03/18/19 12/21/24 History montelukast 10 mg tablet 10 mg PO HS 03/18/19 12/21/24 History multivitamin 1 cap PO HS 03/19/19 12/21/24 History potassium chloride 20 mEq 20 meq PO DAILY #16 tabs 09/20/19 12/21/24 History tablet,extended release simvastatin 20 mg tablet (Zocor) 20 mg PO HS 12/20/19 12/21/24 History levothyroxine 88 mcg capsule 88 mcg PO QAM 08/02/21 12/21/24 History fluticasone fur. 200 mcg-umeclid 1 inh inhalation HS 10/03/23 12/21/24 History 62.5 mcg-vilant 25 mcg inhalat.powder (Trelegy Ellipta) epinephrine 0.3 mg/0.3 mL 0.3 mg (0.3 mL) IM UD PRN 01/07/24 12/21/24 Rx injection, auto-injector Anaphylaxis #1 ea furosemide 20 mg tablet 20 mg PO QDL 05/14/24 12/21/24 History tezepelumab-ekko 210 mg/1.91 mL 210 mg (1.91 mL) subcut MONTHLY 07/07/24 12/21/24 Rx (110 mg/mL) subcutaneous syringe #1.91 mL (Tezspire) omeprazole 40 mg capsule,delayed 40 mg PO QAM 11/26/24 12/21/24 History release acetaminophen 500 mg tablet 1,000 mg (2 x 500 mg) PO Q8 #30 12/22/24 Rx (Tylenol Extra Strength) tabs aspirin 81 mg tablet,delayed 81 mg PO BID 42 days #84 tabs 12/22/24 Rx release tramadol 50 mg tablet 50 - 100 mg (1 - 2 x 50 mg) PO Q4H 12/22/24 Rx PRN pain #18 tabs Patient History Medical History HX: breast cancer (1996) lumpectomy left side, also had XRT LUE limb restriction History of migraine "Resolved" Coronary artery calcification seen on CT scan Per records IBS (irritable bowel syndrome) Hearing loss deaf right ear "Cross hearing aids" Chronic sphenoidal sinusitis Follows w/ ENT Yasmeen Chapman and Dr Saenz No current symptoms/flare 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 Curry Pulmonary nodule Annual surveillance, CTS 09/2024 IgG subclass deficiency Hyperlipidemia HTN (hypertension) Osteoarthritis Hiatal hernia Environmental and seasonal allergies Allergic rhinitis Asthma Hx of pancreatitis (2016) Arachnoid cyst (2019) Finding on MRI Barretts esophagus GERD (gastroesophageal reflux disease) Hypothyroidism Surgical History History of Mohs surgery for squamous cell carcinoma in situ of skin Hx of thumb surgery (04/2024) left thumb History of anesthesia reaction (2017) Stridor postop bronchoscopy ([facility]) Hx of foot surgery right Hx of hysterectomy Status post left breast lumpectomy w/ lymph node removal per pt Right acoustic neuroma removal, deaf in right ear History of bronchoscopy (2017) lung nodules, ABPA History of arthroscopy Left knee History of cholecystectomy History of esophagogastroduodenoscopy (EGD) History of colonoscopy Family History Other Allergies Asthma Breast cancer Hypertension Prostate cancer Social History Smoking Status: Never smoker Second Hand Exposure: No; Do You Dip or Chew Tobacco: No; Hx Alcohol Use: No Hx Substance Use: No Preferred Language: Romanian Communication Ability: Effective [employer] Screen Watcher Required: No Beliefs That Will Affect Care: None marital status: Current Living Situation: Spouse Current Living Situation Comment: Lives with current occupational status: retired Feels Safe at Home: Yes Assistive Devices: Cane and Walker Results & Data Vital Signs (Past 12 Hours) Vital Signs Temp Pulse Pulse Resp BP BP Pulse Ox 01/24/25 07:00 97 H 18 114/66 93 01/24/25 06:36 100 H 16 147/73 H 96 01/24/25 06:06 92 H 14 95 01/24/25 06:00 130/66 01/24/25 06:00 130/66 01/24/25 06:00 130/66 01/24/25 06:00 130/66 01/24/25 06:00 130/66 01/24/25 06:00 130/66 01/24/25 05:48 90 14 95 01/24/25 05:45 95 H 19 81 L 01/24/25 05:30 128/66 01/24/25 05:30 128/66 01/24/25 05:30 128/66 01/24/25 05:30 128/66 01/24/25 05:30 128/66 01/24/25 05:30 128/66 01/24/25 05:30 128/66 01/24/25 05:30 128/66 01/24/25 05:27 95 H 16 128/66 94 01/24/25 05:19 102 H 01/24/25 05:19 101 H 19 93 01/24/25 05:19 101 H 19 117/68 93 01/24/25 05:17 117/68 01/24/25 04:53 36.6 C 119 H 18 118/76 94 O2 Del Method 01/24/25 07:00 Room Air 01/24/25 06:36 01/24/25 06:06 01/24/25 06:00 01/24/25 06:00 01/24/25 06:00 01/24/25 06:00 01/24/25 06:00 01/24/25 06:00 01/24/25 05:48 01/24/25 05:45 01/24/25 05:30 01/24/25 05:30 01/24/25 05:30 01/24/25 05:30 01/24/25 05:30 01/24/25 05:30 01/24/25 05:30 01/24/25 05:30 01/24/25 05:27 01/24/25 05:19 01/24/25 05:19 Room Air 01/24/25 05:19 Room Air 01/24/25 05:17 01/24/25 04:53 Room Air
--- NOTE | 2025-01-24 09:25 | History & Physical Report ---
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 Norovirus infection Intractable Nausea and Vomiting Pt states she has chronic nausea Notes overnight nausea increased with vomiting KUB unremarkable Leukocytosis with CT abd pelvis suggestive of an acute enteritis Stool sample positive for norovirus GI consulted given acute on chronic nature of nausea -recommending supportive care Given 2 doses of IV zofran and reglan in the ED with no relief, ekg with qtc of 444 IV Emend 150mg x 1 dose on 01/24 Continue with prn Compazine IV fluids, ppi AM EKG to follow qtc Holding antihypertensives with N/V, monitor BP Continue to monitor Continue other home meds as ordered Diet: Advance as tolerated DVT prophylaxis: hep sq dispo: pt/ot ordered for further recs History of Present Illness Chief Complaint: Nausea Primary Care Provider: Jose Antonio Almazan MD Patient is a 74-year-old female with past medical history significant for severe persistent asthma, allergic rhinitis, history of Fontaine's esophagus, allergic bronchopulmonary aspergillosis, 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 States since her last surgery in Dec she has been having persistent nausea. Follows with GI, Dr. Alaniz. States she had an EGD done last May, per chart review showed a hiatal hernia. Notes prn zofran not helping at home, started with diarrhea No current abd pain. States she is unable to go home in this state. Allergies Allergy/AdvReac Type Severity Reaction Status Date / Time amoxicillin Allergy Intermediate GI Verified 01/24/25 08:40 symptoms, itch clavulanic acid Allergy Mild GI Verified 01/24/25 08:40 symptoms, itch Home Medications Medication Instructions Recorded Confirmed Type albuterol sulfate 90 mcg/actuation 2 puff inhalation QID PRN Wheezing 03/18/19 01/24/25 History aerosol inhaler (Ventolin HFA) lisinopril 40 mg tablet 40 mg PO HS 03/18/19 01/24/25 History montelukast 10 mg tablet 10 mg PO HS 03/18/19 01/24/25 History potassium chloride 20 mEq 20 meq PO DAILY #16 tabs 09/20/19 01/24/25 History tablet,extended release simvastatin 20 mg tablet (Zocor) 20 mg PO HS 12/20/19 01/24/25 History levothyroxine 88 mcg capsule 88 mcg PO QAM 08/02/21 01/24/25 History epinephrine 0.3 mg/0.3 mL 0.3 mg (0.3 mL) IM UD PRN 01/07/24 01/24/25 Rx injection, auto-injector Anaphylaxis #1 ea furosemide 20 mg tablet 20 mg PO DAILY 05/14/24 01/24/25 History tezepelumab-ekko 210 mg/1.91 mL 210 mg (1.91 mL) subcut MONTHLY 07/07/24 01/24/25 Rx (110 mg/mL) subcutaneous syringe #1.91 mL (Tezspire) aspirin 81 mg tablet,delayed 81 mg PO DAILY 01/24/25 01/24/25 History release celecoxib 200 mg capsule 200 mg PO BID 01/24/25 01/24/25 History cholecalciferol (vitamin D3) 25 25 mcg PO DAILY 01/24/25 01/24/25 History mcg (1,000 unit) tablet (Vitamin D3) multivitamin 1 tab PO DAILY 01/24/25 01/24/25 History ondansetron 4 mg disintegrating 4 mg PO Q8H PRN Nausea 01/24/25 01/24/25 History tablet tramadol 50 mg tablet 50 mg PO Q4H PRN pain 01/24/25 01/24/25 History Past Med/Surg History Problem List (Updated 01/24/25 @ 15:58 by Erick Strange MD) Norovirus GI and GII detected Nausea & vomiting Osteoarthritis of right knee Coronary artery calcification Noted on CTS, scheduled to see [facility] cardio 12/03/24 as new patient Leukopenia (Acute) Indeterminate pulmonary nodules Migraine without aura Left knee DJD Osteoarthritis Hiatal hernia Fontaine's esophagus Hearing loss IgG subclass deficiency Irritable bowel syndrome Nasal cavity polyp Severe persistent asthma History of hysterectomy with bilateral oophorectomy GERD (gastroesophageal reflux disease) Seasonal allergies Hypothyroidism HTN (hypertension) Dyslipidemia Medical History HX: breast cancer (1996) lumpectomy left side, also had XRT LUE limb restriction History of migraine "Resolved" Coronary artery calcification seen on CT scan Per records IBS (irritable bowel syndrome) Hearing loss deaf right ear "Cross hearing aids" Chronic sphenoidal sinusitis Follows w/ ENT GIANNA Chapman and Dr Saenz No current symptoms/flare 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 Curry Pulmonary nodule Annual surveillance, CTS 09/2024 IgG subclass deficiency Hyperlipidemia HTN (hypertension) Osteoarthritis Hiatal hernia Environmental and seasonal allergies Allergic rhinitis Asthma Hx of pancreatitis (2016) Arachnoid cyst (2019) Finding on MRI Barretts esophagus GERD (gastroesophageal reflux disease) Hypothyroidism Surgical History History of Mohs surgery for squamous cell carcinoma in situ of skin Hx of thumb surgery (04/2024) left thumb History of anesthesia reaction (2017) Stridor postop bronchoscopy ([facility]) Hx of foot surgery right Hx of hysterectomy Status post left breast lumpectomy w/ lymph node removal per pt Right acoustic neuroma removal, deaf in right ear History of bronchoscopy (2017) lung nodules, ABPA History of arthroscopy Left knee History of cholecystectomy History of esophagogastroduodenoscopy (EGD) History of colonoscopy Family History Other Allergies Asthma Breast cancer Hypertension Prostate cancer Social History Smoking Status: Never smoker Second Hand Exposure: No; Do You Dip or Chew Tobacco: No; Hx Alcohol Use: No Hx Substance Use: No Preferred Language: Burundian Communication Ability: Effective Tile Trimmer Required: No Beliefs That Will Affect Care: None marital status: Current Living Situation: Spouse Current Living Situation Comment: Lives with current occupational status: retired Other Information That Helps Us Care for You: No Feels Safe at Home: Yes Assistive Devices: Glasses and Walker Review of Systems Review of Systems: All systems reviewed & are unremarkable except as noted in Subjective Physical Exam Physical Exam: General: Alert, oriented. No acute distress HEENT: NC/AT CV: RRR, Normal s1, s2. No murmurs appreciated Resp: Breath sounds clear bilaterally, no increased effort of breathing Abdomen: BS+. Soft, nontender, nondistended Extremities: No edema in lower extremities bilaterally. Results & Data Results & Data Vital Signs (Past 12 Hours) Vital Signs Temp Pulse Pulse Resp BP BP Pulse Ox 01/24/25 07:00 97 H 18 114/66 93 01/24/25 06:36 100 H 16 147/73 H 96 01/24/25 06:06 92 H 14 95 01/24/25 06:00 130/66 01/24/25 06:00 130/66 01/24/25 06:00 130/66 01/24/25 06:00 130/66 01/24/25 06:00 130/66 01/24/25 06:00 130/66 01/24/25 05:48 90 14 95 01/24/25 05:45 95 H 19 81 L 01/24/25 05:30 128/66 01/24/25 05:30 128/66 01/24/25 05:30 128/66 01/24/25 05:30 128/66 01/24/25 05:30 128/66 01/24/25 05:30 128/66 01/24/25 05:30 128/66 01/24/25 05:30 128/66 01/24/25 05:27 95 H 16 128/66 94 01/24/25 05:19 102 H 01/24/25 05:19 101 H 19 93 01/24/25 05:19 101 H 19 117/68 93 01/24/25 05:17 117/68 01/24/25 04:53 36.6 C 119 H 18 118/76 94 O2 Del Method 01/24/25 07:00 Room Air 01/24/25 06:36 01/24/25 06:06 01/24/25 06:00 01/24/25 06:00 01/24/25 06:00 01/24/25 06:00 01/24/25 06:00 01/24/25 06:00 01/24/25 05:48 01/24/25 05:45 01/24/25 05:30 01/24/25 05:30 01/24/25 05:30 01/24/25 05:30 01/24/25 05:30 01/24/25 05:30 01/24/25 05:30 01/24/25 05:30 01/24/25 05:27 01/24/25 05:19 01/24/25 05:19 Room Air 01/24/25 05:19 Room Air 01/24/25 05:17 01/24/25 04:53 Room Air
--- NOTE | 2025-01-24 09:35 | Emergency Department Note ---
ED Visit Note Patient case signed out to me at shift change, 0655 hrs. on 01/24/2025 from Suleiman Morton PA-C. This was pending CT scan of the abdomen/pelvis. Results are as below. The patient upon repeat evaluation noting continued nausea and vomiting. This is despite 2 doses of IV Zofran. I discussed multiple other options and reviewed benefit versus risk of several medications. Through shared medical decision making agreed to proceed with IV Reglan, IV Benadryl and a GI cocktail. No adverse reactions with these medications. Despite these medications, her symptoms continued. Consideration was for hospitalization. Case discussed with the hospitalist service. I also spoke with Dr. Strange of GI. Consideration is for EGD tomorrow if symptoms persist. Please refer to further documentation regarding her stay. CT abd pelvis wo con CLINICAL HISTORY: n/v, elevated wbc TECHNIQUE: Non-contrast CT of the abdomen and pelvis was performed, with the following protocol: axial images, and reconstructed coronal and sagittal images. No intravenous contrast was administered. One of the following dose reduction techniques was utilized for this exam: Automated exposure control, adjustment of the mA and/or kV according to patient size, and use of iterative reconstruction. total DLP 1073.53 mGy.cm. COMPARISON: previous PET/CT dated 11/18/2024 was reviewed. FINDINGS: Abdomen: Liver: Normal in size, shape, and density. No focal lesions, cysts, or masses were identified. Gallbladder and Biliary System: The gallbladder is non visualized, likely surgically removed. Pancreas: Pancreatic head, body, and tail are visualized and appear normal in size and density. No pancreatic masses or calcifications were noted. Spleen: Normal in size, shape, and density. No splenic lesions or masses were identified. Kidneys and Adrenal Glands: Both kidneys are normal in size, shape, and position. Cortical thickness is within normal limits. No renal calculi or hydronephrosis. Adrenal glands are unremarkable. Appendix: The appendix is normal in size without jacquelyn appendiceal fat stranding, and without an appendicolith. No evidence of appendiceal abscess or perforation. Pelvis: Urinary Bladder: Normal in contour and wall thickness. No intraluminal lesions. Uterus: non visualized likely surgically removed. Both adnexa are unremarkable, no solid or cystic lesions. Vagina: Normal in contour and wall thickness. Peritoneal and Retroperitoneal Structures: No free fluid or abnormal fluid collections were identified within the abdomen or pelvis. No lymphadenopathy was noted. Bowel: Fluid filled mildly dilated duodenum, jejunum and proximal ileal with no evidence of obstruction. The rest of visualized bowel loops are normal in caliber and appearance. No evidence of bowel obstruction or wall thickening. Bones and Soft Tissues: Lumbar spondylotic changes, with dextroscoliotic lumbar curve and marginal osteophytosis. Hypertrophied left paravertebral muscle. Lower chest cuts show hiatus hernia and bilateral parenchymal bands. IMPRESSION: 1. Mildly dilated fluid filled small bowel loops with no evidence of obstruction, mild increased. 2. Clinical correlation is recommended for further evaluation. 3. No other interval changes. Electronically signed by Jeremías Treviño 01-24-2025 07:51 AM .
[2025-01-24] MEDS: FOSAPREPITANT DIMEGLUMINE 150 MG in SODIUM CHLORIDE 0.9% 145 ML IV ONE (10:45)
[2025-01-24 11:37] LABS: Adenovirus F 40/41 PCR Not Detected (NotDetected); Astrovirus PCR Not Detected (NotDetected); Campylobacter PCR Not Detected (NotDetected); Cryptosporidium PCR Not Detected (NotDetected); Cyclospora cayetanensis PCR Not Detected (NotDetected); Entamoeba histolytica PCR Not Detected (NotDetected); Enteroaggregative E.coli(EAEC) Not Detected (NotDetected); Enteropathogenic E.coli (EPEC) Not Detected (NotDetected); Enterotoxigenic E.coli (ETEC) Not Detected (NotDetected); Giardia lamblia PCR Not Detected (NotDetected); Plesiomonas shigelloides PCR Not Detected (NotDetected); Rotavirus A PCR Not Detected (NotDetected); Salmonella PCR Not Detected (NotDetected); Sapovirus PCR Not Detected (NotDetected); Shiga-like Toxin E.coli (STEC) Not Detected (NotDetected); Shigella/Enteroinvasive E.coli Not Detected (NotDetected); Vibrio cholerae PCR Not Detected (NotDetected); Vibrio species PCR Not Detected (NotDetected); Yersinia enterocolitica PCR Not Detected (NotDetected)
[2025-01-24 11:54] LABS: Norovirus GI/GII PCR DETECTED (NotDetected)
[2025-01-24] MEDS ORDERED: PROCHLORPERAZINE 5 MG in SYRINGE 4 ML IV PRN (15:20)
[2025-01-24] MEDS: SODIUM CHLORIDE 0.9% 1,000 ML IV SCH (15:52)
--- NOTE | 2025-01-24 15:55 | Gastrointestinal Consultation ---
Date of Consultation January 24, 2025 Assessment & Plan (1) Nausea & vomitin-year-old female with history of leukopenia, CHING of the left knee, hiatal hernia, GERD, dyslipidemia, hypertension, hypothyroidism, presents with nausea vomiting diarrhea in the setting of getting a left thumb arthroplasty done 1 to 2 weeks ago. She reports that she developed some nausea postoperatively and it persisted and got worse. She was given antibiotics by her provider at [facility]. This made the nausea and the vomiting even worse. Yesterday she started to develop some diarrhea without any blood in it. She does not have focal abdominal pain but notes that she is quite gassy and bloated. Of note, her norovirus turned positive today. Her C. difficile is negative. I suspect the nausea and vomiting is from small bowel enteritis from norovirus. I would treat her supportively with IV fluids Zofran. She can get some Gas-X for the bloating and or Levsin. No acute role for endoluminal evaluation unless her nausea does not improve. Right now she just needs time and support. She is not up for eating right now but when her appetites returns, I am fine with a clear liquid (2) Norovirus GI and GII detected: She started having diarrhea now and would just offer IV fluids and supportive care for now History of Present Illness Reason for Consultation: Nausea vomiting and diarrhea Requesting Physician: Heidi Stallworth MD Attending Physician: Heidi Stallworth MD History of Present Illness 74-year-old female with history of leukopenia, CHING of the left knee, hiatal hernia, GERD, dyslipidemia, hypertension, hypothyroidism, presents with nausea vomiting diarrhea in the setting of getting a left thumb arthroplasty done 1 to 2 weeks ago. She reports that she developed some nausea postoperatively and it persisted and got worse. She was given antibiotics by her provider at [facility]. This made the nausea and the vomiting even worse. Yesterday she started to develop some diarrhea without any blood in it. She does not have focal abdominal pain but notes that she is quite gassy and bloated. Of note, her norovirus turned positive today. Her C. difficile is negative. She underwent a CT chest abdomen pelvis which showed a hiatal hernia stable pulmonary nodules and some dilated small bowel loops consistent with enteritis from norovirus. Her hemoglobin stable and her white count is stable. Allergies Allergy/AdvReac Type Severity Reaction Status Date / Time amoxicillin Allergy Intermediate GI Verified 01/24/25 08:40 symptoms, itch clavulanic acid Allergy Mild GI Verified 01/24/25 08:40 symptoms, itch Home Medications Medication Instructions Recorded Confirmed Type albuterol sulfate 90 mcg/actuation 2 puff inhalation QID PRN Wheezing 03/18/19 01/24/25 History aerosol inhaler (Ventolin HFA) lisinopril 40 mg tablet 40 mg PO HS 03/18/19 01/24/25 History montelukast 10 mg tablet 10 mg PO HS 03/18/19 01/24/25 History potassium chloride 20 mEq 20 meq PO DAILY #16 tabs 09/20/19 01/24/25 History tablet,extended release simvastatin 20 mg tablet (Zocor) 20 mg PO HS 12/20/19 01/24/25 History levothyroxine 88 mcg capsule 88 mcg PO QAM 08/02/21 01/24/25 History epinephrine 0.3 mg/0.3 mL 0.3 mg (0.3 mL) IM UD PRN 01/07/24 01/24/25 Rx injection, auto-injector Anaphylaxis #1 ea furosemide 20 mg tablet 20 mg PO QDL 05/14/24 01/24/25 History tezepelumab-ekko 210 mg/1.91 mL 210 mg (1.91 mL) subcut MONTHLY 07/07/24 01/24/25 Rx (110 mg/mL) subcutaneous syringe #1.91 mL (Tezspire) aspirin 81 mg tablet,delayed 81 mg PO DAILY 01/24/25 01/24/25 History release celecoxib 200 mg capsule 200 mg PO DAILY 01/24/25 01/24/25 History cholecalciferol (vitamin D3) 25 25 mcg PO DAILY 01/24/25 01/24/25 History mcg (1,000 unit) tablet (Vitamin D3) multivitamin 1 tab PO DAILY 01/24/25 01/24/25 History tramadol 50 mg tablet 50 mg PO Q4H PRN pain 01/24/25 01/24/25 History Patient History Medical History HX: breast cancer (1996) lumpectomy left side, also had XRT LUE limb restriction History of migraine "Resolved" Coronary artery calcification seen on CT scan Per records IBS (irritable bowel syndrome) Hearing loss deaf right ear "Cross hearing aids" Chronic sphenoidal sinusitis Follows w/ ENT GIANNA Chapman and Dr Saenz No current symptoms/flare 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 Curry Pulmonary nodule Annual surveillance, CTS 09/2024 IgG subclass deficiency Hyperlipidemia HTN (hypertension) Osteoarthritis Hiatal hernia Environmental and seasonal allergies Allergic rhinitis Asthma Hx of pancreatitis (2016) Arachnoid cyst (2019) Finding on MRI Barretts esophagus GERD (gastroesophageal reflux disease) Hypothyroidism Surgical History History of Mohs surgery for squamous cell carcinoma in situ of skin Hx of thumb surgery (04/2024) left thumb History of anesthesia reaction (2017) Stridor postop bronchoscopy ([facility]) Hx of foot surgery right Hx of hysterectomy Status post left breast lumpectomy w/ lymph node removal per pt Right acoustic neuroma removal, deaf in right ear History of bronchoscopy (2017) lung nodules, ABPA History of arthroscopy Left knee History of cholecystectomy History of esophagogastroduodenoscopy (EGD) History of colonoscopy Family History Other Allergies Asthma Breast cancer Hypertension Prostate cancer Social History Smoking Status: Never smoker Second Hand Exposure: No; Do You Dip or Chew Tobacco: No; Hx Alcohol Use: No Hx Substance Use: No Preferred Language: Cameroonian Communication Ability: Effective Meat Wrapper Required: No Beliefs That Will Affect Care: None marital status: Current Living Situation: Spouse Current Living Situation Comment: Lives with current occupational status: retired Other Information That Helps Us Care for You: No Feels Safe at Home: Yes Assistive Devices: Glasses and Walker Review of Systems Review of Systems: All systems reviewed & are unremarkable except as noted in HPI & below Physical Exam Physical Exam: Physical Exam: General: Well nourished and well developed in NAD HEENT: EOMI, PERRL Neck: trachea midline, no lad Lungs: CTA b, bilateral bs present Heart: RRR, no M and no edema Abd: soft, abdomen slightly distended with normoactive bowel sounds. She is mildly tender diffusely. Musculoskeletal: no c/c/e, normal strength B Neuro: CN2-12 intact, normal gait, normal strength Psych: normal affect and mood, euthymic. Results & Data Vital Signs (Past 12 Hours) Vital Signs Temp Pulse Pulse Pulse Resp BP BP 01/24/25 15:13 36.7 C 104 H 16 102/68 01/24/25 14:47 94 H 18 125/63 01/24/25 10:11 76 20 126/68 01/24/25 09:29 103 H 01/24/25 07:00 97 H 18 114/66 01/24/25 06:36 100 H 16 147/73 H 01/24/25 06:06 92 H 14 01/24/25 06:00 130/66 01/24/25 06:00 130/66 01/24/25 06:00 130/66 01/24/25 06:00 130/66 01/24/25 06:00 130/66 01/24/25 06:00 130/66 01/24/25 05:48 90 14 01/24/25 05:45 95 H 19 01/24/25 05:30 128/66 01/24/25 05:30 128/66 01/24/25 05:30 128/66 01/24/25 05:30 128/66 01/24/25 05:30 128/66 01/24/25 05:30 128/66 01/24/25 05:30 128/66 01/24/25 05:30 128/66 01/24/25 05:27 95 H 16 128/66 01/24/25 05:19 102 H 01/24/25 05:19 101 H 19 01/24/25 05:19 101 H 19 117/68 01/24/25 05:17 117/68 01/24/25 04:53 36.6 C 119 H 18 118/76 Pulse Ox O2 Del Method 01/24/25 15:13 95 Room Air 01/24/25 14:47 96 Room Air 01/24/25 10:11 98 Room Air 01/24/25 09:29 01/24/25 07:00 93 Room Air 01/24/25 06:36 96 01/24/25 06:06 95 01/24/25 06:00 01/24/25 06:00 01/24/25 06:00 01/24/25 06:00 01/24/25 06:00 01/24/25 06:00 01/24/25 05:48 95 01/24/25 05:45 81 L 01/24/25 05:30 01/24/25 05:30 01/24/25 05:30 01/24/25 05:30 01/24/25 05:30 01/24/25 05:30 01/24/25 05:30 01/24/25 05:30 01/24/25 05:27 94 01/24/25 05:19 01/24/25 05:19 93 Room Air 01/24/25 05:19 93 Room Air 01/24/25 05:17 01/24/25 04:53 94 Room Air Laboratory Results Lab Results 01/24/25 01/24/25 01/24/25 Range/Units 04:56 05:12 Unknown WBC 14.22 H (4.8-10.8) K/ul RBC 4.97 (4.20-5.40) M/uL Hgb 14.4 (12.0-16.0) g/dl Hct 41.9 (37.0-47.0) % MCV 84.3 (80.0-100.0) fL MCH 29.0 (25.0-34.0) pg MCHC 34.4 (32.0-36.0) g/dL RDW Std Deviation 42.2 (36.4-46.3) fL RDW Coeff of [place] 13.7 (11.5-14.5) % Plt Count 255 (130-400) K/uL MPV 9.4 (9.4-12.4) fL Immature Gran % (Auto) 0.5 % Neut % (Auto) 85.6 % Lymph % (Auto) 8.1 % [place] % (Auto) 4.6 % Eos % (Auto) 0.8 % Baso % (Auto) 0.4 % Neut # (Auto) 12.17 H (1.40-6.50) K/uL Lymph # (Auto) 1.15 L (1.20-3.40) K/uL [place] # (Auto) 0.66 H (0.11-0.59) K/uL Eos # (Auto) 0.11 (0.00-0.50) K/uL Baso # (Auto) 0.06 (0.00-0.20) K/uL Immature Gran # (Auto) 0.07 (0.01-0.20) K/uL Sodium 135 L (136-145) mmol/L Potassium 3.6 (3.5-5.1) mmol/L Chloride 102 (98-107) mmol/L Carbon Dioxide 25 (21-32) mmol/L Anion Gap 8 (3-11) BUN 20 (6-23) mg/dl Creatinine 0.83 (0.6-1.2) mg/dl Est Cr Clr Drug Dosing 55.3 ml/min eGFR 73.47 BUN/Creatinine Ratio 24.1 H (10-20) Glucose 153 H (70-99(Fasting)) mg/dl Calcium 10.0 (8.6-10.3) mg/dl Magnesium 1.9 (1.7-2.4) mg/dl Total Bilirubin 0.9 (0.2-1.0) mg/dl AST 16 (13-39) U/L ALT 13 (7-52) U/L Alkaline Phosphatase 92 (34-104) U/L Troponin I High Sens < 2.3 (0-14) pg/ml Total Protein 7.3 (6.0-8.3) gm/dl Albumin 4.8 (3.4-5.0) gm/dl Globulin 2.5 (2.5-4.0) gm/dl Albumin/Globulin Ratio 1.9 (0.9-2) Lipase 54 (11-82) U/L Urine Color Dark Yellow Urine Appearance Clear (Clear) Urine pH 5.5 (4.5-7.5) Ur Specific [place] 1.032 H (1.000-1.030) Urine Protein Trace H (Negative) Urine Glucose (UA) Negative (Negative) Urine Ketones Trace H (Negative) Urine Blood Negative (Negative) Urine Nitrite Negative (Negative) Urine Bilirubin Negative (Negative) Urine Urobilinogen Negative (Negative) Ur Leukocyte Esterase Trace H (Negative) Urine WBC (Auto) 0-5 (0-5) /hpf Urine RBC (Auto) 0-2 (0-2) /hpf U Hyaline Cast (Auto) 3-5 H (0-2) /lpf U Epithel Cells (Auto) 0-2 (0-2) /hpf Urine Bacteria (Auto) None Seen (None Seen) Stl C. cayetanensis PCR Not Detected (NotDetected) Stool Rotavirus A PCR Not Detected (NotDetected) Stl Adenov F 40/41 PCR Not Detected (NotDetected) Stool Astrovirus (PCR) Not Detected (NotDetected) Stool Campylobacter PCR Not Detected (NotDetected) Stl C. diff Tox B Gene Negative Cdiff Gene (Neg) Stool Cryptosporidium PCR Not Detected (NotDetected) Stl E.coli Shiga Tox PCR Not Detected (NotDetected) Stl Enterotoxigenic E PCR Not Detected (NotDetected) Stool EPEC (PCR) Not Detected (NotDetected) Stool EAEC (PCR) Not Detected (NotDetected) Stl E. histolytica PCR Not Detected (NotDetected) Stool Giardia Lamblia PCR Not Detected (NotDetected) Stool Salmonella PCR Not Detected (NotDetected) Stool Sapovirus (PCR) Not Detected (NotDetected) Stl P. shigelloides PCR Not Detected (NotDetected) Stl Shigella/EIEC PCR Not Detected (NotDetected) St Y.enterocolitica PCR Not Detected (NotDetected) Stool Vibrio (PCR) Not Detected (NotDetected) Stl Vibrio cholerae PCR Not Detected (NotDetected) Stl Norovirus GI/GII PCR DETECTED A* (NotDetected) Adenovirus (PCR) Not Detected (NotDetected) B. pertussis DNA (PCR) Not Detected (NotDetected) B.parapertussis DNA PCR Not Detected (NotDetected) C. pneumoniae DNA (PCR) Not Detected (NotDetected) Coronavirus OC43 (PCR) Not Detected (NotDetected) Coronavirus HKU1 (PCR) Not Detected (NotDetected) Coronavirus 229E (PCR) Not Detected (NotDetected) SARS-CoV-2 (PCR) Not Detected (NotDetected) Coronavirus NL63 (PCR) Not Detected (NotDetected) Human Metapneumovir PCR Not Detected (NotDetected) Influenza Type A (PCR) Not Detected (NotDetected) Influenza Type B (PCR) Not Detected (NotDetected) M. pneumoniae (PCR) Not Detected (NotDetected) Parainfluenza 1 (PCR) Not Detected (NotDetected) Parainfluenza 2 (PCR) Not Detected (NotDetected) Parainfluenza 3 (PCR) Not Detected (NotDetected) Parainfluenza 4 (PCR) Not Detected (NotDetected) RSV (PCR) Not Detected (NotDetected) Entero/Rhino (PCR) Not Detected (NotDetected) PG Care Time/CCT Total # of Minutes Spent Total Time Spent with Patient: Total time spent is greater than 50% in coordination of care (as documented) at patient's floor/unit and/or counseling patient: Coding Level of Care Code 72885 IN/OBS CONSULT LVL 3,45M Diagnoses Nausea & vomiting R11.2 Norovirus GI and GII detected A08.11
[2025-01-24] MEDS ORDERED: ALUMINUM/MAGNESIUM/SIMETH (MAALOX MAX) 30 ML UDC PO PRN (17:53)
[2025-01-24] MEDS: FAMOTIDINE 20 MG TAB PO PRN (18:19)
[2025-01-24] MEDS: HEPARIN SOD 5,000 UNIT/0.5 ML VIAL SQ SCH (19:50)
[2025-01-24] MEDS: PANTOprazole 40 MG/10 ML SYR IV SCH (19:52)
[2025-01-24] MEDS: SIMVASTATIN 20 MG TAB PO SCH (19:52)
[2025-01-24] MEDS: MONTELUKAST SODIUM 10 MG TABLET PO SCH (19:52)
[2025-01-25] MEDS: ACETAMINOPHEN 500 MG TAB PO PRN (00:08)
--- NOTE | 2025-01-25 06:00 | Electrocardiogram Report ---
Test Reason : Blood Pressure : */* mmHG Vent. Rate : 108 BPM Atrial Rate : 108 BPM P-R Int : 112 ms QRS Dur : 114 ms QT Int : 332 ms P-R-T Axes : 58 33 59 degrees QTcB Int : 444 ms Sinus tachycardia Incomplete right bundle branch block T wave abnormality, consider anterior ischemia Abnormal ECG When compared with ECG of 15-May-2024 06:13, Vent. rate has increased by 45 bpm Confirmed by Mike Brice ([id number]) on 01/25/2025 6:00:29 AM Referred By: REFERRED SELF Confirmed By: Mike Brice
[2025-01-25] MEDS: LEVOTHYROXINE SODIUM 88 MCG TABLET PO SCH (06:12)
[2025-01-25 06:32] LABS: Basophils # (auto) 0.02 K/uL (0.00-0.20); Basophils % (auto) 0.5 %; Eosinophils # (auto) 0.07 K/uL (0.00-0.50); Eosinophils % (auto) 1.8 %; Hematocrit (blood only) 36.8 % (37.0-47.0); Hemoglobin 12.4 g/dl (12.0-16.0); Immature Granulocytes # (auto) 0.01 K/uL (0.01-0.20); Immature Granulocytes % (auto) 0.3 %; Lymphocytes # (auto) 0.84 K/uL (1.20-3.40); Lymphocytes % (auto) 21.1 %; Mean Corpuscular Hemoglobin 28.8 pg (25.0-34.0); Mean Corpuscular Hgb Conc 33.7 g/dL (32.0-36.0); Mean Corpuscular Volume 85.6 fL (80.0-100.0); Mean Platelet Volume 9.5 fL (9.4-12.4); Monocytes # (auto) 0.49 K/uL (0.11-0.59); Monocytes % (auto) 12.3 %; Neutrophils # (auto) 2.55 K/uL (1.40-6.50); Platelet Count 184 K/uL (130-400); RDW Coefficient of Variation 13.9 % (11.5-14.5); RDW Standard Deviation 43.3 fL (36.4-46.3); White Blood Count 3.98 K/ul (4.8-10.8)
[2025-01-25 06:48] LABS: Albumin Level 3.9 gm/dl (3.4-5.0); BUN Creatinine Ratio 35.1 (10-20); Bilirubin,Total 1.2 mg/dl (0.2-1.0); Calcium 8.8 mg/dl (8.6-10.3); Creatinine Clr Calc Pharmacy 81.9 ml/min; Magnesium 1.8 mg/dl (1.7-2.4); Potassium 3.5 mmol/L (3.5-5.1); Total Protein 5.9 gm/dl (6.0-8.3)
[2025-01-25 07:20] VITALS: BP 127/72; PULSE 86; RESP 16; TEMP 98.6; O2SAT 98
[2025-01-25] MEDS: ASPIRIN 81 MG ECTAB PO SCH (08:20)
[2025-01-25] MEDS: CHOLECALCIFEROL 25 MCG (1000 UNITS) TAB PO SCH (08:20)
[2025-01-25] MEDS: MULTIVITAMIN TAB PO SCH (08:20)
--- NOTE | 2025-01-25 10:07 | Discharge Summary ---
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 Norovirus infection Intractable Nausea and Vomiting Pt states she has chronic nausea Notes overnight nausea increased with vomiting, episodes of diarrhea in the ED KUB unremarkable Leukocytosis with CT abd pelvis suggestive of an acute enteritis Stool sample positive for norovirus GI consulted, recommended/stated the following: -"... She reports that she developed some nausea postoperatively and it persisted and got worse. She was given antibiotics by her provider at [facility]. This made the nausea and the vomiting even worse. Yesterday she started to develop some diarrhea without any blood in it. She does not have focal abdominal pain but notes that she is quite gassy and bloated. Of note, her norovirus turned positive today. Her C. difficile is negative. I suspect the nausea and vomiting is from small bowel enteritis from norovirus. I would treat her supportively with IV fluids Zofran. She can get some Gas-X for the bloating and or Levsin. No acute role for endoluminal evaluation unless her nausea does not improve. Right now she just needs time and support. She is not up for eating right now but when her appetites returns, I am fine with a clear liquid...She started having diarrhea now and would just offer IV fluids and supportive care for now..." Given 2 doses of IV zofran and reglan in the ED with no relief, ekg with qtc of 444 on admission, qtc of 458 on discharge IV Emend 150mg x 1 dose on 01/24/25 Did not require other doses of antiemetics after wards. IV fluids, ppi Held antihypertensives and home lasix with N/V/D, monitored BP On the day of discharge pt noted that her symptoms had improved though not completely gone. Per her , she had stated that "this was the first time in weeks that she has had a good night's sleep". She wanted to go home. She was discharged home with prn Phenergan to be taken as needed if her home zofran did not help with her symptoms. She was advised to resume her home lasix and KCl once her diarrhea and vomiting had completely resolved. She follows with GI, Dr Conner Alaniz as an outpatient and had an EGD completed in May 2024, which noted the presence of a hiatal hernia. She will need close GI and PCP followup after discharge. Resume home Lasix as soon as possible. 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 States since her last surgery in Dec she has been having persistent nausea. Follows with GI, Dr. Alaniz. States she had an EGD done last May, per chart review showed a hiatal hernia. Notes prn zofran not helping at home, started with diarrhea No current abd pain. States she is unable to go home in this state. Admission Exam Per Admitting Provider General: Alert, oriented. No acute distress HEENT: NC/AT CV: RRR, Normal s1, s2. No murmurs appreciated Resp: Breath sounds clear bilaterally, no increased effort of breathing Abdomen: BS+. Soft, nontender, nondistended Extremities: Trace edema in lower extremities bilaterally. Discharge Exam General: Alert, oriented. No acute distress HEENT: NC/AT CV: RRR, Resp: Breath sounds clear bilaterally, no increased effort of breathing Abdomen: BS+. Soft, nontender, nondistended Extremities: Trace edema in lower extremities bilaterally. Updated Medication List Medication Instructions Recorded Confirmed Type albuterol sulfate 90 mcg/actuation 2 puff inhalation QID PRN Wheezing 03/18/19 01/24/25 History aerosol inhaler (Ventolin HFA) lisinopril 40 mg tablet 40 mg PO HS 03/18/19 01/24/25 History montelukast 10 mg tablet 10 mg PO HS 03/18/19 01/24/25 History potassium chloride 20 mEq 20 meq PO DAILY #16 tabs 09/20/19 01/24/25 History tablet,extended release simvastatin 20 mg tablet (Zocor) 20 mg PO HS 12/20/19 01/24/25 History levothyroxine 88 mcg capsule 88 mcg PO QAM 08/02/21 01/24/25 History epinephrine 0.3 mg/0.3 mL 0.3 mg (0.3 mL) IM UD PRN 01/07/24 01/24/25 Rx injection, auto-injector Anaphylaxis #1 ea furosemide 20 mg tablet 20 mg PO DAILY 05/14/24 01/24/25 History tezepelumab-ekko 210 mg/1.91 mL 210 mg (1.91 mL) subcut MONTHLY 07/07/24 01/24/25 Rx (110 mg/mL) subcutaneous syringe #1.91 mL (Tezspire) aspirin 81 mg tablet,delayed 81 mg PO DAILY 01/24/25 01/24/25 History release celecoxib 200 mg capsule 200 mg PO BID 01/24/25 01/24/25 History cholecalciferol (vitamin D3) 25 25 mcg PO DAILY 01/24/25 01/24/25 History mcg (1,000 unit) tablet (Vitamin D3) multivitamin 1 tab PO DAILY 01/24/25 01/24/25 History ondansetron 4 mg disintegrating 4 mg PO Q8H PRN Nausea 01/24/25 01/24/25 History tablet tramadol 50 mg tablet 50 mg PO Q4H PRN pain 01/24/25 01/24/25 History promethazine 12.5 mg tablet 12.5 mg PO TID PRN nausea and 01/25/25 Rx vomiting #30 tabs Hospital Stay Data Consultations 01/24/25 08:05 ED Decision to Admit Stat 01/24/25 15:19 Consult Gastroenterology Routine Diagnostic Imagining Performed 01/24/25 05:55 CT abd pelvis wo con Stat Chest X-Ray 01/24/25 05:06 EXAM: XR chest 1V portable CLINICAL HISTORY: nausea/vomiting TECHNIQUE: An X-ray image of the chest is obtained in AP projection. COMPARISON: 10/12/2024 CT chest ,05/14/2024 XR chest FINDINGS: Pulmonary Parenchyma: Prominence of bronchovascular markings noted bilaterally. No evidence of consolidation, collapse, or focal opacities. No pulmonary nodules identified. No evidence of pleural effusion or pleural thickening. Heart and Mediastinum: Heart at upper normal size. Soft Tissues: Sutures along the left chest wall. IMPRESSION: Prominence of bronchovascular markings noted bilaterally could be related to pulmonary congestion (stable). Electronically signed by Jeremías Treviño 01-24-2025 06:32 AM KUB X-Ray 01/24/25 05:06 EXAM: XR KUB/Abdomen 1 view CLINICAL HISTORY: Nausea, vomiting. TECHNIQUE: An X-ray image of the abdomen was obtained in sipine position. COMPARISON: No prior studies available for comparison. FINDINGS: Non-obstructive bowel gas pattern. Mildly increased colonic fecal loading. No free air around the falciform ligament. Renal shadows are obscured by gases. IMPRESSION: 1. Mild constipation. 2. Non-obstructive bowel gas pattern. Electronically signed by Jeremías Treviño 01-24-2025 06:38 AM Abdomen/Pelvis CT 01/24/25 05:55 EXAM: CT abd pelvis wo con CLINICAL HISTORY: n/v, elevated wbc TECHNIQUE: Non-contrast CT of the abdomen and pelvis was performed, with the following protocol: axial images, and reconstructed coronal and sagittal images. No intravenous contrast was administered. One of the following dose reduction techniques was utilized for this exam: Automated exposure control, adjustment of the mA and/or kV according to patient size, and use of iterative reconstruction. total DLP 1073.53 mGy.cm. COMPARISON: previous PET/CT dated 11/18/2024 was reviewed. FINDINGS: Abdomen: Liver: Normal in size, shape, and density. No focal lesions, cysts, or masses were identified. Gallbladder and Biliary System: The gallbladder is non visualized, likely surgically removed. Pancreas: Pancreatic head, body, and tail are visualized and appear normal in size and density. No pancreatic masses or calcifications were noted. Spleen: Normal in size, shape, and density. No splenic lesions or masses were identified. Kidneys and Adrenal Glands: Both kidneys are normal in size, shape, and position. Cortical thickness is within normal limits. No renal calculi or hydronephrosis. Adrenal glands are unremarkable. Appendix: The appendix is normal in size without jacquelyn appendiceal fat stranding, and without an appendicolith. No evidence of appendiceal abscess or perforation. Pelvis: Urinary Bladder: Normal in contour and wall thickness. No intraluminal lesions. Uterus: non visualized likely surgically removed. Both adnexa are unremarkable, no solid or cystic lesions. Vagina: Normal in contour and wall thickness. Peritoneal and Retroperitoneal Structures: No free fluid or abnormal fluid collections were identified within the abdomen or pelvis. No lymphadenopathy was noted. Bowel: Fluid filled mildly dilated duodenum, jejunum and proximal ileal with no evidence of obstruction. The rest of visualized bowel loops are normal in caliber and appearance. No evidence of bowel obstruction or wall thickening. Bones and Soft Tissues: Lumbar spondylotic changes, with dextroscoliotic lumbar curve and marginal osteophytosis. Hypertrophied left paravertebral muscle. Lower chest cuts show hiatus hernia and bilateral parenchymal bands. IMPRESSION: 1. Mildly dilated fluid filled small bowel loops with no evidence of obstruction, mild increased. 2. Clinical correlation is recommended for further evaluation. 3. No other interval changes. Electronically signed by Jeremías Treviño 01-24-2025 07:51 AM Discharge Instructions Given to Patient (Per Discharging Provider) Isabelle, You were admitted and treated for an acute Norovirus infection that caused your symptoms. You were seen by the habitat conservation planner who recommended symptomatic treatment of your symptoms. We gave you medications to help with your nausea and we are discharging you home with the medication Promethazine to take as needed if your home zofran/ondansetron does not help your symptoms. Please do not take your home furosemide/lasix and potassium supplements until your diarrhea and vomiting has completely resolved. You are losing fluid with diarrhea or vomiting and the furosemide will make your fluid losses worse during the acute illness. Please do your best to stay hydrated at home and advance your diet as tolerated. Please keep close follow up with your primary care provider after discharge. Please also keep close followup with your habitat conservation planner. We are working on setting you up with an appointment with your habitat conservation planner Dr Alaniz. Please do not hesitate to come back to the emergency room if your symptoms worsen or return. It was a pleasure taking care of you while you were here. Total Time Total Time Spent Total Time Spent (In Minutes): 60
[2025-01-25] MEDS ORDERED: UMECLIDINIUM/VILANTEROL 62.5/25MCG 7 PUFFS/INHALER INH SCH (10:15)
[2025-01-25] MEDS: UMECLIDINIUM BROMIDE 62.5MCG/BLISTER 7 PUFFS/INHALER INH SCH (10:47)
[2025-01-25] MEDS: KETOROLAC TROMETHAMINE 15 MG/ML VIAL IV ONE (10:47)
--- OUTSIDE RECORDS SUMMARY | 2025-01-25 17:07 | External Medical Summary | Summary of Care ---
Author Name Unknown Organization [facility] Address [address] [place] [address] Phone [phone] Care Team Providers Care Ground Service Equipment Mechanic Name Role Phone Jose Antonio Almazan MD Primary Care Provider [phone]- [phone] Reason for Referral * Evaluate & Treat - Unlimited Visits (Within 30 days (routine)) - Authorized Specialty Diagnoses / Procedures Referred By Contosiel t Referred To Contact Gastroenterology Diagnoses Gastroesophageal reflux disease, unspecified whether esophagitis present History of Fontaine's esophagus Denita Fontanez PA-C [address] [address] Phone: tel: fax: Referral ID Status Reason Start Date Expiration Date Visits Requested Visits Authorized [id number] Authorized Specialty Services Required 01/24/[phone] Question Answer Referral Priority Within 30 days (routine) Where should this appointment be scheduled? [facility] For what condition is the patient being referred? All Other Gastro Conditions (Abdominal Pain, Change in Bowel Habits, Anemia, Reflux) Other conditions (please specify): barretts Reason for Visit * Reason Onset Date Comments Hospital Follow-Up 01/24/2025 Encounter Details Date Type Department Care Team (Late st Contact Info) Description 01/24/2025 Telephone [facility] Jose Sparks [address] [phone] Jose Antonio Almazan MD [address] [id number] Hospital Follow-Up Allergies Active Allergy Reactions Criticality Noted Date Comments Amoxicillin-Pot Clavulanate Diarrhea,Itching 09/26/2015 Bloating, diarrhea, itching (on back) Clarithromycin 07/01/2018 GI distress documented as of this encounter (statuses as of 01/25/2025) Medications ASPIRIN 81 MG PO TABSIndications:ta kes at night Indications: takes at night Active OMEPRAZOLE 40 MG PO CPDRIndications:Ba rrett's esophagus One pill by mouth once a day 1 hour before the first meal of the day 30 Cap 5 4 Active FLUTICASONE PROPIONATE 50 MCG/ACT NA SUSPIndications:Ch ronic rhinitis instill 2 sprays into each nostril once daily 3 Inhaler 5 5 Active Calcium Carb-Cholecalcifer ol 600-200 MG-UNIT Oral Tablet Take 1 Tablet by mouth in the morning. Active Loratadine 10 MG Oral CapsuleIndications :takes at night Take 1 Capsule by mouth in the morning. Active Tezepelumab-ekko 210 MG/1.91ML Subcutaneous Solution Prefilled Syringe (Tezspire) Inject 1.91 mL under the skin Every Month. 2 Active Trelegy Ellipta 200-62.5-25 MCG/ACT Aerosol Powder Breath Activated (Fluticasone-Umecl idinium-Vilanterol ) Inhale 1 Puff by mouth at bedtime. Active Furosemide 20 MG Oral Tablet (Lasix)Indications :Edema of left lower leg,Edema of left ankle,HTN, goal below 140/90,Lymphedema Take one tab by mouth daily 90 Tablet 3 4 Active Potassium Chloride Brenda ER 20 MEQ Oral Tablet Extended ReleaseIndications :Edema of left lower leg TAKE 1 TABLET BY MOUTH ONCE DAILY 90 Tablet 3 4 Active Levothyroxine Sodium 88 MCG Oral Tablet (Levoxyl)Indicatio ns:Acquired hypothyroidism Take 1 tablet by mouth once daily 90 Tablet 3 4 Active Albuterol Sulfate HFA 108 (90 Base) MCG/ACT Inhalation Aerosol SolutionIndication s:Severe persistent asthma without complication Inhale 2 Puffs by mouth in the morning and 2 Puffs at noon and 2 Puffs in the evening and 2 Puffs before bedtime. 54 g 1 4 Active Montelukast Sodium 10 MG Oral Tablet (Singulair) Take 1 Tablet by mouth at bedtime. 90 Tablet 3 4 Active Simvastatin 20 MG Oral Tablet (Zocor) TAKE 1 TABLET BY MOUTH EVERY DAY AT BEDTIME 90 Tablet 1 4 Active CeleBREX 200 MG Oral Capsule Take 1 Capsule by mouth in the morning and 1 Capsule before bedtime. 5 Active traMADol HCl 50 MG Oral Tablet (Ultram) Take 1 Tablet by mouth every 6 hours as needed for Pain, Moderate or Pain, Mild. Active Ondansetron 4 MG Oral Tablet Disintegrating (Zofran) Place 1 Tablet on tongue every 8 hours as needed for Vomiting or Nausea. 5 Active Lisinopril 40 MG Oral Tablet Take 1 Tablet by mouth in the morning. 90 Tablet 1 5 Active Nitrofurantoin Monohyd Macro 100 MG Oral Capsule (Macrobid) Take 1 Capsule by mouth in the morning and 1 Capsule before bedtime. Do all this for 7 days. With food until gone. 14 Capsule 5 01/25/20 25 documented as of this encounter (statuses as of 01/25/2025) Active Problems Problem Noted Date Diagnosed Date Allergic bronchopulmonary aspergillosis 01/18/20 25 Melanoma in situ of left upper arm 01/17/2025 Severe persistent asthma without complication History of Fontaine's esophagus 10/12/2024 Allergic rhinitis 01/06/2019 History of breast cancer 07/01/2018 Irritable bowel syndrome 05/03/2014 Esophageal reflux 04/30/2011 Dyslipidemia, goal LDL below 100 01/03/2010 Chronic rhinitis 01/16/2000 HTN, goal below 140/90 01/16/2000 Hypothyroidism 01/16/2000 documented as of this encounter (statuses as of 01/25/2025) Resolved Problems Problem Noted Date Diagnosed Date [...] as of this encounter (statuses as of 01/25/2025) Immunizations Name Administration Dates Next Due COVID-19 [...] Packs/Day Years Used Date Smoking Tobacco: Never Passive Smoke Exposure: Never Smokeless Tobacco: Never Alcohol Use Standard [...] 12/01/2024 Does the household have a re gular source of income? (Household - for ages [...] ages 0-17 years) Not on file 12/01/2024 Food Insecurity Answer Date Recorded Within the past 12 months, y ou worried that your food would run out before you got the money to buy more. Patient declined Within the past 12 months, t he food you bought just didn't last and you didn't have money to get more. Patient declined Do you need food for this week? No 12/01/2024 Comments No Sex and Gender Information Value Date Recorded Sex Assigned at Female 07/30/2019 11:47 AM EDT Legal Sex Female 5:58 AM EST Gender Identity Female 07/30/2019 11:47 AM EDT Sexual Orientation Straight 07/30/2019 11 :47 AM EDT Occupation Industry Job Start Date Job End Date Teacher Not on file Not on file Not on file documented as of this encounter Miscellaneous Notes * Telephone Encounter - Denita Fontanez PA-C - 01/24/2025 3:55 PM EDT Inboxologist Note: Gastroesophageal reflux disease, unspecified whether esophagitis present (Primary) - ADULT GASTROENTEROLOGY REFERRAL OP History of Fontaine's esophagus - ADULT GASTROENTEROLOGY REFERRAL OP Denita Fontanez PA-C 01/24/2025 3:55 PM * Telephone Encounter - Mary Ellen Suresh LPN - 01/24/2025 2:35 PM EDT Referral is pending. * Telephone Encounter - Torrie Zelaya RN - 01/24/2025 9:23 AM EDT Patient seen in the ER and not requiring admission but needs GI follow up. Attempted to get appointment but needs referral according to the pharmacy scheduler. Patient has seen Dr. Alaniz for a procedure last year. Can you please help facilitate this. Thank you. documented in this encounter Plan of Treatment Upcoming Encounters Date Type Department Care Team ([facility] st Contact Info) Description 05/04/2025 2:30 PM EDT Office Visit Otolaryngology/Head & Neck/Facial Plastic Surgery [address] [place] [facility] [place] [address] Kana Calvert MD [address] [place] [facility] [place] [address] 05/11/2025 8:40 AM EDT Office Visit [address] [phone] Alvin Webb PA-C [address] [place] [address] 05/16/2025 9:00 AM EDT Office Visit [facility] Jeniffer Mendoza [address] [phone] Jose Antonio Almazan MD [address] [place] [place] [address] Scheduled Procedures Name Priority Associated Diagnoses Date/Ti me ESOPHAGOGASTRODUODENOSCOPY ( EGD), FLEXIBLE, TRANSORAL, DIAGNOSTIC Recall Fontaine's esophagus COLONOSCOPY FLEXIBLE PROXIMAL DIAGNOSTIC Recall Colon cancer screening Scheduled Referrals Name Type Priority Associated Diagnoses Order Schedule ADULT GASTROENTEROLOGY REFERRAL OP Referral Within 30 days (routine) Gastroesophageal reflux disease, unspecified whether esophagitis present History of Fontaine's esophagus Ordered: 01/24/2025 Health Maintenance Due Date Last Done Comments DXA Scan 1950 Hepatitis C Screening 1968 Adult Wellness Visit 04/20/2020 04/20/2019 DTap/Tdap Vaccines (2 - Td or Tdap) 01/21/2023 01/21/2013, 11/20/2005, 11/20/2005, Additional history exists Depression Screening 01/14/2024 01/14/2023 COVID-19 Vaccine ( season) 2025 09/24/2024, 09/30/2023, 08/08/2022, Additional history exists GFR 05/28/2025 05/28/2024, 06/17, 07/15/2022, Additional history exists TSH 05/28/2025 05/28/2024, 06/17, 08/27/2022, Additional history exists Albumin/Creatinine Ratio 08/27/2025 08/27/2022 Fontaine's Esophagus Surveilance 06/08/2027 06/08/2024, 06/08/2024, 12/07/2020, Additional history exists Pneumococcal Vaccine: 50+ Years Completed 12/14/2015, 07/28/2014 Colonoscopy Discontinued 03/13/2016, 02/16, 02/25/2006 Colorectal Cancer Screening Discontinued Zoster Vaccines Completed 11/01/2019, 06/17, 02/25/2013 Influenza Vaccine (FLU shot) Completed 09/24/2024, 09/16/2023, [...] on patient's age to complete this topic Meningitis B Vaccine (Bexsero/Trumemba) Aged Out No longer eligible based on patient's age to complete this topic Sigmoidoscopy Discontinued documented as of this encounter Medical Devices Implanted Type Area Bacon De Rinder Device Identifier Shelf Expiration Date Model / Serial / Lot Lens Intraoc 22.5 - [id number] - [id number] Implanted:Qty: 1 on 01/04/2021 by Deangelo Bowman MD at OR [facility] Right: Eye [employer] 07/17/2025 [id number] / [id number] / [id number] Lens Intraoc 23.0 - [id number] - [id number] Implanted:Qty: 1 on 01/11/2021 by Deangelo Bowman MD at OR [facility] Left: Eye [employer] 03/16/2025 [id number] / [id number] / [id number] documented as of this encounter Visit Diagnoses Diagnosis Gastroesophageal reflux disease, unspecified whether esophagitis present- Primary History of Fontaine's esophagus documented in this encounter Advance Directives Documents on File Type Date Recorded Patient Extension Service Agent Expl anation Advance Directives and Living Will 2001 LIVING WILL DECLARAT ION * No Code Status (Latest Code Status on File) Date Activated Date Inactivated Comments 07/03/2004 3:10 PM 07/03/2004 3:10 PM Care Teams Ground Service Equipment Mechanic Relationship Specialty Start Date End Date Jose Antonio Almazan MD PCP - General 08/03/02 documented as of this encounter
--- OUTSIDE RECORDS SUMMARY | 2025-01-25 17:07 | External Medical Summary | Summary of Care ---
Author Name Unknown Organization [facility] Address [address] [place] [address] Phone [phone] Care Team Providers Care Senior Quality Methods Specialist Name Role Phone Jose Antonio Almazan MD Primary Care Provider [phone]- [phone] Reason for Referral * Evaluate & Treat - Unlimited Visits (Within 30 days (routine)) - Authorized Specialty Diagnoses / Procedures Referred By Contosiel t Referred To Contact Gastroenterology Diagnoses Gastroesophageal reflux disease, unspecified whether esophagitis present History of Fontaine's esophagus Denita Fontanez PA-C [address] [address] Phone: tel: fax: Referral ID Status Reason Start Date Expiration Date Visits Requested Visits Authorized [id number] Authorized Specialty Services Required 01/24/[phone] [...] (Late st Contact Info) Description 01/24/2025 Telephone [facility] Jose Sparks [address] [phone] Jose Antonio Almazan MD [address] [phone] Hospital Follow-Up Allergies Active Allergy Reactions Criticality [...] appointment but needs referral according to the wind development director. Patient has seen Dr. Alaniz for a procedure last year. Can you please help facilitate this. Thank you. documented in this encounter Plan of Treatment Upcoming Encounters Date Type Department Care Team ([facility] st Contact Info) Description 05/04/2025 2:30 PM EDT Office Visit Otolaryngology/Head & Neck/Facial Plastic Surgery [address] [place] [facility] [place] [facility] [place] [address] Kana Calvert MD [address] [facility] [place] [address] 05/11/2025 8:40 AM EDT Office Visit [address] [address] Alvin Webb PA-C [address] [place] [address] 05/16/2025 9:00 AM EDT Office Visit [facility] Jeniffer Mendoza [address] [phone] Jose Antonio Almazan MD [address] [facility] [place] [address] Scheduled Procedures Name Priority Associated Diagnoses Date/Ti [...] this encounter Medical Devices Implanted Type Area Clammer Device Identifier Shelf Expiration Date Model / Serial / Lot Lens Intraoc 22.5 - [id number] - [id number] Implanted:Qty: 1 on 01/04/2021 by Deangelo Bowman MD at OR [facility] Right: Eye [employer] 07/17/2025 [id number] / [id number] / [id number] Lens Intraoc 23.0 - [id number] - [id number] Implanted:Qty: 1 on 01/11/2021 by Deangelo Bowman MD at OR [facility] Left: Eye [employer] 03/16/2025 [id number] / [id number] / [id number] documented as of this encounter Visit Diagnoses Diagnosis Gastroesophageal reflux disease, unspecified whether esophagitis present- Primary History of Fontaine's esophagus documented in this encounter Advance Directives Documents on File Type Date Recorded Patient Marketing Associate Expl anation Advance Directives and Living Will 2001 LIVING WILL DECLARAT ION * No Code Status (Latest Code Status on File) Date Activated Date Inactivated Comments 07/03/2004 3:10 PM 07/03/2004 3:10 PM Care Teams Senior Quality Methods Specialist Relationship Specialty Start Date End Date Jose Antonio Almazan MD PCP - General 08/03/02 documented as of this encounter
--- NOTE | 2025-01-26 06:53 | Electrocardiogram Report ---
Test Reason : Blood Pressure : */* mmHG Vent. Rate : 84 BPM Atrial Rate : 84 BPM P-R Int : 126 ms QRS Dur : 122 ms QT Int : 388 ms P-R-T Axes : 65 37 15 degrees QTcB Int : 458 ms Normal sinus rhythm with sinus arrhythmia Right bundle branch block Abnormal ECG When compared with ECG of 25-Jan-2025 06:30, No significant change was found Confirmed by Mike Brice ([id number]) on 01/26/2025 6:52:59 AM Referred By: REFERRED SELF Confirmed By: Mike Brice
--- NOTE | 2025-01-26 06:53 | Electrocardiogram Report ---
Test Reason : Blood Pressure : */* mmHG Vent. Rate : 83 BPM Atrial Rate : 83 BPM P-R Int : 120 ms QRS Dur : 124 ms QT Int : 394 ms P-R-T Axes : 41 2 5 degrees QTcB Int : 462 ms Normal sinus rhythm Right bundle branch block Abnormal ECG When compared with ECG of 24-Jan-2025 05:08, T wave inversion now evident in Inferior leads Confirmed by Mike Brice ([id number]) on 01/26/2025 6:52:48 AM Referred By: REFERRED SELF Confirmed By: Mike Brice
== END 2025-01-25 13:32 | disposition home or self-care (01) ==
LOC: EDINP 04:48 → ED 04:48 → 3E 14:47